=== PATIENT | female | born 1985 | race Caucasian/White ===

== ENCOUNTER → 2017-06-06 | Emergency (ER) | payer BC, MEDICARE ==
[~2017-06-06] VITALS: Ht 160 cm; Wt 90.7 kg
[~2017-06-06] MED LIST: ACET250T3 PO; ACET500C PO; ACHD5005 PO; ADDR10T PO; AMPH20TA PO; AZIT-21 PO; Acetazolamide PO; Azithromycin PO; CARI250T7 PO; CARI350T27 PO; CEFD300C PO; CHOL5000 PO; CHOL500049 PO; COLLOIDAL SILVER PO; CYAN1LOZ SL; CYCL10TA9 PO; D50KC PO; DEXT10TA24 PO; DIAZ5TAB PO; DIPH25TA82 PO; DOMPERIDONE 10 MG PO; DOXY100C42 PO; EPIN0.3P3 IM; FLC1T PO; FLORASTOR PO; FLUC100T PO; FLUD0.1T7 PO; FOLI0.8T PO; FOLI1TAB24 PO; FRSM20T PO; FURO20TA4 PO; GABA-488 PO; GBPN300C PO; HYDR-2856 PO; HYDR-2890 PO; HYDR-3720 PO; HYDR-3816 PO; HYDR-707 PO; HYDR200T46 PO; HYDROcodone/APAP 7.5 MG/325 MG (LORTAB, LORCET PLUS) TABLET PO STA; HYDROmorphone (DILAUDID) 2 MG/ML VIAL IVP STA; INDM25C PO; KETOROLAC 30 MG/ML VIAL IVP STA; LORA1TAB PO; MAGN400C PO; METR500T PO; MODA200T48 PO; MORP100S3 PO; MORP20SO15 PO; Morphine PO; NAPR220C PO; NYSTATIN PO; OLIVE LEAF PO; OMEP20CA6 PO; OMEP40CA36 PO; ONDANSETRON 4 MG/2 ML (SDV) Z0FRAN IVP ONE; OXYC-12 PO; OXYC10TA63 PO; OXYC20TA63 PO; PRM25T PO; PROMETHAZINE INJ 25 MG/ML (PHENERGAN) AMP IVP STA; PROMETHAZINE INJ 25 MG/ML (PHENERGAN) AMP ONE; PROP20TA5 PO; QUET300T PO; QUET300T18 PO; QUET300T44 PO; RIFA550T PO; SCOP1PAT TD; SRTR100T PO; SUMA100T2 PO; THYR60TA2 PO; TRAZ-144 PO; VALA500T17 PO; VENL150C PO; VENL150C53 PO; VNL75T PO; ZOLP10TA5 PO; ZOLP5TAB7 PO; [UNRECOGNIZED DRUG - OTHER] PO; [UNRECOGNIZED DRUG - OTHER] PO; [UNRECOGNIZED DRUG - OTHER] PO; [UNRECOGNIZED DRUG - OTHER] PO; [UNRECOGNIZED DRUG - OTHER] PO; [UNRECOGNIZED DRUG - OTHER] PO; [UNRECOGNIZED DRUG - OTHER] PO; [UNRECOGNIZED DRUG - OTHER] PO; [UNRECOGNIZED DRUG - OTHER] PO; [UNRECOGNIZED DRUG - OTHER] PO; [UNRECOGNIZED DRUG - OTHER] PO; [UNRECOGNIZED DRUG - OTHER] PO; [UNRECOGNIZED DRUG - OTHER] PO; [UNRECOGNIZED DRUG - OTHER] PO; [UNRECOGNIZED DRUG - OTHER] PO; [UNRECOGNIZED DRUG - OTHER] PO; [UNRECOGNIZED DRUG - OTHER] PO; [UNRECOGNIZED DRUG - OTHER] PO; [UNRECOGNIZED DRUG - OTHER] PO; [UNRECOGNIZED DRUG - REMARK] PO; campral PO
--- OUTSIDE RECORDS SUMMARY | 2017-06-06 08:00 | XMS REPORT ---
Author Author [facility] Medical Staff Organization [facility] Address [address] [place], [place] [id number] Phone [phone] Summary purpose TRANSITION OF CARE AUTO GENERATION Chief Complaint and Reason for Visit No authorized Reason for Visit (Admitting Diagnosis) is available for this visit. Problem list No authorized problems tracked for continuity of care are available for this visit. Encounters No authorized problems tracked for encounter diagnoses are available for this visit. Medications No medications recorded for this patient visit Allergies, adverse reactions, alerts Allergen Category Ingredient Status Reaction Severity Onset No known drug allergies No known drug allergies No known drug allergies Confirmed or Verified Immunizations No immunizations recorded for this patient visit Relevant diagnostic tests and/or laboratory data RESULTS Radiology Results [id number]:00 Breast Sono LT Complete PACs Image DATE OF EXAM: Oct 16 2015 [id number] SONO LT COMPLETE : RADIOLOGY REPORT DATE OF SERVICE: 10/16/15 HISTORY: Patient has bilateral palpable breast lumps suspected to be cysts, positive family history of sibling with breast cancer at a young age. COMPLETE ULTRASOUND OF THE LEFT BREAST 1100 HOURS All 4 quadrants of the left breast including the retroareolar region and the axilla were evaluated. No solid or cystic masses are present. There are no dilated ducts. There is no acoustic shadowing. IMPRESSION: Negative ultrasound of the left breast. BI-RADS I. MD JOY León/al10/16/2015 11:56:00 / 10/16/2015 12:02:43 cc:Camilla Zabala APRN This document has been electronically Signed by: On: DATE OF EXAM: Oct 16 2015 [id number] SONO LT COMPLETE : RADIOLOGY REPORT DATE OF SERVICE: 10/16/15 HISTORY: Patient has bilateral palpable breast lumps suspected to be cysts, positive family history of sibling with breast cancer at a young age. COMPLETE ULTRASOUND OF THE LEFT BREAST 1100 HOURS All 4 quadrants of the left breast including the retroareolar region and the axilla were evaluated. No solid or cystic masses are present. There are no dilated ducts. There is no acoustic shadowing. IMPRESSION: Negative ultrasound of the left breast. BI-RADS I. MD JOY León/al10/16/2015 11:56:00 / 10/16/2015 12:02:43 cc:Camilla Zabala APRN This document has been electronically Signed by: AMY TURK MD On: Oct 16:04P Result Amended on 2015-10-16 at 13:04:07. Previous status was AL. [id number]:03:00 Breast Sono RT Complete PACs Image DATE OF EXAM: Oct 16 2015 [id number] SONO RT COMPLETE : RADIOLOGY REPORT DATE OF SERVICE: 10/16/15 HISTORY: Patient has bilateral palpable breast lumps suspected to be cysts, positive family history of sibling with breast cancer at a young age. COMPLETE ULTRASOUND OF THE RIGHT BREAST 1100 HOURS The breast tissue is sonographically normal. No solid or cystic masses are present in the right breast. There are no dilated ducts. No axillary lesion is seen. The retroareolar region is normal. IMPRESSION: Negative ultrasound of the right breast. MD JOY León/al10/16/2015 11:56:00 10/16/2015 12:02:22 cc:Patsy Zabala APRN This document has been electronically Signed by: On: DATE OF EXAM: Oct 16 2015 [id number] SONO RT COMPLETE : RADIOLOGY REPORT DATE OF SERVICE: 10/16/15 HISTORY: Patient has bilateral palpable breast lumps suspected to be cysts, positive family history of sibling with breast cancer at a young age. COMPLETE ULTRASOUND OF THE RIGHT BREAST 1100 HOURS The breast tissue is sonographically normal. No solid or cystic masses are present in the right breast. There are no dilated ducts. No axillary lesion is seen. The retroareolar region is normal. IMPRESSION: Negative ultrasound of the right breast. MD JOY León/adarsh10/16/2015 11:56:00 / 10/16/2015 12:02:22 cc:Patsy Zabala APRN This document has been electronically Signed by: AMY TURK MD On: Oct 16:03P Result Amended on 2015-10-16 at 13:03:54. Previous status was AL. [id number]:02:00 Bilateral Diag Digital Mammo PACs Image DATE OF EXAM: Oct 16 2015 [facility] 0852-BILAT DIAG DIG MAMMO : RADIOLOGY REPORT DATE OF SERVICE: 10/16/15 HISTORY: Patient has bilateral palpable breast lumps suspected to be cysts, positive family history of sibling with breast cancer at a young age. BILATERAL DIGITAL DIAGNOSTIC MAMMOGRAM WITH iCAD SecondLook 7.2-H+ 1030 HOURS Breast tissue is heterogeneously dense which could obscure detection of breast masses. There is no distortion or asymmetry. No definite mass is evident. There are no microcalculi. No pathological skin or nipple changes are evident. IMPRESSION: Normal mammograms BI-RADS I. MD JOY León/al10/16/2015 11:56:00 / 10/16/2015 11:59:25 cc:Camilla Zabala APRN This document has been electronically Signed by: On: DATE OF EXAM: Oct 16 2015 [facility] 0852-BILAT DIAG DIG MAMMO : RADIOLOGY REPORT DATE OF SERVICE: 10/16/15 HISTORY: Patient has bilateral palpable breast lumps suspected to be cysts, positive family history of sibling with breast cancer at a young age. BILATERAL DIGITAL DIAGNOSTIC MAMMOGRAM WITH iCAD SecondLook 7.2-H+ 1030 HOURS Breast tissue is heterogeneously dense which could obscure detection of breast masses. There is no distortion or asymmetry. No definite mass is evident. There are no microcalculi. No pathological skin or nipple changes are evident. IMPRESSION: Normal mammograms BI-RADS I. MD JOY León/al10/16/2015 11:56:00 / 10/16/2015 11:59:25 cc:Camilla Zabala APRN This document has been electronically Signed by: AMY TURK MD On: Oct 16 20151:02P Result Amended on 2015-10-16 at 13:02:40. Previous status was AL. History of procedures Procedure Code Code Type Description Date Performed Performing Physician 96848 CPT-4 ULTRASOUND BREAST COMPLETE 10-16-2015 CAMILLA ZABALA 35412 CPT-4 ULTRASOUND BREAST COMPLETE 10-16-2015 CAMILLA ZABALA 82442 CPT-4 COMPUTER DX MAMMOGRAM ADD-ON 10-16-2015 CAMILLA ZABALA 34177 CPT-4 MAMMOGRAM, BILATERAL 10-16-2015 CAMILLA HUERTALIVAN Functional status No functional or cognitive status observations are available for this visit. Vital signs No authorized vital signs are available for this visit. Social history No Social History or smoking status observations were recorded for this visit. ( Unknown if ever smoked.) Treatment Plan No treatment plan text is available for this visit. Hospital discharge instructions No discharge instruction text is available for this visit.
--- OUTSIDE RECORDS SUMMARY | 2017-06-06 08:00 | XMS REPORT | Clinical Summary ---
Author Author [facility] Address Unknown Phone Unavailable Care Team Providers Care Fnps Name Role Phone PCP Unavailable Source Comments Some departments are not documenting in the electronic medical record. If you do not see the information that you expected, contact Release of Information in the Health Information Management department at [phone] for further assistance in locating additional records[facility] Allergies No Known Allergies Current Medications Prescription Sig. Disp. Refills Start End Date Status Date oxyCODONE SR (OXYCONTIN) Take 10 mg by mouth every Active 10 mg tablet 12 hours LORazepam (ATIVAN) 1 mg Take 1 mg by mouth every Active tablet 8-12 hours as needed. HYDROcodone-acetaminophen Take 1 Tab by mouth every Active (+) (VICODIN) 10-325 mg 8-12 hours as needed. tablet thyroid (ARMOUR THYROID) Take 60 mg by mouth Active 60 mg tablet daily. propranolol (INDERAL) 20 Take 20 mg by mouth twice Active mg tablet daily. gabapentin (NEURONTIN) Take 1,200 mg by mouth at Active 300 mg capsule bedtime daily. zolpidem (AMBIEN) 10 mg Take 10 mg by mouth at Active tablet bedtime as needed. venlafaxine XR (EFFEXOR Take 150 mg by mouth Active XR) 150 mg capsule twice daily. venlafaxine (EFFEXOR) 75 Take 75 mg by mouth twice Active mg tablet daily. QUEtiapine (SEROQUEL) 300 Take 300 mg by mouth Active mg tablet daily. dextroamphetamine-ampheta Take 20 mg by mouth twice Active mine (ADDERALL) 20 mg daily tablet indomethacin (INDOCIN) 50 Take 50 mg by mouth twice Active mg capsule daily. acetaZOLAMIDE (DIAMOX Take 500 mg by mouth Active SEQUELS) 500 mg capsule twice daily. ergocalciferol (VITAMIN Take 50,000 Units by Active D-2) 50,000 unit capsule mouth every Thursday. morphine (ROXANOL) 100 Take 15 mg by mouth every Active mg/5 mL (20 mg/mL) oral 12 hours as needed concentrate diphenhydrAMINE Take 1 Cap by mouth every 30 Cap 04/03/20 Active (BENADRYL) 25 mg capsule 6 hours as needed. 14 prochlorperazine Take 1 Tab by mouth every 30 Tab 1 04/03/20 Active (COMPAZINE) 10 mg tablet 6 hours as needed (nausea 14 and headaches ). magnesium oxide (MAG-OX) Take 1 Tab by mouth every 60 Tab 1 04/03/20 Active 400 mg tablet 6 hours as needed. Take 14 with benadryl, and compazine up to every 6 hours, and naproxen every 12 hours until headache resolves. naproxen (NAPROSYN) 500 Take 1 Tab by mouth twice 60 Tab 1 04/03/20 Active mg tablet daily as needed. Take 14 every 12 hours, along with magnesium, benadryl and compazine, until headache resolves. Active Problems Problem Noted Date Pseudotumor cerebri 03/31/2014 Family History Medical History Relation Name Comments Diabetes Father Sudhir Cancer Sister Michaelle Relation Name Status Comments Father Sudhir Alive Mother Maira Alive Sister Michaelle Alive Social History Tobacco Use Types Packs/Day Years Used Date Never Smoker Smokeless Tobacco: Never Used Alcohol Use Drinks/Week oz/Week Comments No Sex Assigned at Date Recorded Not on file Last Filed Vital Signs Vital Sign Reading Time Taken Blood Pressure 123/90 04/03/2014 11:26 AM CDT Pulse 110 04/03/2014 11:26 AM CDT Temperature 36.4 C (97.6 F) 04/03/2014 11:26 AM CDT Respiratory Rate - - Oxygen Saturation 100% 04/03/2014 11:26 AM CDT Inhaled Oxygen - - Concentration Weight 88.6 kg (195 lb 6.4 oz) 03/31/2014 8:23 PM CDT Height 165.1 cm (5' 5") 04/01/2014 2:02 PM CDT Body Mass Index 32.52 03/31/2014 8:23 PM CDT Plan of Treatment Health Maintenance Due Date Last Done Comments PHYSICAL (COMPREHENSIVE) 1993 EXAM PERTUSSIS VACCINE 1997 TETANUS VACCINE 2003 CERVICAL CANCER SCREENING 2016 INFLUENZA VACCINE 06/19/2017 Results Not on filefrom Last 3 Months
--- OUTSIDE RECORDS SUMMARY | 2017-06-06 08:01 | XMS REPORT | Clinical Summary ---
Author Author Admin, LISA Organization [facility] Address Unknown Phone Unavailable Allergies, Adverse Reactions, Alerts Allergy Name Reaction Description Start Date Severity Status Provider No Known Allergies Steffi Monge LPN Conditions or Problems Problem Name Problem Code Onset Date Status Entry Date Provider Comment Standard Description Annotate DEPRESSION 311 Resolved Brit Jacinto MD PhD Depressive disorder, not elsewhere classified MENINGITIS 322.9 Active Ignacio Colmenares DO Meningitis, unspecified SINUSITIS 473.9 Resolved Brit Jacinto MD PhD Unspecified sinusitis (chronic) COMMON MIGRAINE 346.10 Active Ramu LAUGHLIN Migraine without aura, without mention of intractable migraine, without mention of status migrainosus DEPRESSION, MAJOR, MILD 296.21 Active Ignacio Colmenares DO Major depressive disorder, single episode, mild degree Ingrown toenail 703.0 Active Brit Jacinto MD PhD Ingrowing nail Flank pain, right 789.09 Active Julito Taylor APRN Abdominal pain, other specified site; multiple sites UTI 599.0 Active Julito Taylor APRN Urinary tract infection, site not specified DEPRESSION ICD-311 Inactive Brit Jacinto MD PhD SINUSITIS ICD-473.9 Inactive Brit Jacinto MD PhD Medication List Medication Instructions Start Date Stop Date Generic Name [facility] Status Provider Patient Instruction FIORICET 325-50-40 MG TAB 1-2 tabs by mouth q6hr PRN headache [id number] 76838066362 Active Mechelle [place] Active LORAZEPAM 0.5 MG TAB 1 po q day prn anxiety LORAZEPAM 97631072135 Active Ignacio Colmenares DO Active SEROQUEL 25 MG TABS 1 po q evening for major depression QUETIAPINE FUMARATE 17657703123 Active Ignacio Colmenares Active LEXAPRO 10 MG TABS 1 tablet by mouth daily ESCITALOPRAM OXALATE 66544150573 Active Ignacio Colmenares DO Active CELEXA 20 MG TABS 1 po daily CITALOPRAM HYDROBROMIDE 12602491984 No Longer Active Ignacio Colmenares DO Active SUMATRIPTAN SUCCINATE 100 MG TABS 1 po at onset of headache may repeat in 2 hrs. SUMATRIPTAN SUCCINATE 43593329982 Active Ramu LAUGHLIN Active HYDROCODONE-ACETAMINOPHEN 5-325 MG TABS 1 every 4-6 hrs prn HYDROCODONE-ACETAMINOPHEN 75504331899 Active Ramu LAUGHLIN Active PREDNISONE 20 MG TAB 1 po bid 3 days, then 1 po q day 3 days 2012 PREDNISONE 45241444656 No Longer Active Ramu LAUGHLIN Active CEFTIN 500 MG TAB 1 po bid 10 day CEFUROXIME AXETIL 92522165745 No Longer Active Ramu LAUGHLIN Active AMITRIPTYLINE HCL 10 MG TABS 1 po at hs prn AMITRIPTYLINE HCL 67748028849 Active Ignacio Colmenares DO Active IBUPROFEN 200 MG TAB 3-4 tabs prn IBUPROFEN 92975057999 Active Ignacio Colmenares DO Active TYLENOL 500 MG TAB 2 tabs prn ACETAMINOPHEN 73347642786 Active Ignacio Colmenares DO Active MIRENA IUD LEVONORGESTREL IUD 83813181607 Active Ignacio Colmenares DO Active AMBIEN 10 MG TAB 1 tab by mouth at bedtime as needed for sleep ZOLPIDEM TARTRATE 41672617114 Active Ignacio Colmenares DO Active AZITHROMYCIN 250 MG TABS 2 pills day 1,1 pill day 2-5 AZITHROMYCIN 59027859742 No Longer Active Nicole Gimenez MD Active CEFTIN 500 MG TAB 1 po bid 10 day CEFTIN 500 MG TAB 484987 CEFUROXIME AXETIL Inactive PREDNISONE 20 MG TAB 1 po bid 3 days, then 1 po q day 3 days 2012 PREDNISONE 20 MG TAB 079753 PREDNISONE Inactive CELEXA 20 MG TABS 1 po daily CELEXA 20 MG TABS 040931 CITALOPRAM HYDROBROMIDE Inactive AZITHROMYCIN 250 MG TABS 2 pills day 1,1 pill day 2-5 AZITHROMYCIN 250 MG TABS 5086461 AZITHROMYCIN Inactive Vital Signs Date Name Value Unit Range Description blood pressure, diastolic - 8462-4 90 mm[Hg] BP león blood pressure, systolic - 8480-6 131 mm[Hg] BP sys pulse rate E&M - 8867-4 108 /min Heart rate temperature E&M 98.5 [degF] Body temperature weight E&M - 3141-9 182 [lb_av] Weight Measured blood pressure, diastolic - 8462-4 76 mm[Hg] BP león blood pressure, systolic - 8480-6 109 mm[Hg] BP sys pulse rate E&M - 8867-4 82 /min Heart rate temperature E&M 98.9 [degF] Body temperature weight E&M - 3141-9 172.6 [lb_av] Weight Measured Encounters Code Encounter Date Provider Facility CPT-26706 Level 3 Est. Patient 08:18:06 CDT Julito Taylor APRN [facility] CPT-00955 Level 3 Est. Patient 10:12:22 ROLLER VARNISHER Ignacio Colmenares [facility] CPT-71641 Level 3 Est. Patient 14:30:38 ROLLER VARNISHER Ignacio Colmenares [facility] CPT-51956 Level 3 Est. Patient 08:21:09 ROLLER VARNISHER Ramu LAUGHLIN [facility] CPT-16803 Level 3 Est. Patient 15:39:17 ROLLER VARNISHER Ramu LAUGHLIN [facility] CPT-34128 Level 3 Est. Patient 18:43:41 CDT Ignacio Colmenares DO [facility] Procedures Code Procedure Name Date Entry Date Standard Description CPT-63868 Abd single AP View 13:53:50 CDT CPT-86320 Nail Avulsion 17:26:33 CDT CPT-39056 Abx/Therapy Injection 10:36:59 ROLLER VARNISHER CPT-J1885 Toradol 60 mg (Ketorolac) 16:20:19 ROLLER VARNISHER CPT-03476 Abx/Therapy Injection 16:20:19 ROLLER VARNISHER CPT-35850 Venipuncture Draw Fee 14:45:53 ROLLER VARNISHER CPT-85354 Abx/Therapy Injection 08:21:09 ROLLER VARNISHER CPT-J2550 Phenergan 50 mg (Promethazine) 16:24:49 ROLLER VARNISHER CPT-J2175 Demerol 75 mg (Meperidine) 16:24:49 ROLLER VARNISHER CPT-J2550 Phenergan 50 mg (Promethazine) 18:33:49 ROLLER VARNISHER CPT-J2175 Demerol 50 mg (Meperidine) 18:33:49 ROLLER VARNISHER CPT-J2550 Phenergan 50 mg (Promethazine) 15:39:17 ROLLER VARNISHER CPT-J2175 Demerol 50 mg (Meperidine) 15:39:17 ROLLER VARNISHER CPT-OV Office Visit 16:53:10 CDT
--- OUTSIDE RECORDS SUMMARY | 2017-06-06 08:01 | XMS REPORT | Clinical Summary ---
Author Author Admin, LISA Organization [facility] Address Unknown Phone Unavailable Allergies, Adverse [...] APRN Urinary tract infection, site not specified SINUSITIS ICD-473.9 Inactive Brit Jacinto MD PhD DEPRESSION ICD-311 Inactive Brit Jacinto MD PhD Medication List Medication Instructions Start Date Stop Date Generic Name [facility] Status Provider Patient Instruction FIORICET 325-50-40 MG TAB 1-2 tabs by mouth q6hr PRN headache [id number] 64152322843 Active Mechelle [place] Active LORAZEPAM 0.5 MG TAB 1 po q day prn anxiety LORAZEPAM 85149921920 Active Ignacio Colmenares DO Active SEROQUEL 25 MG TABS 1 po q evening for major depression QUETIAPINE FUMARATE 62605950078 Active Ignacio Colmenares DO Active LEXAPRO 10 MG TABS 1 tablet by mouth daily ESCITALOPRAM OXALATE 22771819141 Active Ignacio Colmenares Active CELEXA 20 MG TABS 1 po daily CITALOPRAM HYDROBROMIDE 60317216748 No Longer Active Ignacio Colmenares DO Active SUMATRIPTAN SUCCINATE 100 MG TABS 1 po at onset of headache may repeat in 2 hrs. SUMATRIPTAN SUCCINATE 11005765236 Active Ramu LAUGHLIN Active HYDROCODONE-ACETAMINOPHEN 5-325 MG TABS 1 every 4-6 hrs prn HYDROCODONE-ACETAMINOPHEN 04071762248 Active Ramu LAUGHLIN Active PREDNISONE 20 MG TAB 1 po bid 3 days, then 1 po q day 3 days 2012 PREDNISONE 26977196468 No Longer Active Ramu LAUGHLIN Active CEFTIN 500 MG TAB 1 po bid 10 day CEFUROXIME AXETIL 00672233949 No Longer Active Ramu LAUGHLIN Active AMITRIPTYLINE HCL 10 MG TABS 1 po at hs prn AMITRIPTYLINE HCL 35476837109 Active Ignacio Colmenares DO Active IBUPROFEN 200 MG TAB 3-4 tabs prn IBUPROFEN 33306791739 Active Ignacio Colmenares DO Active TYLENOL 500 MG TAB 2 tabs prn ACETAMINOPHEN 59825945865 Active Ignacio Colmenares DO Active MIRENA IUD LEVONORGESTREL IUD 01592226476 Active Ignacio Colmenares DO Active AMBIEN 10 MG TAB 1 tab by mouth at bedtime as needed for sleep ZOLPIDEM TARTRATE 86073817509 Active Ignacio Colmenares DO Active AZITHROMYCIN 250 MG TABS 2 pills day 1,1 pill day 2-5 AZITHROMYCIN 02156938751 No Longer Active Nicole Gimenez MD Active CEFTIN 500 MG TAB 1 po bid 10 day CEFTIN 500 MG TAB 477160 CEFUROXIME AXETIL Inactive PREDNISONE 20 MG TAB 1 po bid 3 days, then 1 po q day 3 days 2012 PREDNISONE 20 MG TAB 256587 PREDNISONE Inactive CELEXA 20 MG TABS 1 po daily CELEXA 20 MG TABS 010604 CITALOPRAM HYDROBROMIDE Inactive AZITHROMYCIN 250 MG TABS 2 pills day 1,1 pill day 2-5 AZITHROMYCIN 250 MG TABS 2546538 AZITHROMYCIN Inactive Vital Signs Date Name Value [...] Measured Encounters Code Encounter Date Provider Facility CPT-79621 Level 3 Est. Patient 08:18:06 CDT Julito Taylor APRN [facility] CPT-79536 Level 3 Est. Patient 10:12:22 CUSTOMER SERVICE ASSISTANT Ignacio Colmenares [facility] CPT-12899 Level 3 Est. Patient 14:30:38 CUSTOMER SERVICE ASSISTANT Ignacio Colmenares [facility] CPT-62242 Level 3 Est. Patient 08:21:09 CUSTOMER SERVICE ASSISTANT Ramu LAUGHLIN [facility] CPT-38722 Level 3 Est. Patient 15:39:17 CUSTOMER SERVICE ASSISTANT Ramu LAUGHLIN [facility] CPT-20383 Level 3 Est. Patient 18:43:41 CDT Ignacio Colmenares DO [facility] Procedures Code Procedure Name Date Entry Date Standard Description CPT-18969 Nail Avulsion 17:26:33 CDT CPT-44004 Abx/Therapy Injection 10:36:59 CUSTOMER SERVICE ASSISTANT CPT-J1885 Toradol 60 mg (Ketorolac) 16:20:19 CUSTOMER SERVICE ASSISTANT CPT-76911 Abx/Therapy Injection 16:20:19 CUSTOMER SERVICE ASSISTANT CPT-16492 Venipuncture Draw Fee 14:45:53 CUSTOMER SERVICE ASSISTANT CPT-22307 Abx/Therapy Injection 08:21:09 CUSTOMER SERVICE ASSISTANT CPT-J2550 Phenergan 50 mg (Promethazine) 16:24:49 CUSTOMER SERVICE ASSISTANT CPT-J2175 Demerol 75 mg (Meperidine) 16:24:49 CUSTOMER SERVICE ASSISTANT CPT-J2550 Phenergan 50 mg (Promethazine) 18:33:49 CUSTOMER SERVICE ASSISTANT CPT-J2175 Demerol 50 mg (Meperidine) 18:33:49 CUSTOMER SERVICE ASSISTANT CPT-J2550 Phenergan 50 mg (Promethazine) 15:39:17 CUSTOMER SERVICE ASSISTANT CPT-J2175 Demerol 50 mg (Meperidine) 15:39:17 CUSTOMER SERVICE ASSISTANT CPT-OV Office Visit 16:53:10 CDT
--- OUTSIDE RECORDS SUMMARY | 2017-06-06 08:01 | XMS REPORT | Clinical Summary ---
Author Author Admin, LISA Organization [facility] Address Unknown Phone Unavailable Allergies, Adverse Reactions, Alerts Allergy Name Reaction Description Start Date Severity Status Provider No Known Allergies Corinne Esqueda LPN Conditions or Problems Problem Name Problem [...] Active Brit Jacinto MD PhD Ingrowing nail DEPRESSION ICD-311 Inactive Brit Jacinto MD PhD SINUSITIS ICD-473.9 Inactive Brit Jacinto MD PhD Medication List Medication Instructions Start Date Stop Date Generic Name [facility] Status Provider Patient Instruction FIORICET 325-50-40 MG TAB 1-2 tabs by mouth q6hr PRN headache [id number] 47880030594 Active Mechelle John Active LORAZEPAM 0.5 MG TAB 1 po q day prn anxiety LORAZEPAM 72956106440 Active Ignacio Colmenares DO Active SEROQUEL 25 MG TABS 1 po q evening for major depression QUETIAPINE FUMARATE 72265423480 Active Ignacio W Darrian DO Active LEXAPRO 10 MG TABS 1 tablet by mouth daily ESCITALOPRAM OXALATE 81082961819 Active Ignacio Colmenares DO Active CELEXA 20 MG TABS 1 po daily CITALOPRAM HYDROBROMIDE 92139888427 No Longer Active Ignacio Colmenares DO Active SUMATRIPTAN SUCCINATE 100 MG TABS 1 po at onset of headache may repeat in 2 hrs. SUMATRIPTAN SUCCINATE 85127853148 Active Ramu LAUGHLIN Active HYDROCODONE-ACETAMINOPHEN 5-325 MG TABS 1 every 4-6 hrs prn HYDROCODONE-ACETAMINOPHEN 23046265376 Active Ramu LAUGHLIN Active PREDNISONE 20 MG TAB 1 po bid 3 days, then 1 po q day 3 days 2012 PREDNISONE 83317079364 No Longer Active Ramu LAUGHLIN Active CEFTIN 500 MG TAB 1 po bid 10 day CEFUROXIME AXETIL 15161326418 No Longer Active Ramu LAUGHLIN Active AMITRIPTYLINE HCL 10 MG TABS 1 po at hs prn AMITRIPTYLINE HCL 47118477669 Active Ignacio Colmenares DO Active IBUPROFEN 200 MG TAB 3-4 tabs prn IBUPROFEN 79670982621 Active Ignacio Hitesh Colmenares DO Active TYLENOL 500 MG TAB 2 tabs prn ACETAMINOPHEN 23656659280 Active Ignacio Colmenares DO Active MIRENA IUD LEVONORGESTREL IUD 56450696873 Active Ignacio Colmenares DO Active AMBIEN 10 MG TAB 1 tab by mouth at bedtime as needed for sleep ZOLPIDEM TARTRATE 64132824793 Active Ignacio Proctor Darrian SUBRAMANIAN Active AZITHROMYCIN 250 MG TABS 2 pills day 1,1 pill day 2-5 AZITHROMYCIN 77757112804 No Longer Active Nicole Gimenez MD Active CEFTIN 500 MG TAB 1 po bid 10 day CEFTIN 500 MG TAB 976597 CEFUROXIME AXETIL Inactive PREDNISONE 20 MG TAB 1 po bid 3 days, then 1 po q day 3 days 2012 PREDNISONE 20 MG TAB 849849 PREDNISONE Inactive CELEXA 20 MG TABS 1 po daily CELEXA 20 MG TABS 063727 CITALOPRAM HYDROBROMIDE Inactive AZITHROMYCIN 250 MG TABS 2 pills day 1,1 pill day 2-5 AZITHROMYCIN 250 MG TABS 2674901 AZITHROMYCIN Inactive Vital Signs Date Name Value Unit Range Description blood pressure, diastolic - 8462-4 76 mm[Hg] BP león blood pressure, systolic - 8480-6 109 mm[Hg] BP sys pulse rate E&M - 8867-4 82 /min Heart rate temperature E&M 98.9 [degF] Body temperature weight E&M - 3141-9 172.6 [lb_av] Weight Measured Encounters Code Encounter Date Provider Facility CPT-93925 Level 3 Est. Patient 10:12:22 RAIL SIGNAL MECHANIC Ignacio Colmenares [facility] CPT-39924 Level 3 Est. Patient 14:30:38 RAIL SIGNAL MECHANIC Ignacio Proctor [facility] CPT-95177 Level 3 Est. Patient 08:21:09 RAIL SIGNAL MECHANIC Ramu Miller [facility] CPT-39038 Level 3 Est. Patient 15:39:17 RAIL SIGNAL MECHANIC Ramu Miller [facility] CPT-08201 Level 3 Est. Patient 18:43:41 CDT Ignacio Proctor [facility] Procedures Code Procedure Name Date Entry Date Standard Description CPT-88639 Nail Avulsion 17:26:33 CDT CPT-39833 Abx/Therapy Injection 10:36:59 RAIL SIGNAL MECHANIC CPT-J1885 Toradol 60 mg (Ketorolac) 16:20:19 RAIL SIGNAL MECHANIC CPT-81433 Abx/Therapy Injection 16:20:19 RAIL SIGNAL MECHANIC CPT-39854 Venipuncture Draw Fee 14:45:53 RAIL SIGNAL MECHANIC CPT-20215 Abx/Therapy Injection 08:21:09 RAIL SIGNAL MECHANIC CPT-J2550 Phenergan 50 mg (Promethazine) 16:24:49 RAIL SIGNAL MECHANIC CPT-J2175 Demerol 75 mg (Meperidine) 16:24:49 RAIL SIGNAL MECHANIC CPT-J2550 Phenergan 50 mg (Promethazine) 18:33:49 RAIL SIGNAL MECHANIC CPT-J2175 Demerol 50 mg (Meperidine) 18:33:49 RAIL SIGNAL MECHANIC CPT-J2550 Phenergan 50 mg (Promethazine) 15:39:17 RAIL SIGNAL MECHANIC CPT-J2175 Demerol 50 mg (Meperidine) 15:39:17 RAIL SIGNAL MECHANIC CPT-OV Office Visit 16:53:10 CDT
--- OUTSIDE RECORDS SUMMARY | 2017-06-06 08:01 | XMS REPORT | Clinical Summary ---
Author Author Admin, LISA Organization [facility] Address Unknown Phone Unavailable Allergies, Adverse Reactions, [...] Instructions Start Date Stop Date Generic Name [facility] Status Provider Patient Instruction FIORICET 325-50-40 MG TAB 1-2 tabs by mouth q6hr PRN headache [id number] 08480178130 Active Mechelle [place] Active LORAZEPAM 0.5 MG TAB 1 po q day prn anxiety LORAZEPAM 22213520939 Active Ignacio Colmenares DO Active SEROQUEL 25 MG TABS 1 po q evening for major depression QUETIAPINE FUMARATE 57049702019 Active Ignacio Colmenares Active LEXAPRO 10 MG TABS 1 tablet by mouth daily ESCITALOPRAM OXALATE 69492172393 Active Ignacio Colmenares DO Active CELEXA 20 MG TABS 1 po daily CITALOPRAM HYDROBROMIDE 00530549608 No Longer Active Ignacio Colmenares DO Active SUMATRIPTAN SUCCINATE 100 MG TABS 1 po at onset of headache may repeat in 2 hrs. SUMATRIPTAN SUCCINATE 28897104152 Active Ramu LAUGHLIN Active HYDROCODONE-ACETAMINOPHEN 5-325 MG TABS 1 every 4-6 hrs prn HYDROCODONE-ACETAMINOPHEN 85936248650 Active Ramu LAUGHLIN Active PREDNISONE 20 MG TAB 1 po bid 3 days, then 1 po q day 3 days 2012 PREDNISONE 14099049298 No Longer Active Ramu LAUGHLIN Active CEFTIN 500 MG TAB 1 po bid 10 day CEFUROXIME AXETIL 47767089844 No Longer Active Ramu LAUGHLIN Active AMITRIPTYLINE HCL 10 MG TABS 1 po at hs prn AMITRIPTYLINE HCL 71522185603 Active Ignacio Colmenares DO Active IBUPROFEN 200 MG TAB 3-4 tabs prn IBUPROFEN 96597941538 Active Ignacio Colmenares DO Active TYLENOL 500 MG TAB 2 tabs prn ACETAMINOPHEN 41153524125 Active Ignacio Colmenares DO Active MIRENA IUD LEVONORGESTREL IUD 03573424708 Active Ignacio Colmenares DO Active AMBIEN 10 MG TAB 1 tab by mouth at bedtime as needed for sleep ZOLPIDEM TARTRATE 55987667866 Active Ignacio Colmenares DO Active AZITHROMYCIN 250 MG TABS 2 pills day 1,1 pill day 2-5 AZITHROMYCIN 55282410697 No Longer Active Nicole Gimenez MD Active CEFTIN 500 MG TAB 1 po bid 10 day CEFTIN 500 MG TAB 675316 CEFUROXIME AXETIL Inactive PREDNISONE 20 MG TAB 1 po bid 3 days, then 1 po q day 3 days 2012 PREDNISONE 20 MG TAB 526411 PREDNISONE Inactive CELEXA 20 MG TABS 1 po daily CELEXA 20 MG TABS 561400 CITALOPRAM HYDROBROMIDE Inactive AZITHROMYCIN 250 MG TABS 2 pills day 1,1 pill day 2-5 AZITHROMYCIN 250 MG TABS 2228528 AZITHROMYCIN Inactive Vital Signs Date Name Value [...] Measured Encounters Code Encounter Date Provider Facility CPT-04626 Level 3 Est. Patient 12:29:51 CDT Joe Thomas MD [facility] CPT-36429 Level 3 Est. Patient 08:18:06 CDT Julito Taylor APRN [facility] CPT-28750 Level 3 Est. Patient 10:12:22 LAYBOY TENDER Ignacio Colmenares [facility] CPT-04788 Level 3 Est. Patient 14:30:38 LAYBOY TENDER Ignacio Colmenares [facility] CPT-48622 Level 3 Est. Patient 08:21:09 LAYBOY TENDER Ramu LAUGHLIN [facility] CPT-63970 Level 3 Est. Patient 15:39:17 LAYBOY TENDER Ramu LAUGHLIN [facility] CPT-25947 Level 3 Est. Patient 18:43:41 CDT Ignacio Colmenares [facility] Procedures Code Procedure Name Date Entry Date Standard Description CPT-97047 Abd single AP View 13:53:50 CDT CPT-96235 Nail Avulsion 17:26:33 CDT CPT-68366 Abx/Therapy Injection 10:36:59 LAYBOY TENDER CPT-J1885 Toradol 60 mg (Ketorolac) 16:20:19 LAYBOY TENDER CPT-01177 Abx/Therapy Injection 16:20:19 LAYBOY TENDER CPT-25060 Venipuncture Draw Fee 14:45:53 LAYBOY TENDER CPT-58170 Abx/Therapy Injection 08:21:09 LAYBOY TENDER CPT-J2550 Phenergan 50 mg (Promethazine) 16:24:49 LAYBOY TENDER CPT-J2175 Demerol 75 mg (Meperidine) 16:24:49 LAYBOY TENDER CPT-J2550 Phenergan 50 mg (Promethazine) 18:33:49 LAYBOY TENDER CPT-J2175 Demerol 50 mg (Meperidine) 18:33:49 LAYBOY TENDER CPT-J2550 Phenergan 50 mg (Promethazine) 15:39:17 LAYBOY TENDER CPT-J2175 Demerol 50 mg (Meperidine) 15:39:17 LAYBOY TENDER CPT-OV Office Visit 16:53:10 CDT
--- OUTSIDE RECORDS SUMMARY | 2017-06-06 08:02 | XMS REPORT | Clinical Summary ---
Author Author Admin, LISA Organization [facility] Address Unknown Phone Unavailable Allergies, Adverse [...] Colmenares DO Meningitis, unspecified SINUSITIS 473.9 Resolved Birt Jacinto MD PhD Unspecified sinusitis (chronic) COMMON [...] Instructions Start Date Stop Date Generic Name [facility] Status Provider Patient Instruction FIORICET 325-50-40 MG TAB 1-2 tabs by mouth q6hr PRN headache [id number] 48546274745 Active Mechelle [place] Active LORAZEPAM 0.5 MG TAB 1 po q day prn anxiety LORAZEPAM 77235172318 Active Ignacio Colmenares DO Active SEROQUEL 25 MG TABS 1 po q evening for major depression QUETIAPINE FUMARATE 68535760837 Active Ignacio Colmenares DO Active LEXAPRO 10 MG TABS 1 tablet by mouth daily ESCITALOPRAM OXALATE 50666927371 Active Ignacio Colmenares Active CELEXA 20 MG TABS 1 po daily CITALOPRAM HYDROBROMIDE 66450583154 No Longer Active Ignacio Colmenares DO Active SUMATRIPTAN SUCCINATE 100 MG TABS 1 po at onset of headache may repeat in 2 hrs. SUMATRIPTAN SUCCINATE 08443904498 Active Ramu LAUGHLIN Active HYDROCODONE-ACETAMINOPHEN 5-325 MG TABS 1 every 4-6 hrs prn HYDROCODONE-ACETAMINOPHEN 53241412673 Active Ramu LAUGHLIN Active PREDNISONE 20 MG TAB 1 po bid 3 days, then 1 po q day 3 days 2012 PREDNISONE 17153022538 No Longer Active Ramu LAUGHLIN Active CEFTIN 500 MG TAB 1 po bid 10 day CEFUROXIME AXETIL 51781148243 No Longer Active Ramu LAUGHLIN Active AMITRIPTYLINE HCL 10 MG TABS 1 po at hs prn AMITRIPTYLINE HCL 68900976177 Active Ignacio Colmenares DO Active IBUPROFEN 200 MG TAB 3-4 tabs prn IBUPROFEN 53757068295 Active Ignacio Colmenares DO Active TYLENOL 500 MG TAB 2 tabs prn ACETAMINOPHEN 91810457638 Active Ignacio Colmenares DO Active MIRENA IUD LEVONORGESTREL IUD 54953847860 Active Ignacio Colmenares DO Active AMBIEN 10 MG TAB 1 tab by mouth at bedtime as needed for sleep ZOLPIDEM TARTRATE 51511138185 Active Ignacio Colmenares DO Active AZITHROMYCIN 250 MG TABS 2 pills day 1,1 pill day 2-5 AZITHROMYCIN 00880801568 No Longer Active Nicole Gimenez MD Active CEFTIN 500 MG TAB 1 po bid 10 day CEFTIN 500 MG TAB 059071 CEFUROXIME AXETIL Inactive PREDNISONE 20 MG TAB 1 po bid 3 days, then 1 po q day 3 days 2012 PREDNISONE 20 MG TAB 298198 PREDNISONE Inactive CELEXA 20 MG TABS 1 po daily CELEXA 20 MG TABS 587948 CITALOPRAM HYDROBROMIDE Inactive AZITHROMYCIN 250 MG TABS 2 pills day 1,1 pill day 2-5 AZITHROMYCIN 250 MG TABS 0229670 AZITHROMYCIN Inactive Vital Signs Date Name Value [...] Measured Encounters Code Encounter Date Provider Facility CPT-93086 Level 3 Est. Patient 08:18:06 CDT Julito Taylor APRN [facility] CPT-24166 Level 3 Est. Patient 10:12:22 FRAME ASSEMBLER Ignacio Colmenares [facility] CPT-44412 Level 3 Est. Patient 14:30:38 FRAME ASSEMBLER Ignacio Colmenares [facility] CPT-81132 Level 3 Est. Patient 08:21:09 FRAME ASSEMBLER Ramu LAUGHLIN [facility] CPT-80647 Level 3 Est. Patient 15:39:17 FRAME ASSEMBLER Ramu LAUGHLIN [facility] CPT-79115 Level 3 Est. Patient 18:43:41 CDT Ignacio Colmenares DO [facility] Procedures Code Procedure Name Date Entry Date Standard Description CPT-46256 Abd single AP View 13:53:50 CDT CPT-50392 Nail Avulsion 17:26:33 CDT CPT-21098 Abx/Therapy Injection 10:36:59 FRAME ASSEMBLER CPT-J1885 Toradol 60 mg (Ketorolac) 16:20:19 FRAME ASSEMBLER CPT-22800 Abx/Therapy Injection 16:20:19 FRAME ASSEMBLER CPT-53360 Venipuncture Draw Fee 14:45:53 FRAME ASSEMBLER CPT-26496 Abx/Therapy Injection 08:21:09 FRAME ASSEMBLER CPT-J2550 Phenergan 50 mg (Promethazine) 16:24:49 FRAME ASSEMBLER CPT-J2175 Demerol 75 mg (Meperidine) 16:24:49 FRAME ASSEMBLER CPT-J2550 Phenergan 50 mg (Promethazine) 18:33:49 FRAME ASSEMBLER CPT-J2175 Demerol 50 mg (Meperidine) 18:33:49 FRAME ASSEMBLER CPT-J2550 Phenergan 50 mg (Promethazine) 15:39:17 FRAME ASSEMBLER CPT-J2175 Demerol 50 mg (Meperidine) 15:39:17 FRAME ASSEMBLER CPT-OV Office Visit 16:53:10 CDT
--- OUTSIDE RECORDS SUMMARY | 2017-06-06 08:02 | XMS REPORT ---
Author Author [facility] Medical Staff Organization [facility] Address [address] [place], [place] [address] Phone [phone] Summary purpose TRANSITION OF CARE AUTO GENERATION [...] tests and/or laboratory data RESULTS Radiology Results [id number]:04:00 Breast Sono LT Complete PACs Image DATE OF EXAM: Oct 16 2015 [id number] SONO LT COMPLETE : RADIOLOGY REPORT DATE [...] the left breast. BI-RADS I. MD JOY León/ia10/16/2015 11:56:00 / 10/16/2015 12:02:43 cc:Camilla Zabala APRN This document has been electronically Signed by: On: DATE OF EXAM: Oct 16 2015 [id number] SONO LT COMPLETE : RADIOLOGY REPORT DATE [...] the left breast. BI-RADS I. MD JOY León/ia10/16/2015 11:56:00 / 10/16/2015 12:02:43 cc:Camilla Zabala APRN This document has been electronically Signed by: AMY TURK MD On: Oct 16:04P Result Amended on 2015-10-16 at 13:04:07. Previous status was [place]. [id number]:03:00 Breast Sono RT Complete PACs Image DATE OF EXAM: Oct 16 2015 [id number] SONO RT COMPLETE : RADIOLOGY REPORT DATE [...] ultrasound of the right breast. MD JOY León/ia10/16/2015 11:56:00 10/16/2015 12:02:22 cc:Patsy Zabala APRN This document has been electronically Signed by: On: DATE OF EXAM: Oct 16 2015 [id number] SONO RT COMPLETE : RADIOLOGY REPORT DATE [...] on 2015-10-16 at 13:03:54. Previous status was [place]. [id number]:02:00 Bilateral Diag Digital Mammo PACs Image DATE OF EXAM: Oct 16 2015 [facility] 0852-BILAT DIAG DIG MAMMO : RADIOLOGY REPORT [...] IMPRESSION: Normal mammograms BI-RADS I. MD JOY León/ia10/16/2015 11:56:00 / 10/16/2015 11:59:25 cc:Camilla Zabala APRN This document has been electronically Signed by: On: DATE OF EXAM: Oct 16 2015 [facility] 0852-BILAT DIAG DIG MAMMO : RADIOLOGY REPORT [...] IMPRESSION: Normal mammograms BI-RADS I. MD JOY León/ia10/16/2015 11:56:00 / 10/16/2015 11:59:25 cc:Camilla Zabala APRN This document has been electronically Signed by: AMY TURK MD On: Oct 16 20151:02P Result Amended on 2015-10-16 at 13:02:40. Previous status was [place]. History of procedures No procedures recorded for this patient visit. Functional status No functional or cognitive status [...]
--- OUTSIDE RECORDS SUMMARY | 2017-06-06 08:02 | XMS REPORT | Clinical Summary ---
Author Author Admin, LISA Organization [facility] Address Unknown Phone Unavailable Allergies, Adverse Reactions, [...] Instructions Start Date Stop Date Generic Name [facility] Status Provider Patient Instruction FIORICET 325-50-40 MG TAB 1-2 tabs by mouth q6hr PRN headache [id number] 85959788894 Active Mechelle [place] Active LORAZEPAM 0.5 MG TAB 1 po q day prn anxiety LORAZEPAM 21528323771 Active Ignacio Colmenares DO Active SEROQUEL 25 MG TABS 1 po q evening for major depression QUETIAPINE FUMARATE 51086250454 Active Ignacio W Darrian DO Active LEXAPRO 10 MG TABS 1 tablet by mouth daily ESCITALOPRAM OXALATE 38648356293 Active Ignacio Colmenares DO Active CELEXA 20 MG TABS 1 po daily CITALOPRAM HYDROBROMIDE 46589931194 No Longer Active Ignacio Colmenares DO Active SUMATRIPTAN SUCCINATE 100 MG TABS 1 po at onset of headache may repeat in 2 hrs. SUMATRIPTAN SUCCINATE 23271120344 Active Ramu LAUGHLIN Active HYDROCODONE-ACETAMINOPHEN 5-325 MG TABS 1 every 4-6 hrs prn HYDROCODONE-ACETAMINOPHEN 67507942170 Active Ramu LAUGHLIN Active PREDNISONE 20 MG TAB 1 po bid 3 days, then 1 po q day 3 days 2012 PREDNISONE 13626272340 No Longer Active Ramu LAUGHLIN Active CEFTIN 500 MG TAB 1 po bid 10 day CEFUROXIME AXETIL 81104009635 No Longer Active Ramu LAUGHLIN Active AMITRIPTYLINE HCL 10 MG TABS 1 po at hs prn AMITRIPTYLINE HCL 80660204212 Active Ignacio Colmenares DO Active IBUPROFEN 200 MG TAB 3-4 tabs prn IBUPROFEN 82441004004 Active Ignacio Hitesh Colmenares DO Active TYLENOL 500 MG TAB 2 tabs prn ACETAMINOPHEN 11289482570 Active Ignacio Colmenares DO Active MIRENA IUD LEVONORGESTREL IUD 72910583124 Active Ignacio Colmenares DO Active AMBIEN 10 MG TAB 1 tab by mouth at bedtime as needed for sleep ZOLPIDEM TARTRATE 34728431845 Active Ignacio Hitesh Colmenares DO Active AZITHROMYCIN 250 MG TABS 2 pills day 1,1 pill day 2-5 AZITHROMYCIN 43261675959 No Longer Active Nicole Gimenez MD Active CEFTIN 500 MG TAB 1 po bid 10 day CEFTIN 500 MG TAB 196183 CEFUROXIME AXETIL Inactive PREDNISONE 20 MG TAB 1 po bid 3 days, then 1 po q day 3 days 2012 PREDNISONE 20 MG TAB 535010 PREDNISONE Inactive CELEXA 20 MG TABS 1 po daily CELEXA 20 MG TABS 799511 CITALOPRAM HYDROBROMIDE Inactive AZITHROMYCIN 250 MG TABS 2 pills day 1,1 pill day 2-5 AZITHROMYCIN 250 MG TABS 4416125 AZITHROMYCIN Inactive Vital Signs Date Name Value Unit Range Description blood pressure, diastolic - 8462-4 76 mm[Hg] BP león blood pressure, systolic - 8480-6 109 mm[Hg] BP sys pulse rate E&M - 8867-4 82 /min Heart rate temperature E&M 98.9 [degF] Body temperature weight E&M - 3141-9 172.6 [lb_av] Weight Measured Encounters Code Encounter Date Provider Facility CPT-26058 Level 3 Est. Patient 10:12:22 MASTER POLICE DETECTIVE Ignacio Colmenares [facility] CPT-35883 Level 3 Est. Patient 14:30:38 MASTER POLICE DETECTIVE Ignacio Proctor [facility] CPT-37623 Level 3 Est. Patient 08:21:09 MASTER POLICE DETECTIVE Ramu Miller [facility] CPT-55220 Level 3 Est. Patient 15:39:17 MASTER POLICE DETECTIVE Ramu Miller [facility] CPT-49458 Level 3 Est. Patient 18:43:41 CDT Ignacio Proctor [facility] Procedures Code Procedure Name Date Entry Date Standard Description CPT-43941 Nail Avulsion 17:26:33 CDT CPT-55680 Abx/Therapy Injection 10:36:59 MASTER POLICE DETECTIVE CPT-J1885 Toradol 60 mg (Ketorolac) 16:20:19 MASTER POLICE DETECTIVE CPT-74705 Abx/Therapy Injection 16:20:19 MASTER POLICE DETECTIVE CPT-46094 Venipuncture Draw Fee 14:45:53 MASTER POLICE DETECTIVE CPT-11470 Abx/Therapy Injection 08:21:09 MASTER POLICE DETECTIVE CPT-J2550 Phenergan 50 mg (Promethazine) 16:24:49 MASTER POLICE DETECTIVE CPT-J2175 Demerol 75 mg (Meperidine) 16:24:49 MASTER POLICE DETECTIVE CPT-J2550 Phenergan 50 mg (Promethazine) 18:33:49 MASTER POLICE DETECTIVE CPT-J2175 Demerol 50 mg (Meperidine) 18:33:49 MASTER POLICE DETECTIVE CPT-J2550 Phenergan 50 mg (Promethazine) 15:39:17 MASTER POLICE DETECTIVE CPT-J2175 Demerol 50 mg (Meperidine) 15:39:17 MASTER POLICE DETECTIVE CPT-OV Office Visit 16:53:10 CDT
--- OUTSIDE RECORDS SUMMARY | 2017-06-06 08:03 | XMS REPORT ---
Author Author [facility] [employer] [facility] Medical Staff Organization [facility] Address [address] [address] Phone [phone] Summary purpose TRANSITION OF CARE AUTO GENERATION [...] Relevant diagnostic tests and/or laboratory data RESULTS Routine Urinalysis [id number]:30:00 Result Normal Range Units Color [place] Clarity Turbid Specific [place] 1.018 pH 5.0 4.5-8.0 Glucose NEGATIVE Bilirubin NEGATIVE Ketones NEGATIVE Protein 1+ Urobilinogen 0.2 0-0.2 E.U./dL Nitrites NEGATIVE Blood 3+ Leukocytes NEGATIVE WBCs 10-20 RBCs Too numerous to count Squamous Epithelial 4+ Bacteria 2+ Calcium Oxalate Crystals Few Yeast 1+ Chemistry [id number]:23:00 Result Normal Range Units Sodium 141 134-145 mEq/l Potassium 3.7 3.5-5.1 mEq/l Chloride H 110 98-107 mEq/l CO2 L 21.0 22-28 mEq/l Glucose 88 70-105 mg/dl BUN 12 7-18 mg/dl Creatinine 0.91 0.6-1.0 mg/dl Calcium 8.6 8.4-10.2 mg/dl TP - Total Protein 7.1 6.0-8.3 g/dl Albumin 3.9 3.5-5 g/dl Bilirubin - Total 0.3 0.1-1.0 mg/dl AST 14 10-42 IU/L ALT 21 12-65 IU/L ALP H 113 25-72 IU/L Osmolality 280.4 280-300 mOsm/L Albumin/Globulin Ratio 1.2 0-8 Anion GAP 10.0 8-16 BUN/Creatinine Ratio 13.2 10-20 Estimated GFR 73 >=60 mL/min/1.7 Hematology :23:00 Result Normal Range Units WBC H 12.6 4.8-10.8 103/uL RBC 4.2 4.2-5.4 106/uL HGB 12.4 12.0-16.0 g/dl HCT 38.5 36.9-47.0 % MCV 92.1 81-99 FL MCH 29.7 27-31 pg MCHC L 32.2 33-37 g/dl RDW 14.1 11.5-15.5 % PLT 279 130-400 103/uL MPV 9.9 7.3-10.4 FL Neutro % H 77.6 40-70 % Lymph % L 14.2 20-40 % [place] % 6.3 0-10.0 % Eos % 1.3 0-7.0 % Baso % 0.3 0-2 % Neutro # H 9.8 1.5-7.5 103/uL Lymph # 1.8 0.9-4.0 103/uL [place] # 0.8 0-0.8 103/uL Eos # 0.2 0-0.6 103/uL Baso # 0.0 0-0.1 103/uL Body Fluid :30:00 Result Normal Range Units pH 5.0 4.5-8.0 Radiology Results :23:00 Result Normal Range Units MPV 9.9 7.3-10.4 FL History of procedures No procedures recorded for this patient visit. Functional status Functional Status Finding Observation Time Abdomen Appearance flat :10 Abdomen soft :10 Urination normal :10 Quality sym/unlabored :10 Cough absent :10 Secretions no :10 Airway natural :10 Oxygen no :30 Temp >100.4 no :10 Temp <96.8 no :10 Chills with rigors no :10 HR > 90bpm yes :10 Respirations > 20 no :10 Systolic <90 no :10 headache stiff neck no :10 IV Site Location L AC :45 IV Type peripheral :45 IV Site Information discontinued :45 IV Site Start Attmpt 1 times :37 IV Site Ricco 20 :37 IV Site Appearance WNL :37 IV Site Color clear :37 IV Site Patent yes :37 Dressing Changed yes :37 Dressing Type occlusive :37 Nursing Note Dilaudid et phenergan SIVP given as odered, PO keflex given. IV site dcd. Rx for oxycodone, phenergan, et keflex given to to go get filled. Pts mom assisting c dressing. :45 Vital signs Type Value Date Respiration Rate 18breaths per minute :30 Pulse 102beats per minute :30 Oxygen Saturation 99% :30 BP Systolic 116mmHg :30 BP Diastolic 81mmHg :30 Temperature 98.3F :30 Social history No Social History or smoking status observations were recorded for this visit. ( Unknown if ever smoked.) Treatment Plan No treatment plan text is available for this visit. Hospital discharge instructions Dismissal Condition fair Disposition on DC home DC Inst/Educ Give yes Med/Side Effects Rev yes Comment: rx oxycodone, phenergan, keflex Flu Vac 2011
--- OUTSIDE RECORDS SUMMARY | 2017-06-06 08:03 | XMS REPORT | Clinical Summary ---
Author Author Admin, LISA Organization [facility] Address Unknown Phone Unavailable [...] Start Date Stop Date Generic Name [facility] Status Provider Patient Instruction FIORICET 325-50-40 MG TAB 1-2 tabs by mouth q6hr PRN headache [id number] Active Mechelle [employer] Active LORAZEPAM 0.5 MG TAB 1 po q day prn anxiety LORAZEPAM 52085810725 Active Ignacio Colmenares DO Active SEROQUEL 25 MG TABS 1 po q evening for major depression QUETIAPINE FUMARATE 51921127985 Active Ignacio Colmenares DO Active LEXAPRO 10 MG TABS 1 tablet by mouth daily ESCITALOPRAM OXALATE 65330126416 Active Ignacio Colmenares Active CELEXA 20 MG TABS 1 po daily CITALOPRAM HYDROBROMIDE 85512611625 No Longer Active Ignacio Colmenares DO Active SUMATRIPTAN SUCCINATE 100 MG TABS 1 po at onset of headache may repeat in 2 hrs. SUMATRIPTAN SUCCINATE 39134051442 Active Ramu LAUGHLIN Active HYDROCODONE-ACETAMINOPHEN 5-325 MG TABS 1 every 4-6 hrs prn HYDROCODONE-ACETAMINOPHEN 85856665150 Active Ramu LAUGHLIN Active PREDNISONE 20 MG TAB 1 po bid 3 days, then 1 po q day 3 days 2012 PREDNISONE 76018080884 No Longer Active Ramu LAUGHLIN Active CEFTIN 500 MG TAB 1 po bid 10 day CEFUROXIME AXETIL 79706497593 No Longer Active Ramu LAUGHLIN Active AMITRIPTYLINE HCL 10 MG TABS 1 po at hs prn AMITRIPTYLINE HCL 44235630183 Active Ignacio Colmenares DO Active IBUPROFEN 200 MG TAB 3-4 tabs prn IBUPROFEN 73261965949 Active Ignacoi Colmenares DO Active TYLENOL 500 MG TAB 2 tabs prn ACETAMINOPHEN 44336437037 Active Ignacio Colmenares DO Active MIRENA IUD LEVONORGESTREL IUD 50318763105 Active Ignacio Colmenares DO Active AMBIEN 10 MG TAB 1 tab by mouth at bedtime as needed for sleep ZOLPIDEM TARTRATE 50733886469 Active Ignacio Colmenares DO Active AZITHROMYCIN 250 MG TABS 2 pills day 1,1 pill day 2-5 AZITHROMYCIN 09298616894 No Longer Active Nicole Gimenez MD Active CEFTIN 500 MG TAB 1 po bid 10 day CEFTIN 500 MG TAB 206855 CEFUROXIME AXETIL Inactive PREDNISONE 20 MG TAB 1 po bid 3 days, then 1 po q day 3 days 2012 PREDNISONE 20 MG TAB 216893 PREDNISONE Inactive CELEXA 20 MG TABS 1 po daily CELEXA 20 MG TABS 511074 CITALOPRAM HYDROBROMIDE Inactive AZITHROMYCIN 250 MG TABS 2 pills day 1,1 pill day 2-5 AZITHROMYCIN 250 MG TABS 9303256 AZITHROMYCIN Inactive Vital Signs Date Name Value [...] Measured Encounters Code Encounter Date Provider Facility CPT-71493 Level 3 Est. Patient 08:18:06 CDT Julito Taylor APRN [facility] CPT-43470 Level 3 Est. Patient 10:12:22 CAD DEVELOPER Ignacio Colmenares [facility] CPT-23070 Level 3 Est. Patient 14:30:38 CAD DEVELOPER Ignacio Colmenares [facility] CPT-87330 Level 3 Est. Patient 08:21:09 CAD DEVELOPER Ramu LAUGHLIN [facility] CPT-37533 Level 3 Est. Patient 15:39:17 CAD DEVELOPER Ramu LAUGHLIN [facility] CPT-90180 Level 3 Est. Patient 18:43:41 CDT Ignacio Colmenares DO [facility] Procedures Code Procedure Name Date Entry Date Standard Description CPT-47221 Nail Avulsion 17:26:33 CDT CPT-69569 Abx/Therapy Injection 10:36:59 CAD DEVELOPER CPT-J1885 Toradol 60 mg (Ketorolac) 16:20:19 CAD DEVELOPER CPT-54737 Abx/Therapy Injection 16:20:19 CAD DEVELOPER CPT-36685 Venipuncture Draw Fee 14:45:53 CAD DEVELOPER CPT-56753 Abx/Therapy Injection 08:21:09 CAD DEVELOPER CPT-J2550 Phenergan 50 mg (Promethazine) 16:24:49 CAD DEVELOPER CPT-J2175 Demerol 75 mg (Meperidine) 16:24:49 CAD DEVELOPER CPT-J2550 Phenergan 50 mg (Promethazine) 18:33:49 CAD DEVELOPER CPT-J2175 Demerol 50 mg (Meperidine) 18:33:49 CAD DEVELOPER CPT-J2550 Phenergan 50 mg (Promethazine) 15:39:17 CAD DEVELOPER CPT-J2175 Demerol 50 mg (Meperidine) 15:39:17 CAD DEVELOPER CPT-OV Office Visit 16:53:10 CDT
--- OUTSIDE RECORDS SUMMARY | 2017-06-06 08:03 | XMS REPORT ---
Author Author [facility] Medical Staff Organization [facility] Address [address] [place], [place] [address] Phone [phone] Summary purpose TRANSITION OF CARE AUTO GENERATION [...] tests and/or laboratory data RESULTS Radiology Results [id number]:00 CT RENAL STONE MARE PACs Image DATE OF EXAM: 2015 [id number] RENAL STONE PROTOCOL WO CONTR : RADIOLOGY REPORT DATE OF SERVICE: 02/18/16 HISTORY: Right flank pain NONCONTRAST CT ABDOMEN AND PELVIS RENAL STONE [id number] HOURS Axial scans were obtained and reconstructed at 2.5 mm intervals. No contrast was administered. There is a 1.5 mm nonobstructing calculus in the lower third of the right kidney and a nonobstructing 2 mm calculus in the upper third of the left kidney. There is no hydronephrosis, perinephric stranding, or ureteric dilatation. No ureteral calculus is present. The bladder is normal. The liver, spleen, and bile ducts are normal. The pancreas is unremarkable. The gallbladder is surgically absent. The visualized abdominal and pelvic bowel loops are normal. The uterus and adnexa are normal. IUD is present in the uterus. There is no free fluid or free air. The appendix is normal. IMPRESSION: Small solitary nonobstructing renal calculi bilaterally. No current evidence of hydronephrosis or ureteric stone. No other significant abdominal or pelvic abnormality. MD JOY León/ia02/18/2016 15:46:00 / 02/18/2016 15:52:36 cc:Dr. Luis Funez This document has been electronically Signed by: On: DATE OF EXAM: 2015 [id number] RENAL STONE PROTOCOL WO CONTR : RADIOLOGY REPORT DATE OF SERVICE: 02/18/16 HISTORY: Right flank pain NONCONTRAST CT ABDOMEN AND PELVIS RENAL STONE [id number] HOURS Axial scans were obtained and reconstructed at 2.5 mm intervals. No contrast was administered. There is a 1.5 mm nonobstructing calculus in the lower third of the right kidney and a nonobstructing 2 mm calculus in the upper third of the left kidney. There is no hydronephrosis, perinephric stranding, or ureteric dilatation. No ureteral calculus is present. The bladder is normal. The liver, spleen, and bile ducts are normal. The pancreas is unremarkable. The gallbladder is surgically absent. The visualized abdominal and pelvic bowel loops are normal. The uterus and adnexa are normal. IUD is present in the uterus. There is no free fluid or free air. The appendix is normal. IMPRESSION: Small solitary nonobstructing renal calculi bilaterally. No current evidence of hydronephrosis or ureteric stone. No other significant abdominal or pelvic abnormality. MD JOY León/ia02/18/2016 15:46:00 / 02/18/2016 15:52:36 cc:Dr. Luis Funez This document has been electronically Signed by: AMY TURK MD On: 20153:57P Result Amended on 2016-02-18 at 15:58:00. Previous status was HI. History of procedures Procedure Code Code Type Description Date Performed Performing Physician 28665 CPT-4 CT ABD & PELVIS W/O CONTRAST 02-18-2016 LUIS FUNEZ Functional status No functional or cognitive status [...]
--- OUTSIDE RECORDS SUMMARY | 2017-06-06 08:03 | XMS REPORT ---
Author Author [facility] [employer] [facility] Medical Staff Organization [facility] Address [address], [place] [address] Phone [phone] Summary purpose TRANSITION OF CARE AUTO GENERATION [...] tests and/or laboratory data RESULTS Routine Urinalysis [id number]:30:00 Result Normal Range Units Color [place] Clarity Turbid Specific [place] 1.018 pH 5.0 4.5-8.0 Glucose NEGATIVE Bilirubin NEGATIVE Ketones NEGATIVE Protein 1+ Urobilinogen 0.2 0-0.2 E.U./dL Nitrites NEGATIVE Blood 3+ Leukocytes NEGATIVE WBCs 10-20 RBCs Too numerous to count Squamous Epithelial 4+ Bacteria 2+ Calcium Oxalate Crystals Few Yeast 1+ Chemistry [id number]:23:00 Result Normal Range Units Sodium 141 134-145 [...] % Lymph % L 14.2 20-40 % Leslie % 6.3 0-10.0 % Eos % 1.3 0-7.0 % Baso % 0.3 0-2 % Neutro # H 9.8 1.5-7.5 103/uL Lymph # 1.8 0.9-4.0 103/uL Leslie # 0.8 0-0.8 103/uL Eos # 0.2 [...]
--- OUTSIDE RECORDS SUMMARY | 2017-06-06 08:03 | XMS REPORT ---
Author Author [facility] Medical Staff Organization [facility] Address [address] [place], [place] [address] Phone [phone] Summary purpose TRANSITION OF CARE AUTO GENERATION [...] tests and/or laboratory data RESULTS Radiology Results [id number]:[id number] CT RENAL STONE MARE PACs Image DATE OF EXAM: 2015 [id number] RENAL STONE PROTOCOL WO CONTR : RADIOLOGY REPORT DATE OF SERVICE: 02/18/16 HISTORY: Right flank pain NONCONTRAST CT ABDOMEN AND PELVIS RENAL STONE [id number] HOURS Axial scans were obtained and reconstructed [...] significant abdominal or pelvic abnormality. MD JOY León/de02/18/2016 15:46:00 / 02/18/2016 15:52:36 cc:Dr. Luis Thomas This document has been electronically Signed by: On: DATE OF EXAM: 2015 [id number] RENAL STONE PROTOCOL WO CONTR : RADIOLOGY REPORT DATE OF SERVICE: 02/18/16 HISTORY: Right flank pain NONCONTRAST CT ABDOMEN AND PELVIS RENAL STONE [id number] HOURS Axial scans were obtained and reconstructed [...] No other significant abdominal or pelvic abnormality. Hamilton Salinas MD MWShaye/nh02/18/2016 15:46:00 / 02/18/2016 15:52:36 cc:Dr. Luis Thomas This document has been electronically Signed by: HAMILTON SALINAS MD On: 20153:57P Result Amended on 2016-02-18 at 15:58:00. Previous status was PA. History of procedures No procedures recorded for [...]
--- OUTSIDE RECORDS SUMMARY | 2017-06-06 08:03 | XMS REPORT | Clinical Summary ---
Author Author Admin, LISA Organization [facility] Address Unknown Phone Unavailable Allergies, Adverse [...] Instructions Start Date Stop Date Generic Name [facility] Status Provider Patient Instruction FIORICET 325-50-40 MG TAB 1-2 tabs by mouth q6hr PRN headache [id number] 43076701246 Active Mechelle [facility] Active LORAZEPAM 0.5 MG TAB 1 po q day prn anxiety LORAZEPAM 41516144038 Active Ignacio Colmenares DO Active SEROQUEL 25 MG TABS 1 po q evening for major depression QUETIAPINE FUMARATE 26324405115 Active Ignacio Colmenares DO Active LEXAPRO 10 MG TABS 1 tablet by mouth daily ESCITALOPRAM OXALATE 21974494254 Active Ignacio Colmenares Active CELEXA 20 MG TABS 1 po daily CITALOPRAM HYDROBROMIDE 02499191598 No Longer Active Ignacio Colmenares DO Active SUMATRIPTAN SUCCINATE 100 MG TABS 1 po at onset of headache may repeat in 2 hrs. SUMATRIPTAN SUCCINATE 49527257901 Active Ramu LAUGHLIN Active HYDROCODONE-ACETAMINOPHEN 5-325 MG TABS 1 every 4-6 hrs prn HYDROCODONE-ACETAMINOPHEN 51708902591 Active Ramu LAUGHLIN Active PREDNISONE 20 MG TAB 1 po bid 3 days, then 1 po q day 3 days 2012 PREDNISONE 39590326498 No Longer Active Ramu LAUGHLIN Active CEFTIN 500 MG TAB 1 po bid 10 day CEFUROXIME AXETIL 12337361956 No Longer Active Ramu LAUGHLIN Active AMITRIPTYLINE HCL 10 MG TABS 1 po at hs prn AMITRIPTYLINE HCL 80394338968 Active Ignacio Colmenares DO Active IBUPROFEN 200 MG TAB 3-4 tabs prn IBUPROFEN 66193664229 Active Ignacio Colmenares DO Active TYLENOL 500 MG TAB 2 tabs prn ACETAMINOPHEN 01037907292 Active Ignacio Colmenares DO Active MIRENA IUD LEVONORGESTREL IUD 78468811857 Active Ignacio Colmenares DO Active AMBIEN 10 MG TAB 1 tab by mouth at bedtime as needed for sleep ZOLPIDEM TARTRATE 10385720918 Active Ignacio Colmenares DO Active AZITHROMYCIN 250 MG TABS 2 pills day 1,1 pill day 2-5 AZITHROMYCIN 84577614596 No Longer Active Nicole Gimenez MD Active CEFTIN 500 MG TAB 1 po bid 10 day CEFTIN 500 MG TAB 730337 CEFUROXIME AXETIL Inactive PREDNISONE 20 MG TAB 1 po bid 3 days, then 1 po q day 3 days 2012 PREDNISONE 20 MG TAB 518019 PREDNISONE Inactive CELEXA 20 MG TABS 1 po daily CELEXA 20 MG TABS 607415 CITALOPRAM HYDROBROMIDE Inactive AZITHROMYCIN 250 MG TABS 2 pills day 1,1 pill day 2-5 AZITHROMYCIN 250 MG TABS 2869716 AZITHROMYCIN Inactive Vital Signs Date Name Value [...] Measured Encounters Code Encounter Date Provider Facility CPT-65085 Level 3 Est. Patient 08:18:06 CDT Julito Taylor APRN [facility] CPT-84577 Level 3 Est. Patient 10:12:22 CRYSTAL FINISHER Ignacio Colmenares [facility] CPT-11813 Level 3 Est. Patient 14:30:38 CRYSTAL FINISHER Ignacio Colmenares [facility] CPT-22019 Level 3 Est. Patient 08:21:09 CRYSTAL FINISHER Ramu LAUGHLIN [facility] CPT-72857 Level 3 Est. Patient 15:39:17 CRYSTAL FINISHER Ramu LAUGHLIN [facility] CPT-15509 Level 3 Est. Patient 18:43:41 CDT Ignacio Colmenares DO [facility] Procedures Code Procedure Name Date Entry Date Standard Description CPT-10354 Nail Avulsion 17:26:33 CDT CPT-43123 Abx/Therapy Injection 10:36:59 CRYSTAL FINISHER CPT-J1885 Toradol 60 mg (Ketorolac) 16:20:19 CRYSTAL FINISHER CPT-63285 Abx/Therapy Injection 16:20:19 CRYSTAL FINISHER CPT-63908 Venipuncture Draw Fee 14:45:53 CRYSTAL FINISHER CPT-29861 Abx/Therapy Injection 08:21:09 CRYSTAL FINISHER CPT-J2550 Phenergan 50 mg (Promethazine) 16:24:49 CRYSTAL FINISHER CPT-J2175 Demerol 75 mg (Meperidine) 16:24:49 CRYSTAL FINISHER CPT-J2550 Phenergan 50 mg (Promethazine) 18:33:49 CRYSTAL FINISHER CPT-J2175 Demerol 50 mg (Meperidine) 18:33:49 CRYSTAL FINISHER CPT-J2550 Phenergan 50 mg (Promethazine) 15:39:17 CRYSTAL FINISHER CPT-J2175 Demerol 50 mg (Meperidine) 15:39:17 CRYSTAL FINISHER CPT-OV Office Visit 16:53:10 CDT
--- OUTSIDE RECORDS SUMMARY | 2017-06-06 08:04 | XMS REPORT | Clinical Summary ---
Author Author Admin, LISA Organization [facility] Address Unknown Phone Unavailable Allergies, Adverse [...] Instructions Start Date Stop Date Generic Name [facility] Status Provider Patient Instruction FIORICET 325-50-40 MG TAB 1-2 tabs by mouth q6hr PRN headache [id number] 44403182057 Active Mechelle [employer] Active LORAZEPAM 0.5 MG TAB 1 po q day prn anxiety LORAZEPAM 48172284125 Active Ignacio Colmenares DO Active SEROQUEL 25 MG TABS 1 po q evening for major depression QUETIAPINE FUMARATE 01508121321 Active Ignacio Colmenares Active LEXAPRO 10 MG TABS 1 tablet by mouth daily ESCITALOPRAM OXALATE 22430494058 Active Ignacio Colmenares DO Active CELEXA 20 MG TABS 1 po daily CITALOPRAM HYDROBROMIDE 24515188857 No Longer Active Ignacio Colmenares DO Active SUMATRIPTAN SUCCINATE 100 MG TABS 1 po at onset of headache may repeat in 2 hrs. SUMATRIPTAN SUCCINATE 20700797634 Active Ramu LAUGHLIN Active HYDROCODONE-ACETAMINOPHEN 5-325 MG TABS 1 every 4-6 hrs prn HYDROCODONE-ACETAMINOPHEN 20929683821 Active Ramu LAUGHLIN Active PREDNISONE 20 MG TAB 1 po bid 3 days, then 1 po q day 3 days 2012 PREDNISONE 18117166895 No Longer Active Ramu LAUGHLIN Active CEFTIN 500 MG TAB 1 po bid 10 day CEFUROXIME AXETIL 27715807296 No Longer Active Ramu LAUGHLIN Active AMITRIPTYLINE HCL 10 MG TABS 1 po at hs prn AMITRIPTYLINE HCL 83212886662 Active Ignacio Colmenares DO Active IBUPROFEN 200 MG TAB 3-4 tabs prn IBUPROFEN 72912567646 Active Ignacio Colmenares DO Active TYLENOL 500 MG TAB 2 tabs prn ACETAMINOPHEN 55870959738 Active Ignacio Colmenares DO Active MIRENA IUD LEVONORGESTREL IUD 99496377784 Active Ignacio Colmenares DO Active AMBIEN 10 MG TAB 1 tab by mouth at bedtime as needed for sleep ZOLPIDEM TARTRATE 83760306916 Active Ignacio Colmenares DO Active AZITHROMYCIN 250 MG TABS 2 pills day 1,1 pill day 2-5 AZITHROMYCIN 39943714266 No Longer Active Nicole Gimenez MD Active CEFTIN 500 MG TAB 1 po bid 10 day CEFTIN 500 MG TAB 538989 CEFUROXIME AXETIL Inactive PREDNISONE 20 MG TAB 1 po bid 3 days, then 1 po q day 3 days 2012 PREDNISONE 20 MG TAB 145911 PREDNISONE Inactive CELEXA 20 MG TABS 1 po daily CELEXA 20 MG TABS 254355 CITALOPRAM HYDROBROMIDE Inactive AZITHROMYCIN 250 MG TABS 2 pills day 1,1 pill day 2-5 AZITHROMYCIN 250 MG TABS 9750266 AZITHROMYCIN Inactive Vital Signs Date Name Value Unit Range Description blood pressure, diastolic - 8462-4 87 mm[Hg] BP león blood pressure, systolic - 8480-6 118 mm[Hg] BP sys pulse rate E&M - 8867-4 136 /min Heart rate temperature E&M 98.5 [degF] Body temperature weight E&M - 3141-9 179.5 [lb_av] Weight Measured blood pressure, diastolic - 8462-4 90 mm[Hg] [...] E&M - 3141-9 172.6 [lb_av] Weight Measured Diagnostic Results Date Name Value Unit Range Description Office Visit: CN-kidney stones - Chemistry RBC, urine, dipstick negative protein, total urine random negative mg/dL Office Visit: CN-kidney stones - Urinalysis pH, urine, semiquantitative 7.5 specific gravity, urine 1.010 ketones, urine, by test strip negative bilirubin, urine negative glucose, urine, semiquantitative negative urinalysis, routine Clean Catch culture status No urine color yellow appearance, urine clear leukocyte esterase, urine, by dipstick negative nitrite, urine, semiquantitative negative urobilinogen, urine, semiquantitative (dipstick) 0.2 protein, urine, semiquantitative (dipstick) negative Encounters Code Encounter Date Provider Facility CPT-96838 Level 3 Est. Patient 12:29:51 CDT Joe Thomas MD [facility] CPT-69776 Level 3 Est. Patient 08:18:06 CDT Julito Taylor APRN [facility] CPT-69549 Level 3 Est. Patient 10:12:22 STEM CUTTER Ignacio Colmenares [facility] CPT-93398 Level 3 Est. Patient 14:30:38 STEM CUTTER Ignacio Colmenares [facility] CPT-01209 Level 3 Est. Patient 08:21:09 STEM CUTTER Ramu LAUGHLIN [facility] CPT-00993 Level 3 Est. Patient 15:39:17 STEM CUTTER Ramu LAUGHLIN [facility] CPT-86236 Level 3 Est. Patient 18:43:41 CDT Ignacio Colmenares [facility] Procedures Code Procedure Name Date Entry Date Standard Description CPT-21881 Abd single AP View 13:53:50 CDT CPT-58247 Nail Avulsion 17:26:33 CDT CPT-19767 Abx/Therapy Injection 10:36:59 STEM CUTTER CPT-J1885 Toradol 60 mg (Ketorolac) 16:20:19 STEM CUTTER CPT-21933 Abx/Therapy Injection 16:20:19 STEM CUTTER CPT-60044 Venipuncture Draw Fee 14:45:53 STEM CUTTER CPT-39820 Abx/Therapy Injection 08:21:09 STEM CUTTER CPT-J2550 Phenergan 50 mg (Promethazine) 16:24:49 STEM CUTTER CPT-J2175 Demerol 75 mg (Meperidine) 16:24:49 STEM CUTTER CPT-J2550 Phenergan 50 mg (Promethazine) 18:33:49 STEM CUTTER CPT-J2175 Demerol 50 mg (Meperidine) 18:33:49 STEM CUTTER CPT-J2550 Phenergan 50 mg (Promethazine) 15:39:17 STEM CUTTER CPT-J2175 Demerol 50 mg (Meperidine) 15:39:17 STEM CUTTER CPT-OV Office Visit 16:53:10 CDT
--- OUTSIDE RECORDS SUMMARY | 2017-06-06 08:04 | XMS REPORT | Clinical Summary ---
Author Author Admin, LISA Organization [facility] Address Unknown Phone Unavailable Allergies, Adverse Reactions, [...] Instructions Start Date Stop Date Generic Name [facility] Status Provider Patient Instruction FIORICET 325-50-40 MG TAB 1-2 tabs by mouth q6hr PRN headache [id number] 78088434674 Active Mechelle [employer] Active LORAZEPAM 0.5 MG TAB 1 po q day prn anxiety LORAZEPAM 30319082110 Active Ignacio Colmenares DO Active SEROQUEL 25 MG TABS 1 po q evening for major depression QUETIAPINE FUMARATE 86067610393 Active Ignacio Colmenares DO Active LEXAPRO 10 MG TABS 1 tablet by mouth daily ESCITALOPRAM OXALATE 85999986162 Active Ignacio Colmenares Active CELEXA 20 MG TABS 1 po daily CITALOPRAM HYDROBROMIDE 26494268517 No Longer Active Ignacio Colmenares DO Active SUMATRIPTAN SUCCINATE 100 MG TABS 1 po at onset of headache may repeat in 2 hrs. SUMATRIPTAN SUCCINATE 13585926936 Active Ramu LAUGHLIN Active HYDROCODONE-ACETAMINOPHEN 5-325 MG TABS 1 every 4-6 hrs prn HYDROCODONE-ACETAMINOPHEN 39351027705 Active Ramu LAUGHLIN Active PREDNISONE 20 MG TAB 1 po bid 3 days, then 1 po q day 3 days 2012 PREDNISONE 18725386001 No Longer Active Ramu LAUGHLIN Active CEFTIN 500 MG TAB 1 po bid 10 day CEFUROXIME AXETIL 78786817981 No Longer Active Ramu LAUGHLIN Active AMITRIPTYLINE HCL 10 MG TABS 1 po at hs prn AMITRIPTYLINE HCL 28535580278 Active Ignacio Colmenares DO Active IBUPROFEN 200 MG TAB 3-4 tabs prn IBUPROFEN 00037136466 Active Ignacio Colmenares DO Active TYLENOL 500 MG TAB 2 tabs prn ACETAMINOPHEN 91982556109 Active Ignacio Colmenarse DO Active MIRENA IUD LEVONORGESTREL IUD 47910756882 Active Ignacio Colmenares DO Active AMBIEN 10 MG TAB 1 tab by mouth at bedtime as needed for sleep ZOLPIDEM TARTRATE 61649533445 Active Ignacio Colmenares DO Active AZITHROMYCIN 250 MG TABS 2 pills day 1,1 pill day 2-5 AZITHROMYCIN 71339106993 No Longer Active Nicole Gimenez MD Active CEFTIN 500 MG TAB 1 po bid 10 day CEFTIN 500 MG TAB 014892 CEFUROXIME AXETIL Inactive PREDNISONE 20 MG TAB 1 po bid 3 days, then 1 po q day 3 days 2012 PREDNISONE 20 MG TAB 202979 PREDNISONE Inactive CELEXA 20 MG TABS 1 po daily CELEXA 20 MG TABS 841037 CITALOPRAM HYDROBROMIDE Inactive AZITHROMYCIN 250 MG TABS 2 pills day 1,1 pill day 2-5 AZITHROMYCIN 250 MG TABS 2252790 AZITHROMYCIN Inactive Vital Signs Date Name Value [...] Measured Encounters Code Encounter Date Provider Facility CPT-19278 Level 3 Est. Patient 12:29:51 CDT Joe Thomas MD [facility] CPT-45965 Level 3 Est. Patient 08:18:06 CDT Julito Taylor APRN [facility] CPT-29924 Level 3 Est. Patient 10:12:22 PRODUCTION MAINTENANCE TECHNICIAN Ignacio Colmenares DO [facility] CPT-84978 Level 3 Est. Patient 14:30:38 PRODUCTION MAINTENANCE TECHNICIAN Ignacio Colmenares [facility] CPT-95444 Level 3 Est. Patient 08:21:09 PRODUCTION MAINTENANCE TECHNICIAN Ramu LAUGHLIN [facility] CPT-52724 Level 3 Est. Patient 15:39:17 PRODUCTION MAINTENANCE TECHNICIAN Ramu LAUGHLIN [facility] CPT-45157 Level 3 Est. Patient 18:43:41 CDT Ignacio Colmenares [facility] Procedures Code Procedure Name Date Entry Date Standard Description CPT-10147 Abd single AP View 13:53:50 CDT CPT-70104 Nail Avulsion 17:26:33 CDT CPT-94344 Abx/Therapy Injection 10:36:59 PRODUCTION MAINTENANCE TECHNICIAN CPT-J1885 Toradol 60 mg (Ketorolac) 16:20:19 PRODUCTION MAINTENANCE TECHNICIAN CPT-21826 Abx/Therapy Injection 16:20:19 PRODUCTION MAINTENANCE TECHNICIAN CPT-70260 Venipuncture Draw Fee 14:45:53 PRODUCTION MAINTENANCE TECHNICIAN CPT-29594 Abx/Therapy Injection 08:21:09 PRODUCTION MAINTENANCE TECHNICIAN CPT-J2550 Phenergan 50 mg (Promethazine) 16:24:49 PRODUCTION MAINTENANCE TECHNICIAN CPT-J2175 Demerol 75 mg (Meperidine) 16:24:49 PRODUCTION MAINTENANCE TECHNICIAN CPT-J2550 Phenergan 50 mg (Promethazine) 18:33:49 PRODUCTION MAINTENANCE TECHNICIAN CPT-J2175 Demerol 50 mg (Meperidine) 18:33:49 PRODUCTION MAINTENANCE TECHNICIAN CPT-J2550 Phenergan 50 mg (Promethazine) 15:39:17 PRODUCTION MAINTENANCE TECHNICIAN CPT-J2175 Demerol 50 mg (Meperidine) 15:39:17 PRODUCTION MAINTENANCE TECHNICIAN CPT-OV Office Visit 16:53:10 CDT
--- NOTE | 2017-06-06 08:59 | ED Headache ---
General Chief Complaint: Head/Cervical Problems Stated Complaint: HEADACHE Nursing Triage Note: c/o intermittant headache since . Vomiting and dizziness reported. Pt in no acute distress currently. Pt was seen at [facility] night and apparently recieved Dilaudid and Toradol IV but states no improvement. Hx of pseudotumor cerebri, lymes, and depression. Nursing Sepsis Screen: No Definite Risk Source: patient Exam Limitations: no limitations History of Present Illness Time seen by provider: 08:30 Initial Comments Here with report of headache that has been going on over the last few days. Patient has history of pseudotumor cerebri and has had changes in her Diamox from 500 mg twice a day to 250 mg twice a day 6 weeks ago. She reports that she started having headache and neck fullness similar to when she was untreated for the pseudotumor. She had had med changes related to her Diamox due to tachycardia. She has appointment for possible shunt placement in September. She was seen at outside ER last night and given pain medicine which helped but the headache returned this morning. She had an episode of vomiting this morning. Denies fever. Does have sensitivity to light. Timing/Duration: increasing, other (2-3 days) Severity/Quality: moderate, severe, pressure, throbbing Location: frontal Modifying Factors: worse with exposure to light, improves with medication, improves with rest Associated Symptoms: No confusion, No fever/chills, nausea/vomiting, No nasal congestion, No seizures Allergies and Home Medications Allergies Coded Allergies: No Known Drug Allergies (Unverified , 01/21/13) Home Medications Acetazolamide 500 Mg Capsule.er, 500 MG PO TID, (Reported) Cholecalciferol (Vitamin D3) 50,000 Unit Capsule, 50,000 UNIT PO WEEKLY ON MONDAYS, (Reported) Cyclobenzaprine Hcl 10 Mg Tablet, 10 MG PO Q8H PRN for SPASMS, (Reported) Diazepam 5 Mg Tablet, 5 MG PO Q12H PRN for ANXIETY, (Reported) Diphenhydramine Hcl 25 Mg Tablet, 50 MG PO HS, (Reported) TAKES 2 (25MG) TABLETS AT BEDTIME Hydrocodone Bit/Acetaminophen 1 Each Tablet, 1 TAB PO Q8H PRN for BREAKTHROUGH PAIN, (Reported) Modafinil 200 Mg Tablet, 200 MG PO DAILY, #10 Ref 0 Prescribed by: KARY ZABALA on 06/29/15 1623 Omeprazole 40 Mg Capsule.dr, 40 MG PO DAILY, #30 Ref 5 Prescribed by: KARY ZABALA on 06/29/15 1623 Promethazine Hcl 25 Mg Tablet, 25 MG PO Q8H PRN for NAUSEA, (Reported) Propranolol Hcl 20 Mg Tablet, 20 MG PO BID, (Reported) Quetiapine Fumarate 300 Mg Tablet, 300 MG PO HS PRN for SLEEP, (Reported) Rifaximin 550 Mg Tablet, 550 MG PO UD, #7 Ref 5 Prescribed by: KARY ZABALA on 06/29/15 1623 Scopolamine 1 Each Patch.td72, 1 PATCH TD EVERY 72 HOURS PRN for DIZZINESS, ( Reported) Thyroid,Pork 60 Mg Tablet, 60 MG PO DAILY, (Reported) Venlafaxine HCl 75 Mg Tab, 150 MG PO AM, (Reported) TAKES 2 (75MG) TABLETS Venlafaxine Hcl 75 Mg Tab, 75 MG PO HS, (Reported) Zolpidem Tartrate 5 Mg Tablet, 5 MG PO HS PRN for SLEEP, (Reported) [Domperidone 10mg qid] , 10 MG PO QID, (Reported) 30 minutes before meals and at bedtime Constitutional: see HPI, No chills, No fever Eyes: See HPI, Denies Blurred Vision, Photophobia Ears, Nose, Mouth, Throat: no symptoms reported Respiratory: no symptoms reported Cardiovascular: no symptoms reported Gastrointestinal: nausea, vomiting Genitourinary: no symptoms reported : No Musculoskeletal: see HPI, muscle pain, muscle stiffness, neck pain Skin: no symptoms reported, No rash Psychiatric/Neurological: Denies Anxiety, Headache, Denies Numbness, Denies Paresthesia, Denies Weakness Past Mnhraer-Kqxehu-Xskfdz Hx Patient Social History Alcohol Use: Denies Use Recreational Drug Use: No Smoking Status: Unknown if Ever Smoked Recent Foreign Travel: No Contact w/Someone Who Travel: No Recent Infectious Disease Expo: No Immunizations Up To Date Tetanus Booster (TDap): Less than 5yrs Date of Pneumonia Vaccine: Sep 12, 2012 Date of Influenza Vaccine: Jun 21, 2012 Seasonal Allergies Seasonal Allergies: No Surgeries HX Surgeries: Yes ( x2, t/a, gallbladder) Respiratory Hx Respiratory Disorders: No Respiratory Disorders: Asthma Cardiovascular Hx Cardiac Disorders: Yes (tachycardia) Neurological Hx Neurological Disorders: Yes (mackenzie's, fibromyalgia) Reproductive System : No Hx Reproductive Disorders: No Sexually Transmitted Disease: No HIV/AIDS: No Female Reproductive Disorders: Denies BACON SKINNER History: IUD Genitourinary Hx Genitourinary Disorders: No Gastrointestinal Hx Gastrointestinal Disorders: Yes Gastrointestinal Disorders: Gastroesophageal Reflux, Chronic Constipation, Chronic Diarrhea, Hiatal Hernia, Gall Bladder Disease Musculoskeletal Hx Musculoskeletal Disorders: No Endocrine Hx Endocrine Disorders: Yes (HORMONE REPLACEMENT THERAPY) HEENT HX ENT Disorders: No Cancer Hx Cancer: No Psychosocial Hx Psychiatric Problems: Yes Behavioral Health Disorders: Anxiety, Depression Integumentary HX Skin/Integumentary Disorder: No Blood Transfusions Hx Blood Disorders: No Adverse Reaction to a Blood Tr: No Reviewed Nursing Assessment Reviewed/Agree w Nursing PMH: Yes Family Medical History Significant Family History: No Pertinent Family Hx Family Medial History: Family history: Breast disease G8 SISTER (cancer) Family history: Diabetes mellitus 19 FATHER Physical Exam Vital Signs Vital Sign - Last 12Hours 06/06/17 08:08 Temp 97.5 Pulse 110 Resp 16 B/P (MAP) 105/99 Pulse Ox 97 Capillary Refill : Less Than 3 Seconds General Appearance: WD/WN, no apparent distress HEENT: PERRL/EOMI, pharynx normal Neck: full range of motion, supple Cardiovascular: regular rate, rhythm, no murmur Respiratory: lungs clear, normal breath sounds Gastrointestinal: non tender, soft Extremities: non-tender, normal inspection Psychiatric: alert, oriented x 3 Crainal Nerves: normal speech, PERRL Coordination/Gait: normal finger to nose, normal gait Motor/Sensory: no motor deficit, no sensory deficit Skin: normal color, warm/dry Progress/Results/Core Measures Results/Orders Lab Results Laboratory Tests Test 06/06/17 09:10 06/06/17 12:05 Range/Units White Blood Count 7.8 4.3-11.0 10^3/uL Red Blood Count 4.07 L 4.35-5.85 10^6/uL Hemoglobin 11.4 L 11.5-16.0 G/DL Hematocrit 36 35-52 % Mean Corpuscular Volume 88 80-99 FL Mean Corpuscular Hemoglobin 28 25-34 PG Mean Corpuscular Hemoglobin Concent 32 32-36 G/DL Red Cell Distribution Width 13.7 10.0-14.5 % Platelet Count 254 130-400 10^3/uL Mean Platelet Volume 9.8 7.4-10.4 FL Neutrophils (%) (Auto) 59 42-75 % Lymphocytes (%) (Auto) 29 12-44 % Monocytes (%) (Auto) 10 0-12 % Eosinophils (%) (Auto) 2 0-10 % Basophils (%) (Auto) 0 0-10 % Neutrophils # (Auto) 4.6 1.8-7.8 X 10^3 Lymphocytes # (Auto) 2.2 1.0-4.0 X 10^3 Monocytes # (Auto) 0.8 0.0-1.0 X 10^3 Eosinophils # (Auto) 0.1 0.0-0.3 10^3/uL Basophils # (Auto) 0.0 0.0-0.1 10^3/uL Urine Color YELLOW Urine Clarity SLIGHTLY CLOUDY Urine pH 7 5-9 Urine Specific [place] 1.010 L 1.016-1.022 Urine Protein NEGATIVE NEGATIVE Urine Glucose (UA) NEGATIVE NEGATIVE Urine Ketones NEGATIVE NEGATIVE Urine Nitrite NEGATIVE NEGATIVE Urine Bilirubin NEGATIVE NEGATIVE Urine Urobilinogen NORMAL NORMAL MG/DL Urine Leukocyte Esterase 1+ H NEGATIVE Urine RBC (Auto) NEGATIVE NEGATIVE Urine RBC NONE /HPF Urine WBC 2-5 /HPF Urine Squamous Epithelial Cells 2-5 /HPF Urine Crystals NONE /LPF Urine Bacteria TRACE /HPF Urine Casts NONE /LPF Urine Mucus NEGATIVE /LPF Urine Culture Indicated NO Sodium Level 139 135-145 MMOL/L Potassium Level 3.7 3.6-5.0 MMOL/L Chloride Level 110 H 98-107 MMOL/L Carbon Dioxide Level 22 21-32 MMOL/L Anion Gap 7 5-14 MMOL/L Blood Urea Nitrogen 9 7-18 MG/DL Creatinine 0.79 0.60-1.30 MG/DL Estimat Glomerular Filtration Rate > 60 BUN/Creatinine Ratio 11 Glucose Level 92 70-105 MG/DL Calcium Level 9.1 8.5-10.1 MG/DL Total Bilirubin 0.4 0.1-1.0 MG/DL Aspartate Amino Transf (AST/SGOT) 25 5-34 U/L Alanine Aminotransferase (ALT/SGPT) 21 0-55 U/L Alkaline Phosphatase 83 40-136 U/L C-Reactive Protein High Sensitivity 0.97 H 0.00-0.50 MG/DL Total Protein 6.4 6.4-8.2 GM/DL Albumin 3.9 3.2-4.5 GM/DL CSF Tube Number 4 CSF Appearance CLEAR CSF Color COLORLESS CSF WBC 1 0-5 CELLS CSF RBC 1 H 0-0 CELLS CSF Lymphocytes % CSF Mononuclear WBCs % CSF Polynuclear WBCs % CSF Glucose 65 50-80 MG/DL CSF Total Protein 42 H 15-40 MG/DL Micro Results Microbiology 06/06/17 Gram Stain - Final, Resulted 06/06/17 CSF Culture, Resulted Pending My Orders Orders - ZELDA YANG MD Saline Lock/Iv-Start (06/06/17 08:36) Cbc With Automated Diff (06/06/17 08:36) Comprehensive Metabolic Panel (06/06/17 08:36) Hs C Reactive Protein (06/06/17 08:36) Ua Culture If Indicated (06/06/17 08:36) Ct Head Wo (06/06/17 08:48) Hydromorphone Injection (Dilaudid Inject (06/06/17 08:48) Ondansetron Injection (Zofran Injectio (06/06/17 10:00) Promethazine Injection (Phenergan Injec (06/06/17 11:10) Promethazine Injection (Phenergan Injec (06/06/17 11:06) Csf Cell Count (06/06/17 11:37) Csf Glucose (06/06/17 11:37) Csf Total Protein (06/06/17 11:37) Csf Culture (06/06/17 11:37) Virus Culture (06/06/17 11:37) Hydrocodone/Apap 7.5/325 Tab (Lortab 7. (06/06/17 14:01) Ketorolac Injection (Toradol Injection) (06/06/17 14:01) Medications Given in ED Current Medications Medications Dose Ordered Sig/Lorenzo Route Start Time Stop Time Status Last Admin Dose Admin Ondansetron HCl 4 mg ONCE ONCE IVP 06/06/17 10:00 06/06/17 10:01 DC 06/06/17 10:04 4 MG Vital Signs/I&O Vital Sign - Last 12Hours 06/06/17 06/06/17 08:08 09:12 Temp 97.5 97.5 Pulse 110 Resp 16 B/P (MAP) 105/99 Pulse Ox 97 Blood Pressure Mean: 101 Progress Note : Progress Note Seen and evaluated. IV, labs, CT head ordered in anticipation of lumbar puncture. Dilaudid 1 mg IV for headache. Monitor patient. Patient has copper IUD and states will sign for test. CT complete and shows no acute findings. Patient's has history of pseudotumor cerebri and will likely benefit from therapeutic lumbar puncture. This was discussed with her including risk and benefits and she agreed. Consent signed and on the chart. I did ask our anesthesiology partners to perform the lumbar puncture. We will check cell count and opening pressure. Phenergan 25 mg IV given for nausea prior to the lumbar puncture. 1408: Hydrocodone 7.5 one tab by mouth given. Toradol 30 mg IV ordered. Patient has residual headache but no significant findings on labs or LP results. This is discussed with the patient and family. She is to follow -up with Dr. Zabala on Thursday for recheck and further evaluation. Discharged home with return precautions. Patient verbalize understanding instructions and agreement with plan. Diagnostic Imaging Diagonstic Imaging: CT Plain Films/CT/US/NM/MRI: head Comments VIA [facility]. [place], [place] NAME: JOVANKANDY Blue [facility] REC#: [id number] PT STATUS: REG ER : 1985 PHYSICIAN: ZELDA YANG MD ADMIT DATE: 06/06/17/ER Draft Date of Exam:06/06/17 CT HEAD WO PROCEDURE: CT head without contrast. TECHNIQUE: Multiple contiguous axial images were obtained through the brain without the use of intravenous contrast. INDICATION: Head pain, photophobia. COMPARISON: 06/26/2015 FINDINGS: There is no hemorrhage, hydrocephalus, edema, mass, mass effect or evidence for elevated intracranial pressures. Orbits, sinuses and calvarium unremarkable. There's been no interval change. IMPRESSION: Stable normal head CT. Dictated on workstation # [id number] Dict: 06/06/1727 Trans: 06/06/17 0929 [facility] [id number] Interpreted by: MACHELLE RAY Electronically signed by: Reviewed: Reviewed by Me Departure Impression Impression: Primary Impression: Headache Qualified Codes: R51 - Headache Additional Impressions: Neck pain Pseudotumor cerebri syndrome Disposition: HOME, SELF-CARE Condition: Stable Departure-Patient Inst. Decision time for Depature: 14:14 Referrals: KARY ZABALA DO (PCP/Family) Primary Care Physician Patient Instructions: Headache, Adult (DC), Neck Pain Add. Discharge Instructions: All discharge instructions reviewed with patient and/or family. Voiced understanding. Take medications as directed. Follow-up with your Dr. on Thursday for recheck and further evaluation. You may take ibuprofen 800 mg every 8 hours as needed for pain. Increase your Diamox to 500 mg twice daily and discussed this with your seeing eye dog teacher and primary care doctor. You should seek neurosurgical evaluation prior to September appointment. Scripts Hydrocodone/Acetaminophen (Hydrocodon-Acetaminoph 7.5-325) 1 Each Tablet 1 EACH PO Q6H, #6 TAB 0 Refills Prov: ZELDA YANG MD 06/06/17 ZELDA YANG MD Jun 06, 2017 08:59
[2017-06-06 09:21] LABS: BASOPHILS % (AUTO) 0 % (0-10); EOSINOPHILS # (AUTO) 0.1 10^3/uL (0.0-0.3); EOSINOPHILS % (AUTO) 2 % (0-10); LYMPHOCYTES # (AUTO) 2.2 X 10^3 (1.0-4.0); LYMPHOCYTES % (AUTO) 29 % (12-44); MEAN CORPUSCULAR HEMOGLOBIN 28 PG (25-34); MEAN CORPUSCULAR HGB CONC 32 G/DL (32-36); MEAN CORPUSCULAR VOLUME 88 FL (80-99); MEAN PLATELET VOLUME 9.8 FL (7.4-10.4); MONOCYTES # (AUTO) 0.8 X 10^3 (0.0-1.0); MONOCYTES % (AUTO) 10 % (0-12); NEUTROPHILS # (AUTO) 4.6 X 10^3 (1.8-7.8); NEUTROPHILS % (AUTO) 59 % (42-75); PLATELET COUNT 254 10^3/uL (130-400); RED BLOOD COUNT 4.07 10^6/uL (4.35-5.85); RED CELL DISTRIBUTION WIDTH 13.7 % (10.0-14.5); WHITE BLOOD COUNT 7.8 10^3/uL (4.3-11.0)
[2017-06-06 09:26] LABS: BILIRUBIN,URINE NEGATIVE (NEGATIVE); KETONES,URINE NEGATIVE (NEGATIVE); LEUKOCYTE ESTERASE ,URINE 1+ (NEGATIVE); NITRITE,URINE NEGATIVE (NEGATIVE); PH,URINE 7 (5-9); PROTEIN,URINE NEGATIVE (NEGATIVE); UROBILINOGEN,URINE NORMAL (NORMAL)
--- NOTE | 2017-06-06 09:30 | Diagnostic Imaging Report ---
PROCEDURE: CT head without contrast. TECHNIQUE: Multiple contiguous axial images were obtained through the brain without the use of intravenous contrast. INDICATION: Head pain, photophobia. COMPARISON: 06/26/2015 FINDINGS: There is no hemorrhage, hydrocephalus, edema, mass, mass effect or evidence for elevated intracranial pressures. Orbits, sinuses and calvarium unremarkable. There's been no interval change. IMPRESSION: Stable normal head CT. Dictated by: Dictated on workstation # [id number]
[2017-06-06 09:40] LABS: ALANINE AMINOTRANSFERASE 21 U/L (0-55); ALBUMIN 3.9 GM/DL (3.2-4.5); ANION GAP 7 MMOL/L (5-14); ASPARTATE AMINO TRANSFERASE 25 U/L (5-34); BILIRUBIN,TOTAL 0.4 MG/DL (0.1-1.0); BLOOD UREA NITROGEN 9 MG/DL (7-18); BUN/CREATININE RATIO 11; CALCIUM 9.1 MG/DL (8.5-10.1); CARBON DIOXIDE 22 MMOL/L (21-32); CHLORIDE 110 MMOL/L (98-107); CREATININE SERUM 0.79 MG/DL (0.60-1.30); GFR ESTIMATED > 60; GLUCOSE 92 MG/DL (70-105); POTASSIUM 3.7 MMOL/L (3.6-5.0); SODIUM 139 MMOL/L (135-145); TOTAL PROTEIN 6.4 GM/DL (6.4-8.2); hs C REACTIVE PROTEIN 0.97 MG/DL (0.00-0.50)
[2017-06-06 13:01] LABS: CSF GLUCOSE 65 MG/DL (50-80); CSF TOTAL PROTEIN 42 MG/DL (15-40)
--- NOTE | 2017-06-06 13:01 | Anesthesia-Procedure Note ---
Procedure Start/Stop Time Date of Procedure: Jun 06, 2017 Start Time: 11:30 Stop Time: 12:20 Procedures/Interventions Discussed Risk,Benefits: Yes Patient Consents: Yes Position: Lying, L4-5, Left Opening Pressure: 27 Fluid Color: clear Spinal Needle Used: Other (25) Procedure Notes [id number]: Patient presented to ED with complaints of headache and previous diagnosis of pseudotumor cerebri. Patient has had multiple LP, thus is familiar with the procedure and consent was obtained. The CT of the head was negative, platelet count > 100,000 and patient denies any blood thinners. The patient was given Phenergan IV for N/V per Dr. Barry prior to starting the procedure. The patient's back was sterile prepped and draped in the left lateral position. Localized both L3-L4 and L4-L5 during the procedure. A 25g Pencan 3.5 inch spinal needle was used to locate the space. CSF obtained on 2nd attempt. Opening pressure was 27 mmHg. 3cc of CSF was obtained in all 4 vials and noted to be clear. Needle removed and bandaid applied over site. The patient was provided with warm blankets upon request and head elevated. I discussed follow up care for possible complications such as a spinal headache. Patient understood. ALISA FARRELL CRNA Jun 06, 2017 13:01
[2017-06-06 13:22] LABS: APPEARANCE,CSF CLEAR; COLOR,CSF COLORLESS; WHITE BLOOD CELL,CSF 1 CELLS (0-5)
[2017-06-06 14:40] VITALS: BP 122/90
== END | disposition home or self-care (01) ==
LOC: EDUNIT# 07:55 → ER 07:56
DX: G93.2 Benign intracranial hypertension (principal); M54.2 Cervicalgia; J45.909 Unspecified asthma, uncomplicated; F41.9 Anxiety disorder, unspecified; F32.9 Major depressive disorder, single episode, unspecified; K21.9 Gastro-esophageal reflux disease without esophagitis; Z87.19 Personal history of other diseases of the digestive system; Z87.59 Personal history of other complications of pregnancy, childbirth and the puerperium
CPT/HCPCS: 36415; 70450; 80053; 81000; 82945; 84157; 85025; 86141; 87070; 87205; 87252; 89051; 96374; 96375

== ENCOUNTER 2018-02-17 17:36 | Outpatient (CLI) | payer MEDICARE ==
[~2018-02-17] VITALS: Ht 160 cm; Wt 90.8 kg
[~2018-02-17 17:36] MED LIST changes: -AMPH20TA2 PO; -DEXT10TA9 PO; -KLOR-CON PO; -PANT40TA2 PO; -PROM25TA14 PO; -THYR60TA27 PO
[2018-02-17 18:03] VITALS: BP 143/94
[2018-02-17] MEDS ORDERED: HYDROmorphone 2 MG/ML VIAL (DILAUDID) ONE (18:14)
[2018-02-17] MEDS ORDERED: ONDANSETRON 4 MG/2 ML (SDV) Z0FRAN ONE (18:14)
[2018-02-17] MEDS: CATHETER FLUSH 10 ML SYR IV PRN ×2 (18:20→18:30)
[2018-02-17] MEDS ORDERED: ONDANSETRON 4 MG/2 ML (SDV) Z0FRAN IV ONE (18:30)
[2018-02-17] MEDS ORDERED: HYDROmorphone 2 MG/ML VIAL (DILAUDID) IV ONE (18:30)
--- NOTE | 2018-02-17 18:44 | Anesthesia-Procedure Note ---
Procedures/Interventions Procedure Start/Stop/Diagnosis Date of Procedure: February 17, 2018 Start Time: 18:15 Preprocedural Diagnosis: persistent headache Stop Time: 18:40 Lumbar Puncture Discussed Risk,Benefits: Yes Patient Consents: Yes Position: Lying, L4-5, Left Sterile Technique: Yes Opening Pressure: 21 Fluid Color: clear Spinal Needle Used: 22g Mancuso 3 1/2 inch Procedure Notes tolerated procedure well . 1 attempt at L4-5. no heme or paraesthesia noted. JJ PERAZA CRNA February 17, 2018 18:44
[2018-02-17] MEDS ORDERED: diphenhydrAMINE 25 MG TAB (BENADRYL) PO ONE ×2 (19:01→19:15)
[2018-02-17 19:15] VITALS: BP 109/60
--- OUTSIDE RECORDS SUMMARY | 2018-02-17 19:20 | XMS REPORT | Encounter Summary ---
Author Author [facility] Organization [facility] Address Unknown Phone Unavailable Care Team Providers Care Fire Department Battalion Chief Name Role Phone Matthew Zabala MD PCP Karen Avelar RN Unavailable Unavailable Radha Bledsoe DO Unavailable Reason for Visit * Reason Comments Records Request Encounter Details Date Type Department Care Team Description 02/10/2018 Telephone [facility] Darline Vega Records Request [address] [place] [address] Social History Tobacco Use Types Packs/Day Years Used Date Never Smoker Smokeless Tobacco: Never Used Alcohol Use Drinks/Week oz/Week Comments No Sex Assigned at Date Recorded Not on file as of this encounter Miscellaneous Notes * Telephone Encounter - Darline Vega - 02/10/2018 11:08 AM CDT 02/10/18-Patient Called [facility] [place] [facility] [place] to have [facility] request records from [facility]- . Records are to be sent to Dr Rojas/EP Lab at [phone] for her 02/12/18 appointment. ANS in this encounter Plan of Treatment Not on fileas of this encounter Visit Diagnoses Not on filein this encounter
--- OUTSIDE RECORDS SUMMARY | 2018-02-17 19:20 | XMS REPORT | Encounter Summary ---
Author Author [facility] Organization [facility] Address Unknown Phone Unavailable Care Team Providers Care Baggage Checker Name Role Phone Matthew Zabala MD PCP Karen Avelar RN Unavailable Unavailable Radha Bledsoe DO Unavailable Reason for Visit * Reason Comments Records Request Encounter Details Date Type Department Care Team Description 02/12/[address] [facility] Cardiology Margarita Gutierrez RN Records Request [address] [facility] [address] [place] [address] Social History Tobacco Use Types Packs/Day Years Used Date Never Smoker Smokeless Tobacco: Never Used Alcohol Use Drinks/Week oz/Week Comments No Sex Assigned at Date Recorded Not on file as of this encounter Progress Notes * Margarita Gutierrez RN - 02/12/2018 9:25 AM CDT STAT Request for the following medical records for purpose of continuity of care : Has an appointment with Dr. Rojas today Please send: office notes cardiac testing cardiac procedures EKG's echocardiograms Holter monitor reports with strips event monitor reports with strips stress tests labs discharge summaries. Please Fax to: [facility] Cardiology - [phone] Dr. Rojas Attention: RENATO Thomas in this encounter Plan of Treatment Not on fileas of this encounter Visit Diagnoses Not on filein this encounter
--- OUTSIDE RECORDS SUMMARY | 2018-02-17 19:20 | XMS REPORT | Encounter Summary ---
Author Author [facility] Organization [facility] Address Unknown Phone Unavailable Care Team Providers Care Medical Social Consultant Name Role Phone Matthew Zabala MD PCP Karen Avelar RN Unavailable Unavailable Radha Bledsoe DO Unavailable Reason for Visit * Reason Comments New Patient Referred by Henrique Schultz MD work up for Tachycardia * Consult, Test & Treat Status Reason Specialty Diagnoses / Referred By Referred To Procedures Contact Contact No Auth Needed Specialty Cardiology Diagnoses Henrique Schultz [facility] Card Clinic Services Isak Kuhn MD [address] cerebri [address] [place] [phone] Phone: Encounter Details Date Type Department Care Team Description 02/12/2018 Office Visit [facility] Cardiology Henrique Schultz MD New Patient (Referred by [address] Henrique Joseph MD work [address] up for Tachycardia) [place] [address] [place] [address] [phone] Floresita German MD [address] [place] [address] [phone] Social History Tobacco Use Types Packs/Day Years Used Date Never Smoker Smokeless Tobacco: Never Used Alcohol Use Drinks/Week oz/Week Comments No Sex Assigned at Date Recorded Not on file as of this encounter Last Filed Vital Signs Vital Sign Reading Time Taken Blood Pressure 124/84 02/12/2018 9:15 AM CDT Pulse 121 02/12/2018 9:15 AM CDT Temperature - - Respiratory Rate - - Oxygen Saturation - - Inhaled Oxygen - - Concentration Weight 88.6 kg (195 lb 6.4 oz) 02/12/2018 9:15 AM CDT Height 165.1 cm (5' 5") 02/12/2018 9:15 AM CDT Body Mass Index 32.52 02/12/2018 9:15 AM CDT in this encounter Progress Notes * Floresita Rojas MD - 02/12/2018 8:40 AM CDT Formatting of this note may be different from the original. Date of Service: 02/12/2018 Cristina Johnson is a 32 y.o. female. HPI I had the pleasure of seeing Ms. Johnson in our office today for cardiac electrophysiology consultation regarding inappropriate sinus tachycardia. As you recall, Dear Dr. Rosenberg and Dr. Zabala, your patient, Ms. 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 She also had significant dyspnea on exertion with ordinary activities. This was attributed to being sick for a few years before that, but she did not get better, even with improving strength and activity level. The heart rate would go from 120- 160 with exercise. This limited her tolerance. She gained over about 60 pounds since 2013. She was initially evaluated locally by cardiologists, Dr. Curtis and Dr. Haynes , who did an exercise stress test which was negative apparently and an echocardiogram which was normal. The 30-day event monitor was uneventful. EF was mentioned to be around 55%. She was started on propranolol first, but it did not work and therefore she was tried on ivabradine, which also did not work but also was expensive and therefore was stopped. Subsequently, she was put on diltiazem, and she continued it even though it did not seem to help her. She was treated with Diamox b.i.d. since 2013, which seemed to have helped her headaches and neck stiffness from the increased intracranial pressures, but it has not been helping as much now and the intracranial pressures keep going up to 70 plus. She is seeing Dr. Rosenberg, the neuro feller seam operator at , for consideration of a shunt surgery versus a stent to relieve the pressures. She does urinate quite a bit but drinks about a gallon of water per day. She drinks only a little bit of tea, no other coffee or soda. She has significant trouble with sleeping and takes Ambien at night. I reviewed her 12-lead EKG, which shows sinus tachycardia at 120 beats per minute, HI 140, QRS 76, QTc 432 milliseconds. She apparently had labs last week which showed normal thyroid function. I do not have access to those results. We will request for them. As mentioned above, 30-day event monitor, nuclear stress test, and echo were apparently normal. 1. Inappropriate sinus tachycardia, which could be multifactorial. She probably has mild autonomic dysfunction with hyperadrenergic state possibly triggered when she was young. However, there could be multiple other factors that are playing a role including pseudotumor cerebri having affect on autonomic nervous system as well as relative hypovolemia from Diamox, which she is unable to catch up with the fluid balance, as well as related to Adderall, which is a stimulant. I tried to reassure her that sinus tachycardia generally does not result in heart failure or LV dysfunction, but once the inciting agent is removed would spontaneously get better. She has multiple reasons to have sinus tachycardia. I would recommend that she go ahead with shunt procedure or stent to relieve her intracranial pressure and subsequently go off the Diamox and then she might start seeing her heart rate come down. In the interim, she would also benefit from increasing her electrolyte intake instead of just drinking plain water since it does not stay in the system much. I also would recommend that she would do very gentle exercises sitting down but not standing on a regular basis to keep her muscles from getting deconditioned. I would also double check her thyroid, make sure she is not overcorrected. I will review her echo and stress test reports as when I see them, but if there are within normal limits then she will be considered for low risk for perioperative cardiovascular complications for this surgery. She can continue diltiazem for the time being but certainly can be held if the blood pressure is low and it generally does not have any rebound tachycardia. Her blood pressure is normal today. Thank you for letting us participate in the care of your patient. (DOC:[id number]) Vitals: 02/12/18 0915 BP: 124/84 Pulse: (!) 121 Weight: 88.6 kg (195 lb 6.4 oz) Height: 1.651 m (5' 5") Body mass index is 32.52 kg/m. Past Medical History Patient Active Problem List Diagnosis Date Noted Sinus tachycardia 02/12/2018 ECHO 10/08/16: EF 60%, LV mildly thick at 1.13cm otherwise normal. 12/2016 EVM: Normal rhythm/sinus tachycardia Palpitations 02/12/2018 Pseudotumor cerebri 03/31/2014 Review of Systems Constitution: Positive for malaise/fatigue and weight gain. HENT: Positive for tinnitus. Eyes: Positive for photophobia and visual halos. Cardiovascular: Positive for chest pain, dyspnea on exertion, irregular heartbeat, leg swelling and palpitations. Respiratory: Positive for shortness of breath and snoring. Endocrine: Positive for cold intolerance, heat intolerance and polydipsia. Hematologic/Lymphatic: Positive for adenopathy. Skin: Positive for skin cancer. Musculoskeletal: Positive for joint pain, muscle cramps, neck pain and stiffness. Gastrointestinal: Positive for bloating, diarrhea, heartburn and nausea. Genitourinary: Negative. Neurological: Positive for difficulty with concentration, excessive daytime sleepiness, dizziness, light-headedness and tremors. Psychiatric/Behavioral: Positive for memory loss. The patient has insomnia and is nervous/anxious. Physical Exam Patient is a moderately well-built woman who is comfortable at rest, not in any distress. Sclerae anicteric. The oral mucosa is moist and pink. Neck is supple without any lymphadenopathy. Lungs are clear to auscultation bilaterally. Breath sounds are normal. Cardiac exam reveals normal S1, S2 with regular fast rate and rhythm. No murmurs, rubs or gallops noted. Abdomen: Soft, nontender, nondistended. Bowel sounds are present. Extremities: No cyanosis, clubbing or edema. Peripheral pulses are symmetric. Skin without any rash. Cardiovascular Studies Problems Addressed Today No diagnosis found. Assessment and Plan As above in HPI section. Current Medications (including today's revisions) acetaZOLAMIDE (DIAMOX SEQUELS) 500 mg capsule Take 500 mg by mouth twice daily. dextroamphetamine-amphetamine (ADDERALL) 20 mg tablet Take 15 mg by mouth every morning diltiazem CD (CARDIZEM CD) 120 mg capsule Take 120 mg by mouth daily. ergocalciferol (VITAMIN D-2) 50,000 unit capsule Take 50,000 Units by mouth every Thursday. thyroid (ARMOUR THYROID) 60 mg tablet Take 60 mg by mouth daily. zolpidem (AMBIEN) 10 mg tablet Take 10 mg by mouth at bedtime as needed. in this encounter Plan of Treatment Name Priority Associated Diagnoses Order Schedule ECG 12-LEAD Routine Inappropriate sinus Ordered: 02/12/2018 tachycardia as of this encounter Visit Diagnoses Diagnosis Inappropriate sinus tachycardia - Primary Other specified cardiac dysrhythmias Pseudotumor cerebri Benign intracranial hypertension Sinus tachycardia Other specified cardiac dysrhythmias Palpitations
--- OUTSIDE RECORDS SUMMARY | 2018-02-17 19:20 | XMS REPORT | Encounter Summary ---
Author Author [facility] Organization [facility] Address Unknown Phone Unavailable Care Team Providers Care Sales Assistant Entertainment And Media Name Role Phone Matthew Zabala MD PCP Karen Avelar RN Unavailable Unavailable Radha Bledsoe DO Unavailable Reason for Visit * Reason Comments Cardiac Clearance Encounter Details Date Type Department Care Team Description 02/16/2018 Telephone [facility] Cardiology Margarita Gutierrez RN Cardiac Clearance [address] [facility] [address] [place] [address] Social History Tobacco Use Types Packs/Day Years Used Date Never Smoker Smokeless Tobacco: Never Used Alcohol Use Drinks/Week oz/Week Comments No Sex Assigned at Date Recorded Not on file as of this encounter Miscellaneous Notes * Telephone Encounter - Margarita Gutierrez RN - 02/16/2018 12:05 PM CDT RAD reviewed patient's ECHO and Stress test, patient is clear for surgery per Dr. Rojas. in this encounter Plan of Treatment Not on fileas of this encounter Visit Diagnoses Not on filein this encounter
--- OUTSIDE RECORDS SUMMARY | 2018-02-17 19:20 | XMS REPORT | Encounter Summary ---
Author Author [facility] Organization [facility] Address Unknown Phone Unavailable Care Team Providers Care [place] Support Worker Name Role Phone Matthew Zabala MD PCP Karen Avelar RN Unavailable Unavailable Radha Bledsoe DO Unavailable Reason for Visit * Reason Comments New Patient pseudotumor cerebri * Consult, Test & Treat Status Reason Specialty Diagnoses / Referred By Referred To Procedures Contact Contact No Auth Needed Specialty Neurology Diagnoses Henrique Schultz Michael, Services Pseudottamir Kuhn MD MD Required cerebri [id number] [facility] [address] [place] [phone] Phone: Encounter Details Date Type Department Care Team Description 02/16/2018 Office Visit [facility] Henrique Schultz MD Arrived [facility]Neurology [address] [facility] [address] [place] [address] [place], [place] [phone] Hamilton Schrader MD [address] [facility] [address] [place] [address] [phone] Social History Tobacco Use Types Packs/Day Years Used Date Never Smoker Smokeless Tobacco: Never Used Alcohol Use Drinks/Week oz/Week Comments No Sex Assigned at Date Recorded Not on file as of this encounter Last Filed Vital Signs Vital Sign Reading Time Taken Blood Pressure 125/88 02/16/2018 2:30 PM CDT Pulse 100 02/16/2018 2:30 PM CDT Temperature - - Respiratory Rate - - Oxygen Saturation - - Inhaled Oxygen - - Concentration Weight 88.2 kg (194 lb 8 oz) 02/16/2018 2:30 PM CDT Height 165.1 cm (5' 5") 02/16/2018 2:30 PM CDT Body Mass Index 32.37 02/16/2018 2:30 PM CDT in this encounter Instructions * Patient Instructions - Hamilton Rosenberg MD - 02/16/2018 2:40 PM CDT 1) The large draining veins in your brain that drain the spinal fluid are wide open with no evidence of narrowing to suggest this as the cause. Given this I recommend shunting with Dr. Schultz. 2) Please make an appointment with the neuro-bridge inspector. 3) Try ibuprofen or naproxen as needed instead of Excedrin. Take with food. in this encounter Plan of Treatment Not on fileas of this encounter Visit Diagnoses Not on filein this encounter
--- OUTSIDE RECORDS SUMMARY | 2018-02-17 19:20 | XMS REPORT | Encounter Summary ---
Author Author [facility] Organization [facility] Address Unknown Phone Unavailable Care Team Providers Care Commodity Analyst Name Role Phone Matthew Zabala MD PCP Karen Avelar RN Unavailable Unavailable Radha Bledsoe DO Unavailable Encounter Details Date Type Department Care Team Description 01/19/2018 Ancillary Rad Outpatient, Radiologist Diagnosis unknown Orders [address] [place] [address] Social History Tobacco Use Types Packs/Day Years Used Date Never Smoker Smokeless Tobacco: Never Used Alcohol Use Drinks/Week oz/Week Comments No Sex Assigned at Date Recorded Not on file as of this encounter Plan of Treatment Not on fileas of this encounter Results * MRI HEAD EXTERNAL IMAGING (10/06/2017) Narrative This order has been auto finalized and does not contain a result. in this encounter Visit Diagnoses Diagnosis Diagnosis unknown Other unknown and unspecified cause of morbidity or mortality
--- OUTSIDE RECORDS SUMMARY | 2018-02-17 19:20 | XMS REPORT | Continuity of Care Document ---
Author Author [facility] Organization [facility] Address Unknown Phone Unavailable Care Team Providers Care Teletype Or Varitype Keyboard Operator Name Role Phone [employer] Unavailable Unavailable Problems Medications Allergies, Adverse Reactions, Alerts Immunizations Results Vital Signs Encounters Location Location Details Encounter Type Encounter Number Reason For Visit Attending Provider ADM Date DC Date Status Source OUTPATIENT [id number] ASHLEY BROWER 02/12/2018 Active [facility] OUTPATIENT [id number] AMY MONTES 02/16/2018 Active [facility] O AMY MONTES Active [facility] Procedures Plan of Care Social History Assessment and Plan Family History Advance Directives Functional Status
--- OUTSIDE RECORDS SUMMARY | 2018-02-17 19:20 | XMS REPORT | Clinical Summary ---
Author Author [facility] Organization [facility] Address Unknown Phone Unavailable Care Team Providers Care Video Software Engineer Name Role Phone Matthew Zabala MD PCP Karen Avelar RN Unavailable Unavailable Radha Bledsoe DO Unavailable Source Comments Some departments are not documenting in the electronic medical record. If you do not see the information that you expected, contact Release of Information in the Health Information Management department at [phone] for further assistance in locating additional records.[facility] Allergies No Known Allergies Current Medications Prescription Sig. Disp. Refills Start End Date Status Date thyroid (ARMOUR THYROID) Take 60 mg by mouth Active 60 mg tablet daily. zolpidem (AMBIEN) 10 mg Take 10 mg by mouth at Active tablet bedtime as needed. dextroamphetamine-ampheta Take 15 mg by mouth every Active mine (ADDERALL) 20 mg morning tablet acetaZOLAMIDE (DIAMOX Take 500 mg by mouth Active SEQUELS) 500 mg capsule twice daily. ergocalciferol (VITAMIN Take 50,000 Units by Active D-2) 50,000 unit capsule mouth every Thursday. diltiazem CD (CARDIZEM Take 120 mg by mouth Active CD) 120 mg capsule daily. DOMPERIDONE (BULK) MISC Use as directed. Take Active two tabs twice daily pantoprazole DR Take 40 mg by mouth Active (PROTONIX) 40 mg tablet daily. venlafaxine (EFFEXOR) 75 Take 75 mg by mouth three Active mg tablet times daily with meals. Wheening Off take 1 tab every third day oxyCODONE SR (OXYCONTIN) Take 10 mg by mouth every 01/20/20 Discontin 10 mg tablet 12 hours 18 ued LORazepam (ATIVAN) 1 mg Take 1 mg by mouth every 02/13/20 Discontin tablet 8-12 hours as needed. 18 ued HYDROcodone-acetaminophen Take 1 Tab by mouth every 01/20/20 Discontin (+) (VICODIN) 10-325 mg 8-12 hours as needed. 18 ued tablet propranolol (INDERAL) 20 Take 20 mg by mouth twice 01/20/20 Discontin mg tablet daily. 18 ued gabapentin (NEURONTIN) Take 1,200 mg by mouth at 01/20/20 Discontin 300 mg capsule bedtime daily. 18 ued venlafaxine XR (EFFEXOR Take 150 mg by mouth 02/13/20 Discontin XR) 150 mg capsule twice daily. 18 ued venlafaxine (EFFEXOR) 75 Take 75 mg by mouth twice 02/13/20 Discontin mg tablet daily. 18 ued QUEtiapine (SEROQUEL) 300 Take 300 mg by mouth 02/13/20 Discontin mg tablet daily. 18 ued indomethacin (INDOCIN) 50 Take 50 mg by mouth twice 01/20/20 Discontin mg capsule daily. 18 ued morphine (ROXANOL) 100 Take 15 mg by mouth every 01/20/20 Discontin mg/5 mL (20 mg/mL) oral 12 hours as needed 18 ued concentrate diphenhydrAMINE Take 1 Cap by mouth every 30 Cap 04/03/20 01/20/20 Discontin (BENADRYL) 25 mg capsule 6 hours as needed. 14 18 ued prochlorperazine Take 1 Tab by mouth every 30 Tab 1 04/03/20 Discontin (COMPAZINE) 10 mg tablet 6 hours as needed (nausea 14 18 ued and headaches ). magnesium oxide (MAG-OX) Take 1 Tab by mouth every 60 Tab 1 04/03/20 01/20/20 Discontin 400 mg tablet 6 hours as needed. Take 14 18 ued with benadryl, and compazine up to every 6 hours, and naproxen every 12 hours until headache resolves. naproxen (NAPROSYN) 500 Take 1 Tab by mouth twice 60 Tab 1 04/03/20 01/20/20 Discontin mg tablet daily as needed. Take 14 18 ued every 12 hours, along with magnesium, benadryl and compazine, until headache resolves. DILTIAZEM HCL (CARDIZEM Take 1 tablet by mouth 02/13/20 Discontin PO) daily. Pt. Not sure of 18 ued dosage Active Problems Problem Noted Date Sinus tachycardia 02/12/2018 Overview: ECHO 10/08/16: EF 60%, LV mildly thick at 1.13cm otherwise normal. 12/2016 EVM: Normal rhythm/sinus tachycardia Palpitations 02/12/2018 Pseudotumor cerebri 03/31/2014 Encounters Date Type Specialty Care Team Description 02/16/2018 Office Visit Neurology Henrique Schultz MD Arrived Hamilton Rosenberg MD 02/16/2018 Telephone Cardiology Margarita Gutierrez RN Cardiac Clearance 02/12/2018 Office Visit Cardiology Henrique Schultz MD New Patient ( Referred by Floresita Rojas MD Stepp, Timothy E, MD work up for Tachycardia) 02/12/2018 Documentation Cardiology Margarita Gutierrez RN Records Request 02/10/2018 Telephone Cardiology Darline Vega Records Request 01/19/2018 Office Visit Neurosurgery Daljit Baird MD Pseudotumor cerebri (Primary Dx) 01/19/2018 Ancillary Radiology Outpatient, Radiologist Diagnosis unknown Orders from Last 3 Months Family History Medical History Relation Name Comments [...] Pulse 100 02/16/2018 2:30 PM CDT Temperature 36.4 C (97.6 F) 04/03/2014 11:26 AM CDT Respiratory Rate - - Oxygen Saturation 100% 04/03/2014 11:26 AM CDT Inhaled Oxygen - - Concentration Weight 88.2 kg (194 lb 8 oz) 02/16/2018 2:30 PM CDT Height 165.1 cm (5' 5") 02/16/2018 2:30 PM CDT Body Mass Index 32.37 02/16/2018 2:30 PM CDT Plan of Treatment Health Maintenance Due Date Last Done Comments PHYSICAL (COMPREHENSIVE) 1993 EXAM PERTUSSIS VACCINE 1997 TETANUS VACCINE 2003 CERVICAL CANCER SCREENING 2016 INFLUENZA VACCINE 07/19/2018 HIV SCREENING Completed 04/01/2014 Results Not on filefrom Last 3 Months
--- OUTSIDE RECORDS SUMMARY | 2018-02-17 19:21 | XMS REPORT | Encounter Summary ---
Author Author [facility] Organization [facility] Address Unknown Phone Unavailable Care Team Providers Care Professor Of Environmental Studies Name Role Phone Matthew Zabala MD PCP Karen Avelar RN Unavailable Unavailable Radha Bledsoe DO Unavailable Reason for Referral * Consult, Test & Treat Status Reason Specialty Diagnoses / Referred By Referred To Procedures Contact Contact No Auth Needed Specialty Cardiology Diagnoses Henrique Schultz hernandez [facility] Services Pseudottamir Kuhn MD [address] cerebri [address] [place] [phone] Phone: * Consult, Test & Treat Status Reason Specialty Diagnoses / Referred By Referred To Procedures Contact Contact No Auth Needed Specialty Neurology Diagnoses Henrique Schultz Michael, Services Pseudottamir Kuhn MD MD Required cerebri [address] [place] [phone] Phone: Scheduling Instructions Contact Phone Numbers for each area if questions arise: General: [phone] Epilepsy: [phone] Multiple Sclerosis: [phone] Parkinson's: [phone] [facility]: Stroke & Neuromuscular: [phone] [place]: 45 Reason for Visit * Reason Comments New Patient Pseudotumor Encounter Details Date Type Department Care Team Description 01/19/2018 Office Visit [facility] Daljit Baird MD Pseudotumor cerebri Physicians - Neurosurgery [address] (Primary Dx) [address] FLO[address] P[address] [place] [address] OFFICE BLDG [phone] [place] [address] Social History Tobacco Use Types Packs/Day Years Used Date Never Smoker Smokeless Tobacco: Never Used Alcohol Use Drinks/Week oz/Week Comments No Sex Assigned at Date Recorded Not on file as of this encounter Last Filed Vital Signs Vital Sign Reading Time Taken Blood Pressure 126/88 01/19/2018 12:13 PM CDT Pulse 108 01/19/2018 12:13 PM CDT Temperature - - Respiratory Rate - - Oxygen Saturation - - Inhaled Oxygen - - Concentration Weight 88.9 kg (196 lb) 01/19/2018 12:13 PM CDT Height 165.1 cm (5' 5") 01/19/2018 12:13 PM CDT Body Mass Index 32.62 01/19/2018 12:13 PM CDT in this encounter Progress Notes * Henrique Schultz MD - 01/19/2018 12:00 PM CDT ATTESTATION I personally observed the resident performing the E/M, I examined the patient, discussed case with resident and patient, and concur with resident documentation of history, physical assessment and treatment plan unless otherwise noted. Patient specifically denies any new visual changes. Unclear when she last had Ophthalmologic evaluation - states she has had visual field testing in past and was told they were normal. Visual franco appear full to direct confrontation today, and she can read fine print ou (slightly less on left). Cardiac evaluation re: tachycardia - patient has requested Cardiology consultation at and will initiate this. Will refer to see Dr. Rosenberg for updated evaluation and treatment options. We will be available to see her back in follow up. Staff Name: Henrique Schultz MD Date: 01/22/2018 * Daljit Baird MD - 01/19/2018 12:00 PM CDT Formatting of this note may be different from the original. NEUROSURGERY CLINIC Date of Visit: 01/19/2018 CC: New Patient (Pseudotumor) HPI: Cristina Johnson is a 32 y.o. female who presents with history of pseudotumor cerebri diagnosed in 2013. She initially underwent workup for what was presumed to be viral meningitis with serial lumbar punctures in 2013. LPs demonstrated elevated opening pressure with headache not abating and patient was started on Diamox and sent to for consultation. At that time the neurology team underwent workup of the patient having been on Diamox with recent LP at time of admission of an opening pressure of 39. She had been on doxycycline for Lyme disease and this was presumed to be a precipitating factor for the development of pseudotumor cerebri with negative MRI imaging of the brain. She was discharged in March 2014 remaining on Diamox 500 mg twice daily with a referral and documentation of April 2014 but no follow-up appointment was completed due to unknown reason. Since time of discharge patient has been doing okay but more recently over the recent months has been developing worsening headaches of frequency and severity. She also has experienced recent weight gain but denies any changes of her vision. She has undergone a relatively recent eye exam with stable visual franco and acuity. She does however report a recent lumbar puncture opening pressure in the last few months of 72. This was done at an outside hospital and [facility] and no reports with this number have been collected at the time of her visit today. Today she notes that she is having a headache which is throbbing and pressure- like bilaterally and behind the eyes. She does not have any visual symptoms including blurriness or double vision at time of consultation. She also notes recently having issues with tachycardia and has been having some degree of tachycardia for the last year to year and a half. She has seen a event executive in a satellite clinic who believes that tachycardia may be due to the Diamox. ROS: Review of Systems Constitutional: Positive for fatigue. HENT: Positive for hearing loss. Respiratory: Positive for shortness of breath. Cardiovascular: Positive for palpitations. Tachycardia Endocrine: Positive for cold intolerance. Musculoskeletal: Positive for neck pain. Neurological: Positive for headaches. Psychiatric/Behavioral: Positive for sleep disturbance. The patient is nervous/ anxious. All other systems reviewed and are negative. PMH: Past Medical History: Diagnosis Date Anxiety Depression Fibromyalgia Lyme disease december 2012 Current Outpatient Prescriptions: acetaZOLAMIDE (DIAMOX SEQUELS) 500 mg capsule, Take 500 mg by mouth twice daily., Disp: , Rfl: dextroamphetamine-amphetamine (ADDERALL) 20 mg tablet, Take 20 mg by mouth twice daily, Disp: , Rfl: DILTIAZEM HCL (CARDIZEM PO), Take 1 tablet by mouth daily. Pt. Not sure of dosage, Disp: , Rfl: ergocalciferol (VITAMIN D-2) 50,000 unit capsule, Take 50,000 Units by mouth every Thursday., Disp: , Rfl: LORazepam (ATIVAN) 1 mg tablet, Take 1 mg by mouth every 8-12 hours as needed., Disp: , Rfl: QUEtiapine (SEROQUEL) 300 mg tablet, Take 300 mg by mouth daily., Disp: , Rfl: thyroid (ARMOUR THYROID) 60 mg tablet, Take 60 mg by mouth daily., Disp: , Rfl: venlafaxine (EFFEXOR) 75 mg tablet, Take 75 mg by mouth twice daily., Disp : , Rfl: venlafaxine XR (EFFEXOR XR) 150 mg capsule, Take 150 mg by mouth twice daily., Disp: , Rfl: zolpidem (AMBIEN) 10 mg tablet, Take 10 mg by mouth at bedtime as needed., Disp: , Rfl: Allergies: No Known Allergies PSH: Past Surgical History: Procedure Laterality Date ADENOIDECTOMY CHOLECYSTECTOMY TONSILLECTOMY FH: Family History Problem Relation Age of Onset Diabetes Father Cancer Sister SH: Social History Substance Use Topics Smoking status: Never Smoker Smokeless tobacco: Never Used Alcohol use No PHYSICAL EXAM: Vitals: Vitals: 01/19/18 1213 BP: 126/88 Pulse: 108 Weight: 88.9 kg (196 lb) Height: 165.1 cm (65") BMI: Body mass index is 32.62 kg/m. Consitutional: Awake, alert, oriented x 3. Well-developed, well-nourished. No distress. HEENT: Normocephalic and atraumatic, symmetric. EOM are normal. Pupils are equal, round, and reactive to light. Neck exhibits normal range of motion. Cardiovascular: Normal rate and regular rhythm. Pulmonary/Chest: Effort normal. Equal chest rise bilaterally. Abdominal: Exhibits no distension. Overweight. Musculoskeletal: Normal range of motion. Normal muscle bulk and tone. Extremities: No edema, no cyanosis. Neurological: A&O x3. CN 2-12 grossly intact. Visual franco full. Normal strength x 4 extremities. No atrophy and no tremor. Sensation intact to light touch x 4 extremities. Negative pronator drift. Coordination within normal limits. Skin: Skin is warm and dry. No diaphoresis. Psychiatric: Normal mood and affect. Behavior is normal. Judgment and thought content normal. IMAGING: MRI brain without acute abnormality. ASSESSMENT/PLAN: Patient Active Problem List Diagnosis Date Noted Pseudotumor cerebri 03/31/2014 Ms Johnson is a 32-year-old female with history of pseudotumor cerebri and recent worsening of headaches without visual changes. We have discussed the overall workup and management of pseudotumor cerebri including but not limited to serial LPs, MRI/MRV of the brain, FLOATER OPERATOR shunt or LP shunt, dural venous sinus stenting, and optic nerve sheath fenestration. Of note her current Diamox dosing is 500 mg twice daily with some room to go up on that. We have discussed referral to Dr. Rosenberg for overall pseudotumor management including management of the Diamox dose and possibly increasing this dose for symptom management as well as possible workup for venous sinus imaging/gradient measurement. Additionally we have put in for a cardiology referral here at for a second opinion regarding the tachycardia and any possible workup related to this. Please call [phone] with questions or concern Daljit Baird MD in this encounter Plan of Treatment Name Priority Associated Diagnoses Order Schedule AMB REFERRAL TO NEUROLOGY Routine Pseudotumor cerebri Ordered: 2017 AMB REFERRAL TO ADULT CARDIOLOGY Routine Pseudotumor cerebri Ordered: as of this encounter Visit Diagnoses Diagnosis Pseudotumor cerebri - Primary Benign intracranial hypertension
--- OUTSIDE RECORDS SUMMARY | 2018-02-17 19:25 | XMS REPORT | Continuity of Care Document ---
Author Author Formerly [facility] Address Unknown Phone Unavailable Allergies Active Description Code Type Severity Reaction Onset Reported/Identified Relationship to Patient Clinical Status Yes No known drug allergies [id number] ND N/A N/A Yes No known allergies Drug N/A N/A Yes No Known Drug Allergies [id number] Drug Allergy Unknown N/A 01/21/2013 Medications There is no data. Problems Date Dx Coded Attending Type Code Diagnosis Diagnosed By 03/12/2013 EUSEBIO ZAPATA, JAZMINE Cr Ot 088.81 LYME DISEASE 03/12/2013 JAZMINE KAPLAN MD Ot 575.11 CHRONIC CHOLECYSTITIS 03/12/2013 JAZMINE KAPLAN MD Ot 575.8 DIS OF GALLBLADDER NEC 05/13/2013 300.00 AN ANXIETY UNSPEC 05/13/2013 311 MO DEPRESS NOS 05/13/2013 [facility], HERNANDEZ R 300.00 AN ANXIETY UNSPEC 05/13/2013 [facility], HERNANDEZ R 311 MO DEPRESS NOS 05/13/2013 [facility], HERNANDEZ R 300.00 AN ANXIETY UNSPEC 05/13/2013 [facility], HERNANDEZ R 311 MO DEPRESS NOS 05/13/2013 [facility], HERNANDEZ R 300.00 AN ANXIETY UNSPEC 05/13/2013 [facility], HERNANDEZ R 311 MO DEPRESS NOS 05/13/2013 [facility], HERNANDEZ R 300.00 AN ANXIETY UNSPEC 05/13/2013 [facility], HERNANDEZ R 311 MO DEPRESS NOS 05/13/2013 [facility], HERNANDEZ R 300.00 AN ANXIETY UNSPEC 05/13/2013 [facility], HERNANDEZ R 311 MO DEPRESS NOS 05/13/2013 [facility], HERNANDEZ R 300.00 AN ANXIETY UNSPEC 05/13/2013 [facility], HERNANDEZ R 311 MO DEPRESS NOS 05/13/2013 [facility], HERNANDEZ R 300.00 AN ANXIETY UNSPEC 05/13/2013 [facility], HERNANDEZ R 311 MO DEPRESS NOS 05/13/2013 [facility], HERNANDEZ R 300.00 AN ANXIETY UNSPEC 05/13/2013 [facility], HERNANDEZ R 311 MO DEPRESS NOS 05/13/2013 [facility], [facility] R 300.00 AN ANXIETY UNSPEC 05/13/2013 [facility], [facility] R 311 MO DEPRESS NOS 05/13/2013 [facility], [facility] R 300.00 AN ANXIETY UNSPEC 05/13/2013 [facility], HERNANDEZ R 311 MO DEPRESS NOS 05/13/2013 [facility], HERNANDEZ R 300.00 AN ANXIETY UNSPEC 05/13/2013 [facility], [facility] R 311 MO DEPRESS NOS 05/13/2013 [facility], [facility] R 300.00 AN ANXIETY UNSPEC 05/13/2013 [facility], HERNANDEZ R 311 MO DEPRESS NOS 05/13/2013 [facility], HERNANDEZ R 300.00 AN ANXIETY UNSPEC 05/13/2013 [facility], HERNANDEZ R 311 MO DEPRESS NOS 05/13/2013 [facility], HERNANDEZ R 300.00 AN ANXIETY UNSPEC 05/13/2013 [facility], HERNANDEZ R 311 MO DEPRESS NOS 05/13/2013 [facility], HERNANDEZ R 300.00 AN ANXIETY UNSPEC 05/13/2013 [facility], HERNANDEZ R 311 MO DEPRESS NOS 05/27/2013 MARCELO POMPAP Ot 276.51 DEHYDRATION 05/27/2013 MARCELO POMPA BIRD SITTER Ot 789.00 ABDOMINAL PAIN, UNSPECIFIED SITE 05/27/2013 MARCELO POMPA BIRD SITTER Ot 790.7 BACTEREMIA 02/20/2014 MARCELO POMPA BIRD SITTER Ot 088.81 LYME DISEASE 02/20/2014 MARCELO POMPA BIRD SITTER Ot 790.6 ABN BLOOD CHEMISTRY NEC 03/02/2014 MARCELO POMPA BIRD SITTER Ot 088.81 LYME DISEASE 03/02/2014 MARCELO POMPA BIRD SITTER Ot 790.6 ABN BLOOD CHEMISTRY NEC 03/12/2014 AKRY POMPA DO Ot 088.81 LYME DISEASE 03/12/2014 KARY POMPA DO Ot 244.9 HYPOTHYROIDISM NOS 03/12/2014 KARY POMPA DO Ot 268.9 VITAMIN D DEFICIENCY NOS 03/12/2014 KARY POMPA DO Ot 276.51 DEHYDRATION 03/12/2014 KARY POMPA DO Ot 300.00 ANXIETY STATE NOS 03/12/2014 KARY POMPA DO Ot 311 DEPRESSIVE DISORDER NEC 03/12/2014 KARY POMPA DO Ot 338.4 CHRONIC PAIN SYNDROME 03/12/2014 KARY POMPA DO Ot 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 03/12/2014 KARY POMPA DO Ot 388.30 TINNITUS NOS 03/12/2014 KARY POMPA DO Ot 458.9 HYPOTENSION NOS 03/12/2014 KARY POMPA DO Ot 473.0 CHR MAXILLARY SINUSITIS 03/12/2014 KARY POMPA DO Ot 787.01 NAUSEA WITH VOMITING 03/31/2014 KARY POMPA DO Ot 088.81 LYME DISEASE 03/31/2014 KARY POMPA DO Ot 244.9 HYPOTHYROIDISM NOS 03/31/2014 KARY POMPA DO Ot 268.9 VITAMIN D DEFICIENCY NOS 03/31/2014 KARY POMPA DO Ot 276.51 DEHYDRATION 03/31/2014 KARY POMPA DO Ot 311 DEPRESSIVE DISORDER NEC 03/31/2014 KARY POMPA DO Ot 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 03/31/2014 KARY POMPA DO Ot 458.0 ORTHOSTATIC HYPOTENSION 03/31/2014 KARY POMPA DO Ot 788.5 OLIGURIA ANURIA 03/31/2014 KARY POMPA DO Ot V58.69 OTH MED,LT,CURRENT USE 04/19/2014 [facility], HERNANDEZ R 296.22 MO DEPRESSIVE SINGLE MODERATE 04/19/2014 [facility], HERNANDEZ R 296.22 MO DEPRESSIVE SINGLE MODERATE 04/19/2014 [facility], HERNANDEZ R 296.22 MO DEPRESSIVE SINGLE MODERATE 04/19/2014 [facility], HERNANDEZ R 296.22 MO DEPRESSIVE SINGLE MODERATE 04/19/2014 [facility] HERNANDEZ R 296.22 MO DEPRESSIVE SINGLE MODERATE 09/11/2014 LIZ LOVE MD Ot 530.10 ESOPHAGITIS NOS 09/11/2014 LIZ LOVE MD Ot 535.50 UNSP GASTRITIS GASTRODUODENITIS W/O ME 09/11/2014 LIZ LOVE MD Ot V74.8 SCREEN-BACTERIAL DIS NEC 09/22/2014 MARCELO POMPA BIRD SITTER Ot 536.8 09/22/2014 ALETHA MARCELO L BIRD SITTER Ot 789.00 06/21/2015 Ot 346.90 06/21/2015 Ot 780.60 06/21/2015 Ot 088.81 06/21/2015 KEILA POMPARICIA L BIRD SITTER Ot 553.1 06/21/2015 KEILA POMPARICIA L BIRD SITTER Ot 780.60 06/21/2015 KEILA POMPARICIA L BIRD SITTER Ot 788.63 06/21/2015 ALETHA MARCELO L BIRD SITTER Ot 789.00 06/21/2015 ALETHA MARCELO L BIRD SITTER Ot 789.01 06/21/2015 ALETHA MARCELO L BIRD SITTER Ot V58.81 06/21/2015 ALETHA MARCELO L BIRD SITTER Ot 785.1 06/21/2015 KEILA POMPARICIA L BIRD SITTER Ot 785.2 06/21/2015 ALETHA MARCELO L BIRD SITTER Ot 625.9 06/21/2015 ALETHA MARCELO L BIRD SITTER Ot 780.60 06/21/2015 ALETHA MARCELO L BIRD SITTER Ot 789.00 06/21/2015 ALETHA MARCELO L BIRD SITTER Ot 790.6 06/21/2015 ALETHA MARCELO L BIRD SITTER Ot 088.81 06/21/2015 ALETHA MARCELO L BIRD SITTER Ot 276.51 06/21/2015 ALETHA MARCELO L BIRD SITTER Ot 466.0 06/21/2015 ALETHA MARCELO L BIRD SITTER Ot 276.51 06/21/2015 ALETHA MARCELO L BIRD SITTER Ot 785.2 06/21/2015 ALETHA MARCELO L BIRD SITTER Ot 789.09 06/21/2015 ALETHA MARCELO L BIRD SITTER Ot 790.7 06/21/2015 KARY POMPA DO Ot 348.2 06/21/2015 KEILA POMPARICIA L BIRD SITTER Ot 536.8 06/21/2015 KEILA POMPARICIA L BIRD SITTER Ot 789.00 06/21/2015 KATE ZAPATA, LIZ Blue Ot 789.06 06/21/2015 KATE ZAPATA, LIZ Blue Ot V72.84 06/26/2015 POMPA DO, KARY Diaz Ot 038.9 06/26/2015 POMPA DO, KARY Diaz Ot 088.81 06/26/2015 POMPA DO, KARY Diaz Ot 244.9 06/26/2015 POMPA DO, KARY Diaz Ot 268.9 06/26/2015 POMPA DO, KARY Diaz Ot 276.51 06/26/2015 POMPA DO, KARY Diaz Ot 300.00 06/26/2015 POMPA DO, KARY Diaz Ot 311 06/26/2015 POMPA DOKARY Ot 348.2 06/26/2015 POMPA DOKARY Ot 590.80 06/26/2015 POMPA DOKARY Ot 729.1 06/26/2015 POMPA DOKARY Ot 995.91 06/27/2015 POMPA DOKARY Ot 038.9 06/27/2015 POMPA DOKARY Ot 088.81 06/27/2015 POMPA DO, KARY Diaz Ot 244.9 06/27/2015 POMPA DO, KARY Diaz Ot 268.9 06/27/2015 POMPA DO, KARY Diaz Ot 276.51 06/27/2015 POMPA DO, KARY Diaz Ot 300.00 06/27/2015 POMPA DOKARY Ot 311 06/27/2015 POMPA DOKARY Ot 348.2 06/27/2015 POMPA DOKARY Ot 590.80 06/27/2015 POMPA DOKARY Ot 729.1 06/27/2015 POMPA DOKARY Ot 995.91 06/28/2015 POMPA DOKARY Ot 038.9 06/28/2015 POMPA DOKARY Ot 088.81 06/28/2015 POMPA DO, KARY Diaz Ot 244.9 06/28/2015 POMPA DO, KARY Diaz Ot 268.9 06/28/2015 POMPA DO, KARY Diaz Ot 276.51 06/28/2015 POMPA DOKARY Ot 300.00 06/28/2015 POMPA DOKARY Ot 311 06/28/2015 POMPA DOKARY Ot 348.2 06/28/2015 KARY POMPA DO Ot 590.80 06/28/2015 KARY POMPA DO Ot 729.1 06/28/2015 KARY POMPA DO Ot 995.91 06/29/2015 KARY POMPA DO Ot 038.9 06/29/2015 KARY POMPA DO Ot 088.81 06/29/2015 KARY POMPA DO Ot 244.9 06/29/2015 KARY POMPA DO Ot 268.9 06/29/2015 KARY POMPA DO Ot 276.51 06/29/2015 KARY POMPA DO Ot 300.00 06/29/2015 KARY POMPA DO Ot 311 06/29/2015 KARY POMPA DO Ot 348.2 06/29/2015 KARY POMPA DO Ot 590.80 06/29/2015 KARY POMPA DO Ot 729.1 06/29/2015 KARY POMPA DO Ot 995.91 06/29/2015 KARY POMPA DO Ot 038.9 SEPTICEMIA NOS 06/29/2015 KARY POMPA DO Ot 088.81 LYME DISEASE 06/29/2015 KARY POMPA DO Ot 244.9 HYPOTHYROIDISM NOS 06/29/2015 KARY POMPA DO Ot 268.9 VITAMIN D DEFICIENCY NOS 06/29/2015 KARY POMPA DO Ot 275.2 DIS MAGNESIUM METABOLISM 06/29/2015 KARY POMPA DO Ot 276.51 DEHYDRATION 06/29/2015 KARY POMPA DO Ot 300.00 ANXIETY STATE NOS 06/29/2015 KARY POMPA DO Ot 307.81 TENSION HEADACHE 06/29/2015 KARY POMPA DO Ot 311 DEPRESSIVE DISORDER NEC 06/29/2015 KARY POMPA DO Ot 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 06/29/2015 KARY POMPA DO Ot 535.50 UNSP GASTRITIS GASTRODUODENITIS W/O ME 06/29/2015 KARY POMPA DO Ot 536.3 GASTROPARESIS 06/29/2015 KARY POMPA DO Ot 590.80 PYELONEPHRITIS NOS 06/29/2015 KARY POMPA DO Ot 729.1 MYALGIA AND MYOSITIS NOS 06/29/2015 KARY POMPA DO Ot 739.1 SOMAT DYSFUNC CERVIC REG 06/29/2015 KARY POMPA DO Ot 788.42 POLYURIA 06/29/2015 KARY POMPA DO Ot 995.91 SEPSIS 07/18/2015 KEILA POMPARICIA Mely BIRD SITTER Ot 276.51 07/18/2015 CHOLO POMPAIA Mely BIRD SITTER Ot 348.2 07/18/2015 CHOLO POMPAIA Mely BIRD SITTER Ot 784.0 09/19/2015 ALETHA MARCELO Mely BIRD SITTER Ot 276.51 09/19/2015 KEILA POMPARICIA Mely BIRD SITTER Ot 348.2 09/19/2015 CHOLO POMPAIA Mely BIRD SITTER Ot 784.0 01/21/2016 Ot R00.0 01/21/2016 Ot R07.9 01/21/2016 Ot R20.2 01/22/2016 Ot R00.0 01/22/2016 Ot R07.9 01/22/2016 Ot R20.2 01/24/2016 Ot R00.0 01/24/2016 Ot R07.9 01/24/2016 Ot R20.2 02/08/2016 Ot R00.0 TACHYCARDIA, UNSPECIFIED 02/08/2016 Ot R07.9 CHEST PAIN, UNSPECIFIED 02/08/2016 Ot R20.2 PARESTHESIA OF SKIN 02/13/2016 Ot R00.0 TACHYCARDIA, UNSPECIFIED 02/13/2016 Ot R07.9 CHEST PAIN, UNSPECIFIED 02/13/2016 Ot R20.2 PARESTHESIA OF SKIN 02/15/2016 MARCELO POMPA BIRD SITTER Ot N20.0 CALCULUS OF KIDNEY 02/20/2016 MARCELO POMPA BIRD SITTER Ot N20.0 CALCULUS OF KIDNEY 03/06/2016 MARCELO POMPA BIRD SITTER Ot N20.0 CALCULUS OF KIDNEY 03/12/2016 MARCELO POMPA BIRD SITTER Ot N20.0 CALCULUS OF KIDNEY 07/21/2016 W G93.2 Benign intracranial hypertension 07/21/2016 W H52.13 Myopia, bilateral 08/05/2016 W G93.2 Benign intracranial hypertension 08/05/2016 W H52.13 Myopia, bilateral 06/06/2017 Ot R00.0 TACHYCARDIA, UNSPECIFIED 06/06/2017 Ot R07.9 CHEST PAIN, UNSPECIFIED 06/06/2017 Ot R20.2 PARESTHESIA OF SKIN 06/06/2017 MARCELO POMPA BIRD SITTER Ot N20.0 CALCULUS OF KIDNEY 06/06/2017 ZELDA YANG MD, Ot F32.9 MAJOR DEPRESSIVE DISORDER, SINGLE EPISOD 06/06/2017 ZELDA YANG MD, Ot F41.9 ANXIETY DISORDER, UNSPECIFIED 06/06/2017 ZELDA YANG MD Ot G93.2 BENIGN INTRACRANIAL HYPERTENSION 06/06/2017 ZELDA YANG MD Ot J45.909 UNSPECIFIED ASTHMA, UNCOMPLICATED 06/06/2017 ZELDA YANG MD, Ot K21.9 GASTRO-ESOPHAGEAL REFLUX DISEASE WITHOUT 06/06/2017 ZELDA YANG MD, Ot M54.2 CERVICALGIA 06/06/2017 ZELDA YANG MD Ot R51 HEADACHE 06/06/2017 ZELDA YANG MD Ot Z87.19 PERSONAL HISTORY OF OTHER DISEASES OF TH 06/06/2017 ZELDA YANG MD Ot Z87.59 PERSONAL HISTORY OF COMP OF PREG, CHLDBR 06/06/2017 Ot 346.90 MIGRAINE UNSPECIFIED W/O INTRACT MGRN W/ 06/06/2017 Ot 780.60 FEVER, UNSPECIFIED 06/06/2017 Ot 088.81 LYME DISEASE 06/06/2017 MARCELO POMPA BIRD SITTER Ot 553.1 UMBILICAL HERNIA 06/06/2017 MARCELO POMPA BIRD SITTER Ot 780.60 FEVER, UNSPECIFIED 06/06/2017 MARCELO POMPA BIRD SITTER Ot 788.63 URGENCY OF URINATION 06/06/2017 MARCELO POMPA BIRD SITTER Ot 789.00 ABDOMINAL PAIN, UNSPECIFIED SITE 06/06/2017 MARCELO POMPA BIRD SITTER Ot 789.01 ABDOMINAL PAIN, RIGHT UPPER QUADRANT 06/06/2017 MARCELO POMPA BIRD SITTER Ot V58.81 FIT/ADJ VASCULAR CATHETER 06/06/2017 MARCELO POMPA BIRD SITTER Ot 785.1 PALPITATIONS 06/06/2017 MARCELO POMPA BIRD SITTER Ot 785.2 CARDIAC MURMURS NEC 06/06/2017 MARCELO POMPA BIRD SITTER Ot 625.9 FEM GENITAL SYMPTOMS NOS 06/06/2017 MARCELO POMPA BIRD SITTER Ot 780.60 FEVER, UNSPECIFIED 06/06/2017 MARCELO POMPA BIRD SITTER Ot 789.00 ABDOMINAL PAIN, UNSPECIFIED SITE 06/06/2017 MARCELO POMPA BIRD SITTER Ot 790.6 ABN BLOOD CHEMISTRY NEC 06/06/2017 MARCELO POMPA L BIRD SITTER Ot 088.81 LYME DISEASE 06/06/2017 MARCELO POMPA L BIRD SITTER Ot 276.51 DEHYDRATION 06/06/2017 MARCELO POMPA L BIRD SITTER Ot 466.0 ACUTE BRONCHITIS 06/06/2017 MARCELO POMPA L BIRD SITTER Ot 276.51 DEHYDRATION 06/06/2017 MARCELO POMPA BIRD SITTER Ot 785.2 CARDIAC MURMURS NEC 06/06/2017 MARCELO POMPA BIRD SITTER Ot 789.09 ABDOMINAL PAIN, OTHER SPECIFIED SITE 06/06/2017 MARCELO POMPA L BIRD SITTER Ot 790.7 BACTEREMIA 06/06/2017 KARY POMPA DO Ot 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 06/06/2017 MARCELO POMPA BIRD SITTER Ot 536.8 STOMACH FUNCTION DIS NEC 06/06/2017 MARCELO POMPA BIRD SITTER Ot 789.00 ABDOMINAL PAIN, UNSPECIFIED SITE 06/06/2017 KATE ZAPATA, LIZ Blue Ot 789.06 ABDOMINAL PAIN, EPIGASTRIC 06/06/2017 KATE ZAPATA, LIZ Blue Ot V72.84 EXAM PRE-OPERATIVE NOS 06/06/2017 MARCELO POMPA BIRD SITTER Ot 276.51 DEHYDRATION 06/06/2017 MARCELO POMPA L BIRD SITTER Ot 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 06/06/2017 MARCELO POMPA L BIRD SITTER Ot 784.0 HEADACHE 06/06/2017 Ot R00.0 TACHYCARDIA, UNSPECIFIED 06/06/2017 Ot R07.9 CHEST PAIN, UNSPECIFIED 06/06/2017 Ot R20.2 PARESTHESIA OF SKIN 06/06/2017 MARCELO POMPA L BIRD SITTER Ot N20.0 CALCULUS OF KIDNEY 06/09/2017 ZELDA YANG MD, Ot F32.9 MAJOR DEPRESSIVE DISORDER, SINGLE EPISOD 06/09/2017 ZELDA YANG MD, Ot F41.9 ANXIETY DISORDER, UNSPECIFIED 06/09/2017 ZELDA YANG MD Ot G93.2 BENIGN INTRACRANIAL HYPERTENSION 06/09/2017 ZELDA YANG MD Ot J45.909 UNSPECIFIED ASTHMA, UNCOMPLICATED 06/09/2017 ZELDA YANG MD, Ot K21.9 GASTRO-ESOPHAGEAL REFLUX DISEASE WITHOUT 06/09/2017 ZELDA YANG MD Ot M54.2 CERVICALGIA 06/09/2017 ZELDA YANG MD Ot R51 HEADACHE 06/09/2017 ZELDA YANG MD Ot Z87.19 PERSONAL HISTORY OF OTHER DISEASES OF 06/09/2017 ZELDA YANG MD Ot Z87.59 PERSONAL HISTORY OF COMP OF PREG, CHLDBR 06/12/2017 ZELDA YANG MD Ot F32.9 MAJOR DEPRESSIVE DISORDER, SINGLE EPISOD 06/12/2017 ZELDA YANG MD Ot F41.9 ANXIETY DISORDER, UNSPECIFIED 06/12/2017 ZELDA YANG MD Ot G93.2 BENIGN INTRACRANIAL HYPERTENSION 06/12/2017 ZELDA YANG MD Ot J45.909 UNSPECIFIED ASTHMA, UNCOMPLICATED 06/12/2017 ZELDA YANG MD Ot K21.9 GASTRO-ESOPHAGEAL REFLUX DISEASE WITHOUT 06/12/2017 ZELDA YANG MD Ot M54.2 CERVICALGIA 06/12/2017 ZELDA YANG MD Ot R51 HEADACHE 06/12/2017 ZELDA YANG MD Ot Z87.19 PERSONAL HISTORY OF OTHER DISEASES OF 06/12/2017 ZELDA YANG MD Ot Z87.59 PERSONAL HISTORY OF COMP OF PREG, CHLDBR 06/17/2017 ZELDA YANG MD Ot F32.9 MAJOR DEPRESSIVE DISORDER, SINGLE EPISOD 06/17/2017 ZELDA YANG MD Ot F41.9 ANXIETY DISORDER, UNSPECIFIED 06/17/2017 ZELDA YANG MD Ot G93.2 BENIGN INTRACRANIAL HYPERTENSION 06/17/2017 ZELDA YANG MD, Ot J45.909 UNSPECIFIED ASTHMA, UNCOMPLICATED 06/17/2017 ZELDA YANG MD, Ot K21.9 GASTRO-ESOPHAGEAL REFLUX DISEASE WITHOUT 06/17/2017 ZELDA YANG MD, Ot M54.2 CERVICALGIA 06/17/2017 ZELDA YANG MD, Ot R51 HEADACHE 06/17/2017 ZELDA YANG MD, Ot Z87.19 PERSONAL HISTORY OF OTHER DISEASES OF TH 06/17/2017 ZELDA YANG MD, Ot Z87.59 PERSONAL HISTORY OF COMP OF PREG, CHLDBR Procedures Code Description [place] [address] PSYTX PT&/FAMILY 45 MINUTES 05/27/2013 85548 PSYTX PT&/FAMILY 45 MINUTES 08/24/2013 72927 PSYTX PT&/FAMILY 45 MINUTES 09/09/2013 51863 PSYTX PT&/FAMILY 45 MINUTES 09/22/2013 99334 PSYTX PT&/FAMILY 45 MINUTES 10/20/2013 90010 PSYTX PT&/FAMILY 45 MINUTES 11/04/2013 47103 PSYTX PT&/FAMILY 45 MINUTES 11/22/2013 59744 PSYTX PT&/FAMILY 45 MINUTES 11/30/2013 40122 PSYTX PT&/FAMILY 45 MINUTES 01/04/2014 29933 PSYTX PT&/FAMILY 45 MINUTES 02/17/2014 10993 PSYTX PT&/FAMILY 45 MINUTES 03/30/2014 91628 PSYTX PT&/FAMILY 45 MINUTES 04/19/2014 43301 PSYTX PT&/FAMILY 45 MINUTES 05/03/2014 65966 PSYTX PT&/FAMILY 45 MINUTES 07/11/2014 57776 PSYTX PT&/FAMILY 45 MINUTES 07/25/2014 03.31 SPINAL TAP 06/27/2015 45.16 ESOPHAGOGASTRODUODENOSCOPY [ EGD] W/CLOSE 06/29/[address] ABD & PELVIS W/O CONTRAST 02/18/2016 94098 EYE EXAM T TREATMENT 07/21/2016 61014 REFRACTION 07/21/2016 07882 EYE EXAM WITH PHOTOS 07/21/2016 Results Test Result Range CBC WITH DIFF - 02/04/16 00:00 BASO% 0.3 % 0-2 EOS% 1.3 % 0-7.0 HCT 38.5 % 36.9-47.0 HGB 12.4 G/DL 12.0-16.0 LYMPH% 14.2 % 20-40 MCH 29.7 PG 27-31 MCHC 32.2 G/DL 33-37 MCV 92.1 FL 81-99 MONO% 6.3 % 0-10.0 MPV 9.9 FL 7.3-10.4 NEUTRO% 77.6 % 40-70 PLT 279 10^3u 130-400 RBC 4.2 10^6u 4.2-5.4 RDW 14.1 % 11.5-15.5 WBC 12.6 10^3u 4.8-10.8 NEUTRO# 9.8 10^3u 1.5-7.5 LYMPH# 1.8 10^3u 0.9-4.0 MONO# 0.8 10^3u 0-0.8 EOS# 0.2 10^3u 0-0.6 BASO# 0.0 10^3u 0-0.1 IMM GRANULOCYTE % 0.3 % IMM GRANULOCYTE # 0.0 10^3u 0-5 CMP - 02/04/16 00:00 ALB 3.9 G/DL 3.5-5 ALP 113 IU/L 25-72 ALT 21 IU/L 12-65 AST 14 IU/L 10-42 BCR 13.2 10-20 BUN 12 MG/DL 7-18 CA 8.6 MG/DL 8.4-10.2 CL 110 MEQ/L 98-107 CO2 21.0 MEQ/L 22-28 CREA 0.91 MG/DL 0.6-1.0 EGFR 73 eGFR >=60 GLU 88 MG/DL 70-105 K 3.7 MEQ/L 3.5-5.1 NA 141 MEQ/L 134-145 OSMSC 280.4 MOSML 280-300 TBIL 0.3 MG/DL 0.1-1.0 TP 7.1 G/DL 6.0-8.3 Albumin/Globulin Ratio 1.2 0-8 Anion Gap 10.0 8-16 UA - 02/04/16 00:00 PH 5.0 4.5-8.0 SG 1.018 UABILI NEGATIVE UABLD 3+ UACOLOR ORANGE UAGLU NEGATIVE UAKET NEGATIVE UALEUK NEGATIVE UANIT NEGATIVE UAURO 0.2 0-0.2 UCX NO CLARITY TURBID PROTEIN 1+ UA WBC R1020 UA RBC TNTC SQUAMOUS EPITHELIAL CELLS 4+ BACTERIA 2+ YEAST 1+ CALCIUM OXALATE CRYSTALS FEW Complete blood count (CBC) with automated white blood cell (WBC) differential - 06/06/17 09:10 Blood leukocytes automated count (number/volume) 7.8 10*3/uL 4.3-11.0 Blood erythrocytes automated count (number/volume) 4.07 10*6/uL 4.35-5.85 Venous blood hemoglobin measurement (mass/volume) 11.4 g/dL 11.5-16.0 Blood hematocrit (volume fraction) 36 % 35-52 Automated erythrocyte mean corpuscular volume 88 [foz_us] 80-99 Automated erythrocyte mean corpuscular hemoglobin (mass per erythrocyte) 28 pg 25-34 Automated erythrocyte mean corpuscular hemoglobin concentration measurement ( mass/volume) 32 g/dL 32-36 Automated erythrocyte distribution width ratio 13.7 % 10.0-14.5 Automated blood platelet count (count/volume) 254 10*3/uL 130-400 Automated blood platelet mean volume measurement 9.8 [foz_us] 7.4-10.4 Automated blood neutrophils/100 leukocytes 59 % 42-75 Automated blood lymphocytes/100 leukocytes 29 % 12-44 Blood monocytes/100 leukocytes 10 % 0-12 Automated blood eosinophils/100 leukocytes 2 % 0-10 Automated blood basophils/100 leukocytes 0 % 0-10 Blood neutrophils automated count (number/volume) 4.6 10*3 1.8-7.8 Blood lymphocytes automated count (number/volume) 2.2 10*3 1.0-4.0 Blood monocytes automated count (number/volume) 0.8 10*3 0.0-1.0 Automated eosinophil count 0.1 10*3/uL 0.0-0.3 Automated blood basophil count (count/volume) 0.0 10*3/uL 0.0-0.1 Complete urinalysis with reflex to culture - 06/06/17 09:10 Urine color determination YELLOW NRG Urine clarity determination SLIGHTLY CLOUDY NRG Urine pH measurement by test strip 7 5-9 Specific gravity of urine by test strip 1.010 1.016- 1.022 Urine protein assay by test strip, semi-quantitative NEGATIVE NEGATIVE Urine glucose detection by automated test strip NEGATIVE NEGATIVE Erythrocytes detection in urine sediment by light microscopy NEGATIVE NEGATIVE Urine ketones detection by automated test strip NEGATIVE NEGATIVE Urine nitrite detection by test strip NEGATIVE NEGATIVE Urine total bilirubin detection by test strip NEGATIVE NEGATIVE Urine urobilinogen measurement by automated test strip (mass/volume) NORMAL NORMAL Urine leukocyte esterase detection by dipstick 1+ NEGATIVE Automated urine sediment erythrocyte count by microscopy (number/high power field) NONE NRG Automated urine sediment leukocyte count by microscopy (number/high power field ) [HPF] NRG Bacteria detection in urine sediment by light microscopy TRACE NRG Squamous epithelial cells detection in urine sediment by light microscopy 2-5 NRG Crystals detection in urine sediment by light microscopy NONE NRG Casts detection in urine sediment by light microscopy NONE NRG Mucus detection in urine sediment by light microscopy NEGATIVE NRG Complete urinalysis with reflex to culture NO NRG Comprehensive metabolic panel - 06/06/17 09:10 Serum or plasma sodium measurement (moles/volume) 139 mmol/L 135-145 Serum or plasma potassium measurement (moles/volume) 3.7 mmol/L 3.6-5.0 Serum or plasma chloride measurement (moles/volume) 110 mmol/L 98-107 Carbon dioxide 22 mmol/L 21-32 Serum or plasma anion gap determination (moles/volume) 7 mmol/L 5-14 Serum or plasma urea nitrogen measurement (mass/volume) 9 mg/dL 7-18 Serum or plasma creatinine measurement (mass/volume) 0.79 mg/dL 0.60-1.30 Serum or plasma urea nitrogen/creatinine mass ratio 11 NRG Serum or plasma creatinine measurement with calculation of estimated glomerular filtration rate > NRG Serum or plasma glucose measurement (mass/volume) 92 mg/dL 70-105 Serum or plasma calcium measurement (mass/volume) 9.1 mg/dL 8.5-10.1 Serum or plasma total bilirubin measurement (mass/volume) 0.4 mg/dL 0.1-1.0 Serum or plasma alkaline phosphatase measurement (enzymatic activity/volume) 83 U/L 40-136 Serum or plasma aspartate aminotransferase measurement (enzymatic activity/ volume) 25 U/L 5-34 Serum or plasma alanine aminotransferase measurement (enzymatic activity/volume ) 21 U/L 0-55 Serum or plasma protein measurement (mass/volume) 6.4 g/dL 6.4-8.2 Serum or plasma albumin measurement (mass/volume) 3.9 g/dL 3.2-4.5 Serum or plasma C reactive protein measurement (mass/volume) - 06/06/17 09:10 Serum or plasma C reactive protein measurement (mass/volume) 0.97 mg /dL 0.00-0.50 Cerebrospinal fluid cell count - 06/06/17 12:05 Cerebrospinal fluid appearance description CLEAR NRG Cerebrospinal fluid color identification COLORLESS NRG Cerebrospinal fluid leukocytes count (number/volume) 1 % 0-5 Cerebrospinal fluid erythrocytes count (number/volume) 1 % 0-0 Manual cerebrospinal fluid lymphocytes/100 leukocytes TNP NRG Manual cerebrospinal fluid mononuclear cells/100 leukocytes TNP NRG Manual cerebrospinal fluid polymorphonuclear cells/100 leukocytes TNP NRG Cerebrospinal fluid cell count on specimen from last tube collected 4 NRG Cerebrospinal fluid glucose measurement (mass/volume) - 06/06/17 12:05 Cerebrospinal fluid glucose measurement (mass/volume) 65 mg/dL 50-80 Cerebrospinal fluid protein measurement (mass/volume) - 06/06/17 12:05 Cerebrospinal fluid protein measurement (mass/volume) 42 mg/dL 15-40 Gram stain microscopy - 06/06/17 12:05 GRAM STAIN RESULT NO WBC'S OR BACTERIA OBSERVED NRG Bacterial cerebrospinal fluid culture - 06/06/17 12:05 Bacterial cerebrospinal fluid culture NG NR Virus identification by culture - 06/06/17 12:05 Virus identification by culture [facility] Automated blood complete blood count (hemogram) panel - 02/17/18 16:26 Blood leukocytes automated count (number/volume) 8.1 10*3/uL 4.3-11.0 Blood erythrocytes automated count (number/volume) 4.42 10*6/uL 4.35-5.85 Venous blood hemoglobin measurement (mass/volume) 11.8 g/dL 11.5-16.0 Blood hematocrit (volume fraction) 36 % 35-52 Automated erythrocyte mean corpuscular volume 82 [foz_us] 80-99 Automated erythrocyte mean corpuscular hemoglobin (mass per erythrocyte) 27 pg 25-34 Automated erythrocyte mean corpuscular hemoglobin concentration measurement ( mass/volume) 33 g/dL 32-36 Automated erythrocyte distribution width ratio 15.0 % 10.0-14.5 Automated blood platelet count (count/volume) 346 10*3/uL 130-400 Automated blood platelet mean volume measurement 9.6 [foz_us] 7.4-10.4 Encounters ACCT No. Visit Date/Time Discharge Status Pt. Type Provider Facility Loc./Unit Complaint [id number] 07/25/2014 15:11:00 07/25/2014 23:59:59 CLS Outpatient [facility], HERNANDEZ Marva [id number] 07/11/2014 15:09:00 07/11/2014 23:59:59 CLS Outpatient [facility], HERNANDEZ R [id number] 06/01/2014 13:59:00 06/01/2014 23:59:59 CLS Outpatient [facility], HERNANDEZ R [id number] 05/03/2014 16:02:00 05/03/2014 23:59:59 CLS Outpatient [facility], HERNANDEZ R [id number] 04/19/2014 14:58:00 04/19/2014 23:59:59 CLS Outpatient [facility], HERNANDEZ R [id number] 03/30/2014 14:06:00 03/30/2014 23:59:59 CLS Outpatient [facility], HERNANDEZ R [id number] 02/17/2014 14:57:00 02/17/2014 23:59:59 CLS Outpatient [facility], HERNANDEZ R [id number] 01/03/2014 12:55:00 01/03/2014 23:59:59 CLS Outpatient [facility], HERNANDEZ R [id number] 11/29/2013 10:55:00 11/29/2013 23:59:59 CLS Outpatient ISAIAH LSCS, HERNANDEZ R [id number] 11/22/2013 11:04:00 11/22/2013 23:59:59 CLS Outpatient ISAIAH LSCS, HERNANDEZ [place] [id number] 11/03/2013 14:04:00 11/03/2013 23:59:59 CLS Outpatient ISAIAH LSCS, HERNANDEZ [place] [id number] 10/20/2013 10:22:00 10/20/2013 23:59:59 CLS Outpatient ISAIAH LSCS, HERNANDEZ [place] [id number] 09/21/2013 10:25:00 09/21/2013 23:59:59 CLS Outpatient ISAIAH LSCS, HERNANDEZ [place] [id number] 09/08/2013 10:11:00 09/08/2013 23:59:59 CLS Outpatient ISAIAH LSCS, HERNANDEZ [place] [id number] 08/23/2013 17:05:00 08/23/2013 23:59:59 [facility] [id number] 05/27/2013 10:43:00 Document Registration [id number] 07/21/2016 13:45:00 Document Registration [id number] 02/18/2016 13:56:01 ACT Unknown [id number] 06/06/2017 07:56:00 06/06/2017 14:40:00 DIS Emergency CELIA ZAPATA, ZELDA Cr [facility] ER HEADACHE [id number] 02/14/2016 16:51:00 02/14/2016 23:59:59 CLS Outpatient MARCELO POMPA [facility] RAD STONE SEARCH HEMATURIA AND FLANK PAIN [id number] 06/21/2015 15:40:00 06/29/2015 18:30:00 DIS Inpatient KARY POMPA DO [facility] 4TH PALLAITIVE NEPHRITIS [id number] 06/21/2015 12:14:00 06/21/2015 23:59:59 CLS Outpatient MARCELO POMPA [facility] DEHYDRATION, HEADACHE [id number] 09/11/2014 09:56:00 09/11/2014 15:40:00 DIS Outpatient LIZ LOVE MD [facility] UPPER GASTRIC PAIN; NON-FUNCTIONING PORT [id number] 09/08/2014 12:40:00 09/08/2014 23:59:59 CLS Outpatient LIZ LOVE MD [facility] PREOP UPPER GASTRIC PAIN ; NON-FUNCTIONING PORT [id number] 09/07/2014 07:20:00 09/07/2014 23:59:59 CLS Outpatient MARCELO POMPA [facility] CARD ABD PAIN, DYSPEPSIA,DECREASED BLOOD SUGAR [id number] 05/29/2014 10:53:00 05/29/2014 23:59:59 CLS Outpatient KARY POMPA DO [facility] CHECK OF FRACTURE [id number] 03/30/2014 17:05:00 03/31/2014 18:10:00 DIS Inpatient KARY POMPA DO [facility] 4TH DEHYDRATION [id number] 03/06/2014 10:41:00 03/12/2014 12:45:00 DIS Inpatient ALETHA KARY Diaz [facility] 4TH FEVER HEADACHE ELEVATED ICP [id number] 03/02/2014 10:59:00 03/02/2014 23:59:59 CLS Outpatient CHOLO POMPAIA L BIRD SITTER [facility] CARD MURMUR,BUCCELIA, FLANK PAIN,HEMATURIA [id number] 03/02/2014 11:01:00 03/02/2014 14:50:00 DIS Outpatient CHOLO POMPAIA L BIRD SITTER [facility] BORELLIA, ELEVATED CPK [id number] 11/22/2013 14:31:00 02/20/2014 00:01:00 DIS Outpatient CHOLO POMPAIA L BIRD SITTER [facility] BORELLIA, ELEVATED CPK [id number] 09/28/2013 13:34:00 09/28/2013 23:59:59 CLS Outpatient KEILA POMPARICIA L BIRD SITTER [facility] LYME,DEHYDRATION, ACUTE BRONCHITIS [id number] 09/01/2013 11:05:00 09/01/2013 23:59:59 CLS Outpatient KEILA POMPARICIA L BIRD SITTER [facility] RAD ABD PAIN,PELVIC PAIN [id number] 05/27/2013 12:53:00 05/27/2013 16:30:00 DIS Outpatient CHOLO POMPAIA L BIRD SITTER [facility] DEHYDRATION, BACTERMIA [id number] 04/22/2013 09:53:00 04/22/2013 23:59:59 CLS Outpatient CHOLO POMPAIA L BIRD SITTER [facility] CARD MURMUR, PALPITATIONS [id number] 03/23/2013 15:39:00 03/23/2013 23:59:59 CLS Outpatient CHOLO POMPAIA L BIRD SITTER [facility] PIC LINE REMOVAL [id number] 03/11/2013 20:35:00 03/12/2013 09:38:00 DIS Outpatient JAZMINE KAPLAN MD [facility] CHRONIC CHOLYCYSITIS [id number] 03/10/2013 09:03:00 03/10/2013 23:59:59 CLS Outpatient POMPA MARCELOJ CARLOS AN [facility] RAD RUQ PAIN [id number] 02/18/2013 10:08:00 02/18/2013 23:59:59 CLS Outpatient POMPACHOLO BRADSHAWIA Mely BIRD SITTER [facility] RAD ABD PAIN,FEVER, ELEVATED WHITE COUNT [id number] 02/17/2018 17:36:00 ACT Outpatient POMPAMARCELO Mely BIRD SITTER [facility] PSUEDOTUMON CORELAIU [id number] 02/17/2018 16:15:00 ACT Outpatient POMPAMARCELO BIRD SITTER [facility] RAD PSEUDOTUMOR [id number] 01/18/2016 06:58:00 Document Registration [id number] 06/21/2015 12:13:00 Document Registration [id number] 01/21/2013 11:17:00 Document Registration [id number] 01/03/2013 12:26:00 Document Registration [id number] 10/13/2017 13:03:53 10/13/2017 23:59:59 DIS Outpatient MARCELO POMPA [facility] RAD thyromegaly [id number] 10/06/2017 07:35:05 10/06/2017 23:59:59 DIS Outpatient MARCELO POMPA [facility] RAD PSEUDO TUMOR CEREBRI [id number] 08/19/2017 10:40:00 08/19/2017 23:59:59 CLS Outpatient Mireya Ybarra [facility] [id number] 07/15/2017 15:04:00 07/15/2017 23:59:59 DIS Outpatient BRANDY GONZALES [facility] [id number] 06/05/2017 21:10:00 06/06/2017 01:50:00 DIS Emergency JASON KERNS [facility] ED migraine [id number] 03/11/2017 17:07:40 03/11/2017 23:59:59 CLS Outpatient Eric CurtisAaron [facility] RT ekg [id number] 03/04/2017 08:47:43 03/04/2017 23:59:59 CLS Outpatient MARCELO POMPA [facility] LAB labwork [id number] 10/28/2016 16:50:44 10/28/2016 23:59:59 CLS Preadmit [facility] LAB Biometrics [id number] 10/08/2016 10:16:27 10/08/2016 23:59:59 CLS Preadmit [facility] RAD ST, SOA [id number] 11/23/2016 08:34:43 Document Registration [id number] 10/16/2016 06:54:59 Document Registration [id number] 10/08/2016 08:48:07 Document Registration [id number] 02/18/2016 14:40:00 02/18/2016 14:40:00 DIS Outpatient TRACE FUNEZ [facility] RAD [id number] 02/04/2016 16:03:00 02/04/2016 18:59:00 DIS Emergency JOHNNA YATES [facility] EMR [id number] 10/16/2015 09:46:00 10/16/2015 09:46:00 DIS Outpatient MARCELO POMPA [facility] RAD [id number] 10/16/2015 09:45:19 Document Registration [id number] 09/17/2015 00:00:00 Document Registration
[2018-02-17] MEDS ORDERED: PANT40TA2 PO (20:56)
[2018-02-17] MEDS ORDERED: AMPH20TA2 PO (20:56)
[2018-02-17] MEDS ORDERED: DEXT10TA9 PO (20:57)
[2018-02-17] MEDS ORDERED: THYR60TA27 PO (21:00)
[2018-02-17] MEDS ORDERED: PROM25TA14 PO (21:00)
[2018-02-17] MEDS ORDERED: KLOR-CON PO (21:02)
== END 2018-02-17 19:15 | disposition home or self-care (01) ==
LOC: SDC 17:36 → EDSTATUS 02-22 09:20
PROVIDERS: ATTEND Nurse Practitioner Family
DX: G93.2 Benign intracranial hypertension (principal)

== ENCOUNTER → 2018-02-17 | Outpatient (CLI) | payer MEDICARE ==
[~2018-02-17] MED LIST changes: +AMPH20TA2 PO; +DEXT10TA9 PO; +HYDR-34 PO; -HYDR-3816 PO; -HYDROcodone/APAP 7.5 MG/325 MG (LORTAB, LORCET PLUS) TABLET PO STA; -HYDROmorphone (DILAUDID) 2 MG/ML VIAL IVP STA; -KETOROLAC 30 MG/ML VIAL IVP STA; +KLOR-CON PO; -ONDANSETRON 4 MG/2 ML (SDV) Z0FRAN IVP ONE; +PANT40TA2 PO; +PROM25TA14 PO; -PROMETHAZINE INJ 25 MG/ML (PHENERGAN) AMP IVP STA; -PROMETHAZINE INJ 25 MG/ML (PHENERGAN) AMP ONE; -SCOP1PAT TD; +SCOP1PAT11 TD; +THYR60TA27 PO
[2018-02-17 16:28] LABS: HEMOGLOBIN 11.8 G/DL (11.5-16.0); MEAN PLATELET VOLUME 9.6 FL (7.4-10.4); RED BLOOD COUNT 4.42 10^6/uL (4.35-5.85); WHITE BLOOD COUNT 8.1 10^3/uL (4.3-11.0)
--- NOTE | 2018-02-17 17:02 | Diagnostic Imaging Report ---
INDICATION: Headache, pseudotumor. TECHNIQUE: Noncontrast brain CT is performed and compared with 06/06/2017. FINDINGS: There are no extra-axial fluid collections. No intracranial hemorrhage. No intracranial mass or mass effect. No midline shift. The ventricles are normal in size and position. There are no focal parenchymal abnormalities in the brain. Ventricular size appears similar to the prior study and is normal. Calvarial windows are unremarkable. The visualized portions of the sinuses are clear. IMPRESSION: Negative noncontrast brain CT with no change from 06/06/2017. Dictated by: Dictated on workstation # [id number]
== END ==
LOC: RAD 16:15
PROVIDERS: ATTEND Nurse Practitioner Family
DX: G93.2 Benign intracranial hypertension (principal); G43.909 Migraine, unspecified, not intractable, without status migrainosus; H53.9 Unspecified visual disturbance
CPT/HCPCS: 36415; 70450; 85027

== ENCOUNTER 2018-05-07 12:59 | Outpatient (CLI) | payer MEDICARE ==
[~2018-05-07] VITALS: Ht 160 cm; Wt 90.8 kg
[~2018-05-07 12:59] MED LIST changes: +AMPH20TA2 PO; +DEXT10TA9 PO; +KLOR-CON PO; +PANT40TA2 PO; +PROM25TA14 PO; +THYR60TA27 PO
--- NOTE | 2018-05-07 13:48 | Diagnostic Imaging Report ---
PROCEDURE: CT head without contrast. TECHNIQUE: Multiple contiguous axial images were obtained through the brain without the use of intravenous contrast. INDICATION: Pseudotumor cerebri. Comparison is made with prior CT from 02/17/2018. Ventricles and sulci are within normal limits. No sulcal effacement, midline shift or hemorrhage is seen. Cisterns are patent. The visualized paranasal sinuses are clear. IMPRESSION: No acute intracranial process is detected. Dictated by: Dictated on workstation # [id number]
[2018-05-07 14:11] LABS: BASOPHILS % (AUTO) 0 % (0-10); EOSINOPHILS # (AUTO) 0.2 10^3/uL (0.0-0.3); EOSINOPHILS % (AUTO) 2 % (0-10); HEMATOCRIT 35 % (35-52); HEMOGLOBIN 11.7 G/DL (11.5-16.0); LYMPHOCYTES # (AUTO) 2.1 X 10^3 (1.0-4.0); LYMPHOCYTES % (AUTO) 21 % (12-44); MEAN CORPUSCULAR HEMOGLOBIN 27 PG (25-34); MEAN CORPUSCULAR HGB CONC 33 G/DL (32-36); MEAN CORPUSCULAR VOLUME 82 FL (80-99); MEAN PLATELET VOLUME 9.3 FL (7.4-10.4); MONOCYTES # (AUTO) 0.7 X 10^3 (0.0-1.0); MONOCYTES % (AUTO) 7 % (0-12); NEUTROPHILS % (AUTO) 70 % (42-75); PLATELET COUNT 358 10^3/uL (130-400); RED CELL DISTRIBUTION WIDTH 15.3 % (10.0-14.5)
[2018-05-07 14:20] LABS: PROTHROMBIN TIME PATIENT 13.5 SEC (12.2-14.7)
[2018-05-07] MEDS ORDERED: ONDANSETRON 4 MG/2 ML (SDV) Z0FRAN ONE (14:36)
[2018-05-07] MEDS ORDERED: HYDROmorphone 1 MG/ML (DILAUDID) 1 ML SYRINGE ONE (14:36)
[2018-05-07] MEDS ORDERED: ONDANSETRON 4 MG/2 ML (SDV) Z0FRAN IV NR (14:43)
[2018-05-07] MEDS ORDERED: HYDROmorphone 1 MG/ML (DILAUDID) 1 ML SYRINGE IV ONE (14:45)
--- NOTE | 2018-05-07 15:13 | Anesthesia-Procedure Note ---
Procedures/Interventions Procedure Start/Stop/Diagnosis Date of Procedure: May 07, 2018 Start Time: 14:50 Referring Physician: Dr Zabala Preprocedural Diagnosis: Pseudotumor Cerebri Brief History Anesthesia Note ([id number]) Pt is here for a lumbar puncture. She has psuedotumor cerebri and has had multiple recent LP's. On her last LP ~22 days ago, she had an opening pressure of 48. +/- LP discussed with patient and questions answered. Sterile P/D and 2 mL 1% lidocaine used for local at the L3-4 level. No difficulty with LP, + clear CSF on 1st pass with an opening pressure of 24 cm CSF. Since the opening pressure was only slightly elevated, 10 mL of CSF was drawn off instead of 15 mL. We attempted to call Dr. Zabala's office and confirm this plan but got no answer. Pt was in agreement with this plan. Needle was removed and a sterile bandage applied after the CSF was drawn off. She tolerated the procedure well and was instructed to follow up at Dr Zabala's office as scheduled. Stop Time: 15:05 Postprocedural Diagnosis: same Lumbar Puncture Discussed Risk,Benefits: Yes Patient Consents: Yes Position: L3-4, Left Sterile Technique: Yes (Sterile P/D with ChloraPrep) Opening Pressure: 24 cm CSF Fluid Color: Clear Spinal Needle Used: Other (22 G Pencan) Other Comment: 10 mL CSF drawn off per Dr Zabala's order. PREM SANDRA DO May 07, 2018 15:13
[2018-05-07 15:44] VITALS: BP 128/89
== END 2018-05-07 15:40 | disposition home or self-care (01) ==
LOC: RAD 12:59 → SDC 15:40
PROVIDERS: ATTEND Internal Medicine
DX: G93.2 Benign intracranial hypertension (principal)
CPT/HCPCS: 36415; 70450; 85025; 85610; 85730

== ENCOUNTER → 2019-01-24 | Outpatient (CLI) | payer MEDICARE ==
[~2019-01-24] VITALS: Ht 160 cm; Wt 90.8 kg
[~2019-01-24] MED LIST changes: +CATHETER FLUSH 10 ML SYR IV PRN; +LORazepam INJ 2 MG/ML (ATIVAN) VIAL IVP ONE; +ONDANSETRON 4 MG/2 ML (SDV) Z0FRAN IV ONE; +diphenhydrAMINE 50 MG/ML INJ (BENADRYL) IV ONE
[2019-01-24] MEDS: LACTATED RINGERS 1,000 ML IV SCH ×2 (12:15→13:15)
[2019-01-24 12:46] LABS: HEMOGLOBIN 13.5 G/DL (11.5-16.0); MEAN PLATELET VOLUME 9.4 FL (7.4-10.4); RED CELL DISTRIBUTION WIDTH 14.2 % (10.0-14.5); WHITE BLOOD COUNT 10.5 10^3/uL (4.3-11.0)
[2019-01-24 13:08] LABS: ALANINE AMINOTRANSFERASE 29 U/L (0-55); ALBUMIN 4.5 GM/DL (3.2-4.5); ALKALINE PHOSPHATASE 112 U/L (40-136); BILIRUBIN,TOTAL 0.3 MG/DL (0.1-1.0); BUN/CREATININE RATIO 9; CALCIUM 9.6 MG/DL (8.5-10.1); CARBON DIOXIDE 23 MMOL/L (21-32); CHLORIDE 102 MMOL/L (98-107); GFR ESTIMATED > 60; GLUCOSE 98 MG/DL (70-105); MAGNESIUM 2.1 MG/DL (1.8-2.4); POTASSIUM 3.7 MMOL/L (3.6-5.0); SODIUM 137 MMOL/L (135-145); TOTAL PROTEIN 7.5 GM/DL (6.4-8.2)
[2019-01-24 14:45] VITALS: BP 132/98
== END ==
LOC: SDC 11:47
PROVIDERS: ATTEND Nurse Practitioner Family
DX: E86.0 Dehydration (principal)
CPT/HCPCS: 36415; 80053; 83735; 85027; 85652; 96360; 96361; 96374; 96375

== ENCOUNTER 2019-02-03 09:50 | Outpatient (RCR) | payer MEDICARE ==
[2019-02-02] MEDS: HYDROmorphone 2 MG/ML VIAL (DILAUDID) IV PRN ×2 (14:34→16:34)
[2019-02-02 15:27] LABS: HEMOGLOBIN 13.8 G/DL (11.5-16.0); MEAN PLATELET VOLUME 9.3 FL (7.4-10.4); RED CELL DISTRIBUTION WIDTH 14.6 % (10.0-14.5); WHITE BLOOD COUNT 12.7 10^3/uL (4.3-11.0)
[2019-02-02 15:48] LABS: ALANINE AMINOTRANSFERASE 35 U/L (0-55); ALBUMIN 4.6 GM/DL (3.2-4.5); ALKALINE PHOSPHATASE 125 U/L (40-136); BILIRUBIN,TOTAL 0.3 MG/DL (0.1-1.0); BUN/CREATININE RATIO 14; CALCIUM 9.6 MG/DL (8.5-10.1); CARBON DIOXIDE 20 MMOL/L (21-32); CHLORIDE 105 MMOL/L (98-107); CREATININE SERUM 0.95 MG/DL (0.60-1.30); GFR ESTIMATED > 60; GLUCOSE 103 MG/DL (70-105); MAGNESIUM 2.6 MG/DL (1.8-2.4); SODIUM 134 MMOL/L (135-145); TOTAL PROTEIN 8.1 GM/DL (6.4-8.2)
--- NOTE | 2019-02-02 16:14 | Diagnostic Imaging Report ---
PROCEDURE: CT head without contrast. TECHNIQUE: Multiple contiguous axial images were obtained through the brain without the use of intravenous contrast. Auto Exposure Controls were utilized during the CT exam to meet ALARA standards for radiation dose reduction. INDICATION: Headache. COMPARISON: Prior head CT from 05/07/2018. FINDINGS: The ventricles and sulci are within normal limits. No sulcal effacement, midline shift or hemorrhage is detected. Cisterns are patent. Visualized paranasal sinuses are clear. IMPRESSION: No acute intracranial process is detected. Report was called the office of NATALIYA Alaniz at 4:13 p.m. Dictated by: Dictated on workstation # [id number]
[2019-02-02] MEDS: ONDANSETRON 4 MG/2 ML (SDV) Z0FRAN IV PRN (16:29)
[2019-02-02] MEDS: diphenhydrAMINE 50 MG/ML INJ (BENADRYL) IV PRN (16:38)
[2019-02-02 17:05] VITALS: BP 112/67
[2019-02-02 17:15] VITALS: BP 110/83
[~2019-02-03] VITALS: Ht 160 cm; Wt 90.8 kg
[2019-02-03 09:47] VITALS: BP 103/74
[2019-02-03 09:50] VITALS: BP 103/74
[~2019-02-03 09:50] MED LIST changes: -CATHETER FLUSH 10 ML SYR IV PRN; +HYDROmorphone 2 MG/ML VIAL (DILAUDID) ONE; -LORazepam INJ 2 MG/ML (ATIVAN) VIAL IVP ONE; -ONDANSETRON 4 MG/2 ML (SDV) Z0FRAN IV ONE; +ONDANSETRON 4 MG/2 ML (SDV) Z0FRAN ONE; -diphenhydrAMINE 50 MG/ML INJ (BENADRYL) IV ONE; +diphenhydrAMINE 50 MG/ML INJ (BENADRYL) ONE
[2019-02-03] MEDS: ONDANSETRON 4 MG/2 ML (SDV) Z0FRAN IV PRN (11:37)
[2019-02-03] MEDS: diphenhydrAMINE 50 MG/ML INJ (BENADRYL) IV PRN (11:37)
[2019-02-03] MEDS: HYDROmorphone 2 MG/ML VIAL (DILAUDID) IV PRN (11:38)
[2019-02-03 12:19] LABS: APPEARANCE,CSF CLEAR
[2019-02-03 12:20] LABS: COLOR,CSF COLORLESS; CSF TUBE NUMBER 4; RED BLOOD CELL,CSF 0 CELLS (0-0); WHITE BLOOD CELL,CSF 1 CELLS (0-5)
[2019-02-03 12:21] LABS: CSF GLUCOSE 74 MG/DL (50-80); CSF TOTAL PROTEIN 46 MG/DL (15-40)
--- NOTE | 2019-02-03 15:16 | Anesthesia-Procedure Note ---
Procedures/Interventions Procedure Start/Stop/Diagnosis Date of Procedure: Feb 03, 2019 Start Time: 11:00 Referring Physician: Vj Preprocedural Diagnosis: psudotumor cerebri Brief History Pts history reviewed. She has had multiple LP's in the past several years. Orders for LP with opening pressure and collection of CSF. Consent signed. Patient in right lateral position. Steril prepped and draped patient's back. 22g Pencan 3.5 inch needle used and CSF obtained with minimal attempt. CSF clear and opening pressure 19.5 cm H20. 2.5 cc CSF collected x 4 vials and needle removed with Bandaid applied. Patient assisted supine and I reported off to RENATO Leger Stop Time: 11:16 Lumbar Puncture Discussed Risk,Benefits: Yes Patient Consents: Yes Position: L3-4, Right Sterile Technique: Yes Opening Pressure: 19.5 cm H2O Fluid Color: clear Spinal Needle Used: Other (22g Pencan 3 1/2 inch) ALISA FARRELL CRNA Feb 03, 2019 15:16
== END 2019-02-03 12:02 | disposition home or self-care (01) ==
LOC: RAD 09:50
PROVIDERS: ATTEND Nurse Practitioner Family
DX: G93.2 Benign intracranial hypertension (principal); A93.8 Other specified arthropod-borne viral fevers; R25.1 Tremor, unspecified
CPT/HCPCS: 36415; 70450; 80053; 82024; 82088; 82533; 82945; 83735; 83835; 84157; 84244; 85027; 86611; 86666; 86668; 86757; 87070; 87205; 87252; 87798; 89051; 96374; 96375

== ENCOUNTER 2019-03-21 15:08 | Emergency (ER) | payer MEDICARE ==
[~2019-03-21] VITALS: Ht 165.1 cm; Wt 99.8 kg
[~2019-03-21 15:08] MED LIST changes: -HYDROmorphone 2 MG/ML VIAL (DILAUDID) ONE; -ONDANSETRON 4 MG/2 ML (SDV) Z0FRAN ONE; -diphenhydrAMINE 50 MG/ML INJ (BENADRYL) ONE
[2019-03-21] MEDS ORDERED: ASPIRIN 81 MG CHEW (CHILDREN'S ASA) ONE (15:22)
--- NOTE | 2019-03-21 15:24 | NUR ---
ekg by me
[2019-03-21] MEDS ORDERED: NS IV 1000 ML 1,000 ML IV SCH ×2 (15:30→18:00)
[2019-03-21] MEDS ORDERED: DIAZEPAM 10 MG TABLET (15:33)
[2019-03-21] MEDS ORDERED: ARMOUR THYROID 60 MG (15:33)
[2019-03-21] MEDS ORDERED: ZOLPIDEM 10 MG (15:33)
--- NOTE | 2019-03-21 15:33 | NUR ---
labs with iv by me x 1 20 g l acf.
[2019-03-21 15:38] LABS: BASOPHILS % (AUTO) 0 % (0-10); EOSINOPHILS # (AUTO) 0.3 10^3/uL (0.0-0.3); EOSINOPHILS % (AUTO) 2 % (0-10); HEMATOCRIT 36 % (35-52); HEMOGLOBIN 12.1 G/DL (11.5-16.0); LYMPHOCYTES # (AUTO) 2.3 X 10^3 (1.0-4.0); LYMPHOCYTES % (AUTO) 20 % (12-44); MEAN CORPUSCULAR HEMOGLOBIN 29 PG (25-34); MEAN CORPUSCULAR HGB CONC 33 G/DL (32-36); MEAN CORPUSCULAR VOLUME 88 FL (80-99); MEAN PLATELET VOLUME 9.1 FL (7.4-10.4); MONOCYTES # (AUTO) 0.7 X 10^3 (0.0-1.0); MONOCYTES % (AUTO) 7 % (0-12); NEUTROPHILS # (AUTO) 7.9 X 10^3 (1.8-7.8); NEUTROPHILS % (AUTO) 71 % (42-75); PLATELET COUNT 329 10^3/uL (130-400); RED CELL DISTRIBUTION WIDTH 14.6 % (10.0-14.5); WHITE BLOOD COUNT 11.2 10^3/uL (4.3-11.0)
[2019-03-21 15:57] LABS: ALANINE AMINOTRANSFERASE 47 U/L (0-55); ALBUMIN 4.3 GM/DL (3.2-4.5); ALKALINE PHOSPHATASE 110 U/L (40-136); BILIRUBIN,TOTAL 0.3 MG/DL (0.1-1.0); BUN/CREATININE RATIO 10; CALCIUM 9.5 MG/DL (8.5-10.1); CARBON DIOXIDE 22 MMOL/L (21-32); CHLORIDE 104 MMOL/L (98-107); CREATININE SERUM 0.86 MG/DL (0.60-1.30); GFR ESTIMATED > 60; GLUCOSE 137 MG/DL (70-105); MAGNESIUM 2.2 MG/DL (1.8-2.4); POTASSIUM 4.2 MMOL/L (3.6-5.0); SODIUM 136 MMOL/L (135-145); TOTAL PROTEIN 7.4 GM/DL (6.4-8.2)
[2019-03-21 16:01] LABS: FIBRIN DEGRADATION PRODUCTS 0.51 UG/ML (0.00-0.49); INR 0.9 (0.8-1.4); PROTHROMBIN TIME PATIENT 12.5 SEC (12.2-14.7)
--- NOTE | 2019-03-21 16:01 | Diagnostic Imaging Report ---
INDICATION: Tachycardia. TECHNIQUE: A frontal chest was obtained at 3:40 PM. COMPARISON: 03/06/2014. FINDINGS: The heart and mediastinal silhouette are normal in appearance. The lungs are clear. There is no pneumothorax or pleural fluid. IMPRESSION: Negative chest. Dictated by: Dictated on workstation # [id number]
--- NOTE | 2019-03-21 16:12 | NUR ---
my iv i started earlier infiltrated. i d/cd it and restarted iv 22 g right hand x 1 and rehooked bolus up.
[2019-03-21] MEDS ORDERED: NS 100 ML (IVPB) BAG IV ONE (16:30)
[2019-03-21] MEDS ORDERED: IOHEXOL 350 MG/ML 100 ML (OMNIPAQUE 350) VIAL IV ONE (16:30)
[2019-03-21] MEDS ORDERED: HOLD METFORMIN - RECEIVED CONTRAST 20 ML VIAL IV SCH (16:30)
[2019-03-21] MEDS ORDERED: fentaNYL INJECTION 100 MCG/2 ML AMP IVP ONE (16:45)
--- NOTE | 2019-03-21 17:24 | Diagnostic Imaging Report ---
PROCEDURE: CT angiography of the chest with contrast. TECHNIQUE: Multiple contiguous axial images were obtained through the chest after uneventful bolus administration of intravenous contrast. 2D reconstructed CTA MIP acquisitions were also performed. Auto Exposure Controls were utilized during the CT exam to meet ALARA standards for radiation dose reduction. INDICATION: Dyspnea and tachycardia with chest pain. FINDINGS: There is good opacification of the pulmonary arteries without intraluminal filling defect identified. Thoracic aorta is also unremarkable in appearance. There is colk-xp-sftwgieu hiatal hernia. There may be mild mural thickening of the distal esophagus. Ground-glass density is seen within both lungs suggesting mild edema and/or pneumonitis; however, no focal consolidation is identified. There is mild cardiomegaly. No significant pleural or pericardial fluid is identified. IMPRESSION: No CTA evidence of pulmonary embolism. Note is made of mild diffuse edema and/or pneumonitis in both lungs. There is mild hiatal hernia with possible mural thickening of the distal esophagus. Clinical correlation would be useful. Note is made of fatty infiltration throughout the liver. Dictated by: Dictated on workstation # [id number]
--- NOTE | 2019-03-21 17:43 | ED Chest Pain ---
General Chief Complaint: Cardiac/General Problems Stated Complaint: CHEST PAIN,SOB Nursing Triage Note: Pt reports being on the way to PCP when pt began feeling SOB and having chest pain. Pt reports feeling shakey, and c/o headache and R sided lower back pain. Pt reports having R sided kidney stone. Pt reports recent diagnosis of tick-bourne illnesses, and pseudo tumor cerebri. Pt reports heart rate was 150-160 at PCP and pt can feel heart pounding in chest. Pt reports "puffiness" and weight gain over the last couple weeks. Nursing Sepsis Screen: No Definite Risk Source: patient Exam Limitations: no limitations History of Present Illness Date Seen by Provider: Mar 21, 2019 Time Seen by Provider: 15:17 Allergies and Home Medications Allergies Coded Allergies: No Known Drug Allergies (Unverified , 01/21/13) Home Medications Acetazolamide 500 Mg Capsule.er, 500 MG PO BID, (Reported) Cholecalciferol (Vitamin D3) 50,000 Unit Capsule, 50,000 UNIT PO WEEKLY ON MONDAYS, (Reported) Dextroamphetamine/Amphetamine 20 Mg Tablet, 20 MG PO DAILY, (Reported) TAKES ONE 20 MG TAB EVERY MORNING Dextroamphetamine/Amphetamine 10 Mg Tablet, 10 MG PO DAILY, (Reported) TAKES ONE 10 MG TAB AT NOON Pantoprazole Sodium 40 Mg Tablet.dr, 40 MG PO BID, (Reported) Promethazine HCl 25 Mg Tablet, 25 MG PO Q8H PRN for NAUSEA/VOMITING, (Reported) Thyroid,Pork 60 Mg Tablet, 60 MG PO DAILY, (Reported) Venlafaxine HCl 75 Mg Tab, 75 MG PO AM, (Reported) Zolpidem Tartrate 5 Mg Tablet, 10 MG PO HS PRN for SLEEP, (Reported) [Domperidone 10mg qid] , 10 MG PO QID, (Reported) 30 minutes before meals and at bedtime [Klor-Con] Unknown Strength , Unknown Dose PO DAILY, (Reported) Past Aaovnkc-Vqbtkb-Myfomq Hx Patient Social History Alcohol Use: Occasionally Uses Recreational Drug Use: No Smoking Status: Never a Smoker Recent Foreign Travel: No Contact w/Someone Who Travel: No Recent Infectious Disease Expo: No Immunizations Up To Date Tetanus Booster (TDap): Less than 5yrs Date of Pneumonia Vaccine: Sep 12, 2012 Date of Influenza Vaccine: Jun 21, 2012 Seasonal Allergies Seasonal Allergies: No Past Medical History Surgeries: Yes ( x2, t/a, gallbladder) Adenoidectomy, Tonsillectomy Respiratory: No Asthma Currently Using CPAP: No Currently Using BIPAP: No Cardiac: Yes (tachycardia) Neurological: Yes (mackenzie's, fibromyalgia, psuedo cerebi tumor) Last Menstrual Period: February 28, 2019 Reproductive Disorders: No Female 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 Sexually Transmitted Disease: No HIV/AIDS: No Gastrointestinal: Yes Gastroesophageal Reflux, Chronic Constipation, Chronic Diarrhea, Hiatal Hernia, Gall Bladder Disease Musculoskeletal: No Endocrine: Yes (HORMONE REPLACEMENT THERAPY) Cancer: Yes Skin What Type of Treatment Did You: Surgical Intervention Psychosocial: Yes Anxiety, Depression Integumentary: No Blood Disorders: No Adverse Reaction/Blood Tranf: No Family Medical History Family history: Breast disease G8 SISTER (cancer) Family history: Diabetes mellitus 19 FATHER No Pertinent Family Hx Physical Exam Vital Signs Vital Signs - First Documented 03/21/19 15:15 Temp 98.0 Pulse 144 Resp 15 B/P (MAP) 137/97 (110) Pulse Ox 96 O2 Delivery Room Air Capillary Refill : Less Than 3 Seconds Height, Weight, BMI Height: 5'5.00" Weight: 220lbs. 2.0oz. 99.224371fi; BMI Method:Stated Progress/Results/Core Measures Results/Orders Lab Results Laboratory Tests Test 03/21/19 15:30 03/21/19 18:04 03/21/19 18:09 Range/Units White Blood Count 11.2 H 4.3-11.0 10^3/uL Red Blood Count 4.14 L 4.35-5.85 10^6/uL Hemoglobin 12.1 11.5-16.0 G/DL Hematocrit 36 35-52 % Mean Corpuscular Volume 88 80-99 FL Mean Corpuscular Hemoglobin 29 25-34 PG Mean Corpuscular Hemoglobin Concent 33 32-36 G/DL Red Cell Distribution Width 14.6 H 10.0-14.5 % Platelet Count 329 130-400 10^3/uL Mean Platelet Volume 9.1 7.4-10.4 FL Neutrophils (%) (Auto) 71 42-75 % Lymphocytes (%) (Auto) 20 12-44 % Monocytes (%) (Auto) 7 0-12 % Eosinophils (%) (Auto) 2 0-10 % Basophils (%) (Auto) 0 0-10 % Neutrophils # (Auto) 7.9 H 1.8-7.8 X 10^3 Lymphocytes # (Auto) 2.3 1.0-4.0 X 10^3 Monocytes # (Auto) 0.7 0.0-1.0 X 10^3 Eosinophils # (Auto) 0.3 0.0-0.3 10^3/uL Basophils # (Auto) 0.0 0.0-0.1 10^3/uL Prothrombin Time 12.5 12.2-14.7 SEC INR Comment 0.9 0.8-1.4 Activated Partial Thromboplast Time 28 24-35 SEC D-Dimer 0.51 H 0.00-0.49 UG/ML Sodium Level 136 135-145 MMOL/L Potassium Level 4.2 3.6-5.0 MMOL/L Chloride Level 104 98-107 MMOL/L Carbon Dioxide Level 22 21-32 MMOL/L Anion Gap 10 5-14 MMOL/L Blood Urea Nitrogen 9 7-18 MG/DL Creatinine 0.86 0.60-1.30 MG/DL Estimat Glomerular Filtration Rate > 60 BUN/Creatinine Ratio 10 Glucose Level 137 H 70-105 MG/DL Calcium Level 9.5 8.5-10.1 MG/DL Corrected Calcium 9.3 8.5-10.1 MG/DL Magnesium Level 2.2 1.8-2.4 MG/DL Total Bilirubin 0.3 0.1-1.0 MG/DL Aspartate Amino Transf (AST/SGOT) 33 5-34 U/L Alanine Aminotransferase (ALT/SGPT) 47 0-55 U/L Alkaline Phosphatase 110 40-136 U/L Myoglobin 14.2 10.0-92.0 NG/ML Troponin I < 0.028 < 0.028 <0.028 NG/ML C-Reactive Protein High Sensitivity 3.21 H 0.00-0.50 MG/DL Total Protein 7.4 6.4-8.2 GM/DL Albumin 4.3 3.2-4.5 GM/DL Urine Color YELLOW Urine Clarity VERY CLOUDY H Urine pH 5 5-9 Urine Specific [place] 1.010 L 1.016-1.022 Urine Protein 2+ H NEGATIVE Urine Glucose (UA) NEGATIVE NEGATIVE Urine Ketones NEGATIVE NEGATIVE Urine Nitrite NEGATIVE NEGATIVE Urine Bilirubin NEGATIVE NEGATIVE Urine Urobilinogen NORMAL NORMAL MG/DL Urine Leukocyte Esterase 2+ H NEGATIVE Urine RBC (Auto) NEGATIVE NEGATIVE Urine RBC NONE /HPF Urine WBC 5-10 H /HPF Urine Squamous Epithelial Cells TNTC H /HPF Urine Crystals NONE /LPF Urine Bacteria LARGE H /HPF Urine Casts NONE /LPF Urine Mucus SMALL H /LPF Urine Culture Indicated YES Urine Opiates Screen POSITIVE H NEGATIVE Urine Oxycodone Screen NEGATIVE NEGATIVE Urine Methadone Screen NEGATIVE NEGATIVE Urine Propoxyphene Screen NEGATIVE NEGATIVE Urine Barbiturates Screen NEGATIVE NEGATIVE Ur Tricyclic Antidepressants Screen POSITIVE H NEGATIVE Urine Phencyclidine Screen POSITIVE H NEGATIVE Urine Amphetamines Screen POSITIVE H NEGATIVE Urine Methamphetamines Screen NEGATIVE NEGATIVE Urine Benzodiazepines Screen POSITIVE H NEGATIVE Urine Cocaine Screen POSITIVE H NEGATIVE Urine Cannabinoids Screen POSITIVE H NEGATIVE My Orders Orders - MARGARITA DIAZ Ns Iv 1000 Ml (Sodium Chloride 0.9%) (03/21/19 15:30) Hs C Reactive Protein (03/21/19 15:23) Aspirin Chewable Tablet (Baby Aspirin Ch (03/21/19 15:22) Drug Screen Stat (Urine) (03/21/19 15:38) Ua Culture If Indicated (03/21/19 15:38) Ct Angio Chest W (03/21/19 16:22) Iohexol Injection (Omnipaque 350 Mg/Ml 1 (03/21/19 16:30) Received Contrast (Hold Metformin- Contr (03/21/19 16:30) Ns (Ivpb) (Sodium Chloride 0.9% Ivpb Bag (03/21/19 16:30) Fentanyl Injection (Sublimaze Injection (03/21/19 16:45) Ondansetron Injection (Zofran Injectio (03/21/19 17:45) Ns Iv 1000 Ml (Sodium Chloride 0.9%) (03/21/19 18:00) Troponin I (03/21/19 17:53) Lorazepam Injection (Ativan Injection) (03/21/19 18:30) Urine Culture (03/21/19 18:04) Medications Given in ED Current Medications Medications Dose Ordered Sig/Lorenzo Route Start Time Stop Time Status Last Admin Dose Admin Aspirin 81 mg STK-MED ONCE .ROUTE 03/21/19 15:22 03/21/19 15:27 DC 03/21/19 15:30 81 MG Fentanyl Citrate 50 mcg ONCE ONCE IVP 03/21/19 16:45 03/21/19 16:46 DC 03/21/19 16:49 50 MCG Lorazepam 1 mg ONCE ONCE IVP 03/21/19 18:30 03/21/19 18:31 DC 03/21/19 18:30 1 MG Ondansetron HCl 4 mg ONCE ONCE IVP 03/21/19 17:45 03/21/19 17:54 DC 03/21/19 17:55 4 MG Vital Signs/I&O 03/21/19 15:15 Temp 98.0 Pulse 144 Resp 15 B/P (MAP) 137/97 (110) Pulse Ox 96 O2 Delivery Room Air Blood Pressure Mean: 110 Departure Impression Primary Impression: Chest pain Additional Impressions: Illicit drug use Tachycardia Disposition: 01 HOME, SELF-CARE Condition: Stable/Unchanged Departure-Patient Inst. Decision time for Depature: 18:50 Referrals: KARY ZABALA DO (PCP) Primary Care Physician CAMILLA ZABALA DNP (Family) Primary Care Physician Patient Instructions: Chest Pain (DC), Drug Abuse and Drug Addiction (DC), Tachycardia (DC) Add. Discharge Instructions: Resume your home medications as previously prescribed. Follow-up with Cmailla Zabala within 1 week for recheck. Return back to the emergency room for worsening symptoms or concerns as needed. All discharge instructions reviewed with patient and/or family. Voiced understanding. MARGARITA DIAZ Mar 21, 2019 17:43
[2019-03-21] MEDS ORDERED: ONDANSETRON 4 MG/2 ML (SDV) Z0FRAN IVP ONE (17:45)
[2019-03-21 18:14] LABS: BILIRUBIN,URINE NEGATIVE (NEGATIVE); CLARITY,URINE VERY CLOUDY; COLOR,URINE YELLOW; GLUCOSE, URINE (UA) NEGATIVE (NEGATIVE); KETONES,URINE NEGATIVE (NEGATIVE); LEUKOCYTE ESTERASE ,URINE 2+ (NEGATIVE); NITRITE,URINE NEGATIVE (NEGATIVE); PH,URINE 5 (5-9); PROTEIN,URINE 2+ (NEGATIVE); UROBILINOGEN,URINE NORMAL (NORMAL)
[2019-03-21 18:24] LABS: BACTERIA,URINE LARGE /HPF; SQUAMOUS EPITHELIAL CELL,UR TNTC /HPF
[2019-03-21 18:28] LABS: BENZODIAZEPINES SCREEN URINE POSITIVE (NEGATIVE); COCAINE SCREEN URINE POSITIVE (NEGATIVE)
[2019-03-21 18:29] LABS: CANNABINOID SCREEN, URINE POSITIVE (NEGATIVE); METHAMPHETAMINE SCREEN URINE S NEGATIVE (NEGATIVE); OPIATE SCREEN URINE POSITIVE (NEGATIVE)
[2019-03-21 18:30] LABS: AMPHETAMINE SCREEN, URINE POSITIVE (NEGATIVE); BARBITURATE SCREEN URINE NEGATIVE (NEGATIVE); METHADONE STAT NEGATIVE (NEGATIVE); TRICYCLIC ANTIDEPRESSANTS SCRE POSITIVE (NEGATIVE)
[2019-03-21] MEDS ORDERED: LORazepam INJ 2 MG/ML (ATIVAN) VIAL IVP ONE (18:30)
[2019-03-21 18:31] LABS: OXYCODONE STAT NEGATIVE (NEGATIVE); PROPOXYPHENE STAT NEGATIVE (NEGATIVE)
[2019-03-21 19:24] VITALS: BP 117/88
--- OUTSIDE RECORDS SUMMARY | 2019-03-21 22:50 | XMS REPORT | Clinical Summary ---
Author Author [facility] Organization [facility] Address Unknown Phone Unavailable Care Team Providers Care [employer] Operator Name Role Phone Matthew Zabala MD PCP Karen Avelar RN Unavailable Radha Bledsoe DO Unavailable Source Comments Some departments are not documenting in the electronic medical record. If you d o not see the information that you expected, contact Release of Information in [facility] [employer] Information Management department at [phone] for further assistan ce in locating additional records.[facility] Allergies No Known Allergies Medications End Date Status Medication Sig Dispensed Refills Start Date Active thyroid (ARMOUR THYROID) Take 60 mg by 0 60 mg tablet mouth daily. Active zolpidem (AMBIEN) 10 mg Take 10 mg by 0 tablet mouth at bedtime daily. Active acetaZOLAMIDE (DIAMOX Take 1,000 mg 0 SEQUELS) 500 mg capsule by mouth twice daily. Active diltiazem CD (CARDIZEM Take 120 mg 0 CD) 120 mg capsule by mouth daily. Active DOMPERIDONE (BULK) MISC 10 mg. Take 0 two tabs twice daily Active pantoprazole DR Take 40 mg by 0 (PROTONIX) 40 mg tablet mouth twice daily. Active venlafaxine (EFFEXOR) 75 Take 37.5 mg 0 mg tablet by mouth daily. Active dextroamphetamine-ampheta 2 tablets by 0 mine (ADDERALL) 10 mg mouth in the tablet morning and 1 tablet my mouth in the afternoon Active oxyCODONE (ROXICODONE, Take 5 mg by 0 OXY-IR) 5 mg tablet mouth at bedtime as needed for Pain Active nortriptyline (PAMELOR) TAKE 1 30 capsule 5 25 mg capsule CAPSULE BY 9 MOUTH ONCE DAILY AT BEDTIME Active Problems Problem Noted Date Hx of migraine during 05/04/2018 Sinus tachycardia 02/12/2018 Overview: ECHO 10/08/16: EF 60%, LV mildly thick at 1.13cm otherwise normal. 12/2016 EVM: Normal rhythm/sinus tachycardia Palpitations 02/12/2018 Pseudotumor cerebri 03/31/2014 Encounters Care Team Description Date Type Specialty Hamilton Rosenberg MD 01/01/2019 Refill Neurology from Last 3 Months Family History Medical History Relation Name Comments Diabetes Father Sudhir Autoimmune Disease Other Cancer Sister Michaelle Amblyopia Neg Hx Blindness Neg Hx Cataract Neg Hx Glaucoma Neg Hx Macular Degen Neg Hx Retinal Detachment Neg Hx Strabismus Neg Hx Relation Name Status Comments Father Sudhir Alive Mother Maira Alive Other Sister Michaelle Alive Social History Date Tobacco Use Types Packs/Day Years Used Never Smoker Smokeless Tobacco: Never Used Alcohol Use Drinks/Week oz/Week Comments No Sex Assigned at Date Recorded Not on file Industry Job Start Date Occupation Not on file Not on file Not on file Travel End Travel History Travel Start No recent travel history available. Last Filed Vital Signs Time Taken Vital Sign Reading 05/25/2018 2:46 PM CDT Blood Pressure 132/91 05/25/2018 2:46 PM CDT Pulse 101 03/01/2018 11:06 AM CDT Temperature 36.8 C (98.2 F) - Respiratory Rate - 03/01/2018 1:30 PM CDT Oxygen Saturation 99% - Inhaled Oxygen - Concentration 05/25/2018 2:46 PM CDT Weight 87.1 kg (192 lb) 05/25/2018 2:46 PM CDT Height 165.1 cm (5' 5") 05/25/2018 2:46 PM CDT Body Mass Index 31.95 Plan of Treatment Health Maintenance Due Date Last Done Comments PHYSICAL (COMPREHENSIVE) 1993 EXAM DTAP/TDAP VACCINES (1 - 2004 Tdap) CERVICAL CANCER SCREENING 2016 INFLUENZA VACCINE 07/19/2019 HIV SCREENING Completed 04/01/2014 Results Not on filefrom Last 3 Months Insurance Type Payer Benefit Subscriber ID Effective Phone Address Plan / Dates Group Medicare MEDICARE MEDICARE xxxxxxxxxx [id number] PART A AND resent B Advance Directives Patient has advance care planning documents, and code status on file. For more i nformation, please contact: [facility] [address] [place] [address] Date Inactivated Comments Code Status Date Activated 04/03/2014 4:34 PM Full Code 03/31/2014 8:16 PM Provider has discussed Code Status No, more discussion w/Patient or Family? needed
--- OUTSIDE RECORDS SUMMARY | 2019-03-21 22:50 | XMS REPORT | Encounter Summary ---
Author Author [facility] Organization [facility] Address Unknown Phone Unavailable Care Team Providers Care In Room Dining Server Name Role Phone Matthew Zabala MD PCP Karen Avelar RN Unavailable Radha Bledsoe DO Unavailable Reason for Visit * Reason Comments Medication Refill Encounter Details Care Team Description Date Type Department Hamilton Rosenberg MD [address] [place] [address] 01/01/2019 Refill [facility] [address] [place] [address] Social History Date Tobacco Use Types Packs/Day Years Used Never Smoker Smokeless Tobacco: Never Used Alcohol Use Drinks/Week oz/Week Comments No Sex Assigned at Date Recorded Not on file Industry Job Start Date Occupation Not on file Not on file Not on file Travel End Travel History Travel Start No recent travel history available. documented as of this encounter Plan of Treatment Not on filedocumented as of this encounter Visit Diagnoses Not on filedocumented in this encounter
--- OUTSIDE RECORDS SUMMARY | 2019-03-21 22:51 | XMS REPORT | Clinical Summary ---
Author Author Admin, E Organization [facility] Address Unknown Phone Unavailable Allergies, Adverse Reactions, Alerts Allergy Name Reaction Description Start Date Severity Status Provider No Known Allergies Catherine Grullon RN Conditions or Problems Problem Name Problem Code [...] APRN Urinary tract infection, site not specified BMI 34-34.9 Refinement Kenny Mercado MD Body Mass Index 34.0-34.9, adult BMI 35-35.9 Refinement Du Hernandez MD Body Mass Index 34.0-34.9, adult BMI 34-34.9 Refinement Payton Russell APRN-C Body Mass Index 34.0-34.9, adult BMI 36-36.9 Active Linh Garcia APRN Body Mass Index 34.0- 34.9, adult Obesity Class I (BMI 30-34.9) Refinement Kenny Mercado MD Obesity, unspecified Obesity Class II (BMI 35-39.9) Refinement Du Hernandez MD Obesity, unspecified Obesity Class I (BMI 30-34.9) Refinement Payton Russell PROGRAM ENGAGEMENT DIRECTOR-C Obesity, unspecified Morbid obesity due to excess calories Active Lihn Jose SALAZAR Obesity, unspecified Neoplasm of uncertain behavior of skin Active Kenny Mercado MD Neoplasm of uncertain behavior of skin Migraine 346.90 Active Payton Russell APRN-C Migraine, unspecified, without mention of intractable migraine, without mention of status migrainosus DEPRESSION ICD-311 Inactive Brit Jacinto MD PhD SINUSITIS ICD-473.9 Inactive Brit Jacinto MD PhD Medication List Medication Instructions Start Date Stop Date Generic Name NDC Status Provider Patient Instruction CARVEDILOL 25 MG ORAL TABLET 1 po BId CARVEDILOL 90880520588 Active Du Hernandez MD Active ABILIFY 10 MG ORAL TABLET 1 tab po daily ARIPIPRAZOLE 57855550261 Active Du Hernandez MD Active AMBIEN 10 MG ORAL TABLET 2 tab by mouth at bedtime as needed for sleep ZOLPIDEM TARTRATE 47967764686 Active Du Hernandez MD Active NORTRIPTYLINE HCL 25 MG ORAL CAPSULE 2 daily at bedtime NORTRIPTYLINE HCL 97146572539 Active Du Hernandez MD Active HYDROCODONE-ACETAMINOPHEN 5-325 MG ORAL TABLET 1 every 4-6 hrs prn HYDROCODONE-ACETAMINOPHEN 91816014653 No Longer Active Du Hernandez MD Active SEROQUEL 25 MG ORAL TABLET 2 po q evening for major depression QUETIAPINE FUMARATE 84314879404 Active Du Hernandez MD Active PARAGARD INTRAUTERINE COPPER INTRAUTERINE INTRAUTERINE DEVICE COPPER 24289501938 Active Kenny Mercado MD Active MIRENA (52 MG) INTRAUTERINE DEVICE LEVONORGESTREL IUD 41964827463 No Longer Active Kenny Mercado MD Active SUMATRIPTAN SUCCINATE 100 MG ORAL TABLET 1 po at onset of headache may repeat in 2 hrs. SUMATRIPTAN SUCCINATE 93036317307 No Longer Active Kenny Mercado MD Active EFFEXOR XR 75 MG ORAL CAPSULE EXTENDED RELEASE 24 HOUR 1 capsule every evening VENLAFAXINE HCL 43429789571 Active Kenny Mercado MD Active EFFEXOR XR 150 MG ORAL CAPSULE EXTENDED RELEASE 24 HOUR 1 capsule every morning VENLAFAXINE HCL 06784590271 Active Kenny Mercado MD Active LEXAPRO 10 MG ORAL TABLET 1 tablet by mouth daily ESCITALOPRAM OXALATE 91164199976 No Longer Active Kenny Mercado MD Active FIORICET 325-50-40 MG TAB 1-2 tabs by mouth q6hr PRN headache [id number] 44498233977 No Longer Active Kenny Mercado MD Active LORAZEPAM 0.5 MG ORAL TABLET 1 po q day prn anxiety LORAZEPAM 93829062857 Active Ignacio Colmenares DO Active CELEXA 20 MG ORAL TABLET 1 po daily CITALOPRAM HYDROBROMIDE 79251297800 No Longer Active Ignacio Colmenares DO Active PREDNISONE 20 MG ORAL TABLET 1 po bid 3 days, then 1 po q day 3 days PREDNISONE 10578701779 No Longer Active Ramu LAUGHLIN Active CEFTIN 500 MG ORAL TABLET 1 po bid 10 day CEFUROXIME AXETIL 38299934991 No Longer Active Ramu LAUGHLIN Active AMITRIPTYLINE HCL 10 MG ORAL TABLET 1 po at hs prn AMITRIPTYLINE HCL 78874013999 No Longer Active Ignacio Colmenares DO Active IBUPROFEN 200 MG ORAL TABLET 3-4 tabs prn IBUPROFEN 88092820257 Active Ignacio Colmenares DO Active TYLENOL EXTRA STRENGTH 500 MG ORAL TABLET 2 tabs prn ACETAMINOPHEN 08504442229 Active Ignacio W Darrian DO Active AZITHROMYCIN 250 MG ORAL TABLET 2 pills day 1,1 pill day 2-5 AZITHROMYCIN 60749055075 No Longer Active Nicole Gimenez MD Active CEFTIN 500 MG ORAL TABLET 1 po bid 10 day CEFTIN 500 MG ORAL TABLET CEFUROXIME AXETIL Inactive PREDNISONE 20 MG ORAL TABLET 1 po bid 3 days, then 1 po q day 3 days PREDNISONE 20 MG ORAL TABLET 651453 PREDNISONE Inactive CELEXA 20 MG ORAL TABLET 1 po daily CELEXA 20 MG ORAL TABLET 998466 CITALOPRAM HYDROBROMIDE Inactive FIORICET 325-50-40 MG TAB 1-2 tabs by mouth q6hr PRN headache FIORICET 325-50-40 MG TAB [id number] Inactive LEXAPRO 10 MG ORAL TABLET 1 tablet by mouth daily LEXAPRO 10 MG ORAL TABLET 725414 ESCITALOPRAM OXALATE Inactive SUMATRIPTAN SUCCINATE 100 MG ORAL TABLET 1 po at onset of headache may repeat in 2 hrs. SUMATRIPTAN SUCCINATE 100 MG ORAL TABLET 550137 SUMATRIPTAN SUCCINATE Inactive MIRENA (52 MG) INTRAUTERINE DEVICE MIRENA (52 MG) INTRAUTERINE DEVICE LEVONORGESTREL IUD Inactive HYDROCODONE-ACETAMINOPHEN 5-325 MG ORAL TABLET 1 every 4-6 hrs prn HYDROCODONE-ACETAMINOPHEN 5-325 MG ORAL TABLET 596211 HYDROCODONE-ACETAMINOPHEN Inactive AZITHROMYCIN 250 MG ORAL TABLET 2 pills day 1,1 pill day 2-5 AZITHROMYCIN 250 MG ORAL TABLET 953658 AZITHROMYCIN Inactive Immunizations Vaccine Administration Date Value Standard Description influenza immunization (Flu Vax) has been administered Done according to patient influenza virus vaccine, unspecified formulation Vital Signs Date Name Value Unit Range Description blood pressure, diastolic, repeated by physician 89 BP león blood pressure, diastolic 89 mm[Hg] BP león blood pressure, systolic, repeated by physician 130 BP sys blood pressure, systolic 130 mm[Hg] BP sys height E&M 65 [in_us] Bdy height pulse rate E&M 118 /min Heart rate temperature E&M 98.5 [degF] Body temperature weight E&M 217 [lb_av] Weight Measured blood pressure, diastolic 91 mm[Hg] BP león blood pressure, systolic 134 mm[Hg] BP sys height E&M 65 [in_us] Bdy height pulse rate E&M 94 /min Heart rate temperature E&M 98.2 [degF] Body temperature weight E&M 209 [lb_av] Weight Measured blood pressure, diastolic 102 mm[Hg] BP león blood pressure, systolic 143 mm[Hg] BP sys height E&M 65 [in_us] Bdy height pulse rate E&M 114 /min Heart rate temperature E&M 98.9 [degF] Body temperature weight E&M 211 [lb_av] Weight Measured blood pressure, diastolic, repeated by physician 98 BP león blood pressure, diastolic 98 mm[Hg] BP león blood pressure, systolic, repeated by physician 145 BP sys blood pressure, systolic 145 mm[Hg] BP sys height E&M 65 [in_us] Bdy height pulse rate E&M 100 /min Heart rate temperature E&M 98.9 [degF] Body temperature weight E&M 206 [lb_av] Weight Measured Diagnostic Results Date Name Value Unit Range Description Office Visit: Migraine - Chemistry HDL cholesterol, serum, target level 40 mg/dL cholesterol, target level 200 mg/dL triglyceride, target level 150 mg/dL Encounters Code Encounter Date Provider Facility CPT-55619 Level 2 Est. Patient 13:58:01 CDT Linh Sell [facility] CPT-23376 Level 4 Est. Patient 16:08:14 CDT Payton Russell [facility] CPT-05753 [id number] Vst-Est Level III 11:31:45 CDT Du Hernandez MD [facility] CPT-31755 Level 2 Est. Patient 15:30:11 MUSIC RESEARCHER Kenny Mercado MD [facility] CPT-42565 Level 3 Est. Patient 12:29:51 CDT Joe Thomas MD [facility] CPT-00305 Level 3 Est. Patient 08:18:06 CDT Julito Taylor [facility] CPT-45835 Level 3 Est. Patient 10:12:22 MUSIC RESEARCHER Ignacio Proctor [facility] CPT-84491 Level 3 Est. Patient 14:30:38 MUSIC RESEARCHER Ignacio Colmenares [facility] CPT-04973 Level 3 Est. Patient 08:21:09 MUSIC RESEARCHER Ramu Miller [facility] CPT-42329 Level 3 Est. Patient 15:39:17 MUSIC RESEARCHER Ramu Miller [facility] CPT-72261 Level 3 Est. Patient 18:43:[address] [facility] Procedures Code Procedure Name Date Entry Date Standard Description CPT-J1200 Benadryl 50 mg (Diphenhydramine) 13:58:01 CDT CPT-J2550 Phenergan 25 mg (Promethazine) 13:58:01 CDT CPT-J0595 Stadol 1 mg (Butorphanol) 13:58:01 CDT CPT-J7030 Normal Saline 1000 mL 13:58:01 CDT CPT-J2405 Zofran 4mg 17:25:13 CDT CPT-J1885 Toradol 30 mg (Ketorolac) 17:25:12 CDT CPT-J7030 Normal Saline 1000 mL 16:08:15 CDT CPT-J0595 Stadol 2 mg (Butorphanol) 16:08:15 CDT CPT-J1200 Benadryl 50 mg (Diphenhydramine) 16:08:15 CDT CPT-J2550 Phenergan 25 mg (Promethazine) 16:08:14 CDT CPT-17571 IV Hydration < or=1 hr 16:08:14 CDT CPT-71625 Abx/Therapy Injection 13:31:20 CDT CPT-J0595 Stadol 2 mg (Butorphanol) 11:01:56 CDT CPT-J2950 Phenergan 25 mg 11:01:56 CDT CPT-J1200 Benadryl 50 mg (Diphenhydramine) 11:01:56 CDT CPT-LR Lesion Removal 15:30:11 MUSIC RESEARCHER CPT-56659 Abd single AP View 13:53:50 CDT CPT-06338 Nail Avulsion 17:26:33 CDT CPT-62953 Abx/Therapy Injection 10:36:59 MUSIC RESEARCHER CPT-J1885 Toradol 60 mg (Ketorolac) 16:20:19 MUSIC RESEARCHER CPT-03506 Abx/Therapy Injection 16:20:19 MUSIC RESEARCHER CPT-86807 Venipuncture Draw Fee 14:45:53 MUSIC RESEARCHER CPT-93885 Abx/Therapy Injection 08:21:09 MUSIC RESEARCHER CPT-J2550 Phenergan 50 mg (Promethazine) 16:24:49 MUSIC RESEARCHER CPT-J2175 Demerol 75 mg (Meperidine) 16:24:49 MUSIC RESEARCHER CPT-J2550 Phenergan 50 mg (Promethazine) 18:33:49 MUSIC RESEARCHER CPT-J2175 Demerol 50 mg (Meperidine) 18:33:49 MUSIC RESEARCHER CPT-J2550 Phenergan 50 mg (Promethazine) 15:39:17 MUSIC RESEARCHER CPT-J2175 Demerol 50 mg (Meperidine) 15:39:17 MUSIC RESEARCHER CPT-OV Office Visit 16:53:10 CDT
--- OUTSIDE RECORDS SUMMARY | 2019-03-21 22:51 | XMS REPORT | Clinical Summary ---
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 Obesity, unspecified Morbid obesity due to excess calories Active Linh Jose SALAZAR Obesity, unspecified Neoplasm of uncertain [...] MG ORAL TABLET 1 po BId CARVEDILOL 82015308245 Active Du Hernandez MD Active ABILIFY 10 MG ORAL TABLET 1 tab po daily ARIPIPRAZOLE 01012529590 Active Du Hernandez MD Active AMBIEN 10 MG ORAL TABLET 2 tab by mouth at bedtime as needed for sleep ZOLPIDEM TARTRATE 18451371536 Active Du Hernandez MD Active NORTRIPTYLINE HCL 25 MG ORAL CAPSULE 2 daily at bedtime NORTRIPTYLINE HCL 77822041641 Active Du Hernandez MD Active HYDROCODONE-ACETAMINOPHEN 5-325 MG ORAL TABLET 1 every 4-6 hrs prn HYDROCODONE-ACETAMINOPHEN 43973097312 No Longer Active Du Hernandez MD Active SEROQUEL 25 MG ORAL TABLET 2 po q evening for major depression QUETIAPINE FUMARATE 83118578376 Active Du Hernandez MD Active PARAGARD INTRAUTERINE COPPER INTRAUTERINE INTRAUTERINE DEVICE COPPER 23717614141 Active Kenny Mercado MD Active MIRENA (52 MG) INTRAUTERINE DEVICE LEVONORGESTREL IUD 70882873273 No Longer Active Kenny Mercado MD Active SUMATRIPTAN SUCCINATE 100 MG ORAL TABLET 1 po at onset of headache may repeat in 2 hrs. SUMATRIPTAN SUCCINATE 43335869918 No Longer Active Kenny Mercado MD Active EFFEXOR XR 75 MG ORAL CAPSULE EXTENDED RELEASE 24 HOUR 1 capsule every evening VENLAFAXINE HCL 65348406924 Active Kenny Mercado MD Active EFFEXOR XR 150 MG ORAL CAPSULE EXTENDED RELEASE 24 HOUR 1 capsule every morning VENLAFAXINE HCL 31403435194 Active Kenny Mercado MD Active LEXAPRO 10 MG ORAL TABLET 1 tablet by mouth daily ESCITALOPRAM OXALATE 90384443988 No Longer Active Kenny Mercado MD Active FIORICET 325-50-40 MG TAB 1-2 tabs by mouth q6hr PRN headache [id number] 60892201008 No Longer Active Kenny Mercado MD Active LORAZEPAM 0.5 MG ORAL TABLET 1 po q day prn anxiety LORAZEPAM 95891607418 Active Ignacio Colmenares DO Active CELEXA 20 MG ORAL TABLET 1 po daily CITALOPRAM HYDROBROMIDE 41912106314 No Longer Active Ignacio Colmenares DO Active PREDNISONE 20 MG ORAL TABLET 1 po bid 3 days, then 1 po q day 3 days PREDNISONE 26970843484 No Longer Active Raum LAUGHLIN Active CEFTIN 500 MG ORAL TABLET 1 po bid 10 day CEFUROXIME AXETIL 62993734023 No Longer Active Ramu LAUGHLIN Active AMITRIPTYLINE HCL 10 MG ORAL TABLET 1 po at hs prn AMITRIPTYLINE HCL 43720516063 No Longer Active Ignacio Colmenares DO Active IBUPROFEN 200 MG ORAL TABLET 3-4 tabs prn IBUPROFEN 70710417961 Active Ignacio Colmenares DO Active TYLENOL EXTRA STRENGTH 500 MG ORAL TABLET 2 tabs prn ACETAMINOPHEN 90277201891 Active Ignacio W Darrian DO Active AZITHROMYCIN 250 MG ORAL TABLET 2 pills day 1,1 pill day 2-5 AZITHROMYCIN 03305979568 No Longer Active Nicole Gimenez MD Active CEFTIN 500 MG ORAL TABLET 1 po bid 10 day CEFTIN 500 MG ORAL TABLET CEFUROXIME AXETIL Inactive PREDNISONE 20 MG ORAL TABLET 1 po bid 3 days, then 1 po q day 3 days PREDNISONE 20 MG ORAL TABLET 533555 PREDNISONE Inactive CELEXA 20 MG ORAL TABLET 1 po daily CELEXA 20 MG ORAL TABLET 271550 CITALOPRAM HYDROBROMIDE Inactive FIORICET 325-50-40 MG TAB 1-2 tabs by mouth q6hr PRN headache FIORICET 325-50-40 MG TAB [id number] Inactive LEXAPRO 10 MG ORAL TABLET 1 tablet by mouth daily LEXAPRO 10 MG ORAL TABLET 765888 ESCITALOPRAM OXALATE Inactive SUMATRIPTAN SUCCINATE 100 MG ORAL TABLET 1 po at onset of headache may repeat in 2 hrs. SUMATRIPTAN SUCCINATE 100 MG ORAL TABLET 649899 SUMATRIPTAN SUCCINATE Inactive MIRENA (52 MG) INTRAUTERINE DEVICE MIRENA (52 MG) INTRAUTERINE DEVICE LEVONORGESTREL IUD Inactive HYDROCODONE-ACETAMINOPHEN 5-325 MG ORAL TABLET 1 every 4-6 hrs prn HYDROCODONE-ACETAMINOPHEN 5-325 MG ORAL TABLET 558202 HYDROCODONE-ACETAMINOPHEN Inactive AZITHROMYCIN 250 MG ORAL TABLET 2 pills day 1,1 pill day 2-5 AZITHROMYCIN 250 MG ORAL TABLET 997442 AZITHROMYCIN Inactive Immunizations Vaccine Administration Date Value [...] mg/dL Encounters Code Encounter Date Provider Facility CPT-72539 Level 2 Est. Patient 13:58:01 CDT Linh Sell [facility] CPT-05506 Level 4 Est. Patient 16:08:14 CDT Payton Russell [facility] CPT-89884 [id number] Vst-Est Level III 11:31:45 CDT Du Hernandez MD [facility] CPT-88847 Level 2 Est. Patient 15:30:11 FILTER FILLER Kenny Mercado MD [facility] CPT-73208 Level 3 Est. Patient 12:29:51 CDT Joe Thomas MD [facility] CPT-57306 Level 3 Est. Patient 08:18:06 CDT Julito Taylor [facility] CPT-91244 Level 3 Est. Patient 10:12:22 FILTER FILLER Ignacio Proctor [facility] CPT-37910 Level 3 Est. Patient 14:30:38 FILTER FILLER Ignacio Colmenares [facility] CPT-96005 Level 3 Est. Patient 08:21:09 FILTER FILLER Ramu Miller [facility] CPT-08641 Level 3 Est. Patient 15:39:17 FILTER FILLER Ramu Miller [facility] CPT-20232 Level 3 Est. Patient 18:43:41 CDT Ignacio Proctor [facility] Procedures Code Procedure Name Date [...] CPT-J2550 Phenergan 25 mg (Promethazine) 16:08:14 CDT CPT-45521 IV Hydration < or=1 hr 16:08:14 CDT CPT-41884 Abx/Therapy Injection 13:31:20 CDT CPT-J0595 Stadol 2 mg (Butorphanol) 11:01:56 CDT CPT-J2950 Phenergan 25 mg 11:01:56 CDT CPT-J1200 Benadryl 50 mg (Diphenhydramine) 11:01:56 CDT CPT-LR Lesion Removal 15:30:11 FILTER FILLER CPT-13407 Abd single AP View 13:53:50 CDT CPT-21970 Nail Avulsion 17:26:33 CDT CPT-68222 Abx/Therapy Injection 10:36:59 FILTER FILLER CPT-J1885 Toradol 60 mg (Ketorolac) 16:20:19 FILTER FILLER CPT-50882 Abx/Therapy Injection 16:20:19 FILTER FILLER CPT-36000 Venipuncture Draw Fee 14:45:53 FILTER FILLER CPT-44151 Abx/Therapy Injection 08:21:09 FILTER FILLER CPT-J2550 Phenergan 50 mg (Promethazine) 16:24:49 FILTER FILLER CPT-J2175 Demerol 75 mg (Meperidine) 16:24:49 FILTER FILLER CPT-J2550 Phenergan 50 mg (Promethazine) 18:33:49 FILTER FILLER CPT-J2175 Demerol 50 mg (Meperidine) 18:33:49 FILTER FILLER CPT-J2550 Phenergan 50 mg (Promethazine) 15:39:17 FILTER FILLER CPT-J2175 Demerol 50 mg (Meperidine) 15:39:17 FILTER FILLER CPT-OV Office Visit 16:53:10 CDT
--- OUTSIDE RECORDS SUMMARY | 2019-03-21 22:52 | XMS REPORT | Clinical Summary ---
Author Author Admin, E Organization [facility] Address Unknown Phone Unavailable Allergies, Adverse Reactions, Alerts Allergy Name Reaction Description Start Date Severity Status Provider No Known Allergies Coby MOTA Conditions or Problems Problem Name Problem Code [...] specified site; multiple sites UTI 599.0 Active Vickyina Brandon LOERAN Urinary tract infection, site not specified BMI 34-34.9 Refinement Kenny Mercado MD Body Mass Index 34.0-34.9, adult BMI 35-35.9 Refinement Du Hernandez MD Body Mass Index 34.0-34.9, adult BMI 34-34.9 Active Payton Russell APRN-C Body Mass Index 34.0-34.9, adult Obesity Class I (BMI 30-34.9) Refinement Kenny Mercado MD Obesity, unspecified Obesity Class II (BMI 35-39.9) Refinement Du Hernandez MD Obesity, unspecified Obesity Class I (BMI 30-34.9) Active Payton BOSTON Obesity, unspecified Neoplasm of uncertain behavior of skin Active Kenny Mercado MD Neoplasm of uncertain behavior of skin Migraine 346.90 Active Payton BOSTON Migraine, unspecified, without mention of intractable migraine, without mention of status migrainosus DEPRESSION ICD-311 Inactive Brit Jacinto MD PhD SINUSITIS ICD-473.9 Inactive Brit Jacinto MD PhD Medication List Medication Instructions Start Date Stop Date Generic Name NDC Status Provider Patient Instruction CARVEDILOL 25 MG ORAL TABLET 1 po BId CARVEDILOL 35285429021 Active Du Hernandez MD Active ABILIFY 10 MG ORAL TABLET 1 tab po daily ARIPIPRAZOLE 13408528617 Active Du Hernandez MD Active AMBIEN 10 MG ORAL TABLET 2 tab by mouth at bedtime as needed for sleep ZOLPIDEM TARTRATE 35014620572 Active Du Hernandez MD Active NORTRIPTYLINE HCL 25 MG ORAL CAPSULE 2 daily at bedtime NORTRIPTYLINE HCL 81916782641 Active Du Hernandez MD Active HYDROCODONE-ACETAMINOPHEN 5-325 MG ORAL TABLET 1 every 4-6 hrs prn HYDROCODONE-ACETAMINOPHEN 55882666476 No Longer Active Du Hernandez MD Active SEROQUEL 25 MG ORAL TABLET 2 po q evening for major depression QUETIAPINE FUMARATE 89053341119 Active Du Hernandez MD Active PARAGARD INTRAUTERINE COPPER INTRAUTERINE INTRAUTERINE DEVICE COPPER 09809633461 Active Kenny Mercado MD Active MIRENA (52 MG) INTRAUTERINE DEVICE LEVONORGESTREL IUD 19474667410 No Longer Active Kenny Mercado MD Active SUMATRIPTAN SUCCINATE 100 MG ORAL TABLET 1 po at onset of headache may repeat in 2 hrs. SUMATRIPTAN SUCCINATE 89865492968 No Longer Active Kenny Mercado MD Active EFFEXOR XR 75 MG ORAL CAPSULE EXTENDED RELEASE 24 HOUR 1 capsule every evening VENLAFAXINE HCL 13457043132 Active Kenny Mercado MD Active EFFEXOR XR 150 MG ORAL CAPSULE EXTENDED RELEASE 24 HOUR 1 capsule every morning VENLAFAXINE HCL 58951858940 Active Kenny Mercado MD Active LEXAPRO 10 MG ORAL TABLET 1 tablet by mouth daily ESCITALOPRAM OXALATE 11830024476 No Longer Active Kenny Mercado MD Active FIORICET 325-50-40 MG TAB 1-2 tabs by mouth q6hr PRN headache [id number] 74509393627 No Longer Active Kenny Mercado MD Active LORAZEPAM 0.5 MG ORAL TABLET 1 po q day prn anxiety LORAZEPAM 65115675468 Active Ignacio Colmenares DO Active CELEXA 20 MG ORAL TABLET 1 po daily CITALOPRAM HYDROBROMIDE 44587283868 No Longer Active Ignacio Colmenares DO Active PREDNISONE 20 MG ORAL TABLET 1 po bid 3 days, then 1 po q day 3 days PREDNISONE 99196641497 No Longer Active Ramu LAUGHLIN Active CEFTIN 500 MG ORAL TABLET 1 po bid 10 day CEFUROXIME AXETIL 75377646847 No Longer Active Ramu LAUGHLIN Active AMITRIPTYLINE HCL 10 MG ORAL TABLET 1 po at hs prn AMITRIPTYLINE HCL 57645974039 No Longer Active Ignacio Colmenares DO Active IBUPROFEN 200 MG ORAL TABLET 3-4 tabs prn IBUPROFEN 45170320822 Active Ignacio Colmenares DO Active TYLENOL EXTRA STRENGTH 500 MG ORAL TABLET 2 tabs prn ACETAMINOPHEN 68190437151 Active Ignacio Colmenares DO Active AZITHROMYCIN 250 MG ORAL TABLET 2 pills day 1,1 pill day 2-5 AZITHROMYCIN 35853081688 No Longer Active Nicole Gimenez MD Active CEFTIN 500 MG ORAL TABLET 1 po bid 10 day CEFTIN 500 MG ORAL TABLET CEFUROXIME AXETIL Inactive PREDNISONE 20 MG ORAL TABLET 1 po bid 3 days, then 1 po q day 3 days PREDNISONE 20 MG ORAL TABLET 060759 PREDNISONE Inactive CELEXA 20 MG ORAL TABLET 1 po daily CELEXA 20 MG ORAL TABLET 363893 CITALOPRAM HYDROBROMIDE Inactive FIORICET 325-50-40 MG TAB 1-2 tabs by mouth q6hr PRN headache FIORICET 325-50-40 MG TAB [id number] Inactive LEXAPRO 10 MG ORAL TABLET 1 tablet by mouth daily LEXAPRO 10 MG ORAL TABLET 064263 ESCITALOPRAM OXALATE Inactive SUMATRIPTAN SUCCINATE 100 MG ORAL TABLET 1 po at onset of headache may repeat in 2 hrs. SUMATRIPTAN SUCCINATE 100 MG ORAL TABLET 754732 SUMATRIPTAN SUCCINATE Inactive MIRENA (52 MG) INTRAUTERINE DEVICE MIRENA (52 MG) INTRAUTERINE DEVICE LEVONORGESTREL IUD Inactive HYDROCODONE-ACETAMINOPHEN 5-325 MG ORAL TABLET 1 every 4-6 hrs prn HYDROCODONE-ACETAMINOPHEN 5-325 MG ORAL TABLET 439410 HYDROCODONE-ACETAMINOPHEN Inactive AZITHROMYCIN 250 MG ORAL TABLET 2 pills day 1,1 pill day 2-5 AZITHROMYCIN 250 MG ORAL TABLET 289150 AZITHROMYCIN Inactive Immunizations Vaccine Administration Date Value Standard Description influenza immunization (Flu Vax) has been administered Done according to patient influenza virus vaccine, unspecified formulation Vital Signs Date Name Value Unit Range Description blood pressure, diastolic 91 mm[Hg] BP león [...] mg/dL Encounters Code Encounter Date Provider Facility CPT-27652 Level 4 Est. Patient 16:08:14 CDT [facility]-06435 [id number] Vst-Est Level III 11:31:45 CDT Du Hernandez MD [facility] CPT-88013 Level 2 Est. Patient 15:30:11 PARLOR CHAPERONE Kenny Mercado MD [facility] CPT-03435 Level 3 Est. Patient 12:29:51 CDT Joe Thomas MD [facility] CPT-96259 Level 3 Est. Patient 08:18:06 CDT Julito Taylor [facility] CPT-96162 Level 3 Est. Patient 10:12:22 PARLOR CHAPERONE Ignacio Colmenares DO [facility] CPT-29768 Level 3 Est. Patient 14:30:38 PARLOR CHAPERONE Ignacio Colmenares [facility] CPT-61053 Level 3 Est. Patient 08:21:09 PARLOR CHAPERONE Ramu LAUGHLIN [facility] CPT-10286 Level 3 Est. Patient 15:39:17 PARLOR CHAPERONE Ramu Suárezmehdi LAUGHLIN [facility] CPT-71022 Level 3 Est. Patient 18:43:41 CDT Ignacio Colmenares [facility] Procedures Code Procedure Name Date Entry Date Standard Description CPT-J2405 Zofran 4mg 17:25:13 CDT CPT-J1885 Toradol 30 mg (Ketorolac) 17:25:12 CDT CPT-J7030 Normal Saline 1000 mL 16:08:15 CDT CPT-J0595 Stadol 2 mg (Butorphanol) 16:08:15 CDT CPT-J1200 Benadryl 50 mg (Diphenhydramine) 16:08:15 CDT CPT-J2550 Phenergan 25 mg (Promethazine) 16:08:14 CDT CPT-47931 IV Hydration < or=1 hr 16:08:14 CDT CPT-86703 Abx/Therapy Injection 13:31:20 CDT CPT-J0595 Stadol 2 mg (Butorphanol) 11:01:56 CDT CPT-J2950 Phenergan 25 mg 11:01:56 CDT CPT-J1200 Benadryl 50 mg (Diphenhydramine) 11:01:56 CDT CPT-LR Lesion Removal 15:30:11 PARLOR CHAPERONE CPT-73125 Abd single AP View 13:53:50 CDT CPT-64029 Nail Avulsion 17:26:33 CDT CPT-23311 Abx/Therapy Injection 10:36:59 PARLOR CHAPERONE CPT-J1885 Toradol 60 mg (Ketorolac) 16:20:19 PARLOR CHAPERONE CPT-05767 Abx/Therapy Injection 16:20:19 PARLOR CHAPERONE CPT-74791 Venipuncture Draw Fee 14:45:53 PARLOR CHAPERONE CPT-30958 Abx/Therapy Injection 08:21:09 PARLOR CHAPERONE CPT-J2550 Phenergan 50 mg (Promethazine) 16:24:49 PARLOR CHAPERONE CPT-J2175 Demerol 75 mg (Meperidine) 16:24:49 PARLOR CHAPERONE CPT-J2550 Phenergan 50 mg (Promethazine) 18:33:49 PARLOR CHAPERONE CPT-J2175 Demerol 50 mg (Meperidine) 18:33:49 PARLOR CHAPERONE CPT-J2550 Phenergan 50 mg (Promethazine) 15:39:17 PARLOR CHAPERONE CPT-J2175 Demerol 50 mg (Meperidine) 15:39:17 PARLOR CHAPERONE CPT-OV Office Visit 16:53:10 CDT
--- OUTSIDE RECORDS SUMMARY | 2019-03-21 22:52 | XMS REPORT | Clinical Summary ---
Author Author Admin, LISA Organization [facility] Address Unknown Phone Unavailable Allergies, [...] MG ORAL TABLET 1 po BId CARVEDILOL 61531109857 Active Du Hernandez MD Active ABILIFY 10 MG ORAL TABLET 1 tab po daily ARIPIPRAZOLE 46572138606 Active Du Hernandez MD Active AMBIEN 10 MG ORAL TABLET 2 tab by mouth at bedtime as needed for sleep ZOLPIDEM TARTRATE 23349614352 Active Du Hernandez MD Active NORTRIPTYLINE HCL 25 MG ORAL CAPSULE 2 daily at bedtime NORTRIPTYLINE HCL 99822568040 Active Du Hernandez MD Active HYDROCODONE-ACETAMINOPHEN 5-325 MG ORAL TABLET 1 every 4-6 hrs prn HYDROCODONE-ACETAMINOPHEN 11594869090 No Longer Active Du Hernandez MD Active SEROQUEL 25 MG ORAL TABLET 2 po q evening for major depression QUETIAPINE FUMARATE 70258325143 Active Du Hernandez MD Active PARAGARD INTRAUTERINE COPPER INTRAUTERINE INTRAUTERINE DEVICE COPPER 96484450685 Active Kenny Mercado MD Active MIRENA (52 MG) INTRAUTERINE DEVICE LEVONORGESTREL IUD 86793818345 No Longer Active Kenny Mercado MD Active SUMATRIPTAN SUCCINATE 100 MG ORAL TABLET 1 po at onset of headache may repeat in 2 hrs. SUMATRIPTAN SUCCINATE 63366513306 No Longer Active Kenny Mercado MD Active EFFEXOR XR 75 MG ORAL CAPSULE EXTENDED RELEASE 24 HOUR 1 capsule every evening VENLAFAXINE HCL 89120212656 Active Kenny Mercado MD Active EFFEXOR XR 150 MG ORAL CAPSULE EXTENDED RELEASE 24 HOUR 1 capsule every morning VENLAFAXINE HCL 40536402631 Active Kenny Mercado MD Active LEXAPRO 10 MG ORAL TABLET 1 tablet by mouth daily ESCITALOPRAM OXALATE 89920037050 No Longer Active Kenny Mercado MD Active FIORICET 325-50-40 MG TAB 1-2 tabs by mouth q6hr PRN headache [id number] 76146214537 No Longer Active Kenny Mercado MD Active LORAZEPAM 0.5 MG ORAL TABLET 1 po q day prn anxiety LORAZEPAM 40044037801 Active Ignacio Colmenares DO Active CELEXA 20 MG ORAL TABLET 1 po daily CITALOPRAM HYDROBROMIDE 23449158810 No Longer Active Ignacio Colmenares DO Active PREDNISONE 20 MG ORAL TABLET 1 po bid 3 days, then 1 po q day 3 days PREDNISONE 48224391597 No Longer Active Ramu LAUGHLIN Active CEFTIN 500 MG ORAL TABLET 1 po bid 10 day CEFUROXIME AXETIL 35834835677 No Longer Active Ramu LAUGHLIN Active AMITRIPTYLINE HCL 10 MG ORAL TABLET 1 po at hs prn AMITRIPTYLINE HCL 93441644594 No Longer Active Ignacio Colmenares DO Active IBUPROFEN 200 MG ORAL TABLET 3-4 tabs prn IBUPROFEN 22261546741 Active Ignacio Colmenares DO Active TYLENOL EXTRA STRENGTH 500 MG ORAL TABLET 2 tabs prn ACETAMINOPHEN 36878253281 Active Ignacio Colmenares DO Active AZITHROMYCIN 250 MG ORAL TABLET 2 pills day 1,1 pill day 2-5 AZITHROMYCIN 42631569833 No Longer Active Nicole Gimenez MD Active CEFTIN 500 MG ORAL TABLET 1 po bid 10 day CEFTIN 500 MG ORAL TABLET CEFUROXIME AXETIL Inactive PREDNISONE 20 MG ORAL TABLET 1 po bid 3 days, then 1 po q day 3 days PREDNISONE 20 MG ORAL TABLET 399316 PREDNISONE Inactive CELEXA 20 MG ORAL TABLET 1 po daily CELEXA 20 MG ORAL TABLET 844136 CITALOPRAM HYDROBROMIDE Inactive FIORICET 325-50-40 MG TAB 1-2 tabs by mouth q6hr PRN headache FIORICET 325-50-40 MG TAB [id number] Inactive LEXAPRO 10 MG ORAL TABLET 1 tablet by mouth daily LEXAPRO 10 MG ORAL TABLET 253354 ESCITALOPRAM OXALATE Inactive SUMATRIPTAN SUCCINATE 100 MG ORAL TABLET 1 po at onset of headache may repeat in 2 hrs. SUMATRIPTAN SUCCINATE 100 MG ORAL TABLET 766062 SUMATRIPTAN SUCCINATE Inactive MIRENA (52 MG) INTRAUTERINE DEVICE MIRENA (52 MG) INTRAUTERINE DEVICE LEVONORGESTREL IUD Inactive HYDROCODONE-ACETAMINOPHEN 5-325 MG ORAL TABLET 1 every 4-6 hrs prn HYDROCODONE-ACETAMINOPHEN 5-325 MG ORAL TABLET 657032 HYDROCODONE-ACETAMINOPHEN Inactive AZITHROMYCIN 250 MG ORAL TABLET 2 pills day 1,1 pill day 2-5 AZITHROMYCIN 250 MG ORAL TABLET 111991 AZITHROMYCIN Inactive Immunizations Vaccine Administration Date Value [...] mg/dL Encounters Code Encounter Date Provider Facility CPT-70551 Level 4 Est. Patient 16:08:14 [facility] 33350-[id number] Vst-Est Level III 11:31:45 CDT Du Hernandez MD [facility] CPT-07510 Level 2 Est. Patient 15:30:11 HEAD [employer]ER Kenny Mercado MD [facility] CPT-98316 Level 3 Est. Patient 12:29:51 CDT Joe Thomas MD [facility] CPT-70975 Level 3 Est. Patient 08:18:06 CDT Julito Taylor [facility] CPT-85518 Level 3 Est. Patient 10:12:22 [employer] Ignacio Colmenares DO [facility] CPT-71597 Level 3 Est. Patient 14:30:38 HEAD [employer]ER Ignacio Colmenares [facility] CPT-99138 Level 3 Est. Patient 08:21:09 HEAD [employer]ER Ramu LAUGHLIN [facility] CPT-12348 Level 3 Est. Patient 15:39:17 HEAD AUTOM[employer]ER Ramu LAUGHLIN [facility] CPT-51451 Level 3 Est. Patient 18:43:41 CDT Ignacio Colmenares [facility] Procedures Code Procedure Name Date Entry Date Standard Description CPT-J2405 Zofran 4mg 17:25:13 CDT CPT-J1885 Toradol 30 mg (Ketorolac) 17:25:12 CDT CPT-J7030 Normal Saline 1000 mL 16:08:15 CDT CPT-J0595 Stadol 2 mg (Butorphanol) 16:08:15 CDT CPT-J1200 Benadryl 50 mg (Diphenhydramine) 16:08:15 CDT CPT-J2550 Phenergan 25 mg (Promethazine) 16:08:14 CDT CPT-81888 IV Hydration < or=1 hr 16:08:14 CDT CPT-67509 Abx/Therapy Injection 13:31:20 CDT CPT-J0595 Stadol 2 mg (Butorphanol) 11:01:56 CDT CPT-J2950 Phenergan 25 mg 11:01:56 CDT CPT-J1200 Benadryl 50 mg (Diphenhydramine) 11:01:56 CDT CPT-LR Lesion Removal 15:30:11 HEAD [employer] SAW[employer]ER CPT-29852 Abd single AP View 13:53:50 CDT CPT-81580 Nail Avulsion 17:26:33 CDT CPT-82602 Abx/Therapy Injection 10:36:59 HEAD [employer] SAWYER CPT-J1885 Toradol 60 mg (Ketorolac) 16:20:19 HEAD [employer] SAWYER CPT-15984 Abx/Therapy Injection 16:20:19 HEAD [employer] SAW[employer]ER CPT-65660 Venipuncture Draw Fee 14:45:53 HEAD [employer] SAWYER CPT-13964 Abx/Therapy Injection 08:21:09 HEAD [employer] SAW[employer]ER CPT-J2550 Phenergan 50 mg (Promethazine) 16:24:49 HEAD [employer] SAW[employer]ER CPT-J2175 Demerol 75 mg (Meperidine) 16:24:49 HEAD [employer]OM[employer] SAWYER CPT-J2550 Phenergan 50 mg (Promethazine) 18:33:49 HEAD AUTOMATIC SAWYER CPT-J2175 Demerol 50 mg (Meperidine) 18:33:49 HEAD AUTOMATIC SAWYER CPT-J2550 Phenergan 50 mg (Promethazine) 15:39:17 HEAD AUTOMATIC SAWYER CPT-J2175 Demerol 50 mg (Meperidine) 15:39:17 HEAD AUTOM[employer]IC SAWYER CPT-OV Office Visit 16:53:10 CDT
--- OUTSIDE RECORDS SUMMARY | 2019-03-21 22:52 | XMS REPORT | Clinical Summary ---
Author Author Admin, E Organization [facility] Address Unknown Phone Unavailable Allergies, Adverse Reactions, [...] Class I (BMI 30-34.9) Refinement Payton Russell [employer]-C Obesity, unspecified Morbid obesity due to excess [...] MG ORAL TABLET 1 po BId CARVEDILOL 62407810076 Active Du Hernandez MD Active ABILIFY 10 MG ORAL TABLET 1 tab po daily ARIPIPRAZOLE 84995754746 Active Du Hernandez MD Active AMBIEN 10 MG ORAL TABLET 2 tab by mouth at bedtime as needed for sleep ZOLPIDEM TARTRATE 92606745287 Active Du Hernandez MD Active NORTRIPTYLINE HCL 25 MG ORAL CAPSULE 2 daily at bedtime NORTRIPTYLINE HCL 07471652238 Active Du Hernandez MD Active HYDROCODONE-ACETAMINOPHEN 5-325 MG ORAL TABLET 1 every 4-6 hrs prn HYDROCODONE-ACETAMINOPHEN 52063978940 No Longer Active Du Hernandez MD Active SEROQUEL 25 MG ORAL TABLET 2 po q evening for major depression QUETIAPINE FUMARATE 16510353344 Active Du Hernandez MD Active PARAGARD INTRAUTERINE COPPER INTRAUTERINE INTRAUTERINE DEVICE COPPER 20689695373 Active Kenny Mercado MD Active MIRENA (52 MG) INTRAUTERINE DEVICE LEVONORGESTREL IUD 72308552007 No Longer Active Kenny Mercado MD Active SUMATRIPTAN SUCCINATE 100 MG ORAL TABLET 1 po at onset of headache may repeat in 2 hrs. SUMATRIPTAN SUCCINATE 37902665825 No Longer Active Kenny Mercado MD Active EFFEXOR XR 75 MG ORAL CAPSULE EXTENDED RELEASE 24 HOUR 1 capsule every evening VENLAFAXINE HCL 16627299114 Active Kenny Mercado MD Active EFFEXOR XR 150 MG ORAL CAPSULE EXTENDED RELEASE 24 HOUR 1 capsule every morning VENLAFAXINE HCL 78699795948 Active Kenny Mercado MD Active LEXAPRO 10 MG ORAL TABLET 1 tablet by mouth daily ESCITALOPRAM OXALATE 30368346853 No Longer Active Kenny Mercado MD Active FIORICET 325-50-40 MG TAB 1-2 tabs by mouth q6hr PRN headache [id number] 24020532901 No Longer Active Kenny Mercado MD Active LORAZEPAM 0.5 MG ORAL TABLET 1 po q day prn anxiety LORAZEPAM 84457896393 Active Ignacio Colmenares DO Active CELEXA 20 MG ORAL TABLET 1 po daily CITALOPRAM HYDROBROMIDE 81289714566 No Longer Active Ignacio Colmenares DO Active PREDNISONE 20 MG ORAL TABLET 1 po bid 3 days, then 1 po q day 3 days PREDNISONE 26229507741 No Longer Active Ramu LAUGHLIN Active CEFTIN 500 MG ORAL TABLET 1 po bid 10 day CEFUROXIME AXETIL 28575070359 No Longer Active Ramu LAUGHLIN Active AMITRIPTYLINE HCL 10 MG ORAL TABLET 1 po at hs prn AMITRIPTYLINE HCL 53468269412 No Longer Active Ignacio Colmenares DO Active IBUPROFEN 200 MG ORAL TABLET 3-4 tabs prn IBUPROFEN 15430893220 Active Ignacio Colmenares DO Active TYLENOL EXTRA STRENGTH 500 MG ORAL TABLET 2 tabs prn ACETAMINOPHEN 35125915202 Active Ignacio W Darrian DO Active AZITHROMYCIN 250 MG ORAL TABLET 2 pills day 1,1 pill day 2-5 AZITHROMYCIN 40907402443 No Longer Active Nicole Gimenez MD Active CEFTIN 500 MG ORAL TABLET 1 po bid 10 day CEFTIN 500 MG ORAL TABLET CEFUROXIME AXETIL Inactive PREDNISONE 20 MG ORAL TABLET 1 po bid 3 days, then 1 po q day 3 days PREDNISONE 20 MG ORAL TABLET 526288 PREDNISONE Inactive CELEXA 20 MG ORAL TABLET 1 po daily CELEXA 20 MG ORAL TABLET 881469 CITALOPRAM HYDROBROMIDE Inactive FIORICET 325-50-40 MG TAB 1-2 tabs by mouth q6hr PRN headache FIORICET 325-50-40 MG TAB [id number] Inactive LEXAPRO 10 MG ORAL TABLET 1 tablet by mouth daily LEXAPRO 10 MG ORAL TABLET 596730 ESCITALOPRAM OXALATE Inactive SUMATRIPTAN SUCCINATE 100 MG ORAL TABLET 1 po at onset of headache may repeat in 2 hrs. SUMATRIPTAN SUCCINATE 100 MG ORAL TABLET 952040 SUMATRIPTAN SUCCINATE Inactive MIRENA (52 MG) INTRAUTERINE DEVICE MIRENA (52 MG) INTRAUTERINE DEVICE LEVONORGESTREL IUD Inactive HYDROCODONE-ACETAMINOPHEN 5-325 MG ORAL TABLET 1 every 4-6 hrs prn HYDROCODONE-ACETAMINOPHEN 5-325 MG ORAL TABLET 017075 HYDROCODONE-ACETAMINOPHEN Inactive AZITHROMYCIN 250 MG ORAL TABLET 2 pills day 1,1 pill day 2-5 AZITHROMYCIN 250 MG ORAL TABLET 452429 AZITHROMYCIN Inactive Immunizations Vaccine Administration Date Value [...] mg/dL Encounters Code Encounter Date Provider Facility CPT-23129 Level 2 Est. Patient 13:58:01 CDT Linh Sell [facility] CPT-43546 Level 4 Est. Patient 16:08:14 CDT Payton Russell [facility] CPT-13286 32927-Drs Vst-Est Level III 11:31:45 CDT Du Hernandez MD [facility] CPT-85256 Level 2 Est. Patient 15:30:11 KAIAKO KURA TUARUA Kenny Mercado MD [facility] CPT-31437 Level 3 Est. Patient 12:29:51 CDT Joe Thomas MD [facility] CPT-46960 Level 3 Est. Patient 08:18:06 CDT Julito Taylor [facility] CPT-85251 Level 3 Est. Patient 10:12:22 KAIAKO KURA TUARUA Ignacio Proctor [facility] CPT-83029 Level 3 Est. Patient 14:30:38 KAIAKO KURA TUARUA Ignacio Colmenares [facility] CPT-17697 Level 3 Est. Patient 08:21:09 KAIAKO KURA TUARUA Ramu Miller [facility] CPT-20008 Level 3 Est. Patient 15:39:17 KAIAKO KURA TUARUA Ramu Miller [facility] CPT-83047 Level 3 Est. Patient 18:43:41 CDT Ignacio Proctor [facility] Procedures Code Procedure Name Date [...] CPT-J2550 Phenergan 25 mg (Promethazine) 16:08:14 CDT CPT-55944 IV Hydration < or=1 hr 16:08:14 CDT CPT-07944 Abx/Therapy Injection 13:31:20 CDT CPT-J0595 Stadol 2 mg (Butorphanol) 11:01:56 CDT CPT-J2950 Phenergan 25 mg 11:01:56 CDT CPT-J1200 Benadryl 50 mg (Diphenhydramine) 11:01:56 CDT CPT-LR Lesion Removal 15:30:11 KAIAKO KURA TUARUA CPT-06057 Abd single AP View 13:53:50 CDT CPT-39036 Nail Avulsion 17:26:33 CDT CPT-04254 Abx/Therapy Injection 10:36:59 KAIAKO KURA TUARUA CPT-J1885 Toradol 60 mg (Ketorolac) 16:20:19 KAIAKO KURA TUARUA CPT-79611 Abx/Therapy Injection 16:20:19 KAIAKO KURA TUARUA CPT-46745 Venipuncture Draw Fee 14:45:53 KAIAKO KURA TUARUA CPT-78810 Abx/Therapy Injection 08:21:09 KAIAKO KURA TUARUA CPT-J2550 Phenergan 50 mg (Promethazine) 16:24:49 KAIAKO KURA TUARUA CPT-J2175 Demerol 75 mg (Meperidine) 16:24:49 KAIAKO KURA TUARUA CPT-J2550 Phenergan 50 mg (Promethazine) 18:33:49 KAIAKO KURA TUARUA CPT-J2175 Demerol 50 mg (Meperidine) 18:33:49 KAIAKO KURA TUARUA CPT-J2550 Phenergan 50 mg (Promethazine) 15:39:17 KAIAKO KURA TUARUA CPT-J2175 Demerol 50 mg (Meperidine) 15:39:17 KAIAKO KURA TUARUA CPT-OV Office Visit 16:53:10 CDT
--- OUTSIDE RECORDS SUMMARY | 2019-03-21 22:53 | XMS REPORT | Clinical Summary ---
Author Author Admin, E Organization [facility] Address Unknown Phone Unavailable Allergies, Adverse [...] MG ORAL TABLET 1 po BId CARVEDILOL [id number] Active Du Hernandez MD Active ABILIFY 10 MG ORAL TABLET 1 tab po daily ARIPIPRAZOLE 27334533251 Active Du Hernandez MD Active AMBIEN 10 MG ORAL TABLET 2 tab by mouth at bedtime as needed for sleep ZOLPIDEM TARTRATE 25310561334 Active Du Hernandez MD Active NORTRIPTYLINE HCL 25 MG ORAL CAPSULE 2 daily at bedtime NORTRIPTYLINE HCL 13803560358 Active Du Hernandez MD Active HYDROCODONE-ACETAMINOPHEN 5-325 MG ORAL TABLET 1 every 4-6 hrs prn HYDROCODONE-ACETAMINOPHEN 23323538746 No Longer Active Du Hernandez MD Active SEROQUEL 25 MG ORAL TABLET 2 po q evening for major depression QUETIAPINE FUMARATE 71790725463 Active Du Hernandez MD Active 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 SUMATRIPTAN SUCCINATE 88037730987 No Longer Active Kenny Mercado MD Active EFFEXOR XR 75 MG ORAL CAPSULE EXTENDED RELEASE 24 HOUR 1 capsule every evening VENLAFAXINE HCL 97458964889 Active Kenny Mercado MD Active EFFEXOR XR 150 MG ORAL CAPSULE EXTENDED RELEASE 24 HOUR 1 capsule every morning VENLAFAXINE HCL 47795054095 Active Kenny Mercado MD Active LEXAPRO 10 MG ORAL TABLET 1 tablet by mouth daily ESCITALOPRAM OXALATE 32277554650 No Longer Active Kenny Mercado MD Active FIORICET 325-50-40 MG TAB 1-2 tabs by mouth q6hr PRN headache [id number] 08869703973 No Longer Active Kenny Mercado MD Active LORAZEPAM 0.5 MG ORAL TABLET 1 po q day prn anxiety LORAZEPAM 35460069719 Active Ignacio Colmenares DO Active CELEXA 20 MG ORAL TABLET 1 po daily CITALOPRAM HYDROBROMIDE 46614585536 No Longer Active Ignacio Colmenares DO Active PREDNISONE 20 MG ORAL TABLET 1 po bid 3 days, then 1 po q day 3 days PREDNISONE 63131256782 No Longer Active Ramu LAUGHLIN Active CEFTIN 500 MG ORAL TABLET 1 po bid 10 day CEFUROXIME AXETIL 58445834591 No Longer Active Ramu LAUGHLIN Active AMITRIPTYLINE HCL 10 MG ORAL TABLET 1 po at hs prn AMITRIPTYLINE HCL 61620343072 No Longer Active Ignacio Colmenares DO Active IBUPROFEN 200 MG ORAL TABLET 3-4 tabs prn IBUPROFEN 57738995216 Active Ignacio Colmenares DO Active TYLENOL EXTRA STRENGTH 500 MG ORAL TABLET 2 tabs prn ACETAMINOPHEN 32211027617 Active Ignacio Colmenares DO Active AZITHROMYCIN 250 MG ORAL TABLET 2 pills day 1,1 pill day 2-5 AZITHROMYCIN 27907475147 No Longer Active Nicole Gimenez MD Active CEFTIN 500 MG ORAL TABLET 1 po bid 10 day CEFTIN 500 MG ORAL TABLET CEFUROXIME AXETIL Inactive PREDNISONE 20 MG ORAL TABLET 1 po bid 3 days, then 1 po q day 3 days PREDNISONE 20 MG ORAL TABLET 451483 PREDNISONE Inactive CELEXA 20 MG ORAL TABLET 1 po daily CELEXA 20 MG ORAL TABLET 116111 CITALOPRAM HYDROBROMIDE Inactive FIORICET 325-50-40 MG TAB 1-2 tabs by mouth q6hr PRN headache FIORICET 325-50-40 MG TAB [id number] Inactive LEXAPRO 10 MG ORAL TABLET 1 tablet by mouth daily LEXAPRO 10 MG ORAL TABLET 165663 ESCITALOPRAM OXALATE Inactive SUMATRIPTAN SUCCINATE 100 MG ORAL TABLET 1 po at onset of headache may repeat in 2 hrs. SUMATRIPTAN SUCCINATE 100 MG ORAL TABLET 085811 SUMATRIPTAN SUCCINATE Inactive MIRENA (52 MG) INTRAUTERINE DEVICE MIRENA (52 MG) INTRAUTERINE DEVICE LEVONORGESTREL IUD Inactive HYDROCODONE-ACETAMINOPHEN 5-325 MG ORAL TABLET 1 every 4-6 hrs prn HYDROCODONE-ACETAMINOPHEN 5-325 MG ORAL TABLET 216234 HYDROCODONE-ACETAMINOPHEN Inactive AZITHROMYCIN 250 MG ORAL TABLET 2 pills day 1,1 pill day 2-5 AZITHROMYCIN 250 MG ORAL TABLET 438745 AZITHROMYCIN Inactive Immunizations Vaccine Administration Date Value [...] mg/dL Encounters Code Encounter Date Provider Facility CPT-08168 Level 4 Est. Patient 16:08:14 [facility] [id number] Vst-Est Level III 11:31:45 CDT Du Hernandez MD [facility] CPT-02732 Level 2 Est. Patient 15:30:11 STRATEGIC CLIENT EXECUTIVE Kenny Mercado MD [facility] CPT-57105 Level 3 Est. Patient 12:29:51 CDT Joe Thomas MD [facility] CPT-65035 Level 3 Est. Patient 08:18:06 CDT Julito Taylor [facility] CPT-29134 Level 3 Est. Patient 10:12:22 STRATEGIC CLIENT EXECUTIVE Ignacio Colmenares DO [facility] CPT-94646 Level 3 Est. Patient 14:30:38 STRATEGIC CLIENT EXECUTIVE Ignacio Colmenares [facility] CPT-83185 Level 3 Est. Patient 08:21:09 STRATEGIC CLIENT EXECUTIVE Ramu LAUGHLIN [facility] CPT-28892 Level 3 Est. Patient 15:39:17 STRATEGIC CLIENT EXECUTIVE Ramu Suárezmehdi LAUGHLIN [facility] CPT-96840 Level 3 Est. Patient 18:43:41 CDT Ignacio Colmenares [facility] Procedures Code Procedure Name Date Entry Date Standard Description CPT-J2405 Zofran 4mg 17:25:13 CDT CPT-J1885 Toradol 30 mg (Ketorolac) 17:25:12 CDT CPT-J7030 Normal Saline 1000 mL 16:08:15 CDT CPT-J0595 Stadol 2 mg (Butorphanol) 16:08:15 CDT CPT-J1200 Benadryl 50 mg (Diphenhydramine) 16:08:15 CDT CPT-J2550 Phenergan 25 mg (Promethazine) 16:08:14 CDT CPT-14573 IV Hydration < or=1 hr 16:08:14 CDT CPT-53201 Abx/Therapy Injection 13:31:20 CDT CPT-J0595 Stadol 2 mg (Butorphanol) 11:01:56 CDT CPT-J2950 Phenergan 25 mg 11:01:56 CDT CPT-J1200 Benadryl 50 mg (Diphenhydramine) 11:01:56 CDT CPT-LR Lesion Removal 15:30:11 STRATEGIC CLIENT EXECUTIVE CPT-34417 Abd single AP View 13:53:50 CDT CPT-57451 Nail Avulsion 17:26:33 CDT CPT-62553 Abx/Therapy Injection 10:36:59 STRATEGIC CLIENT EXECUTIVE CPT-J1885 Toradol 60 mg (Ketorolac) 16:20:19 STRATEGIC CLIENT EXECUTIVE CPT-21926 Abx/Therapy Injection 16:20:19 STRATEGIC CLIENT EXECUTIVE CPT-61402 Venipuncture Draw Fee 14:45:53 STRATEGIC CLIENT EXECUTIVE CPT-14062 Abx/Therapy Injection 08:21:09 STRATEGIC CLIENT EXECUTIVE CPT-J2550 Phenergan 50 mg (Promethazine) 16:24:49 STRATEGIC CLIENT EXECUTIVE CPT-J2175 Demerol 75 mg (Meperidine) 16:24:49 STRATEGIC CLIENT EXECUTIVE CPT-J2550 Phenergan 50 mg (Promethazine) 18:33:49 STRATEGIC CLIENT EXECUTIVE CPT-J2175 Demerol 50 mg (Meperidine) 18:33:49 STRATEGIC CLIENT EXECUTIVE CPT-J2550 Phenergan 50 mg (Promethazine) 15:39:17 STRATEGIC CLIENT EXECUTIVE CPT-J2175 Demerol 50 mg (Meperidine) 15:39:17 STRATEGIC CLIENT EXECUTIVE CPT-OV Office Visit 16:53:10 CDT
--- OUTSIDE RECORDS SUMMARY | 2019-03-21 22:53 | XMS REPORT | Clinical Summary ---
Author Author Admin, LISA Organization [facility] Address Unknown Phone Unavailable Allergies, Adverse [...] MG ORAL TABLET 1 po BId CARVEDILOL [id number] Active Du Hernandez MD Active ABILIFY 10 MG ORAL TABLET 1 tab po daily ARIPIPRAZOLE 70501701823 Active Du Hernandez MD Active AMBIEN 10 MG ORAL TABLET 2 tab by mouth at bedtime as needed for sleep ZOLPIDEM TARTRATE 44075046496 Active Du Hernandez MD Active NORTRIPTYLINE HCL 25 MG ORAL CAPSULE 2 daily at bedtime NORTRIPTYLINE HCL 82557091937 Active Du Hernandez MD Active HYDROCODONE-ACETAMINOPHEN 5-325 MG ORAL TABLET 1 every 4-6 hrs prn HYDROCODONE-ACETAMINOPHEN 56184012179 No Longer Active Du Hernandez MD Active SEROQUEL 25 MG ORAL TABLET 2 po q evening for major depression QUETIAPINE FUMARATE 81894674861 Active Du Hernandez MD Active PARAGARD INTRAUTERINE COPPER INTRAUTERINE INTRAUTERINE DEVICE COPPER 93195408091 Active Kenny Mercado MD Active MIRENA (52 MG) INTRAUTERINE DEVICE LEVONORGESTREL IUD 27473552826 No Longer Active Kenny Mercado MD Active SUMATRIPTAN SUCCINATE 100 MG ORAL TABLET 1 po at onset of headache may repeat in 2 hrs. SUMATRIPTAN SUCCINATE 40694832205 No Longer Active Kenny Mercado MD Active EFFEXOR XR 75 MG ORAL CAPSULE EXTENDED RELEASE 24 HOUR 1 capsule every evening VENLAFAXINE HCL 50640588838 Active Kenny Mercado MD Active EFFEXOR XR 150 MG ORAL CAPSULE EXTENDED RELEASE 24 HOUR 1 capsule every morning VENLAFAXINE HCL 21895088336 Active Kenny Mercado MD Active LEXAPRO 10 MG ORAL TABLET 1 tablet by mouth daily ESCITALOPRAM OXALATE 88928974827 No Longer Active Kenny Mercado MD Active FIORICET 325-50-40 MG TAB 1-2 tabs by mouth q6hr PRN headache [id number] 46467673504 No Longer Active eKnny Mercado MD Active LORAZEPAM 0.5 MG ORAL TABLET 1 po q day prn anxiety LORAZEPAM 18851683859 Active Ignacio Colmenares DO Active CELEXA 20 MG ORAL TABLET 1 po daily CITALOPRAM HYDROBROMIDE 60351570317 No Longer Active Ignacio Colmenares DO Active PREDNISONE 20 MG ORAL TABLET 1 po bid 3 days, then 1 po q day 3 days PREDNISONE 21227407763 No Longer Active Ramu LAUGHLIN Active CEFTIN 500 MG ORAL TABLET 1 po bid 10 day CEFUROXIME AXETIL 78049189924 No Longer Active Ramu LAUGHLIN Active AMITRIPTYLINE HCL 10 MG ORAL TABLET 1 po at hs prn AMITRIPTYLINE HCL 85204564283 No Longer Active Ignacio Colmenares DO Active IBUPROFEN 200 MG ORAL TABLET 3-4 tabs prn IBUPROFEN 65749864975 Active Ignacio Colmenares DO Active TYLENOL EXTRA STRENGTH 500 MG ORAL TABLET 2 tabs prn ACETAMINOPHEN 92858422901 Active Ignacio Colmenares DO Active AZITHROMYCIN 250 MG ORAL TABLET 2 pills day 1,1 pill day 2-5 AZITHROMYCIN 54720013028 No Longer Active Nicole Gimenez MD Active CEFTIN 500 MG ORAL TABLET 1 po bid 10 day CEFTIN 500 MG ORAL TABLET CEFUROXIME AXETIL Inactive PREDNISONE 20 MG ORAL TABLET 1 po bid 3 days, then 1 po q day 3 days PREDNISONE 20 MG ORAL TABLET 430219 PREDNISONE Inactive CELEXA 20 MG ORAL TABLET 1 po daily CELEXA 20 MG ORAL TABLET 897893 CITALOPRAM HYDROBROMIDE Inactive FIORICET 325-50-40 MG TAB 1-2 tabs by mouth q6hr PRN headache FIORICET 325-50-40 MG TAB [id number] Inactive LEXAPRO 10 MG ORAL TABLET 1 tablet by mouth daily LEXAPRO 10 MG ORAL TABLET 229040 ESCITALOPRAM OXALATE Inactive SUMATRIPTAN SUCCINATE 100 MG ORAL TABLET 1 po at onset of headache may repeat in 2 hrs. SUMATRIPTAN SUCCINATE 100 MG ORAL TABLET 029812 SUMATRIPTAN SUCCINATE Inactive MIRENA (52 MG) INTRAUTERINE DEVICE MIRENA (52 MG) INTRAUTERINE DEVICE LEVONORGESTREL IUD Inactive HYDROCODONE-ACETAMINOPHEN 5-325 MG ORAL TABLET 1 every 4-6 hrs prn HYDROCODONE-ACETAMINOPHEN 5-325 MG ORAL TABLET 910396 HYDROCODONE-ACETAMINOPHEN Inactive AZITHROMYCIN 250 MG ORAL TABLET 2 pills day 1,1 pill day 2-5 AZITHROMYCIN 250 MG ORAL TABLET 382399 AZITHROMYCIN Inactive Immunizations Vaccine Administration Date Value [...] mg/dL Encounters Code Encounter Date Provider Facility CPT-60275 Level 4 Est. Patient 16:08:14 [facility] CPT-73186 [id number] Vst-Est Level III 11:31:45 CDT Du Hernandez MD [facility] CPT-26336 Level 2 Est. Patient 15:30:11 DIRECTOR UTILIZATION MANAGEMENT Kenny Mercado MD [facility] CPT-85203 Level 3 Est. Patient 12:29:51 CDT Joe Thomas MD [facility] CPT-91309 Level 3 Est. Patient 08:18:06 CDT Julito Taylor [facility] [place] CPT-44297 Level 3 Est. Patient 10:12:22 DIRECTOR UTILIZATION MANAGEMENT Ignacio Colmenares DO [facility] CPT-18069 Level 3 Est. Patient 14:30:38 DIRECTOR UTILIZATION MANAGEMENT Ignacio Colmenares [facility] CPT-36236 Level 3 Est. Patient 08:21:09 DIRECTOR UTILIZATION MANAGEMENT Ramu LAUGHLIN [facility] CPT-79514 Level 3 Est. Patient 15:39:17 DIRECTOR UTILIZATION MANAGEMENT Ramu Suárezmehdi LAUGHLIN [facility] CPT-10087 Level 3 Est. Patient 18:43:41 CDT Ignacio Colmenares [facility] Procedures Code Procedure Name Date Entry Date Standard Description CPT-J2405 Zofran 4mg 17:25:13 CDT CPT-J1885 Toradol 30 mg (Ketorolac) 17:25:12 CDT CPT-J7030 Normal Saline 1000 mL 16:08:15 CDT CPT-J0595 Stadol 2 mg (Butorphanol) 16:08:15 CDT CPT-J1200 Benadryl 50 mg (Diphenhydramine) 16:08:15 CDT CPT-J2550 Phenergan 25 mg (Promethazine) 16:08:14 CDT CPT-87715 IV Hydration < or=1 hr 16:08:14 CDT CPT-55623 Abx/Therapy Injection 13:31:20 CDT CPT-J0595 Stadol 2 mg (Butorphanol) 11:01:56 CDT CPT-J2950 Phenergan 25 mg 11:01:56 CDT CPT-J1200 Benadryl 50 mg (Diphenhydramine) 11:01:56 CDT CPT-LR Lesion Removal 15:30:11 DIRECTOR UTILIZATION MANAGEMENT CPT-36389 Abd single AP View 13:53:50 CDT CPT-45367 Nail Avulsion 17:26:33 CDT CPT-59128 Abx/Therapy Injection 10:36:59 DIRECTOR UTILIZATION MANAGEMENT CPT-J1885 Toradol 60 mg (Ketorolac) 16:20:19 DIRECTOR UTILIZATION MANAGEMENT CPT-84595 Abx/Therapy Injection 16:20:19 DIRECTOR UTILIZATION MANAGEMENT CPT-64575 Venipuncture Draw Fee 14:45:53 DIRECTOR UTILIZATION MANAGEMENT CPT-71475 Abx/Therapy Injection 08:21:09 DIRECTOR UTILIZATION MANAGEMENT CPT-J2550 Phenergan 50 mg (Promethazine) 16:24:49 DIRECTOR UTILIZATION MANAGEMENT CPT-J2175 Demerol 75 mg (Meperidine) 16:24:49 DIRECTOR UTILIZATION MANAGEMENT CPT-J2550 Phenergan 50 mg (Promethazine) 18:33:49 DIRECTOR UTILIZATION MANAGEMENT CPT-J2175 Demerol 50 mg (Meperidine) 18:33:49 DIRECTOR UTILIZATION MANAGEMENT CPT-J2550 Phenergan 50 mg (Promethazine) 15:39:17 DIRECTOR UTILIZATION MANAGEMENT CPT-J2175 Demerol 50 mg (Meperidine) 15:39:17 DIRECTOR UTILIZATION MANAGEMENT CPT-OV Office Visit 16:53:10 CDT
--- OUTSIDE RECORDS SUMMARY | 2019-03-21 22:54 | XMS REPORT | Clinical Summary ---
Author Author Admin, LISA Organization [facility] Address Unknown Phone Unavailable Allergies, Adverse [...] MG ORAL TABLET 1 po BId CARVEDILOL 30046808933 Active Du Hernandez MD Active ABILIFY 10 MG ORAL TABLET 1 tab po daily ARIPIPRAZOLE 94689630627 Active Du Hernandez MD Active AMBIEN 10 MG ORAL TABLET 2 tab by mouth at bedtime as needed for sleep ZOLPIDEM TARTRATE 71053111202 Active Du Hernandez MD Active NORTRIPTYLINE HCL 25 MG ORAL CAPSULE 2 daily at bedtime NORTRIPTYLINE HCL 46587012872 Active Du Hernandez MD Active HYDROCODONE-ACETAMINOPHEN 5-325 MG ORAL TABLET 1 every 4-6 hrs prn HYDROCODONE-ACETAMINOPHEN 08848124187 No Longer Active Du Hernandez MD Active SEROQUEL 25 MG ORAL TABLET 2 po q evening for major depression QUETIAPINE FUMARATE 40424281683 Active Du Hernandez MD Active PARAGARD INTRAUTERINE COPPER INTRAUTERINE INTRAUTERINE DEVICE COPPER 69443178348 Active Kenny Mercado MD Active MIRENA (52 MG) INTRAUTERINE DEVICE LEVONORGESTREL IUD 49338472017 No Longer Active Kenny Mercado MD Active SUMATRIPTAN SUCCINATE 100 MG ORAL TABLET 1 po at onset of headache may repeat in 2 hrs. SUMATRIPTAN SUCCINATE 33451054754 No Longer Active Kenny Mercado MD Active EFFEXOR XR 75 MG ORAL CAPSULE EXTENDED RELEASE 24 HOUR 1 capsule every evening VENLAFAXINE HCL 33713348206 Active Kenny Mercado MD Active EFFEXOR XR 150 MG ORAL CAPSULE EXTENDED RELEASE 24 HOUR 1 capsule every morning VENLAFAXINE HCL 12222600610 Active Kenny Mercado MD Active LEXAPRO 10 MG ORAL TABLET 1 tablet by mouth daily ESCITALOPRAM OXALATE 36345205695 No Longer Active Kenny Mercado MD Active FIORICET 325-50-40 MG TAB 1-2 tabs by mouth q6hr PRN headache [id number] 44717960627 No Longer Active Kenny Mercado MD Active LORAZEPAM 0.5 MG ORAL TABLET 1 po q day prn anxiety LORAZEPAM 01518232946 Active Ignacio Colmenares DO Active CELEXA 20 MG ORAL TABLET 1 po daily CITALOPRAM HYDROBROMIDE 00668477614 No Longer Active Ignacio Colmenares DO Active PREDNISONE 20 MG ORAL TABLET 1 po bid 3 days, then 1 po q day 3 days PREDNISONE 09832871875 No Longer Active Ramu LAUGHLIN Active CEFTIN 500 MG ORAL TABLET 1 po bid 10 day CEFUROXIME AXETIL 53269924644 No Longer Active Ramu LAUGHLIN Active AMITRIPTYLINE HCL 10 MG ORAL TABLET 1 po at hs prn AMITRIPTYLINE HCL 25259187457 No Longer Active Ignacio Colmenares DO Active IBUPROFEN 200 MG ORAL TABLET 3-4 tabs prn IBUPROFEN 38510044300 Active Ignacio Colmenares DO Active TYLENOL EXTRA STRENGTH 500 MG ORAL TABLET 2 tabs prn ACETAMINOPHEN 83298039884 Active Ignacio Colmenares DO Active AZITHROMYCIN 250 MG ORAL TABLET 2 pills day 1,1 pill day 2-5 AZITHROMYCIN 55019450666 No Longer Active Nicole Gimenez MD Active CEFTIN 500 MG ORAL TABLET 1 po bid 10 day CEFTIN 500 MG ORAL TABLET CEFUROXIME AXETIL Inactive PREDNISONE 20 MG ORAL TABLET 1 po bid 3 days, then 1 po q day 3 days PREDNISONE 20 MG ORAL TABLET 853029 PREDNISONE Inactive CELEXA 20 MG ORAL TABLET 1 po daily CELEXA 20 MG ORAL TABLET 097481 CITALOPRAM HYDROBROMIDE Inactive FIORICET 325-50-40 MG TAB 1-2 tabs by mouth q6hr PRN headache FIORICET 325-50-40 MG TAB [id number] Inactive LEXAPRO 10 MG ORAL TABLET 1 tablet by mouth daily LEXAPRO 10 MG ORAL TABLET 792947 ESCITALOPRAM OXALATE Inactive SUMATRIPTAN SUCCINATE 100 MG ORAL TABLET 1 po at onset of headache may repeat in 2 hrs. SUMATRIPTAN SUCCINATE 100 MG ORAL TABLET 700497 SUMATRIPTAN SUCCINATE Inactive MIRENA (52 MG) INTRAUTERINE DEVICE MIRENA (52 MG) INTRAUTERINE DEVICE LEVONORGESTREL IUD Inactive HYDROCODONE-ACETAMINOPHEN 5-325 MG ORAL TABLET 1 every 4-6 hrs prn HYDROCODONE-ACETAMINOPHEN 5-325 MG ORAL TABLET 195171 HYDROCODONE-ACETAMINOPHEN Inactive AZITHROMYCIN 250 MG ORAL TABLET 2 pills day 1,1 pill day 2-5 AZITHROMYCIN 250 MG ORAL TABLET 425361 AZITHROMYCIN Inactive Immunizations Vaccine Administration Date Value [...] mg/dL Encounters Code Encounter Date Provider Facility CPT-28059 Level 4 Est. Patient 16:08:14 [facility]-06[facility] [id number] Vst-Est Level III 11:31:45 CDT Du Hernandez MD [facility] CPT-54727 Level 2 Est. Patient 15:30:11 HRIS ADMINISTRATOR Kenny Mercado MD [facility] CPT-34132 Level 3 Est. Patient 12:29:51 CDT Joe Thomas MD [facility] CPT-81742 Level 3 Est. Patient 08:18:06 CDT Julito Taylor [facility] CPT-32145 Level 3 Est. Patient 10:12:22 HRIS ADMINISTRATOR Ignacio Colmenares DO [facility] CPT-44138 Level 3 Est. Patient 14:30:38 HRIS ADMINISTRATOR Ignacio Colmenares [facility] CPT-85558 Level 3 Est. Patient 08:21:09 HRIS ADMINISTRATOR Ramu LAUGHLIN [facility] CPT-63073 Level 3 Est. Patient 15:39:17 HRIS ADMINISTRATOR Ramu Suárezmehdi LAUGHLIN [facility] CPT-33636 Level 3 Est. Patient 18:43:41 CDT Ignacio Colmenares [facility] Procedures Code Procedure Name Date Entry Date Standard Description CPT-J2405 Zofran 4mg 17:25:13 CDT CPT-J1885 Toradol 30 mg (Ketorolac) 17:25:12 CDT CPT-J7030 Normal Saline 1000 mL 16:08:15 CDT CPT-J0595 Stadol 2 mg (Butorphanol) 16:08:15 CDT CPT-J1200 Benadryl 50 mg (Diphenhydramine) 16:08:15 CDT CPT-J2550 Phenergan 25 mg (Promethazine) 16:08:14 CDT CPT-95182 IV Hydration < or=1 hr 16:08:14 CDT CPT-18826 Abx/Therapy Injection 13:31:20 CDT CPT-J0595 Stadol 2 mg (Butorphanol) 11:01:56 CDT CPT-J2950 Phenergan 25 mg 11:01:56 CDT CPT-J1200 Benadryl 50 mg (Diphenhydramine) 11:01:56 CDT CPT-LR Lesion Removal 15:30:11 HRIS ADMINISTRATOR CPT-74097 Abd single AP View 13:53:50 CDT CPT-06281 Nail Avulsion 17:26:33 CDT CPT-05154 Abx/Therapy Injection 10:36:59 HRIS ADMINISTRATOR CPT-J1885 Toradol 60 mg (Ketorolac) 16:20:19 HRIS ADMINISTRATOR CPT-56886 Abx/Therapy Injection 16:20:19 HRIS ADMINISTRATOR CPT-92609 Venipuncture Draw Fee 14:45:53 HRIS ADMINISTRATOR CPT-62363 Abx/Therapy Injection 08:21:09 HRIS ADMINISTRATOR CPT-J2550 Phenergan 50 mg (Promethazine) 16:24:49 HRIS ADMINISTRATOR CPT-J2175 Demerol 75 mg (Meperidine) 16:24:49 HRIS ADMINISTRATOR CPT-J2550 Phenergan 50 mg (Promethazine) 18:33:49 HRIS ADMINISTRATOR CPT-J2175 Demerol 50 mg (Meperidine) 18:33:49 HRIS ADMINISTRATOR CPT-J2550 Phenergan 50 mg (Promethazine) 15:39:17 HRIS ADMINISTRATOR CPT-J2175 Demerol 50 mg (Meperidine) 15:39:17 HRIS ADMINISTRATOR CPT-OV Office Visit 16:53:10 CDT
--- OUTSIDE RECORDS SUMMARY | 2019-03-21 22:54 | XMS REPORT | Clinical Summary ---
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 Kenny Mercado MD Neoplasm of uncertain behavior of skin DEPRESSION ICD-311 Inactive Brit Jacinto MD PhD SINUSITIS ICD-473.9 Inactive Brit Jacinto MD PhD Medication List Medication Instructions Start Date Stop Date Generic Name ND Status Provider Patient Instruction CARVEDILOL 25 MG ORAL TABLET 1 po BId CARVEDILOL [id number] Active Du Hernandez MD Active ABILIFY 10 MG ORAL TABLET 1 tab po daily ARIPIPRAZOLE 76431243319 Active Du Hernandez MD Active AMBIEN 10 MG ORAL TABLET 2 tab by mouth at bedtime as needed for sleep ZOLPIDEM TARTRATE 64799014694 Active Du Hernandez MD Active NORTRIPTYLINE HCL 25 MG ORAL CAPSULE 2 daily at bedtime NORTRIPTYLINE HCL 76629055130 Active Du Hernandez MD Active HYDROCODONE-ACETAMINOPHEN 5-325 MG ORAL TABLET 1 every 4-6 hrs prn HYDROCODONE-ACETAMINOPHEN 74665190589 No Longer Active Du Hernandez MD Active SEROQUEL 25 MG ORAL TABLET 2 po q evening for major depression QUETIAPINE FUMARATE 22279129579 Active Du Hernandez MD Active PARAGARD INTRAUTERINE COPPER INTRAUTERINE INTRAUTERINE DEVICE COPPER 73631712428 Active Kenny Mercado MD Active MIRENA (52 MG) INTRAUTERINE DEVICE LEVONORGESTREL IUD 85546129779 No Longer Active Kenny Mercado MD Active SUMATRIPTAN SUCCINATE 100 MG ORAL TABLET 1 po at onset of headache may repeat in 2 hrs. SUMATRIPTAN SUCCINATE 15724858167 No Longer Active Kenny Mercado MD Active EFFEXOR XR 75 MG ORAL CAPSULE EXTENDED RELEASE 24 HOUR 1 capsule every evening VENLAFAXINE HCL 83191853354 Active Kenny Mercado MD Active EFFEXOR XR 150 MG ORAL CAPSULE EXTENDED RELEASE 24 HOUR 1 capsule every morning VENLAFAXINE HCL 11353290372 Active Kenny Mercado MD Active LEXAPRO 10 MG ORAL TABLET 1 tablet by mouth daily ESCITALOPRAM OXALATE 93363742799 No Longer Active Kenny Mercado MD Active FIORICET 325-50-40 MG TAB 1-2 tabs by mouth q6hr PRN headache [id number] 99605112933 No Longer Active Kenny Mercado MD Active LORAZEPAM 0.5 MG ORAL TABLET 1 po q day prn anxiety LORAZEPAM 03827079717 Active Ignacio Colmenares DO Active CELEXA 20 MG ORAL TABLET 1 po daily CITALOPRAM HYDROBROMIDE 67912309683 No Longer Active Ignacio Colmenares DO Active PREDNISONE 20 MG ORAL TABLET 1 po bid 3 days, then 1 po q day 3 days PREDNISONE 29547885959 No Longer Active Ramu LAUGHLIN Active CEFTIN 500 MG ORAL TABLET 1 po bid 10 day CEFUROXIME AXETIL 54598227861 No Longer Active Ramu LAUGHLIN Active AMITRIPTYLINE HCL 10 MG ORAL TABLET 1 po at hs prn AMITRIPTYLINE HCL 51972688236 No Longer Active Ignacio Colmenares DO Active IBUPROFEN 200 MG ORAL TABLET 3-4 tabs prn IBUPROFEN 69300981144 Active Ignacio Colmenares DO Active TYLENOL EXTRA STRENGTH 500 MG ORAL TABLET 2 tabs prn ACETAMINOPHEN 83452337460 Active Ignacio Colmenares DO Active AZITHROMYCIN 250 MG ORAL TABLET 2 pills day 1,1 pill day 2-5 AZITHROMYCIN 19898969336 No Longer Active Nicole Gimenez MD Active CEFTIN 500 MG ORAL TABLET 1 po bid 10 day CEFTIN 500 MG ORAL TABLET CEFUROXIME AXETIL Inactive PREDNISONE 20 MG ORAL TABLET 1 po bid 3 days, then 1 po q day 3 days PREDNISONE 20 MG ORAL TABLET 559348 PREDNISONE Inactive CELEXA 20 MG ORAL TABLET 1 po daily CELEXA 20 MG ORAL TABLET 356961 CITALOPRAM HYDROBROMIDE Inactive FIORICET 325-50-40 MG TAB 1-2 tabs by mouth q6hr PRN headache FIORICET 325-50-40 MG TAB [id number] Inactive LEXAPRO 10 MG ORAL TABLET 1 tablet by mouth daily LEXAPRO 10 MG ORAL TABLET 674214 ESCITALOPRAM OXALATE Inactive SUMATRIPTAN SUCCINATE 100 MG ORAL TABLET 1 po at onset of headache may repeat in 2 hrs. SUMATRIPTAN SUCCINATE 100 MG ORAL TABLET 317899 SUMATRIPTAN SUCCINATE Inactive MIRENA (52 MG) INTRAUTERINE DEVICE MIRENA (52 MG) INTRAUTERINE DEVICE LEVONORGESTREL IUD Inactive HYDROCODONE-ACETAMINOPHEN 5-325 MG ORAL TABLET 1 every 4-6 hrs prn HYDROCODONE-ACETAMINOPHEN 5-325 MG ORAL TABLET 034951 HYDROCODONE-ACETAMINOPHEN Inactive AZITHROMYCIN 250 MG ORAL TABLET 2 pills day 1,1 pill day 2-5 AZITHROMYCIN 250 MG ORAL TABLET 869773 AZITHROMYCIN Inactive Immunizations Vaccine Administration Date Value Standard Description influenza immunization (Flu Vax) has been administered Done according to patient influenza virus vaccine, unspecified formulation Vital Signs Date Name Value Unit Range Description blood pressure, diastolic 102 mm[Hg] BP león [...] mg/dL Encounters Code Encounter Date Provider Facility CPT-07112 [id number] Vst-Est Level III 11:31:45 CDT Du Hernandez MD [facility] CPT-79149 Level 2 Est. Patient 15:30:11 BUTTONHOLER Kenny Mercado MD [facility] CPT-65185 Level 3 Est. Patient 12:29:51 CDT Joe Thomas MD [facility]-18702 Level 3 Est. Patient 08:18:06 CD[facility] Level 3 Est. Patient 10:12:22 BUTTONHOLER Ignacio Colmenares [facility] CPT-33804 Level 3 Est. Patient 14:30:38 BUTTONHOLER Ignacio Colmenares [facility] CPT-34416 Level 3 Est. Patient 08:21:09 BUTTONHOLER Ramu LAUGHLIN [facility] CPT-96665 Level 3 Est. Patient 15:39:17 BUTTONHOLER Ramu LAUGHLIN [facility] CPT-84257 Level 3 Est. Patient 18:43:41 CDT Ignacio Colmenares [facility] Procedures Code Procedure Name Date Entry Date Standard Description CPT-11203 Abx/Therapy Injection 13:31:20 CDT CPT-J0595 Stadol 2 mg (Butorphanol) 11:01:56 CDT CPT-J2950 Phenergan 25 mg 11:01:56 CDT CPT-J1200 Benadryl 50 mg (Diphenhydramine) 11:01:56 CDT CPT-LR Lesion Removal 15:30:11 BUTTONHOLER CPT-36302 Abd single AP View 13:53:50 CDT CPT-17780 Nail Avulsion 17:26:33 CDT CPT-59274 Abx/Therapy Injection 10:36:59 BUTTONHOLER CPT-J1885 Toradol 60 mg (Ketorolac) 16:20:19 BUTTONHOLER CPT-08916 Abx/Therapy Injection 16:20:19 BUTTONHOLER CPT-75599 Venipuncture Draw Fee 14:45:53 BUTTONHOLER CPT-56611 Abx/Therapy Injection 08:21:09 BUTTONHOLER CPT-J2550 Phenergan 50 mg (Promethazine) 16:24:49 BUTTONHOLER CPT-J2175 Demerol 75 mg (Meperidine) 16:24:49 BUTTONHOLER CPT-J2550 Phenergan 50 mg (Promethazine) 18:33:49 BUTTONHOLER CPT-J2175 Demerol 50 mg (Meperidine) 18:33:49 BUTTONHOLER CPT-J2550 Phenergan 50 mg (Promethazine) 15:39:17 BUTTONHOLER CPT-J2175 Demerol 50 mg (Meperidine) 15:39:17 BUTTONHOLER CPT-OV Office Visit 16:53:10 CDT
--- OUTSIDE RECORDS SUMMARY | 2019-03-21 22:54 | XMS REPORT | Clinical Summary ---
Author Author Admin, LISA Organization [facility] Address Unknown Phone Unavailable Allergies, [...] MG ORAL TABLET 1 po BId CARVEDILOL 88901560448 Active Du Hernandez MD Active ABILIFY 10 MG ORAL TABLET 1 tab po daily ARIPIPRAZOLE 56575982779 Active Du Hernandez MD Active AMBIEN 10 MG ORAL TABLET 2 tab by mouth at bedtime as needed for sleep ZOLPIDEM TARTRATE 81730269957 Active Du Hernandez MD Active NORTRIPTYLINE HCL 25 MG ORAL CAPSULE 2 daily at bedtime NORTRIPTYLINE HCL 20242423206 Active Du Hernandez MD Active HYDROCODONE-ACETAMINOPHEN 5-325 MG ORAL TABLET 1 every 4-6 hrs prn HYDROCODONE-ACETAMINOPHEN 28218050648 No Longer Active Du Hernandez MD Active SEROQUEL 25 MG ORAL TABLET 2 po q evening for major depression QUETIAPINE FUMARATE 35014804219 Active Du Hernandez MD Active PARAGARD INTRAUTERINE COPPER INTRAUTERINE INTRAUTERINE DEVICE COPPER 25489090640 Active Kenny Mercado MD Active MIRENA (52 MG) INTRAUTERINE DEVICE LEVONORGESTREL IUD 16221093296 No Longer Active Kenny Mercado MD Active SUMATRIPTAN SUCCINATE 100 MG ORAL TABLET 1 po at onset of headache may repeat in 2 hrs. SUMATRIPTAN SUCCINATE 50952725181 No Longer Active Kenny Mercado MD Active EFFEXOR XR 75 MG ORAL CAPSULE EXTENDED RELEASE 24 HOUR 1 capsule every evening VENLAFAXINE HCL 70875682239 Active Kenny Mercado MD Active EFFEXOR XR 150 MG ORAL CAPSULE EXTENDED RELEASE 24 HOUR 1 capsule every morning VENLAFAXINE HCL 10581672708 Active Kenny Mercado MD Active LEXAPRO 10 MG ORAL TABLET 1 tablet by mouth daily ESCITALOPRAM OXALATE 17214650427 No Longer Active Kenny Mercado MD Active FIORICET 325-50-40 MG TAB 1-2 tabs by mouth q6hr PRN headache [id number] 75716063063 No Longer Active Kenny Mercado MD Active LORAZEPAM 0.5 MG ORAL TABLET 1 po q day prn anxiety LORAZEPAM 07410848357 Active Ignacio Colmenares DO Active CELEXA 20 MG ORAL TABLET 1 po daily CITALOPRAM HYDROBROMIDE 02134913863 No Longer Active Ignacio Colmenares DO Active PREDNISONE 20 MG ORAL TABLET 1 po bid 3 days, then 1 po q day 3 days PREDNISONE 50574730512 No Longer Active Ramu LAUGHLIN Active CEFTIN 500 MG ORAL TABLET 1 po bid 10 day CEFUROXIME AXETIL 03753251609 No Longer Active Ramu LAUGHLIN Active AMITRIPTYLINE HCL 10 MG ORAL TABLET 1 po at hs prn AMITRIPTYLINE HCL 24884319869 No Longer Active Ignacio Colmenares DO Active IBUPROFEN 200 MG ORAL TABLET 3-4 tabs prn IBUPROFEN 48627493124 Active Ignacio Colmenares DO Active TYLENOL EXTRA STRENGTH 500 MG ORAL TABLET 2 tabs prn ACETAMINOPHEN 59819703179 Active Ignacio Colmenares DO Active AZITHROMYCIN 250 MG ORAL TABLET 2 pills day 1,1 pill day 2-5 AZITHROMYCIN 14043430918 No Longer Active Nicole Gimenez MD Active CEFTIN 500 MG ORAL TABLET 1 po bid 10 day CEFTIN 500 MG ORAL TABLET CEFUROXIME AXETIL Inactive PREDNISONE 20 MG ORAL TABLET 1 po bid 3 days, then 1 po q day 3 days PREDNISONE 20 MG ORAL TABLET 675906 PREDNISONE Inactive CELEXA 20 MG ORAL TABLET 1 po daily CELEXA 20 MG ORAL TABLET 133665 CITALOPRAM HYDROBROMIDE Inactive FIORICET 325-50-40 MG TAB 1-2 tabs by mouth q6hr PRN headache FIORICET 325-50-40 MG TAB [id number] Inactive LEXAPRO 10 MG ORAL TABLET 1 tablet by mouth daily LEXAPRO 10 MG ORAL TABLET 565882 ESCITALOPRAM OXALATE Inactive SUMATRIPTAN SUCCINATE 100 MG ORAL TABLET 1 po at onset of headache may repeat in 2 hrs. SUMATRIPTAN SUCCINATE 100 MG ORAL TABLET 057116 SUMATRIPTAN SUCCINATE Inactive MIRENA (52 MG) INTRAUTERINE DEVICE MIRENA (52 MG) INTRAUTERINE DEVICE LEVONORGESTREL IUD Inactive HYDROCODONE-ACETAMINOPHEN 5-325 MG ORAL TABLET 1 every 4-6 hrs prn HYDROCODONE-ACETAMINOPHEN 5-325 MG ORAL TABLET 945194 HYDROCODONE-ACETAMINOPHEN Inactive AZITHROMYCIN 250 MG ORAL TABLET 2 pills day 1,1 pill day 2-5 AZITHROMYCIN 250 MG ORAL TABLET 362785 AZITHROMYCIN Inactive Immunizations Vaccine Administration Date Value [...] mg/dL Encounters Code Encounter Date Provider Facility CPT-05834 [id number] Vst-Est Level III 11:31:45 CDT Du Hernandez MD [facility]-02773 Level 2 Est. Patient 15:30:11 FISHER Kenny Mercado MD [facility]-99018 Level 3 Est. Patient 12:29:51 CDT Joe Thomas MD [facility]-30868 Level 3 Est. Patient 08:18:06 CD[facility] Level 3 Est. Patient 10:12:22 FISHER Ignacio Colmenares [facility] CPT-16475 Level 3 Est. Patient 14:30:38 FISHER Ignacio Colmenares [facility] CPT-51331 Level 3 Est. Patient 08:21:09 FISHER Ramu LAUGHLIN [facility] CPT-82729 Level 3 Est. Patient 15:39:17 FISHER Ramu LAUGHLIN [facility] CPT-76989 Level 3 Est. Patient 18:43:41 CDT Ignacio Colmenares [facility] Procedures Code Procedure Name Date Entry Date Standard Description CPT-83395 Abx/Therapy Injection 13:31:20 CDT CPT-J0595 Stadol 2 mg (Butorphanol) 11:01:56 CDT CPT-J2950 Phenergan 25 mg 11:01:56 CDT CPT-J1200 Benadryl 50 mg (Diphenhydramine) 11:01:56 CDT CPT-LR Lesion Removal 15:30:11 FISHER CPT-96240 Abd single AP View 13:53:50 CDT CPT-20370 Nail Avulsion 17:26:33 CDT CPT-53191 Abx/Therapy Injection 10:36:59 FISHER CPT-J1885 Toradol 60 mg (Ketorolac) 16:20:19 FISHER CPT-42493 Abx/Therapy Injection 16:20:19 FISHER CPT-67199 Venipuncture Draw Fee 14:45:53 FISHER CPT-96798 Abx/Therapy Injection 08:21:09 FISHER CPT-J2550 Phenergan 50 mg (Promethazine) 16:24:49 FISHER CPT-J2175 Demerol 75 mg (Meperidine) 16:24:49 FISHER CPT-J2550 Phenergan 50 mg (Promethazine) 18:33:49 FISHER CPT-J2175 Demerol 50 mg (Meperidine) 18:33:49 FISHER CPT-J2550 Phenergan 50 mg (Promethazine) 15:39:17 FISHER CPT-J2175 Demerol 50 mg (Meperidine) 15:39:17 FISHER CPT-OV Office Visit 16:53:10 CDT
--- OUTSIDE RECORDS SUMMARY | 2019-03-21 22:55 | XMS REPORT | Clinical Summary ---
Author Author Admin, LISA Organization [facility] Address Unknown Phone Unavailable Allergies, Adverse [...] MG ORAL TABLET 1 po BId CARVEDILOL 33331238246 Active Du Hernandez MD Active ABILIFY 10 MG ORAL TABLET 1 tab po daily ARIPIPRAZOLE 91002207834 Active Du Hernandez MD Active AMBIEN 10 MG ORAL TABLET 2 tab by mouth at bedtime as needed for sleep ZOLPIDEM TARTRATE 97664339197 Active Du Hernandez MD Active NORTRIPTYLINE HCL 25 MG ORAL CAPSULE 2 daily at bedtime NORTRIPTYLINE HCL 47416422209 Active Du Hernandez MD Active HYDROCODONE-ACETAMINOPHEN 5-325 MG ORAL TABLET 1 every 4-6 hrs prn HYDROCODONE-ACETAMINOPHEN 21348025938 No Longer Active Du Hernandez MD Active SEROQUEL 25 MG ORAL TABLET 2 po q evening for major depression QUETIAPINE FUMARATE 24293275741 Active uD Hernandez MD Active PARAGARD INTRAUTERINE COPPER INTRAUTERINE INTRAUTERINE DEVICE COPPER 36942220178 Active Kenny Mercado MD Active MIRENA (52 MG) INTRAUTERINE DEVICE LEVONORGESTREL IUD 47789502292 No Longer Active Kenny Mercado MD Active SUMATRIPTAN SUCCINATE 100 MG ORAL TABLET 1 po at onset of headache may repeat in 2 hrs. SUMATRIPTAN SUCCINATE 65924803043 No Longer Active Kenny Mercado MD Active EFFEXOR XR 75 MG ORAL CAPSULE EXTENDED RELEASE 24 HOUR 1 capsule every evening VENLAFAXINE HCL 19302953442 Active Kenny Mercado MD Active EFFEXOR XR 150 MG ORAL CAPSULE EXTENDED RELEASE 24 HOUR 1 capsule every morning VENLAFAXINE HCL 41586340567 Active Kenny Mercado MD Active LEXAPRO 10 MG ORAL TABLET 1 tablet by mouth daily ESCITALOPRAM OXALATE 53584074402 No Longer Active Kenny Mercado MD Active FIORICET 325-50-40 MG TAB 1-2 tabs by mouth q6hr PRN headache [id number] 82940685810 No Longer Active Kenny Mercado MD Active LORAZEPAM 0.5 MG ORAL TABLET 1 po q day prn anxiety LORAZEPAM 65956283391 Active Ignacio Colmenares DO Active CELEXA 20 MG ORAL TABLET 1 po daily CITALOPRAM HYDROBROMIDE 83055053200 No Longer Active Ignacio Colmenares DO Active PREDNISONE 20 MG ORAL TABLET 1 po bid 3 days, then 1 po q day 3 days PREDNISONE 19341854507 No Longer Active Ramu LAUGHLIN Active CEFTIN 500 MG ORAL TABLET 1 po bid 10 day CEFUROXIME AXETIL 55273069337 No Longer Active Ramu LAUGHLIN Active AMITRIPTYLINE HCL 10 MG ORAL TABLET 1 po at hs prn AMITRIPTYLINE HCL 44573392433 No Longer Active Ignacio Colmenares DO Active IBUPROFEN 200 MG ORAL TABLET 3-4 tabs prn IBUPROFEN 69104375778 Active Ignacio Colmenares DO Active TYLENOL EXTRA STRENGTH 500 MG ORAL TABLET 2 tabs prn ACETAMINOPHEN 62283200693 Active Ignacio Colmenares DO Active AZITHROMYCIN 250 MG ORAL TABLET 2 pills day 1,1 pill day 2-5 AZITHROMYCIN 34854192307 No Longer Active Nicole Gimenez MD Active CEFTIN 500 MG ORAL TABLET 1 po bid 10 day CEFTIN 500 MG ORAL TABLET CEFUROXIME AXETIL Inactive PREDNISONE 20 MG ORAL TABLET 1 po bid 3 days, then 1 po q day 3 days PREDNISONE 20 MG ORAL TABLET 322779 PREDNISONE Inactive CELEXA 20 MG ORAL TABLET 1 po daily CELEXA 20 MG ORAL TABLET 209226 CITALOPRAM HYDROBROMIDE Inactive FIORICET 325-50-40 MG TAB 1-2 tabs by mouth q6hr PRN headache FIORICET 325-50-40 MG TAB [id number] Inactive LEXAPRO 10 MG ORAL TABLET 1 tablet by mouth daily LEXAPRO 10 MG ORAL TABLET 106019 ESCITALOPRAM OXALATE Inactive SUMATRIPTAN SUCCINATE 100 MG ORAL TABLET 1 po at onset of headache may repeat in 2 hrs. SUMATRIPTAN SUCCINATE 100 MG ORAL TABLET 876950 SUMATRIPTAN SUCCINATE Inactive MIRENA (52 MG) INTRAUTERINE DEVICE MIRENA (52 MG) INTRAUTERINE DEVICE LEVONORGESTREL IUD Inactive HYDROCODONE-ACETAMINOPHEN 5-325 MG ORAL TABLET 1 every 4-6 hrs prn HYDROCODONE-ACETAMINOPHEN 5-325 MG ORAL TABLET 192324 HYDROCODONE-ACETAMINOPHEN Inactive AZITHROMYCIN 250 MG ORAL TABLET 2 pills day 1,1 pill day 2-5 AZITHROMYCIN 250 MG ORAL TABLET 389655 AZITHROMYCIN Inactive Immunizations Vaccine Administration Date Value [...] mg/dL Encounters Code Encounter Date Provider Facility CPT-89294 [id number] Vst-Est Level III 11:31:45 CDT Du Hernandez MD [facility] CPT-40922 Level 2 Est. Patient 15:30:11 FUR PULLER Kenny Mercado MD [facility] CPT-78860 Level 3 Est. Patient 12:29:51 CDT Joe Thomas MD [facility]-98785 Level 3 Est. Patient 08:18:06 [facility] Level 3 Est. Patient 10:12:22 FUR PULLER Ignacio Colmenares [facility] CPT-65828 Level 3 Est. Patient 14:30:38 FUR PULLER Ignacio Colmenares [facility] CPT-07957 Level 3 Est. Patient 08:21:09 FUR PULLER Ramu LAUGHLIN [facility] CPT-87417 Level 3 Est. Patient 15:39:17 FUR PULLER Ramu LAUGHLIN [facility] CPT-83025 Level 3 Est. Patient 18:43:41 CDT Ignacio Colmenares [facility] Procedures Code Procedure Name Date Entry Date Standard Description CPT-J0595 Stadol 2 mg (Butorphanol) 11:01:56 CDT CPT-J2950 Phenergan 25 mg 11:01:56 CDT CPT-J1200 Benadryl 50 mg (Diphenhydramine) 11:01:56 CDT CPT-LR Lesion Removal 15:30:11 FUR PULLER CPT-97906 Abd single AP View 13:53:50 CDT CPT-76123 Nail Avulsion 17:26:33 CDT CPT-68135 Abx/Therapy Injection 10:36:59 FUR PULLER CPT-J1885 Toradol 60 mg (Ketorolac) 16:20:19 FUR PULLER CPT-13259 Abx/Therapy Injection 16:20:19 FUR PULLER CPT-38431 Venipuncture Draw Fee 14:45:53 FUR PULLER CPT-00602 Abx/Therapy Injection 08:21:09 FUR PULLER CPT-J2550 Phenergan 50 mg (Promethazine) 16:24:49 FUR PULLER CPT-J2175 Demerol 75 mg (Meperidine) 16:24:49 FUR PULLER CPT-J2550 Phenergan 50 mg (Promethazine) 18:33:49 FUR PULLER CPT-J2175 Demerol 50 mg (Meperidine) 18:33:49 FUR PULLER CPT-J2550 Phenergan 50 mg (Promethazine) 15:39:17 FUR PULLER CPT-J2175 Demerol 50 mg (Meperidine) 15:39:17 FUR PULLER CPT-OV Office Visit 16:53:10 CDT
--- OUTSIDE RECORDS SUMMARY | 2019-03-21 22:55 | XMS REPORT | Clinical Summary ---
Author Author Admin, [facility] Organization [facility] Address Unknown Phone Unavailable [...] MG ORAL TABLET 1 po BId CARVEDILOL [id number] Active Du Hernandez MD Active ABILIFY 10 MG ORAL TABLET 1 tab po daily ARIPIPRAZOLE 84011261665 Active Du Hernandez MD Active AMBIEN 10 MG ORAL TABLET 2 tab by mouth at bedtime as needed for sleep ZOLPIDEM TARTRATE 68207666635 Active Du Hernandez MD Active NORTRIPTYLINE HCL 25 MG ORAL CAPSULE 2 daily at bedtime NORTRIPTYLINE HCL 03587960764 Active Du Hernandez MD Active HYDROCODONE-ACETAMINOPHEN 5-325 MG ORAL TABLET 1 every 4-6 hrs prn HYDROCODONE-ACETAMINOPHEN 49874003299 No Longer Active Du Hernandez MD Active SEROQUEL 25 MG ORAL TABLET 2 po q evening for major depression QUETIAPINE FUMARATE 38780010189 Active Du Hernandez MD Active PARAGARD INTRAUTERINE COPPER INTRAUTERINE INTRAUTERINE DEVICE COPPER 97919762137 Active Kenny Mercado MD Active MIRENA (52 MG) INTRAUTERINE DEVICE LEVONORGESTREL IUD 41251249525 No Longer Active Kenny Mercado MD Active SUMATRIPTAN SUCCINATE 100 MG ORAL TABLET 1 po at onset of headache may repeat in 2 hrs. SUMATRIPTAN SUCCINATE 70011042277 No Longer Active Kenny Mercado MD Active EFFEXOR XR 75 MG ORAL CAPSULE EXTENDED RELEASE 24 HOUR 1 capsule every evening VENLAFAXINE HCL 06648957180 Active Kenny Mercado MD Active EFFEXOR XR 150 MG ORAL CAPSULE EXTENDED RELEASE 24 HOUR 1 capsule every morning VENLAFAXINE HCL 78205845769 Active Kenny Mercado MD Active LEXAPRO 10 MG ORAL TABLET 1 tablet by mouth daily ESCITALOPRAM OXALATE 86125833147 No Longer Active Kenny Mercado MD Active FIORICET 325-50-40 MG TAB 1-2 tabs by mouth q6hr PRN headache [id number] 63039363164 No Longer Active Kenny Mercado MD Active LORAZEPAM 0.5 MG ORAL TABLET 1 po q day prn anxiety LORAZEPAM 40314373465 Active Ignacio Colmenares DO Active CELEXA 20 MG ORAL TABLET 1 po daily CITALOPRAM HYDROBROMIDE 66832221801 No Longer Active Ignacio Colmenares DO Active PREDNISONE 20 MG ORAL TABLET 1 po bid 3 days, then 1 po q day 3 days PREDNISONE 25705056452 No Longer Active Ramu LAUGHLIN Active CEFTIN 500 MG ORAL TABLET 1 po bid 10 day CEFUROXIME AXETIL 79682417398 No Longer Active Ramu LAUGHLIN Active AMITRIPTYLINE HCL 10 MG ORAL TABLET 1 po at hs prn AMITRIPTYLINE HCL 68093382982 No Longer Active Ignacio Colmenares DO Active IBUPROFEN 200 MG ORAL TABLET 3-4 tabs prn IBUPROFEN 88328833215 Active Ignacio Colmenares DO Active TYLENOL EXTRA STRENGTH 500 MG ORAL TABLET 2 tabs prn ACETAMINOPHEN 73232893427 Active Ignacio Colmenares DO Active AZITHROMYCIN 250 MG ORAL TABLET 2 pills day 1,1 pill day 2-5 AZITHROMYCIN 62245711121 No Longer Active Nicole Gimenez MD Active CEFTIN 500 MG ORAL TABLET 1 po bid 10 day CEFTIN 500 MG ORAL TABLET CEFUROXIME AXETIL Inactive PREDNISONE 20 MG ORAL TABLET 1 po bid 3 days, then 1 po q day 3 days PREDNISONE 20 MG ORAL TABLET 835322 PREDNISONE Inactive CELEXA 20 MG ORAL TABLET 1 po daily CELEXA 20 MG ORAL TABLET 515233 CITALOPRAM HYDROBROMIDE Inactive FIORICET 325-50-40 MG TAB 1-2 tabs by mouth q6hr PRN headache FIORICET 325-50-40 MG TAB [id number] Inactive LEXAPRO 10 MG ORAL TABLET 1 tablet by mouth daily LEXAPRO 10 MG ORAL TABLET 459102 ESCITALOPRAM OXALATE Inactive SUMATRIPTAN SUCCINATE 100 MG ORAL TABLET 1 po at onset of headache may repeat in 2 hrs. SUMATRIPTAN SUCCINATE 100 MG ORAL TABLET 882207 SUMATRIPTAN SUCCINATE Inactive MIRENA (52 MG) INTRAUTERINE DEVICE MIRENA (52 MG) INTRAUTERINE DEVICE LEVONORGESTREL IUD Inactive HYDROCODONE-ACETAMINOPHEN 5-325 MG ORAL TABLET 1 every 4-6 hrs prn HYDROCODONE-ACETAMINOPHEN 5-325 MG ORAL TABLET 616574 HYDROCODONE-ACETAMINOPHEN Inactive AZITHROMYCIN 250 MG ORAL TABLET 2 pills day 1,1 pill day 2-5 AZITHROMYCIN 250 MG ORAL TABLET 330176 AZITHROMYCIN Inactive Immunizations Vaccine Administration Date Value [...] mg/dL Encounters Code Encounter Date Provider Facility CPT-84185 [id number] Vst-Est Level III 11:31:45 CDT Du Hernandez MD [facility] CPT-49845 Level 2 Est. Patient 15:30:11 POWDERED SUGAR SUPERVISOR Kenny Mercado MD [facility] CPT-82181 Level 3 Est. Patient 12:29:51 CDT Joe Thomas MD [facility]-62871 Level 3 Est. Patient 08:18:06 CDT [facility] Level 3 Est. Patient 10:12:22 POWDERED SUGAR SUPERVISOR Ignacio Colmenares [facility] CPT-10022 Level 3 Est. Patient 14:30:38 POWDERED SUGAR SUPERVISOR Ignacio Colmenares [facility] CPT-43434 Level 3 Est. Patient 08:21:09 POWDERED SUGAR SUPERVISOR Ramu LAUGHLIN [facility] CPT-06091 Level 3 Est. Patient 15:39:17 POWDERED SUGAR SUPERVISOR Ramu LAUGHLIN [facility] CPT-30857 Level 3 Est. Patient 18:43:41 CDT Ignacio Colmenares [facility] Procedures Code Procedure Name Date Entry Date Standard Description CPT-90983 Abx/Therapy Injection 13:31:20 CDT CPT-J0595 Stadol 2 mg (Butorphanol) 11:01:56 CDT CPT-J2950 Phenergan 25 mg 11:01:56 CDT CPT-J1200 Benadryl 50 mg (Diphenhydramine) 11:01:56 CDT CPT-LR Lesion Removal 15:30:11 POWDERED SUGAR SUPERVISOR CPT-33741 Abd single AP View 13:53:50 CDT CPT-94246 Nail Avulsion 17:26:33 CDT CPT-03207 Abx/Therapy Injection 10:36:59 POWDERED SUGAR SUPERVISOR CPT-J1885 Toradol 60 mg (Ketorolac) 16:20:19 POWDERED SUGAR SUPERVISOR CPT-85041 Abx/Therapy Injection 16:20:19 POWDERED SUGAR SUPERVISOR CPT-24465 Venipuncture Draw Fee 14:45:53 POWDERED SUGAR SUPERVISOR CPT-07631 Abx/Therapy Injection 08:21:09 POWDERED SUGAR SUPERVISOR CPT-J2550 Phenergan 50 mg (Promethazine) 16:24:49 POWDERED SUGAR SUPERVISOR CPT-J2175 Demerol 75 mg (Meperidine) 16:24:49 POWDERED SUGAR SUPERVISOR CPT-J2550 Phenergan 50 mg (Promethazine) 18:33:49 POWDERED SUGAR SUPERVISOR CPT-J2175 Demerol 50 mg (Meperidine) 18:33:49 POWDERED SUGAR SUPERVISOR CPT-J2550 Phenergan 50 mg (Promethazine) 15:39:17 POWDERED SUGAR SUPERVISOR CPT-J2175 Demerol 50 mg (Meperidine) 15:39:17 POWDERED SUGAR SUPERVISOR CPT-OV Office Visit 16:53:10 CDT
--- OUTSIDE RECORDS SUMMARY | 2019-03-21 22:55 | XMS REPORT | Clinical Summary ---
Author Author Admin, LISA Organization [facility] Address Unknown Phone Unavailable Allergies, [...] MG ORAL TABLET 1 po BId CARVEDILOL 80511341379 Active Du Hernandez MD Active ABILIFY 10 MG ORAL TABLET 1 tab po daily ARIPIPRAZOLE 66990074053 Active Du Hernandez MD Active AMBIEN 10 MG ORAL TABLET 2 tab by mouth at bedtime as needed for sleep ZOLPIDEM TARTRATE 55637683703 Active Du Hernandez MD Active NORTRIPTYLINE HCL 25 MG ORAL CAPSULE 2 daily at bedtime NORTRIPTYLINE HCL 61640471362 Active Du Hernandez MD Active HYDROCODONE-ACETAMINOPHEN 5-325 MG ORAL TABLET 1 every 4-6 hrs prn HYDROCODONE-ACETAMINOPHEN 07754848111 No Longer Active Du Hernandez MD Active SEROQUEL 25 MG ORAL TABLET 2 po q evening for major depression QUETIAPINE FUMARATE 14811346747 Active Du Hernandez MD Active PARAGARD INTRAUTERINE COPPER INTRAUTERINE INTRAUTERINE DEVICE COPPER 22909569014 Active Kenny Mercado MD Active MIRENA (52 MG) INTRAUTERINE DEVICE LEVONORGESTREL IUD 94305660352 No Longer Active Kenny Mercado MD Active SUMATRIPTAN SUCCINATE 100 MG ORAL TABLET 1 po at onset of headache may repeat in 2 hrs. SUMATRIPTAN SUCCINATE 74096617061 No Longer Active Kenny Mercado MD Active EFFEXOR XR 75 MG ORAL CAPSULE EXTENDED RELEASE 24 HOUR 1 capsule every evening VENLAFAXINE HCL 96661181026 Active Kenny Mercado MD Active EFFEXOR XR 150 MG ORAL CAPSULE EXTENDED RELEASE 24 HOUR 1 capsule every morning VENLAFAXINE HCL 95584758543 Active Kenny Mercado MD Active LEXAPRO 10 MG ORAL TABLET 1 tablet by mouth daily ESCITALOPRAM OXALATE 83515283502 No Longer Active Kenny Mercado MD Active FIORICET 325-50-40 MG TAB 1-2 tabs by mouth q6hr PRN headache [id number] 99604932664 No Longer Active Kenny Mercado MD Active LORAZEPAM 0.5 MG ORAL TABLET 1 po q day prn anxiety LORAZEPAM 17471388219 Active Ignacio Colmenares DO Active CELEXA 20 MG ORAL TABLET 1 po daily CITALOPRAM HYDROBROMIDE 35208715456 No Longer Active Ignacio Colmenares DO Active PREDNISONE 20 MG ORAL TABLET 1 po bid 3 days, then 1 po q day 3 days PREDNISONE 26325338800 No Longer Active Ramu LAUGHLIN Active CEFTIN 500 MG ORAL TABLET 1 po bid 10 day CEFUROXIME AXETIL 27777715060 No Longer Active Ramu LAUGHLIN Active AMITRIPTYLINE HCL 10 MG ORAL TABLET 1 po at hs prn AMITRIPTYLINE HCL 41001741649 No Longer Active Ignacio Colmenares DO Active IBUPROFEN 200 MG ORAL TABLET 3-4 tabs prn IBUPROFEN 71404200543 Active Ignacio Colmenares DO Active TYLENOL EXTRA STRENGTH 500 MG ORAL TABLET 2 tabs prn ACETAMINOPHEN 26393448490 Active Ignacio Colmenares DO Active AZITHROMYCIN 250 MG ORAL TABLET 2 pills day 1,1 pill day 2-5 AZITHROMYCIN 20724647864 No Longer Active Nicole Gimenez MD Active CEFTIN 500 MG ORAL TABLET 1 po bid 10 day CEFTIN 500 MG ORAL TABLET CEFUROXIME AXETIL Inactive PREDNISONE 20 MG ORAL TABLET 1 po bid 3 days, then 1 po q day 3 days PREDNISONE 20 MG ORAL TABLET 308258 PREDNISONE Inactive CELEXA 20 MG ORAL TABLET 1 po daily CELEXA 20 MG ORAL TABLET 741531 CITALOPRAM HYDROBROMIDE Inactive FIORICET 325-50-40 MG TAB 1-2 tabs by mouth q6hr PRN headache FIORICET 325-50-40 MG TAB [id number] Inactive LEXAPRO 10 MG ORAL TABLET 1 tablet by mouth daily LEXAPRO 10 MG ORAL TABLET 591681 ESCITALOPRAM OXALATE Inactive SUMATRIPTAN SUCCINATE 100 MG ORAL TABLET 1 po at onset of headache may repeat in 2 hrs. SUMATRIPTAN SUCCINATE 100 MG ORAL TABLET 758352 SUMATRIPTAN SUCCINATE Inactive MIRENA (52 MG) INTRAUTERINE DEVICE MIRENA (52 MG) INTRAUTERINE DEVICE LEVONORGESTREL IUD Inactive HYDROCODONE-ACETAMINOPHEN 5-325 MG ORAL TABLET 1 every 4-6 hrs prn HYDROCODONE-ACETAMINOPHEN 5-325 MG ORAL TABLET 457401 HYDROCODONE-ACETAMINOPHEN Inactive AZITHROMYCIN 250 MG ORAL TABLET 2 pills day 1,1 pill day 2-5 AZITHROMYCIN 250 MG ORAL TABLET 641975 AZITHROMYCIN Inactive Immunizations Vaccine Administration Date Value [...] mg/dL Encounters Code Encounter Date Provider Facility CPT-32053 [id number] Vst-Est Level III 11:31:45 CDT Du Hernandez MD [facility]-34271 Level 2 Est. Patient 15:30:11 AERIAL SPRAYER Kenny Mercado MD [facility]-78817 Level 3 Est. Patient 12:29:51 CDT Joe Thomas MD [facility]-61231 Level 3 Est. Patient 08:18:06 [facility] Level 3 Est. Patient 10:12:22 AERIAL SPRAYER Ignacio Colmenares [facility] CPT-50258 Level 3 Est. Patient 14:30:38 AERIAL SPRAYER Ignacio Colmenares [facility] CPT-23757 Level 3 Est. Patient 08:21:09 AERIAL SPRAYER Ramu LAUGHLIN [facility] CPT-40816 Level 3 Est. Patient 15:39:17 AERIAL SPRAYER Ramu LAUGHLIN [facility] CPT-25371 Level 3 Est. Patient 18:43:41 CDT Ignacio Colmenares [facility] Procedures Code Procedure Name Date Entry Date Standard Description CPT-96550 Abx/Therapy Injection 13:31:20 CDT CPT-J0595 Stadol 2 mg (Butorphanol) 11:01:56 CDT CPT-J2950 Phenergan 25 mg 11:01:56 CDT CPT-J1200 Benadryl 50 mg (Diphenhydramine) 11:01:56 CDT CPT-LR Lesion Removal 15:30:11 AERIAL SPRAYER CPT-56558 Abd single AP View 13:53:50 CDT CPT-15287 Nail Avulsion 17:26:33 CDT CPT-40865 Abx/Therapy Injection 10:36:59 AERIAL SPRAYER CPT-J1885 Toradol 60 mg (Ketorolac) 16:20:19 AERIAL SPRAYER CPT-43342 Abx/Therapy Injection 16:20:19 AERIAL SPRAYER CPT-86153 Venipuncture Draw Fee 14:45:53 AERIAL SPRAYER CPT-21425 Abx/Therapy Injection 08:21:09 AERIAL SPRAYER CPT-J2550 Phenergan 50 mg (Promethazine) 16:24:49 AERIAL SPRAYER CPT-J2175 Demerol 75 mg (Meperidine) 16:24:49 AERIAL SPRAYER CPT-J2550 Phenergan 50 mg (Promethazine) 18:33:49 AERIAL SPRAYER CPT-J2175 Demerol 50 mg (Meperidine) 18:33:49 AERIAL SPRAYER CPT-J2550 Phenergan 50 mg (Promethazine) 15:39:17 AERIAL SPRAYER CPT-J2175 Demerol 50 mg (Meperidine) 15:39:17 AERIAL SPRAYER CPT-OV Office Visit 16:53:10 CDT
--- OUTSIDE RECORDS SUMMARY | 2019-03-21 22:56 | XMS REPORT | Clinical Summary ---
Author Author Admin, E Organization [facility] Address Unknown Phone Unavailable Allergies, Adverse Reactions, Alerts Allergy Name Reaction Description Start Date Severity Status Provider No Known Allergies Casie Brooks RN Conditions or Problems Problem Name Problem [...] site; multiple sites UTI 599.0 Active Julito Tayolr APRN Urinary tract infection, site not specified BMI 34-34.9 Active Kenny Mercado MD Body Mass Index 34.0- 34.9, adult Obesity Class I (BMI 30-34.9) Active Kenny Mercado MD Obesity, unspecified Neoplasm of uncertain behavior of skin Active Kenny Mercado MD Neoplasm of uncertain behavior of skin DEPRESSION ICD-311 Inactive Brit Jacinto MD PhD SINUSITIS ICD-473.9 Inactive rBit Jacinto MD PhD Medication List Medication Instructions Start Date Stop Date Generic Name NDC Status Provider Patient Instruction KATHI INTRAUTERINE COPPER INTRAUTERINE INTRAUTERINE DEVICE COPPER 69046475978 Active Kenny Mercado MD Active MIRENA (52 MG) INTRAUTERINE DEVICE LEVONORGESTREL IUD 89223712521 No Longer Active Kenny Mercado MD Active NORTRIPTYLINE HCL 25 MG ORAL CAPSULE 1 daily at bedtime NORTRIPTYLINE HCL 16538301208 Active Kenny Mercado MD Active SUMATRIPTAN SUCCINATE 100 MG ORAL TABLET 1 po at onset of headache may repeat in 2 hrs. SUMATRIPTAN SUCCINATE 20140538335 No Longer Active Kenny Mercado MD Active EFFEXOR XR 75 MG ORAL CAPSULE EXTENDED RELEASE 24 HOUR 1 capsule every evening VENLAFAXINE HCL 59454337549 Active Kenny Mercado MD Active EFFEXOR XR 150 MG ORAL CAPSULE EXTENDED RELEASE 24 HOUR 1 capsule every morning VENLAFAXINE HCL 16974092227 Active Kenny Mercado MD Active LEXAPRO 10 MG ORAL TABLET 1 tablet by mouth daily ESCITALOPRAM OXALATE 55965801315 No Longer Active Kenny Mercado MD Active FIORICET 325-50-40 MG TAB 1-2 tabs by mouth q6hr PRN headache [id number] 12918202012 No Longer Active Kenny Mercado MD Active LORAZEPAM 0.5 MG ORAL TABLET 1 po q day prn anxiety LORAZEPAM 77859832571 Active Ignacio Colmenares DO Active SEROQUEL 25 MG ORAL TABLET 1 po q evening for major depression QUETIAPINE FUMARATE 09280438927 Active Ignacio Colmenares DO Active CELEXA 20 MG ORAL TABLET 1 po daily CITALOPRAM HYDROBROMIDE 29960652535 No Longer Active Ignacio Colmenares DO Active HYDROCODONE-ACETAMINOPHEN 5-325 MG ORAL TABLET 1 every 4-6 hrs prn HYDROCODONE-ACETAMINOPHEN 80441655898 Active Ramu LAUGHLIN Active PREDNISONE 20 MG ORAL TABLET 1 po bid 3 days, then 1 po q day 3 days PREDNISONE 74335605896 No Longer Active Ramu LAUGHLIN Active CEFTIN 500 MG ORAL TABLET 1 po bid 10 day CEFUROXIME AXETIL 37671383254 No Longer Active Ramu LAUGHLIN Active AMITRIPTYLINE HCL 10 MG ORAL TABLET 1 po at hs prn AMITRIPTYLINE HCL 15907097098 No Longer Active Ignacio Colmenares DO Active IBUPROFEN 200 MG ORAL TABLET 3-4 tabs prn IBUPROFEN 59238908585 Active Ignacio Colmenares DO Active TYLENOL EXTRA STRENGTH 500 MG ORAL TABLET 2 tabs prn ACETAMINOPHEN 65838525391 Active Ignacio Colmenares DO Active AMBIEN 10 MG ORAL TABLET 1 tab by mouth at bedtime as needed for sleep ZOLPIDEM TARTRATE 55992088946 Active Ignacio Colmenares DO Active AZITHROMYCIN 250 MG ORAL TABLET 2 pills day 1,1 pill day 2-5 AZITHROMYCIN 83118483301 No Longer Active Nicole Gimenez MD Active CEFTIN 500 MG ORAL TABLET 1 po bid 10 day CEFTIN 500 MG ORAL TABLET CEFUROXIME AXETIL Inactive PREDNISONE 20 MG ORAL TABLET 1 po bid 3 days, then 1 po q day 3 days PREDNISONE 20 MG ORAL TABLET 502291 PREDNISONE Inactive CELEXA 20 MG ORAL TABLET 1 po daily CELEXA 20 MG ORAL TABLET 741613 CITALOPRAM HYDROBROMIDE Inactive FIORICET 325-50-40 MG TAB 1-2 tabs by mouth q6hr PRN headache FIORICET 325-50-40 MG TAB [id number] Inactive LEXAPRO 10 MG ORAL TABLET 1 tablet by mouth daily LEXAPRO 10 MG ORAL TABLET 046643 ESCITALOPRAM OXALATE Inactive SUMATRIPTAN SUCCINATE 100 MG ORAL TABLET 1 po at onset of headache may repeat in 2 hrs. SUMATRIPTAN SUCCINATE 100 MG ORAL TABLET 431861 SUMATRIPTAN SUCCINATE Inactive MIRENA (52 MG) INTRAUTERINE DEVICE MIRENA (52 MG) INTRAUTERINE DEVICE LEVONORGESTREL IUD Inactive AZITHROMYCIN 250 MG ORAL TABLET 2 pills day 1,1 pill day 2-5 AZITHROMYCIN 250 MG ORAL TABLET 800226 AZITHROMYCIN Inactive Immunizations Vaccine Administration Date Value Standard Description influenza immunization (Flu Vax) has been administered Done according to patient influenza virus vaccine, unspecified formulation Vital Signs Date Name Value Unit Range Description blood pressure, diastolic, repeated by physician 98 BP león blood pressure, diastolic 98 mm[Hg] BP león blood pressure, systolic, repeated by physician 145 BP sys blood pressure, systolic 145 mm[Hg] BP sys height E&M 65 [in_us] Bdy height pulse rate E&M 100 /min Heart rate temperature E&M 98.9 [degF] Body temperature weight E&M 206 [lb_av] Weight Measured Encounters Code Encounter Date Provider Facility CPT-64575 Level 2 Est. Patient 15:30:11 UROGYNAECOLOGIST Kenny Mercado MD [facility] CPT-49711 Level 3 Est. Patient 12:29:51 CDT Joe Thomas MD [facility] CPT-84557 Level 3 Est. Patient 08:18:06 CDT Julito Taylor APRN [facility] CPT-72159 Level 3 Est. Patient 10:12:22 UROGYNAECOLOGIST Ignacio Colmenares [facility] CPT-27396 Level 3 Est. Patient 14:30:38 UROGYNAECOLOGIST Ignacio Colmenares DO [facility] CPT-69389 Level 3 Est. Patient 08:21:09 UROGYNAECOLOGIST Ramu LAUGHLIN [facility] CPT-81117 Level 3 Est. Patient 15:39:17 UROGYNAECOLOGIST Ramu LAUGHLIN [facility] CPT-80131 Level 3 Est. Patient 18:43:41 CDT Ignacio Colmenares [facility] Procedures Code Procedure Name Date Entry Date Standard Description CPT-LR Lesion Removal 15:30:11 UROGYNAECOLOGIST CPT-53568 Abd single AP View 13:53:50 CDT CPT-48128 Nail Avulsion 17:26:33 CDT CPT-28543 Abx/Therapy Injection 10:36:59 UROGYNAECOLOGIST CPT-J1885 Toradol 60 mg (Ketorolac) 16:20:19 UROGYNAECOLOGIST CPT-18132 Abx/Therapy Injection 16:20:19 UROGYNAECOLOGIST CPT-39989 Venipuncture Draw Fee 14:45:53 UROGYNAECOLOGIST CPT-64023 Abx/Therapy Injection 08:21:09 UROGYNAECOLOGIST CPT-J2550 Phenergan 50 mg (Promethazine) 16:24:49 UROGYNAECOLOGIST CPT-J2175 Demerol 75 mg (Meperidine) 16:24:49 UROGYNAECOLOGIST CPT-J2550 Phenergan 50 mg (Promethazine) 18:33:49 UROGYNAECOLOGIST CPT-J2175 Demerol 50 mg (Meperidine) 18:33:49 UROGYNAECOLOGIST CPT-J2550 Phenergan 50 mg (Promethazine) 15:39:17 UROGYNAECOLOGIST CPT-J2175 Demerol 50 mg (Meperidine) 15:39:17 UROGYNAECOLOGIST CPT-OV Office Visit 16:53:10 CDT
--- OUTSIDE RECORDS SUMMARY | 2019-03-21 22:56 | XMS REPORT | Clinical Summary ---
Author Author Admin, LISA Organization [facility] Address Unknown Phone Unavailable Allergies, Adverse [...] nail Flank pain, right 789.09 Active Julito Talyor APRN Abdominal pain, other specified site; multiple [...] Jacinto MD PhD SINUSITIS ICD-473.9 Inactive Brit Jacinot MD PhD Medication List Medication Instructions Start Date Stop Date Generic Name NDC Status Provider Patient Instruction SILVIAD INTRAUTERINE COPPER INTRAUTERINE INTRAUTERINE DEVICE COPPER 12261441025 Active Kenny Mercado MD Active MIRENA (52 MG) INTRAUTERINE DEVICE LEVONORGESTREL IUD 14056292664 No Longer Active Kenny Mercado MD Active NORTRIPTYLINE HCL 25 MG ORAL CAPSULE 1 daily at bedtime NORTRIPTYLINE HCL 85844701640 Active Kenny Mercado MD Active SUMATRIPTAN SUCCINATE 100 MG ORAL TABLET 1 po at onset of headache may repeat in 2 hrs. SUMATRIPTAN SUCCINATE 78110993228 No Longer Active Kenny Mercado MD Active EFFEXOR XR 75 MG ORAL CAPSULE EXTENDED RELEASE 24 HOUR 1 capsule every evening VENLAFAXINE HCL 58606968939 Active Kenny Mercado MD Active EFFEXOR XR 150 MG ORAL CAPSULE EXTENDED RELEASE 24 HOUR 1 capsule every morning VENLAFAXINE HCL 24146751648 Active Kenny Mercado MD Active LEXAPRO 10 MG ORAL TABLET 1 tablet by mouth daily ESCITALOPRAM OXALATE 07019094706 No Longer Active Kenny Mercado MD Active FIORICET 325-50-40 MG TAB 1-2 tabs by mouth q6hr PRN headache [id number] 09585378877 No Longer Active Kenny Mercado MD Active LORAZEPAM 0.5 MG ORAL TABLET 1 po q day prn anxiety LORAZEPAM 72216687277 Active Ignacio Colmenares DO Active SEROQUEL 25 MG ORAL TABLET 1 po q evening for major depression QUETIAPINE FUMARATE 99293117470 Active Ignacio Colmenares DO Active CELEXA 20 MG ORAL TABLET 1 po daily CITALOPRAM HYDROBROMIDE 57143630782 No Longer Active Ignacio Colmenares DO Active HYDROCODONE-ACETAMINOPHEN 5-325 MG ORAL TABLET 1 every 4-6 hrs prn HYDROCODONE-ACETAMINOPHEN 86862627016 Active Ramu LAUGHLIN Active PREDNISONE 20 MG ORAL TABLET 1 po bid 3 days, then 1 po q day 3 days PREDNISONE 91778366942 No Longer Active Ramu LAUGHLIN Active CEFTIN 500 MG ORAL TABLET 1 po bid 10 day CEFUROXIME AXETIL 76525969674 No Longer Active Ramu LAUGHLIN Active AMITRIPTYLINE HCL 10 MG ORAL TABLET 1 po at hs prn AMITRIPTYLINE HCL 17562564961 No Longer Active Ignacio Colmenares DO Active IBUPROFEN 200 MG ORAL TABLET 3-4 tabs prn IBUPROFEN 83805311964 Active Ignacio Colmenares DO Active TYLENOL EXTRA STRENGTH 500 MG ORAL TABLET 2 tabs prn ACETAMINOPHEN 19794309961 Active Ignacio Colmenares DO Active AMBIEN 10 MG ORAL TABLET 1 tab by mouth at bedtime as needed for sleep ZOLPIDEM TARTRATE 69694788937 Active Ignacio Colmenares DO Active AZITHROMYCIN 250 MG ORAL TABLET 2 pills day 1,1 pill day 2-5 AZITHROMYCIN 78265473007 No Longer Active Nicole Gimenez MD Active CEFTIN 500 MG ORAL TABLET 1 po bid 10 day CEFTIN 500 MG ORAL TABLET CEFUROXIME AXETIL Inactive PREDNISONE 20 MG ORAL TABLET 1 po bid 3 days, then 1 po q day 3 days PREDNISONE 20 MG ORAL TABLET 387589 PREDNISONE Inactive CELEXA 20 MG ORAL TABLET 1 po daily CELEXA 20 MG ORAL TABLET 732745 CITALOPRAM HYDROBROMIDE Inactive FIORICET 325-50-40 MG TAB 1-2 tabs by mouth q6hr PRN headache FIORICET 325-50-40 MG TAB [id number] Inactive LEXAPRO 10 MG ORAL TABLET 1 tablet by mouth daily LEXAPRO 10 MG ORAL TABLET 359739 ESCITALOPRAM OXALATE Inactive SUMATRIPTAN SUCCINATE 100 MG ORAL TABLET 1 po at onset of headache may repeat in 2 hrs. SUMATRIPTAN SUCCINATE 100 MG ORAL TABLET 317118 SUMATRIPTAN SUCCINATE Inactive MIRENA (52 MG) INTRAUTERINE DEVICE MIRENA (52 MG) INTRAUTERINE DEVICE LEVONORGESTREL IUD Inactive AZITHROMYCIN 250 MG ORAL TABLET 2 pills day 1,1 pill day 2-5 AZITHROMYCIN 250 MG ORAL TABLET 658813 AZITHROMYCIN Inactive Immunizations Vaccine Administration Date Value [...] Measured Encounters Code Encounter Date Provider Facility CPT-98976 Level 2 Est. Patient 15:30:11 PLANT GUARD Kenny Mercado MD [facility] CPT-84033 Level 3 Est. Patient 12:29:51 CDT Joe Thomas MD [facility] CPT-73825 Level 3 Est. Patient 08:18:06 CDT Julito Taylor APRN [facility] CPT-31003 Level 3 Est. Patient 10:12:22 PLANT GUARD Ignacio Colmenares [facility] CPT-03329 Level 3 Est. Patient 14:30:38 PLANT GUARD Ignacio Colmenares DO [facility] CPT-61649 Level 3 Est. Patient 08:21:09 PLANT GUARD Ramu LAUGHLIN [facility] CPT-73619 Level 3 Est. Patient 15:39:17 PLANT GUARD Ramu LAUGHLIN [facility] CPT-22483 Level 3 Est. Patient 18:43:41 CDT Ignacio Colmenares [facility] Procedures Code Procedure Name Date Entry Date Standard Description CPT-LR Lesion Removal 15:30:11 PLANT GUARD CPT-80013 Abd single AP View 13:53:50 CDT CPT-62110 Nail Avulsion 17:26:33 CDT CPT-41363 Abx/Therapy Injection 10:36:59 PLANT GUARD CPT-J1885 Toradol 60 mg (Ketorolac) 16:20:19 PLANT GUARD CPT-32660 Abx/Therapy Injection 16:20:19 PLANT GUARD CPT-92603 Venipuncture Draw Fee 14:45:53 PLANT GUARD CPT-23305 Abx/Therapy Injection 08:21:09 PLANT GUARD CPT-J2550 Phenergan 50 mg (Promethazine) 16:24:49 PLANT GUARD CPT-J2175 Demerol 75 mg (Meperidine) 16:24:49 PLANT GUARD CPT-J2550 Phenergan 50 mg (Promethazine) 18:33:49 PLANT GUARD CPT-J2175 Demerol 50 mg (Meperidine) 18:33:49 PLANT GUARD CPT-J2550 Phenergan 50 mg (Promethazine) 15:39:17 PLANT GUARD CPT-J2175 Demerol 50 mg (Meperidine) 15:39:17 PLANT GUARD CPT-OV Office Visit 16:53:10 CDT
--- OUTSIDE RECORDS SUMMARY | 2019-03-21 22:56 | XMS REPORT | Clinical Summary ---
Author Author Admin, LISA Organization [facility] Address Unknown Phone Unavailable Allergies, Adverse Reactions, [...] KATHI INTRAUTERINE COPPER INTRAUTERINE INTRAUTERINE DEVICE COPPER 56368620935 Active Kenny Mercado MD Active MIRENA (52 MG) INTRAUTERINE DEVICE LEVONORGESTREL IUD 63247237064 No Longer Active Kenny Mercado MD Active NORTRIPTYLINE HCL 25 MG ORAL CAPSULE 1 daily at bedtime NORTRIPTYLINE HCL 89642328355 Active Kenny Mercado MD Active SUMATRIPTAN SUCCINATE 100 MG ORAL TABLET 1 po at onset of headache may repeat in 2 hrs. SUMATRIPTAN SUCCINATE 05370712983 No Longer Active Kenny Mercado MD Active EFFEXOR XR 75 MG ORAL CAPSULE EXTENDED RELEASE 24 HOUR 1 capsule every evening VENLAFAXINE HCL 71896046479 Active Kenny Mecrado MD Active EFFEXOR XR 150 MG ORAL CAPSULE EXTENDED RELEASE 24 HOUR 1 capsule every morning VENLAFAXINE HCL 82802328736 Active Kenny Mercado MD Active LEXAPRO 10 MG ORAL TABLET 1 tablet by mouth daily ESCITALOPRAM OXALATE 88021351015 No Longer Active Kenny Mercado MD Active FIORICET 325-50-40 MG TAB 1-2 tabs by mouth q6hr PRN headache [id number] 03705687162 No Longer Active Kenny Mercado MD Active LORAZEPAM 0.5 MG ORAL TABLET 1 po q day prn anxiety LORAZEPAM 67914307588 Active Ignacio Colmenares DO Active SEROQUEL 25 MG ORAL TABLET 1 po q evening for major depression QUETIAPINE FUMARATE 19189142458 Active Ignacio Colmenares DO Active CELEXA 20 MG ORAL TABLET 1 po daily CITALOPRAM HYDROBROMIDE 14646675090 No Longer Active Ignacio Colmenares DO Active HYDROCODONE-ACETAMINOPHEN 5-325 MG ORAL TABLET 1 every 4-6 hrs prn HYDROCODONE-ACETAMINOPHEN 48581690657 Active Ramu LAUGHLIN Active PREDNISONE 20 MG ORAL TABLET 1 po bid 3 days, then 1 po q day 3 days PREDNISONE 49836208110 No Longer Active Ramu LAUGHLIN Active CEFTIN 500 MG ORAL TABLET 1 po bid 10 day CEFUROXIME AXETIL 86278181024 No Longer Active Ramu LAUGHLIN Active AMITRIPTYLINE HCL 10 MG ORAL TABLET 1 po at hs prn AMITRIPTYLINE HCL 13078717874 No Longer Active Ignacio Colmenares DO Active IBUPROFEN 200 MG ORAL TABLET 3-4 tabs prn IBUPROFEN 96177898967 Active Ignacio Colmenares DO Active TYLENOL EXTRA STRENGTH 500 MG ORAL TABLET 2 tabs prn ACETAMINOPHEN 39346914848 Active Ignacio Colmenares DO Active AMBIEN 10 MG ORAL TABLET 1 tab by mouth at bedtime as needed for sleep ZOLPIDEM TARTRATE 53590000502 Active Ignacio Colmenares DO Active AZITHROMYCIN 250 MG ORAL TABLET 2 pills day 1,1 pill day 2-5 AZITHROMYCIN 49801043892 No Longer Active Nicole Gimenez MD Active CEFTIN 500 MG ORAL TABLET 1 po bid 10 day CEFTIN 500 MG ORAL TABLET CEFUROXIME AXETIL Inactive PREDNISONE 20 MG ORAL TABLET 1 po bid 3 days, then 1 po q day 3 days PREDNISONE 20 MG ORAL TABLET 101586 PREDNISONE Inactive CELEXA 20 MG ORAL TABLET 1 po daily CELEXA 20 MG ORAL TABLET 860303 CITALOPRAM HYDROBROMIDE Inactive FIORICET 325-50-40 MG TAB 1-2 tabs by mouth q6hr PRN headache FIORICET 325-50-40 MG TAB [id number] Inactive LEXAPRO 10 MG ORAL TABLET 1 tablet by mouth daily LEXAPRO 10 MG ORAL TABLET 145194 ESCITALOPRAM OXALATE Inactive SUMATRIPTAN SUCCINATE 100 MG ORAL TABLET 1 po at onset of headache may repeat in 2 hrs. SUMATRIPTAN SUCCINATE 100 MG ORAL TABLET 446330 SUMATRIPTAN SUCCINATE Inactive MIRENA (52 MG) INTRAUTERINE DEVICE MIRENA (52 MG) INTRAUTERINE DEVICE LEVONORGESTREL IUD Inactive AZITHROMYCIN 250 MG ORAL TABLET 2 pills day 1,1 pill day 2-5 AZITHROMYCIN 250 MG ORAL TABLET 378263 AZITHROMYCIN Inactive Immunizations Vaccine Administration Date Value [...] Measured Encounters Code Encounter Date Provider Facility CPT-35310 Level 2 Est. Patient 15:30:11 RESEARCH CONTRACTS SUPERVISOR Kenny Mercado MD [facility] CPT-21873 Level 3 Est. Patient 12:29:51 CDT Joe Thomas MD [facility] CPT-18831 Level 3 Est. Patient 08:18:06 CDT Julito Taylor APRN [facility] CPT-06029 Level 3 Est. Patient 10:12:22 RESEARCH CONTRACTS SUPERVISOR Ignacio Colmenares [facility] CPT-09788 Level 3 Est. Patient 14:30:38 RESEARCH CONTRACTS SUPERVISOR Ignacio Colmenares DO [facility] CPT-65680 Level 3 Est. Patient 08:21:09 RESEARCH CONTRACTS SUPERVISOR Ramu LAUGHLIN [facility] CPT-65356 Level 3 Est. Patient 15:39:17 RESEARCH CONTRACTS SUPERVISOR Ramu LAUGHLIN [facility] CPT-68995 Level 3 Est. Patient 18:43:41 CDT Ignacio Colmenares [facility] Procedures Code Procedure Name Date Entry Date Standard Description CPT-LR Lesion Removal 15:30:11 RESEARCH CONTRACTS SUPERVISOR CPT-30363 Abd single AP View 13:53:50 CDT CPT-51996 Nail Avulsion 17:26:33 CDT CPT-82057 Abx/Therapy Injection 10:36:59 RESEARCH CONTRACTS SUPERVISOR CPT-J1885 Toradol 60 mg (Ketorolac) 16:20:19 RESEARCH CONTRACTS SUPERVISOR CPT-92460 Abx/Therapy Injection 16:20:19 RESEARCH CONTRACTS SUPERVISOR CPT-95633 Venipuncture Draw Fee 14:45:53 RESEARCH CONTRACTS SUPERVISOR CPT-37976 Abx/Therapy Injection 08:21:09 RESEARCH CONTRACTS SUPERVISOR CPT-J2550 Phenergan 50 mg (Promethazine) 16:24:49 RESEARCH CONTRACTS SUPERVISOR CPT-J2175 Demerol 75 mg (Meperidine) 16:24:49 RESEARCH CONTRACTS SUPERVISOR CPT-J2550 Phenergan 50 mg (Promethazine) 18:33:49 RESEARCH CONTRACTS SUPERVISOR CPT-J2175 Demerol 50 mg (Meperidine) 18:33:49 RESEARCH CONTRACTS SUPERVISOR CPT-J2550 Phenergan 50 mg (Promethazine) 15:39:17 RESEARCH CONTRACTS SUPERVISOR CPT-J2175 Demerol 50 mg (Meperidine) 15:39:17 RESEARCH CONTRACTS SUPERVISOR CPT-OV Office Visit 16:53:10 CDT
--- OUTSIDE RECORDS SUMMARY | 2019-03-21 22:57 | XMS REPORT | Clinical Summary ---
Author Author Admin, E Organization [facility] Address Unknown Phone Unavailable Allergies, Adverse Reactions, [...] MD Neoplasm of uncertain behavior of skin SINUSITIS ICD-473.9 Inactive Brit Jacinto MD PhD DEPRESSION ICD-311 Inactive Brit Jacinto MD PhD Medication List Medication Instructions Start Date Stop Date Generic Name NDC Status Provider Patient Instruction KATHI INTRAUTERINE COPPER INTRAUTERINE INTRAUTERINE DEVICE COPPER 11338830910 Active Kenny Mercado MD Active MIRENA (52 MG) INTRAUTERINE DEVICE LEVONORGESTREL IUD 60141839570 No Longer Active Kenny Mercado MD Active NORTRIPTYLINE HCL 25 MG ORAL CAPSULE 1 daily at bedtime NORTRIPTYLINE HCL 33019276528 Active Kenny Mercado MD Active SUMATRIPTAN SUCCINATE 100 MG ORAL TABLET 1 po at onset of headache may repeat in 2 hrs. SUMATRIPTAN SUCCINATE 64962326026 No Longer Active Kenny Mercado MD Active EFFEXOR XR 75 MG ORAL CAPSULE EXTENDED RELEASE 24 HOUR 1 capsule every evening VENLAFAXINE HCL 50988981941 Active Kenny Mercado MD Active EFFEXOR XR 150 MG ORAL CAPSULE EXTENDED RELEASE 24 HOUR 1 capsule every morning VENLAFAXINE HCL 05814270228 Active Kenny Mercado MD Active LEXAPRO 10 MG ORAL TABLET 1 tablet by mouth daily ESCITALOPRAM OXALATE 21009162018 No Longer Active Kenny Mercado MD Active FIORICET 325-50-40 MG TAB 1-2 tabs by mouth q6hr PRN headache [id number] 23097798929 No Longer Active Kenny Mercado MD Active LORAZEPAM 0.5 MG ORAL TABLET 1 po q day prn anxiety LORAZEPAM 19752790872 Active Ignacio Colmenares DO Active SEROQUEL 25 MG ORAL TABLET 1 po q evening for major depression QUETIAPINE FUMARATE 34388015729 Active Ignacio Colmenares DO Active CELEXA 20 MG ORAL TABLET 1 po daily CITALOPRAM HYDROBROMIDE 33453623250 No Longer Active Ignacio Colmenares DO Active HYDROCODONE-ACETAMINOPHEN 5-325 MG ORAL TABLET 1 every 4-6 hrs prn HYDROCODONE-ACETAMINOPHEN 83994254233 Active Ramu LAUGHLIN Active PREDNISONE 20 MG ORAL TABLET 1 po bid 3 days, then 1 po q day 3 days PREDNISONE 30311753354 No Longer Active Ramu LAUGHLIN Active CEFTIN 500 MG ORAL TABLET 1 po bid 10 day CEFUROXIME AXETIL 89030396412 No Longer Active Ramu LAUGHLIN Active AMITRIPTYLINE HCL 10 MG ORAL TABLET 1 po at hs prn AMITRIPTYLINE HCL 39055212433 No Longer Active Ignacio Colmenares DO Active IBUPROFEN 200 MG ORAL TABLET 3-4 tabs prn IBUPROFEN 62435149218 Active Ignacio Colmenares DO Active TYLENOL EXTRA STRENGTH 500 MG ORAL TABLET 2 tabs prn ACETAMINOPHEN 70874392499 Active Igncaio Colmenares DO Active AMBIEN 10 MG ORAL TABLET 1 tab by mouth at bedtime as needed for sleep ZOLPIDEM TARTRATE 18055895539 Active Ignacio Colmenares DO Active AZITHROMYCIN 250 MG ORAL TABLET 2 pills day 1,1 pill day 2-5 AZITHROMYCIN 12969857585 No Longer Active Nicole Gimenez MD Active CEFTIN 500 MG ORAL TABLET 1 po bid 10 day CEFTIN 500 MG ORAL TABLET CEFUROXIME AXETIL Inactive PREDNISONE 20 MG ORAL TABLET 1 po bid 3 days, then 1 po q day 3 days PREDNISONE 20 MG ORAL TABLET 313826 PREDNISONE Inactive CELEXA 20 MG ORAL TABLET 1 po daily CELEXA 20 MG ORAL TABLET 091372 CITALOPRAM HYDROBROMIDE Inactive FIORICET 325-50-40 MG TAB 1-2 tabs by mouth q6hr PRN headache FIORICET 325-50-40 MG TAB [id number] Inactive LEXAPRO 10 MG ORAL TABLET 1 tablet by mouth daily LEXAPRO 10 MG ORAL TABLET 894916 ESCITALOPRAM OXALATE Inactive SUMATRIPTAN SUCCINATE 100 MG ORAL TABLET 1 po at onset of headache may repeat in 2 hrs. SUMATRIPTAN SUCCINATE 100 MG ORAL TABLET 891206 SUMATRIPTAN SUCCINATE Inactive MIRENA (52 MG) INTRAUTERINE DEVICE MIRENA (52 MG) INTRAUTERINE DEVICE LEVONORGESTREL IUD Inactive AZITHROMYCIN 250 MG ORAL TABLET 2 pills day 1,1 pill day 2-5 AZITHROMYCIN 250 MG ORAL TABLET 990626 AZITHROMYCIN Inactive Immunizations Vaccine Administration Date Value [...] Measured Encounters Code Encounter Date Provider Facility CPT-76657 Level 2 Est. Patient 15:30:11 INSTRUMENTATION AND CONTROLS DESIGNER Kenny Mercado MD [facility] CPT-41345 Level 3 Est. Patient 12:29:51 CDT Joe Thomas MD [facility] CPT-81742 Level 3 Est. Patient 08:18:06 CDT Julito Taylor APRN [facility] CPT-68972 Level 3 Est. Patient 10:12:22 INSTRUMENTATION AND CONTROLS DESIGNER Ignacio Colmenares [facility] CPT-82027 Level 3 Est. Patient 14:30:38 INSTRUMENTATION AND CONTROLS DESIGNER Ignacio Colmenares DO [facility] CPT-82254 Level 3 Est. Patient 08:21:09 INSTRUMENTATION AND CONTROLS DESIGNER Ramu LAUGHLIN [facility] CPT-98195 Level 3 Est. Patient 15:39:17 INSTRUMENTATION AND CONTROLS DESIGNER Ramu LAUGHLIN [facility] CPT-83944 Level 3 Est. Patient 18:43:41 CDT Ignacio Colmenares [facility] Procedures Code Procedure Name Date Entry Date Standard Description CPT-LR Lesion Removal 15:30:11 INSTRUMENTATION AND CONTROLS DESIGNER CPT-53913 Abd single AP View 13:53:50 CDT CPT-42862 Nail Avulsion 17:26:33 CDT CPT-01233 Abx/Therapy Injection 10:36:59 INSTRUMENTATION AND CONTROLS DESIGNER CPT-J1885 Toradol 60 mg (Ketorolac) 16:20:19 INSTRUMENTATION AND CONTROLS DESIGNER CPT-39556 Abx/Therapy Injection 16:20:19 INSTRUMENTATION AND CONTROLS DESIGNER CPT-44931 Venipuncture Draw Fee 14:45:53 INSTRUMENTATION AND CONTROLS DESIGNER CPT-83917 Abx/Therapy Injection 08:21:09 INSTRUMENTATION AND CONTROLS DESIGNER CPT-J2550 Phenergan 50 mg (Promethazine) 16:24:49 INSTRUMENTATION AND CONTROLS DESIGNER CPT-J2175 Demerol 75 mg (Meperidine) 16:24:49 INSTRUMENTATION AND CONTROLS DESIGNER CPT-J2550 Phenergan 50 mg (Promethazine) 18:33:49 INSTRUMENTATION AND CONTROLS DESIGNER CPT-J2175 Demerol 50 mg (Meperidine) 18:33:49 INSTRUMENTATION AND CONTROLS DESIGNER CPT-J2550 Phenergan 50 mg (Promethazine) 15:39:17 INSTRUMENTATION AND CONTROLS DESIGNER CPT-J2175 Demerol 50 mg (Meperidine) 15:39:17 INSTRUMENTATION AND CONTROLS DESIGNER CPT-OV Office Visit 16:53:10 CDT
--- OUTSIDE RECORDS SUMMARY | 2019-03-21 22:57 | XMS REPORT | Clinical Summary ---
Author Author Admin, LISA Organization [facility] Address Unknown Phone Unavailable Allergies, [...] SILVIAD INTRAUTERINE COPPER INTRAUTERINE INTRAUTERINE DEVICE COPPER 01215674123 Active Kenny Mercado MD Active MIRENA (52 MG) INTRAUTERINE DEVICE LEVONORGESTREL IUD 40410326789 No Longer Active Kenny Mercado MD Active NORTRIPTYLINE HCL 25 MG ORAL CAPSULE 1 daily at bedtime NORTRIPTYLINE HCL 15579515454 Active Kenny Mercado MD Active SUMATRIPTAN SUCCINATE 100 MG ORAL TABLET 1 po at onset of headache may repeat in 2 hrs. SUMATRIPTAN SUCCINATE 58682279638 No Longer Active Kenny Mercado MD Active EFFEXOR XR 75 MG ORAL CAPSULE EXTENDED RELEASE 24 HOUR 1 capsule every evening VENLAFAXINE HCL 06506799292 Active Kenny Mercado MD Active EFFEXOR XR 150 MG ORAL CAPSULE EXTENDED RELEASE 24 HOUR 1 capsule every morning VENLAFAXINE HCL 15751371787 Active Kenny Mercado MD Active LEXAPRO 10 MG ORAL TABLET 1 tablet by mouth daily ESCITALOPRAM OXALATE 56986655762 No Longer Active Kenny Mercado MD Active FIORICET 325-50-40 MG TAB 1-2 tabs by mouth q6hr PRN headache [id number] 99530554797 No Longer Active Kenny Mercado MD Active LORAZEPAM 0.5 MG ORAL TABLET 1 po q day prn anxiety LORAZEPAM 22543648287 Active Ignacio Colmenares DO Active SEROQUEL 25 MG ORAL TABLET 1 po q evening for major depression QUETIAPINE FUMARATE 43028680434 Active Ignacio Colmenares DO Active CELEXA 20 MG ORAL TABLET 1 po daily CITALOPRAM HYDROBROMIDE 17109000693 No Longer Active Ignacio Colmenares DO Active HYDROCODONE-ACETAMINOPHEN 5-325 MG ORAL TABLET 1 every 4-6 hrs prn HYDROCODONE-ACETAMINOPHEN 46954764411 Active Ramu LAUGHLIN Active PREDNISONE 20 MG ORAL TABLET 1 po bid 3 days, then 1 po q day 3 days PREDNISONE 98824053582 No Longer Active Ramu LAUGHLIN Active CEFTIN 500 MG ORAL TABLET 1 po bid 10 day CEFUROXIME AXETIL 64200097879 No Longer Active Ramu LAUGHLIN Active AMITRIPTYLINE HCL 10 MG ORAL TABLET 1 po at hs prn AMITRIPTYLINE HCL 36434772783 No Longer Active Ignacio Colmenares DO Active IBUPROFEN 200 MG ORAL TABLET 3-4 tabs prn IBUPROFEN 88774021736 Active Ignacio Colmenares DO Active TYLENOL EXTRA STRENGTH 500 MG ORAL TABLET 2 tabs prn ACETAMINOPHEN 25597699747 Active Ignacio Colmenares DO Active AMBIEN 10 MG ORAL TABLET 1 tab by mouth at bedtime as needed for sleep ZOLPIDEM TARTRATE 65045356204 Active Ignacio Colmenares DO Active AZITHROMYCIN 250 MG ORAL TABLET 2 pills day 1,1 pill day 2-5 AZITHROMYCIN 25787431686 No Longer Active Nicole Gimenez MD Active CEFTIN 500 MG ORAL TABLET 1 po bid 10 day CEFTIN 500 MG ORAL TABLET CEFUROXIME AXETIL Inactive PREDNISONE 20 MG ORAL TABLET 1 po bid 3 days, then 1 po q day 3 days PREDNISONE 20 MG ORAL TABLET 132983 PREDNISONE Inactive CELEXA 20 MG ORAL TABLET 1 po daily CELEXA 20 MG ORAL TABLET 970613 CITALOPRAM HYDROBROMIDE Inactive FIORICET 325-50-40 MG TAB 1-2 tabs by mouth q6hr PRN headache FIORICET 325-50-40 MG TAB [id number] Inactive LEXAPRO 10 MG ORAL TABLET 1 tablet by mouth daily LEXAPRO 10 MG ORAL TABLET 806700 ESCITALOPRAM OXALATE Inactive SUMATRIPTAN SUCCINATE 100 MG ORAL TABLET 1 po at onset of headache may repeat in 2 hrs. SUMATRIPTAN SUCCINATE 100 MG ORAL TABLET 479206 SUMATRIPTAN SUCCINATE Inactive MIRENA (52 MG) INTRAUTERINE DEVICE MIRENA (52 MG) INTRAUTERINE DEVICE LEVONORGESTREL IUD Inactive AZITHROMYCIN 250 MG ORAL TABLET 2 pills day 1,1 pill day 2-5 AZITHROMYCIN 250 MG ORAL TABLET 359957 AZITHROMYCIN Inactive Immunizations Vaccine Administration Date Value [...] Measured Encounters Code Encounter Date Provider Facility CPT-26381 Level 2 Est. Patient 15:30:11 VIBRATION ANALYST Kenny Mercado MD [facility] CPT-65641 Level 3 Est. Patient 12:29:51 CDT Joe Thomas MD [facility] CPT-77165 Level 3 Est. Patient 08:18:06 CDT Julito Taylor APRN [facility] CPT-63920 Level 3 Est. Patient 10:12:22 VIBRATION ANALYST Ignacio Colmenares [facility] CPT-38954 Level 3 Est. Patient 14:30:38 VIBRATION ANALYST Ignacio Colmenares DO [facility] CPT-80927 Level 3 Est. Patient 08:21:09 VIBRATION ANALYST Ramu LAUGHLIN [facility] CPT-19735 Level 3 Est. Patient 15:39:17 VIBRATION ANALYST Ramu LAUGHLIN [facility] CPT-08411 Level 3 Est. Patient 18:43:[address] [facility] Procedures Code Procedure Name Date Entry Date Standard Description CPT-LR Lesion Removal 15:30:11 VIBRATION ANALYST CPT-77514 Abd single AP View 13:53:50 CDT CPT-43147 Nail Avulsion 17:26:33 CDT CPT-87384 Abx/Therapy Injection 10:36:59 VIBRATION ANALYST CPT-J1885 Toradol 60 mg (Ketorolac) 16:20:19 VIBRATION ANALYST CPT-33276 Abx/Therapy Injection 16:20:19 VIBRATION ANALYST CPT-96632 Venipuncture Draw Fee 14:45:53 VIBRATION ANALYST CPT-30944 Abx/Therapy Injection 08:21:09 VIBRATION ANALYST CPT-J2550 Phenergan 50 mg (Promethazine) 16:24:49 VIBRATION ANALYST CPT-J2175 Demerol 75 mg (Meperidine) 16:24:49 VIBRATION ANALYST CPT-J2550 Phenergan 50 mg (Promethazine) 18:33:49 VIBRATION ANALYST CPT-J2175 Demerol 50 mg (Meperidine) 18:33:49 VIBRATION ANALYST CPT-J2550 Phenergan 50 mg (Promethazine) 15:39:17 VIBRATION ANALYST CPT-J2175 Demerol 50 mg (Meperidine) 15:39:17 VIBRATION ANALYST CPT-OV Office Visit 16:53:10 CDT
--- OUTSIDE RECORDS SUMMARY | 2019-03-21 22:57 | XMS REPORT | Clinical Summary ---
Author Author Admin, E Organization [facility] Address Unknown Phone Unavailable Allergies, Adverse Reactions, [...] KATHI INTRAUTERINE COPPER INTRAUTERINE INTRAUTERINE DEVICE COPPER 71746082270 Active Kenny Mercado MD Active MIRENA (52 MG) INTRAUTERINE DEVICE LEVONORGESTREL IUD 41703343943 No Longer Active Kenny Mercado MD Active NORTRIPTYLINE HCL 25 MG ORAL CAPSULE 1 daily at bedtime NORTRIPTYLINE HCL 52660047557 Active Kenny Mercado MD Active SUMATRIPTAN SUCCINATE 100 MG ORAL TABLET 1 po at onset of headache may repeat in 2 hrs. SUMATRIPTAN SUCCINATE 90822067883 No Longer Active Kenny Mercado MD Active EFFEXOR XR 75 MG ORAL CAPSULE EXTENDED RELEASE 24 HOUR 1 capsule every evening VENLAFAXINE HCL 48661584542 Active Kenny Mercado MD Active EFFEXOR XR 150 MG ORAL CAPSULE EXTENDED RELEASE 24 HOUR 1 capsule every morning VENLAFAXINE HCL 37562043294 Active Kenny Mercado MD Active LEXAPRO 10 MG ORAL TABLET 1 tablet by mouth daily ESCITALOPRAM OXALATE 39971314390 No Longer Active Kenny Mercado MD Active FIORICET 325-50-40 MG TAB 1-2 tabs by mouth q6hr PRN headache [id number] 29572971160 No Longer Active Kenny Mercado MD Active LORAZEPAM 0.5 MG ORAL TABLET 1 po q day prn anxiety LORAZEPAM 69184800245 Active Ignacio Colmenares DO Active SEROQUEL 25 MG ORAL TABLET 1 po q evening for major depression QUETIAPINE FUMARATE 42600204309 Active Ignacio Colmenares DO Active CELEXA 20 MG ORAL TABLET 1 po daily CITALOPRAM HYDROBROMIDE 63088608628 No Longer Active Ignacio Colmenares DO Active HYDROCODONE-ACETAMINOPHEN 5-325 MG ORAL TABLET 1 every 4-6 hrs prn HYDROCODONE-ACETAMINOPHEN 38840248848 Active Ramu LAUGHLIN Active PREDNISONE 20 MG ORAL TABLET 1 po bid 3 days, then 1 po q day 3 days PREDNISONE 15295743928 No Longer Active Ramu LAUGHLIN Active CEFTIN 500 MG ORAL TABLET 1 po bid 10 day CEFUROXIME AXETIL 73372310157 No Longer Active Ramu LAUGHLIN Active AMITRIPTYLINE HCL 10 MG ORAL TABLET 1 po at hs prn AMITRIPTYLINE HCL 97079371694 No Longer Active Ignacio Colmenares DO Active IBUPROFEN 200 MG ORAL TABLET 3-4 tabs prn IBUPROFEN 11917005148 Active Ignacio Colmenares DO Active TYLENOL EXTRA STRENGTH 500 MG ORAL TABLET 2 tabs prn ACETAMINOPHEN 99163308899 Active Ignacio Colmenares DO Active AMBIEN 10 MG ORAL TABLET 1 tab by mouth at bedtime as needed for sleep ZOLPIDEM TARTRATE 61393321249 Active Ignacio Colmenares DO Active AZITHROMYCIN 250 MG ORAL TABLET 2 pills day 1,1 pill day 2-5 AZITHROMYCIN 48963784926 No Longer Active Nicole Gimenez MD Active CEFTIN 500 MG ORAL TABLET 1 po bid 10 day CEFTIN 500 MG ORAL TABLET CEFUROXIME AXETIL Inactive PREDNISONE 20 MG ORAL TABLET 1 po bid 3 days, then 1 po q day 3 days PREDNISONE 20 MG ORAL TABLET 576109 PREDNISONE Inactive CELEXA 20 MG ORAL TABLET 1 po daily CELEXA 20 MG ORAL TABLET 405423 CITALOPRAM HYDROBROMIDE Inactive FIORICET 325-50-40 MG TAB 1-2 tabs by mouth q6hr PRN headache FIORICET 325-50-40 MG TAB [id number] Inactive LEXAPRO 10 MG ORAL TABLET 1 tablet by mouth daily LEXAPRO 10 MG ORAL TABLET 357318 ESCITALOPRAM OXALATE Inactive SUMATRIPTAN SUCCINATE 100 MG ORAL TABLET 1 po at onset of headache may repeat in 2 hrs. SUMATRIPTAN SUCCINATE 100 MG ORAL TABLET 288241 SUMATRIPTAN SUCCINATE Inactive MIRENA (52 MG) INTRAUTERINE DEVICE MIRENA (52 MG) INTRAUTERINE DEVICE LEVONORGESTREL IUD Inactive AZITHROMYCIN 250 MG ORAL TABLET 2 pills day 1,1 pill day 2-5 AZITHROMYCIN 250 MG ORAL TABLET 175169 AZITHROMYCIN Inactive Immunizations Vaccine Administration Date Value [...] Measured Encounters Code Encounter Date Provider Facility CPT-57699 Level 2 Est. Patient 15:30:11 BROADCAST DESIGNER Kenny Mercado MD [facility] CPT-18341 Level 3 Est. Patient 12:29:51 CDT Joe Thomas MD [facility] CPT-52910 Level 3 Est. Patient 08:18:06 CDT Julito Taylor APRN [facility] CPT-95653 Level 3 Est. Patient 10:12:22 BROADCAST DESIGNER Ignacio Colmenares [facility] CPT-63209 Level 3 Est. Patient 14:30:38 BROADCAST DESIGNER Ignacio Colmenares DO [facility] CPT-02111 Level 3 Est. Patient 08:21:09 BROADCAST DESIGNER Ramu LAUGHLIN [facility] CPT-14212 Level 3 Est. Patient 15:39:17 BROADCAST DESIGNER Ramu LAUGHLIN [facility] CPT-91616 Level 3 Est. Patient 18:43:41 CDT Ignacio Colmenares [facility] Procedures Code Procedure Name Date Entry Date Standard Description CPT-LR Lesion Removal 15:30:11 BROADCAST DESIGNER CPT-90243 Abd single AP View 13:53:50 CDT CPT-53778 Nail Avulsion 17:26:33 CDT CPT-32556 Abx/Therapy Injection 10:36:59 BROADCAST DESIGNER CPT-J1885 Toradol 60 mg (Ketorolac) 16:20:19 BROADCAST DESIGNER CPT-76780 Abx/Therapy Injection 16:20:19 BROADCAST DESIGNER CPT-27059 Venipuncture Draw Fee 14:45:53 BROADCAST DESIGNER CPT-48330 Abx/Therapy Injection 08:21:09 BROADCAST DESIGNER CPT-J2550 Phenergan 50 mg (Promethazine) 16:24:49 BROADCAST DESIGNER CPT-J2175 Demerol 75 mg (Meperidine) 16:24:49 BROADCAST DESIGNER CPT-J2550 Phenergan 50 mg (Promethazine) 18:33:49 BROADCAST DESIGNER CPT-J2175 Demerol 50 mg (Meperidine) 18:33:49 BROADCAST DESIGNER CPT-J2550 Phenergan 50 mg (Promethazine) 15:39:17 BROADCAST DESIGNER CPT-J2175 Demerol 50 mg (Meperidine) 15:39:17 BROADCAST DESIGNER CPT-OV Office Visit 16:53:10 CDT
--- OUTSIDE RECORDS SUMMARY | 2019-03-21 22:57 | XMS REPORT | Clinical Summary ---
Author Author Admin, E Organization [facility] Address Unknown Phone Unavailable Allergies, Adverse Reactions, [...] KATHI INTRAUTERINE COPPER INTRAUTERINE INTRAUTERINE DEVICE COPPER 12236129865 Active Kenny Mercado MD Active MIRENA (52 MG) INTRAUTERINE DEVICE LEVONORGESTREL IUD 16518732646 No Longer Active Kenny Mercado MD Active NORTRIPTYLINE HCL 25 MG ORAL CAPSULE 1 daily at bedtime NORTRIPTYLINE HCL 64033489083 Active Kenny Mercado MD Active SUMATRIPTAN SUCCINATE 100 MG ORAL TABLET 1 po at onset of headache may repeat in 2 hrs. SUMATRIPTAN SUCCINATE 09713334110 No Longer Active Kenny Mercado MD Active EFFEXOR XR 75 MG ORAL CAPSULE EXTENDED RELEASE 24 HOUR 1 capsule every evening VENLAFAXINE HCL 41502356369 Active Kenny Mercado MD Active EFFEXOR XR 150 MG ORAL CAPSULE EXTENDED RELEASE 24 HOUR 1 capsule every morning VENLAFAXINE HCL 02400630727 Active Kenny Mercado MD Active LEXAPRO 10 MG ORAL TABLET 1 tablet by mouth daily ESCITALOPRAM OXALATE 12445102239 No Longer Active Kenny Mercado MD Active FIORICET 325-50-40 MG TAB 1-2 tabs by mouth q6hr PRN headache [id number] 60818186119 No Longer Active Kenny Mercado MD Active LORAZEPAM 0.5 MG ORAL TABLET 1 po q day prn anxiety LORAZEPAM 32456971537 Active Ignacio Colmenares DO Active SEROQUEL 25 MG ORAL TABLET 1 po q evening for major depression QUETIAPINE FUMARATE 56646307069 Active Ignacio Colmenares DO Active CELEXA 20 MG ORAL TABLET 1 po daily CITALOPRAM HYDROBROMIDE 38292958022 No Longer Active Ignacio Colmenares DO Active HYDROCODONE-ACETAMINOPHEN 5-325 MG ORAL TABLET 1 every 4-6 hrs prn HYDROCODONE-ACETAMINOPHEN 45607617182 Active Ramu LAUGHLIN Active PREDNISONE 20 MG ORAL TABLET 1 po bid 3 days, then 1 po q day 3 days PREDNISONE 55478440094 No Longer Active Ramu LAUGHLIN Active CEFTIN 500 MG ORAL TABLET 1 po bid 10 day CEFUROXIME AXETIL 57544678978 No Longer Active Ramu LAUGHLIN Active AMITRIPTYLINE HCL 10 MG ORAL TABLET 1 po at hs prn AMITRIPTYLINE HCL 56749416404 No Longer Active Ignacio Colmenares DO Active IBUPROFEN 200 MG ORAL TABLET 3-4 tabs prn IBUPROFEN 95822496444 Active Ignacio Colmenares DO Active TYLENOL EXTRA STRENGTH 500 MG ORAL TABLET 2 tabs prn ACETAMINOPHEN 25858909220 Active Ignacio Colmenares DO Active AMBIEN 10 MG ORAL TABLET 1 tab by mouth at bedtime as needed for sleep ZOLPIDEM TARTRATE 48001649531 Active Ignacio Colmenares DO Active AZITHROMYCIN 250 MG ORAL TABLET 2 pills day 1,1 pill day 2-5 AZITHROMYCIN 31960005198 No Longer Active Nicole Gimenez MD Active CEFTIN 500 MG ORAL TABLET 1 po bid 10 day CEFTIN 500 MG ORAL TABLET CEFUROXIME AXETIL Inactive PREDNISONE 20 MG ORAL TABLET 1 po bid 3 days, then 1 po q day 3 days PREDNISONE 20 MG ORAL TABLET 169700 PREDNISONE Inactive CELEXA 20 MG ORAL TABLET 1 po daily CELEXA 20 MG ORAL TABLET 793638 CITALOPRAM HYDROBROMIDE Inactive FIORICET 325-50-40 MG TAB 1-2 tabs by mouth q6hr PRN headache FIORICET 325-50-40 MG TAB [id number] Inactive LEXAPRO 10 MG ORAL TABLET 1 tablet by mouth daily LEXAPRO 10 MG ORAL TABLET 251700 ESCITALOPRAM OXALATE Inactive SUMATRIPTAN SUCCINATE 100 MG ORAL TABLET 1 po at onset of headache may repeat in 2 hrs. SUMATRIPTAN SUCCINATE 100 MG ORAL TABLET 445006 SUMATRIPTAN SUCCINATE Inactive MIRENA (52 MG) INTRAUTERINE DEVICE MIRENA (52 MG) INTRAUTERINE DEVICE LEVONORGESTREL IUD Inactive AZITHROMYCIN 250 MG ORAL TABLET 2 pills day 1,1 pill day 2-5 AZITHROMYCIN 250 MG ORAL TABLET 219398 AZITHROMYCIN Inactive Immunizations Vaccine Administration Date Value [...] Measured Encounters Code Encounter Date Provider Facility CPT-92667 Level 2 Est. Patient 15:30:11 BATTERY TEST ENGINEER Kenny Mercado MD [facility] CPT-09391 Level 3 Est. Patient 12:29:51 CDT Joe Thomas MD [facility] CPT-08478 Level 3 Est. Patient 08:18:06 CDT Julito Taylor APRN [facility] CPT-49426 Level 3 Est. Patient 10:12:22 BATTERY TEST ENGINEER Ignacio Colmenares [facility] CPT-30425 Level 3 Est. Patient 14:30:38 BATTERY TEST ENGINEER Ignacio Colmenares DO [facility] CPT-58225 Level 3 Est. Patient 08:21:09 BATTERY TEST ENGINEER Ramu LAUGHLIN [facility] CPT-58015 Level 3 Est. Patient 15:39:17 BATTERY TEST ENGINEER Ramu LAUGHLIN [facility] CPT-84570 Level 3 Est. Patient 18:43:41 CDT Ignacio Colmenares [facility] Procedures Code Procedure Name Date Entry Date Standard Description CPT-LR Lesion Removal 15:30:11 BATTERY TEST ENGINEER CPT-49713 Abd single AP View 13:53:50 CDT CPT-78449 Nail Avulsion 17:26:33 CDT CPT-55201 Abx/Therapy Injection 10:36:59 BATTERY TEST ENGINEER CPT-J1885 Toradol 60 mg (Ketorolac) 16:20:19 BATTERY TEST ENGINEER CPT-44561 Abx/Therapy Injection 16:20:19 BATTERY TEST ENGINEER CPT-73901 Venipuncture Draw Fee 14:45:53 BATTERY TEST ENGINEER CPT-97708 Abx/Therapy Injection 08:21:09 BATTERY TEST ENGINEER CPT-J2550 Phenergan 50 mg (Promethazine) 16:24:49 BATTERY TEST ENGINEER CPT-J2175 Demerol 75 mg (Meperidine) 16:24:49 BATTERY TEST ENGINEER CPT-J2550 Phenergan 50 mg (Promethazine) 18:33:49 BATTERY TEST ENGINEER CPT-J2175 Demerol 50 mg (Meperidine) 18:33:49 BATTERY TEST ENGINEER CPT-J2550 Phenergan 50 mg (Promethazine) 15:39:17 BATTERY TEST ENGINEER CPT-J2175 Demerol 50 mg (Meperidine) 15:39:17 BATTERY TEST ENGINEER CPT-OV Office Visit 16:53:10 CDT
--- OUTSIDE RECORDS SUMMARY | 2019-03-21 23:01 | XMS REPORT | Continuity of Care Document ---
Demographics x Preferred Language Unknown Marital Status Unknown Mosque Affiliation Unknown Race Unknown Ethnic Group Unknown Author Organization Unknown Address Unknown Allergies Active Description Code Type Severity Reaction Onset Reported/Identified Relationship to Patient Clinical Status Yes No known drug allergies [id number] ND N/A N/A Yes No known allergies Drug N/A N/A Yes No Known Drug Allergies [id number] Drug Allergy Unknown N/A 01/21/2013 Medications There is no data. Problems Date Dx Coded Attending Type Code Diagnosis Diagnosed By 09/17/1201 MARCELO POMPA SYSTEMS COORDINATOR Ot A93.8 OTHER SPECIFIED ARTHROPOD-BORNE VIRAL FE 09/17/1201 MARCELO POMPA Ot G93.2 BENIGN INTRACRANIAL HYPERTENSION 09/17/1201 MARCELO POMPA Ot R25.1 TREMOR, UNSPECIFIED 03/12/2013 JAZMINE KAPLAN MD Ot 088.81 LYME DISEASE 03/12/2013 JAZMINE KAPLAN MD Ot 575.11 CHRONIC CHOLECYSTITIS 03/12/2013 JAZMINE KAPLAN MD Ot 575.8 DIS OF GALLBLADDER NEC 05/13/2013 300.00 AN ANXIETY UNSPEC 05/13/2013 311 MO DEPRESS NOS 05/13/2013 [facility], HERNANDEZ R 300.00 AN ANXIETY UNSPEC 05/13/2013 [facility], HERNANDEZ R 311 MO DEPRESS NOS 05/13/2013 [facility], HERNA[facility]Z R 300.00 AN ANXIETY UNSPEC 05/13/2013 [facility], HERNANDEZ R 311 MO DEPRESS NOS 05/13/2013 [facility], HERNANDEZ R 300.00 AN ANXIETY UNSPEC 05/13/2013 [facility], HERNANDEZ R 311 MO DEPRESS NOS 05/13/2013 [facility], HERNANDEZ R 300.00 AN ANXIETY UNSPEC 05/13/2013 [facility], HERNANDEZ R 311 MO DEPRESS NOS 05/13/2013 [facility], HERNANDEZ R 300.00 AN ANXIETY UNSPEC 05/13/2013 [facility], HERNANDEZ R 311 MO DEPRESS NOS 05/13/2013 [facility], HERNANDEZ R 300.00 AN ANXIETY UNSPEC 05/13/2013 [facility], HERNANDEZ R 311 MO DEPRESS NOS 05/13/2013 [facility], [facility]NAN[facility] R 300.00 AN ANXIETY UNSPEC 05/13/2013 [facility], HERNAN[facility]Z R 311 MO DEPRESS NOS 05/13/2013 [facility], [place] R 300.00 AN ANXIETY UNSPEC 05/13/2013 [facility], HERNAN[place] R 311 MO DEPRESS NOS 05/13/2013 [facility] R 300.00 AN ANXIETY UNSPEC 05/13/2013 [facility] 311 MO DEPRESS NOS 05/13/2013 [facility] HERNAN[facility] R 300.00 AN ANXIETY UNSPEC 05/13/2013 [facility] R 311 MO DEPRESS NOS 05/13/2013 [facility] R 300.00 AN ANXIETY UNSPEC 05/13/2013 [facility] R 311 MO DEPRESS NOS 05/13/2013 [facility] R 300.00 AN ANXIETY UNSPEC 05/13/2013 [facility] R 311 MO DEPRESS NOS 05/13/2013 [facility] R 300.00 AN ANXIETY UNSPEC 05/13/2013 [facility] R 311 MO DEPRESS NOS 05/13/2013 [facility] R 300.00 AN ANXIETY UNSPEC 05/13/2013 [facility] R 311 MO DEPRESS NOS 05/13/2013 [facility] R 300.00 AN ANXIETY UNSPEC 05/13/2013 [facility] R 311 MO DEPRESS NOS 05/27/2013 MARCELO POMPA SYSTEMS COORDINATOR Ot 276.51 DEHYDRATION 05/27/2013 MARCELO POMPA SYSTEMS COORDINATOR Ot 789.00 ABDOMINAL PAIN, UNSPECIFIED SITE 05/27/2013 MARCELO POMPA SYSTEMS COORDINATOR Ot 790.7 BACTEREMIA 02/20/2014 MARCELO POMPA SYSTEMS COORDINATOR Ot 088.81 LYME DISEASE 02/20/2014 MARCELO POMPA SYSTEMS COORDINATOR Ot 790.6 ABN BLOOD CHEMISTRY NEC 03/02/2014 MARCELO POMPA SYSTEMS COORDINATOR Ot 088.81 LYME DISEASE 03/02/2014 MARCELO POMPA SYSTEMS COORDINATOR Ot 790.6 ABN BLOOD CHEMISTRY NEC 03/12/2014 KARY POMPA DO Ot 088.81 LYME DISEASE 03/12/2014 [...] DO Ot V58.69 OTH MED,LT,CURRENT USE [facility] 296.22 MO DEPRESSIVE SINGLE MODERATE 04/19/2014 [facility], HERNAN[facility] R 296.22 MO DEPRESSIVE SINGLE MODERATE 04/19/2014 [facility], HERNAN[place] R 296.22 MO DEPRESSIVE SINGLE MODERATE 04/19/2014 [facility], HERNAN[place] R 296.22 MO DEPRESSIVE SINGLE MODERATE 04/19/2014 [facility], [place] R 296.22 MO DEPRESSIVE SINGLE MODERATE 09/11/2014 LIZ LOVE MD Ot 530.10 ESOPHAGITIS NOS 09/11/2014 LOVE MD, LIZ M Ot 535.50 UNSP GASTRITIS GASTRODUODENITIS W/O ME 09/11/2014 KATE ZAPATA, LIZ Blue Ot V74.8 SCREEN-BACTERIAL DIS NEC 09/22/2014 MARCELO POMPA SYSTEMS COORDINATOR Ot 536.8 09/22/2014 MARCELO POMPA L SYSTEMS COORDINATOR Ot 789.00 06/21/2015 Ot 346.90 06/21/2015 Ot 780.60 06/21/2015 Ot 088.81 06/21/2015 MARCELO POMPA L SYSTEMS COORDINATOR Ot 553.1 06/21/2015 MARCELO POMPA L SYSTEMS COORDINATOR Ot 780.60 06/21/2015 CHOLO POMPAIA L SYSTEMS COORDINATOR Ot 788.63 06/21/2015 CHOLO POMPAIA L SYSTEMS COORDINATOR Ot 789.00 06/21/2015 CHOLO POMPAIA L SYSTEMS COORDINATOR Ot 789.01 06/21/2015 CHOLO POMPAIA L SYSTEMS COORDINATOR Ot V58.81 06/21/2015 CHOLO POMPAIA L SYSTEMS COORDINATOR Ot 785.1 06/21/2015 KEILA POMPARICIA L SYSTEMS COORDINATOR Ot 785.2 06/21/2015 KEILA POMPARICIA L SYSTEMS COORDINATOR Ot 625.9 06/21/2015 KEILA POMPARICIA L SYSTEMS COORDINATOR Ot 780.60 06/21/2015 ALETHA MARCELO L SYSTEMS COORDINATOR Ot 789.00 06/21/2015 KEILA POMPARICIA L SYSTEMS COORDINATOR Ot 790.6 06/21/2015 KEILA POMPARICIA L SYSTEMS COORDINATOR Ot 088.81 06/21/2015 KEILA POMPARICIA L SYSTEMS COORDINATOR Ot 276.51 06/21/2015 KEILA POMPARICIA L SYSTEMS COORDINATOR Ot 466.0 06/21/2015 KEILA POMPARICIA L SYSTEMS COORDINATOR Ot 276.51 06/21/2015 KEILA POMPARICIA L SYSTEMS COORDINATOR Ot 785.2 06/21/2015 KEILA POMPARICIA L SYSTEMS COORDINATOR Ot 789.09 06/21/2015 MARCELO POMPA L SYSTEMS COORDINATOR Ot 790.7 06/21/2015 KARY POMPA DO Ot 348.2 06/21/2015 MARCELO POMPA L SYSTEMS COORDINATOR Ot 536.8 06/21/2015 POMPA MARCELO Boone SYSTEMS COORDINATOR Ot 789.00 06/21/2015 KATE ZAPATA, LIZ Blue Ot 789.06 06/21/2015 KATE ZAPATA, LIZ Blue Ot V72.84 06/26/2015 POMPA DOKARY Ot 038.9 06/26/2015 POMPA DO, KARY Diaz Ot 088.81 06/26/2015 POMPA DO, KARY Diaz Ot 244.9 06/26/2015 POMPA DO, KARY Diaz Ot 268.9 06/26/2015 POMPA DO, KARY Diaz Ot 276.51 06/26/2015 POMPA DO, KARY Diaz Ot 300.00 06/26/2015 POMPA DOKARY Ot 311 06/26/2015 POMPA DOKARY Ot 348.2 06/26/2015 POMPA DOKARY Ot 590.80 06/26/2015 POMPA DOKARY Ot 729.1 06/26/2015 POMPA DOKARY Ot 995.91 06/27/2015 POMPA DOKARY Ot 038.9 06/27/2015 POMPA DOKARY Ot 088.81 06/27/2015 POMPA DOKARY Ot 244.9 06/27/2015 POMPA DOKARY Ot 268.9 06/27/2015 POMPA DOKARY Ot 276.51 06/27/2015 POMPA DOKARY Ot 300.00 06/27/2015 POMPA DOKARY Ot 311 06/27/2015 POMPA DOKARY Ot 348.2 06/27/2015 POMPA DOKARY Ot 590.80 06/27/2015 POMPA DOKARY Ot 729.1 06/27/2015 POMPA DOKARY Ot 995.91 06/28/2015 POMPA DO, KARY Diaz Ot 038.9 06/28/2015 POMPA DOKARY Ot 088.81 06/28/2015 POMPA DO, KARY Diaz Ot 244.9 06/28/2015 POMPA DO, KARY Diaz Ot 268.9 06/28/2015 POMPA DO, KARY Diaz Ot 276.51 06/28/2015 KARY POMPA DO Ot 300.00 06/28/2015 KARY POMPA DO Ot 311 06/28/2015 KARY POMPA DO Ot 348.2 06/28/2015 KARY POMPA DO Ot [...] DO Ot 275.2 DIS MAGNESIUM METABOLISM 06/29/2015 KRAY POMPA DO Ot 276.51 DEHYDRATION 06/29/2015 AKRY POMPA DO Ot 300.00 ANXIETY STATE NOS [...] KARY POMPA DO Ot 995.91 SEPSIS 07/18/2015 MARCELO POMPA SYSTEMS COORDINATOR Ot 276.51 07/18/2015 MARCELO POMPA SYSTEMS COORDINATOR Ot 348.2 07/18/2015 MARCELO POMPA SYSTEMS COORDINATOR Ot 784.0 09/19/2015 MARCELO POMPA SYSTEMS COORDINATOR Ot 276.51 09/19/2015 MARCELO POMPA SYSTEMS COORDINATOR Ot 348.2 09/19/2015 MARCELO POMPAP Ot 784.0 01/21/2016 Ot R00.0 01/21/2016 Ot [...] R20.2 PARESTHESIA OF SKIN 02/15/2016 MARCELO POMPA SYSTEMS COORDINATOR Ot N20.0 CALCULUS OF KIDNEY 02/20/2016 MARCELO POMPA SYSTEMS COORDINATOR Ot N20.0 CALCULUS OF KIDNEY 03/06/2016 MARCELO POMPA SYSTEMS COORDINATOR Ot N20.0 CALCULUS OF KIDNEY 03/12/2016 MARCELO POMPA SYSTEMS COORDINATOR Ot N20.0 CALCULUS OF KIDNEY 06/06/2017 Ot R00.0 TACHYCARDIA, UNSPECIFIED 06/06/2017 Ot R07.9 CHEST PAIN, UNSPECIFIED 06/06/2017 Ot R20.2 PARESTHESIA OF SKIN 06/06/2017 MARCELO POMPA SYSTEMS COORDINATOR Ot N20.0 CALCULUS OF KIDNEY 06/06/2017 ZELDA YANG MD Ot F32.9 MAJOR DEPRESSIVE DISORDER, SINGLE EPISOD 06/06/2017 ZELDA YANG MD, Ot F41.9 ANXIETY DISORDER, UNSPECIFIED 06/06/2017 ZELDA YANG MD Ot G93.2 BENIGN INTRACRANIAL HYPERTENSION 06/06/2017 ZELDA YANG MD Ot J45.909 UNSPECIFIED ASTHMA, UNCOMPLICATED 06/06/2017 ZELDA YANG MD, Ot K21.9 GASTRO-ESOPHAGEAL REFLUX DISEASE WITHOUT 06/06/2017 ZELDA YANG MD, Ot M54.2 CERVICALGIA 06/06/2017 ZELDA YANG MD, Ot R51 HEADACHE 06/06/2017 ZELDA YANG MD Ot Z87.19 PERSONAL HISTORY OF OTHER DISEASES OF TH 06/06/2017 ZELDA YANG MD Ot Z87.59 PERSONAL HISTORY OF COMP OF PREG, CHLDBR 06/06/2017 Ot 346.90 MIGRAINE UNSPECIFIED W/O INTRACT MGRN W/ 06/06/2017 Ot 780.60 FEVER, UNSPECIFIED 06/06/2017 Ot 088.81 LYME DISEASE 06/06/2017 MARCELO POMPA SYSTEMS COORDINATOR Ot 553.1 UMBILICAL HERNIA 06/06/2017 MARCELO POMPA SYSTEMS COORDINATOR Ot 780.60 FEVER, UNSPECIFIED 06/06/2017 MARCELO POMPA SYSTEMS COORDINATOR Ot 788.63 URGENCY OF URINATION 06/06/2017 MARCELO POMPA SYSTEMS COORDINATOR Ot 789.00 ABDOMINAL PAIN, UNSPECIFIED SITE 06/06/2017 MARCELO POMPA SYSTEMS COORDINATOR Ot 789.01 ABDOMINAL PAIN, RIGHT UPPER QUADRANT 06/06/2017 MARCELO POMPA SYSTEMS COORDINATOR Ot V58.81 FIT/ADJ VASCULAR CATHETER 06/06/2017 MARCELO POMPA SYSTEMS COORDINATOR Ot 785.1 PALPITATIONS 06/06/2017 MARCELO POMPA L SYSTEMS COORDINATOR Ot 785.2 CARDIAC MURMURS NEC 06/06/2017 MARCELO POMPA L SYSTEMS COORDINATOR Ot 625.9 FEM GENITAL SYMPTOMS NOS 06/06/2017 MARCELO POMPA SYSTEMS COORDINATOR Ot 780.60 FEVER, UNSPECIFIED 06/06/2017 MARCELO POMPA L SYSTEMS COORDINATOR Ot 789.00 ABDOMINAL PAIN, UNSPECIFIED SITE 06/06/2017 MARCELO POMPA SYSTEMS COORDINATOR Ot 790.6 ABN BLOOD CHEMISTRY NEC 06/06/2017 MARCELO POMPA L SYSTEMS COORDINATOR Ot 088.81 LYME DISEASE 06/06/2017 MARCELO POMPA L SYSTEMS COORDINATOR Ot 276.51 DEHYDRATION 06/06/2017 MARCELO POMPA L SYSTEMS COORDINATOR Ot 466.0 ACUTE BRONCHITIS 06/06/2017 MARCELO POMPA L SYSTEMS COORDINATOR Ot 276.51 DEHYDRATION 06/06/2017 MARCELO POMPA L SYSTEMS COORDINATOR Ot 785.2 CARDIAC MURMURS NEC 06/06/2017 MARCELO POMPA SYSTEMS COORDINATOR Ot 789.09 ABDOMINAL PAIN, OTHER SPECIFIED SITE 06/06/2017 MARCELO POMPA L SYSTEMS COORDINATOR Ot 790.7 BACTEREMIA 06/06/2017 KARY POMPA DO Ot 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 06/06/2017 MARCELO POMPA SYSTEMS COORDINATOR Ot 536.8 STOMACH FUNCTION DIS NEC 06/06/2017 MARCELO POMPA SYSTEMS COORDINATOR Ot 789.00 ABDOMINAL PAIN, UNSPECIFIED SITE 06/06/2017 KATE ZAPATA, LIZ Blue Ot 789.06 ABDOMINAL PAIN, EPIGASTRIC 06/06/2017 KATE ZAPATA, LIZ Blue Ot V72.84 EXAM PRE-OPERATIVE NOS 06/06/2017 MARCELO POMPA SYSTEMS COORDINATOR Ot 276.51 DEHYDRATION 06/06/2017 MARCELO POMPA L SYSTEMS COORDINATOR Ot 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 06/06/2017 MARCELO POMPA SYSTEMS COORDINATOR Ot 784.0 HEADACHE 06/06/2017 Ot R00.0 TACHYCARDIA, UNSPECIFIED 06/06/2017 Ot R07.9 CHEST PAIN, UNSPECIFIED 06/06/2017 Ot R20.2 PARESTHESIA OF SKIN 06/06/2017 MARCELO POMPA SYSTEMS COORDINATOR Ot N20.0 CALCULUS OF KIDNEY 06/09/2017 ZELDA YANG MD Ot F32.9 MAJOR DEPRESSIVE DISORDER, SINGLE EPISOD 06/09/2017 ZELDA YANG MD, Ot F41.9 ANXIETY DISORDER, UNSPECIFIED 06/09/2017 ZELDA YANG MD Ot G93.2 BENIGN INTRACRANIAL HYPERTENSION 06/09/2017 ZELDA YANG MD Ot J45.909 UNSPECIFIED ASTHMA, UNCOMPLICATED 06/09/2017 ZELDA YANG MD Ot K21.9 GASTRO-ESOPHAGEAL REFLUX DISEASE WITHOUT 06/09/2017 [...] MD Ot G93.2 BENIGN INTRACRANIAL HYPERTENSION 06/17/2017 CELIA ZAPATA, ZELDA Cr Ot J45.909 UNSPECIFIED ASTHMA, UNCOMPLICATED 06/17/2017 CELIA ZAPATA, ZELDA Cr Ot K21.9 GASTRO-ESOPHAGEAL REFLUX DISEASE WITHOUT 06/17/2017 ZELDA YANG MD Ot M54.2 CERVICALGIA 06/17/2017 CELIA ZAPATA, ZELDA Cr Ot R51 HEADACHE 06/17/2017 ZELDA YANG MD Ot Z87.19 PERSONAL HISTORY OF OTHER DISEASES OF TH 06/17/2017 CELIA ZAPATA, ZELDA Cr Ot Z87.59 PERSONAL HISTORY OF COMP OF PREG, CHLDBR 02/17/2018 MARCELO POMPA SYSTEMS COORDINATOR Ot G93.2 BENIGN INTRACRANIAL HYPERTENSION 02/18/2018 MARCELO POMPA SYSTEMS COORDINATOR Ot G93.2 BENIGN INTRACRANIAL HYPERTENSION 02/22/2018 MARCELO POMPA SYSTEMS COORDINATOR Ot G93.2 BENIGN INTRACRANIAL HYPERTENSION 02/23/2018 MARCELO POMPA SYSTEMS COORDINATOR Ot G93.2 BENIGN INTRACRANIAL HYPERTENSION 03/09/2018 MARCELO POMPA SYSTEMS COORDINATOR Ot G43.909 MIGRAINE, UNSP, NOT INTRACTABLE, WITHOUT 03/09/2018 MARCELO POMPA SYSTEMS COORDINATOR Ot G93.2 BENIGN INTRACRANIAL HYPERTENSION 03/09/2018 MARCELO POMPA SYSTEMS COORDINATOR Ot H53.9 UNSPECIFIED VISUAL DISTURBANCE 05/07/2018 KARY POMPA DO Ot G93.2 BENIGN INTRACRANIAL HYPERTENSION 05/07/2018 KARY POMPA DO Ot G93.2 BENIGN INTRACRANIAL HYPERTENSION 05/07/2018 KARY POMPA DO Ot G93.2 BENIGN INTRACRANIAL HYPERTENSION 05/07/2018 KARY POMPA DO Ot G93.2 BENIGN INTRACRANIAL HYPERTENSION 05/07/2018 KARY POMPA DO Ot G93.2 BENIGN INTRACRANIAL HYPERTENSION 05/11/2018 KARY POMPA DO Ot G93.2 BENIGN INTRACRANIAL HYPERTENSION 09/25/2018 Z68.34 BMI 34-34.9 01/19/2019 Ot R00.0 TACHYCARDIA, UNSPECIFIED 01/19/2019 Ot R07.9 CHEST PAIN, UNSPECIFIED 01/19/2019 Ot R20.2 PARESTHESIA OF SKIN 01/19/2019 POMPA, MARCELO L SYSTEMS COORDINATOR Ot N20.0 CALCULUS OF KIDNEY 01/24/2019 POMPAMARCELO CHEUNG SYSTEMS COORDINATOR Ot 625.9 FEM GENITAL SYMPTOMS NOS 01/24/2019 POMPAMARCELO CHEUNG SYSTEMS COORDINATOR Ot 780.60 FEVER, UNSPECIFIED 01/24/2019 POMPAMARCELO CHEUNG L SYSTEMS COORDINATOR Ot 789.00 ABDOMINAL PAIN, UNSPECIFIED SITE 01/24/2019 POMPA, MARCELO L SYSTEMS COORDINATOR Ot 790.6 ABN BLOOD CHEMISTRY NEC 01/24/2019 POMPA, MARCELO L SYSTEMS COORDINATOR Ot 088.81 LYME DISEASE 01/24/2019 ALETHA MARCELO L SYSTEMS COORDINATOR Ot 276.51 DEHYDRATION 01/24/2019 ALETHA MARCELO L SYSTEMS COORDINATOR Ot 466.0 ACUTE BRONCHITIS 01/24/2019 ALETHA MARCELO L SYSTEMS COORDINATOR Ot 276.51 DEHYDRATION 01/24/2019 ALETHA MARCELO L SYSTEMS COORDINATOR Ot 785.2 CARDIAC MURMURS NEC 01/24/2019 ALETHA MARCELO L SYSTEMS COORDINATOR Ot 789.09 ABDOMINAL PAIN, OTHER SPECIFIED SITE 01/24/2019 ALETHA MARCELO L SYSTEMS COORDINATOR Ot 790.7 BACTEREMIA 01/24/2019 KARY POMPA DO Ot 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 01/24/2019 ALETHA MARCELO L SYSTEMS COORDINATOR Ot 536.8 STOMACH FUNCTION DIS NEC 01/24/2019 POMPA MARCELO Boone SYSTEMS COORDINATOR Ot 789.00 ABDOMINAL PAIN, UNSPECIFIED SITE 01/24/2019 KATE ZAPATA, LIZ Blue Ot 789.06 ABDOMINAL PAIN, EPIGASTRIC 01/24/2019 KATE ZAPATA, LIZ Blue Ot V72.84 EXAM PRE-OPERATIVE NOS 01/24/2019 ALETHA MARCELO L SYSTEMS COORDINATOR Ot 276.51 DEHYDRATION 01/24/2019 ALETHA MARCELO L SYSTEMS COORDINATOR Ot 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 01/24/2019 ALETHA MARCELO L SYSTEMS COORDINATOR Ot 784.0 HEADACHE 01/24/2019 Ot R00.0 TACHYCARDIA, UNSPECIFIED 01/24/2019 Ot R07.9 CHEST PAIN, UNSPECIFIED 01/24/2019 Ot R20.2 PARESTHESIA OF SKIN 01/24/2019 ALETHA MARCELO L SYSTEMS COORDINATOR Ot N20.0 CALCULUS OF KIDNEY 01/24/2019 ALETHAMARCELO SYSTEMS COORDINATOR Ot G43.909 MIGRAINE, UNSP, NOT INTRACTABLE, WITHOUT 01/24/2019 ALETHA MARCELO L SYSTEMS COORDINATOR Ot G93.2 BENIGN INTRACRANIAL HYPERTENSION 01/24/2019 ALETHA MARCELO Mely SYSTEMS COORDINATOR Ot H53.9 UNSPECIFIED VISUAL DISTURBANCE 01/26/2019 MARCELO POMPA SYSTEMS COORDINATOR Ot E86.0 DEHYDRATION 02/01/2019 E66.9 Obesity Class II (BMI 35-39.9) 02/01/2019 Z68.35 BMI 35-35.9 02/02/2019 ALETHA MARCELO Mely SYSTEMS COORDINATOR Ot 625.9 FEM GENITAL SYMPTOMS NOS 02/02/2019 MARCELO POMPA SYSTEMS COORDINATOR Ot 780.60 FEVER, UNSPECIFIED 02/02/2019 CHOLO POMPAIA Mely SYSTEMS COORDINATOR Ot 789.00 ABDOMINAL PAIN, UNSPECIFIED SITE 02/02/2019 CHOLO POMPAIA Mely SYSTEMS COORDINATOR Ot 790.6 ABN BLOOD CHEMISTRY NEC 02/02/2019 ALETHA MARCELO Boone SYSTEMS COORDINATOR Ot 088.81 LYME DISEASE 02/02/2019 ALETHA MARCELO Mely SYSTEMS COORDINATOR Ot 276.51 DEHYDRATION 02/02/2019 ALETHA MARCELO Mely SYSTEMS COORDINATOR Ot 466.0 ACUTE BRONCHITIS 02/02/2019 ALETHA MARCELO L SYSTEMS COORDINATOR Ot 276.51 DEHYDRATION 02/02/2019 ALETHA MARCELO Mely SYSTEMS COORDINATOR Ot 785.2 CARDIAC MURMURS NEC 02/02/2019 MARCELO POMPA SYSTEMS COORDINATOR Ot 789.09 ABDOMINAL PAIN, OTHER SPECIFIED SITE 02/02/2019 MARCELO POMPA SYSTEMS COORDINATOR Ot 790.7 BACTEREMIA 02/02/2019 KARY POMPA DO Ot 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 02/02/2019 MARCELO POMPA SYSTEMS COORDINATOR Ot 536.8 STOMACH FUNCTION DIS NEC 02/02/2019 MARCELO POMPA L SYSTEMS COORDINATOR Ot 789.00 ABDOMINAL PAIN, UNSPECIFIED SITE 02/02/2019 KATE ZAPATA, LIZ Blue Ot 789.06 ABDOMINAL PAIN, EPIGASTRIC 02/02/2019 KATE ZAPATA, LIZ Blue Ot V72.84 EXAM PRE-OPERATIVE NOS 02/02/2019 ALETHAMARCELO SYSTEMS COORDINATOR Ot 276.51 DEHYDRATION 02/02/2019 ALETHA MARCELO Boone SYSTEMS COORDINATOR Ot 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 02/02/2019 ALETHA MARCELO Boone SYSTEMS COORDINATOR Ot 784.0 HEADACHE 02/02/2019 Ot R00.0 TACHYCARDIA, UNSPECIFIED 02/02/2019 Ot R07.9 CHEST PAIN, UNSPECIFIED 02/02/2019 Ot R20.2 PARESTHESIA OF SKIN 02/02/2019 KEILA POMPAABENA Boone SYSTEMS COORDINATOR Ot N20.0 CALCULUS OF KIDNEY 02/02/2019 ALETHA MARCELO Boone SYSTEMS COORDINATOR Ot G43.909 MIGRAINE, UNSP, NOT INTRACTABLE, WITHOUT 02/02/2019 KEILA POMPAABENA Boone SYSTEMS COORDINATOR Ot G93.2 BENIGN INTRACRANIAL HYPERTENSION 02/02/2019 CHOLO POMPAJ CARLOS Boone SYSTEMS COORDINATOR Ot H53.9 UNSPECIFIED VISUAL DISTURBANCE 02/02/2019 CHOLO POMPAJ CARLOS Boone SYSTEMS COORDINATOR Ot E86.0 DEHYDRATION 02/03/2019 ALETHA MARCELO Boone SYSTEMS COORDINATOR Ot A93.8 OTHER SPECIFIED ARTHROPOD-BORNE VIRAL FE 02/03/2019 KEILA POMPAABENA Boone SYSTEMS COORDINATOR Ot G93.2 BENIGN INTRACRANIAL HYPERTENSION 02/03/2019 KEILA POMPARICIA Mely SYSTEMS COORDINATOR Ot R25.1 TREMOR, UNSPECIFIED 02/04/2019 G43.909 Migraine 02/04/2019 E66.9 Obesity Class I (BMI 30-34.9) 02/04/2019 Z68.34 BMI 34-34.9 02/17/2019 MARCELO POMPA Mely SYSTEMS COORDINATOR Ot E86.0 DEHYDRATION 03/15/2019 E66.01 Morbid obesity due to excess calories 03/15/2019 Z68.36 BMI 36-36.9 Procedures Code Description [place] [address] PSYTX PT&/FAMILY 45 MINUTES 05/27/2013 21689 PSYTX PT&/FAMILY 45 MINUTES 08/24/2013 08248 PSYTX PT&/FAMILY 45 MINUTES 09/09/2013 69057 PSYTX PT&/FAMILY 45 MINUTES 09/22/2013 59420 PSYTX PT&/FAMILY 45 MINUTES 10/20/2013 38825 PSYTX PT&/FAMILY 45 MINUTES 11/04/2013 43430 PSYTX PT&/FAMILY 45 MINUTES 11/22/2013 31324 PSYTX PT&/FAMILY 45 MINUTES 11/30/2013 24045 PSYTX PT&/FAMILY 45 MINUTES 01/04/2014 67847 PSYTX PT&/FAMILY 45 MINUTES 02/17/2014 10295 PSYTX PT&/FAMILY 45 MINUTES 03/30/2014 84985 PSYTX PT&/FAMILY 45 MINUTES 04/19/2014 41518 PSYTX PT&/FAMILY 45 MINUTES 05/03/2014 05032 PSYTX PT&/FAMILY 45 MINUTES 07/11/2014 87046 PSYTX PT&/FAMILY 45 MINUTES 07/25/2014 03.31 SPINAL TAP 06/27/2015 45.16 ESOPHAGOGASTRODUODENOSCOPY [EGD] W/CLOSE 06/29/[address] ABD & PELVIS W/O CONTRAST 02/18/2016 Results Test Result Range CBC WITH DIFF [...] Automated erythrocyte mean corpuscular hemoglobin concentration measurement (mass/volume) 32 g/dL 32-36 Automated erythrocyte distribution width ratio 13.7 % 10.0- 14.5 Automated blood platelet count (count/volume) 254 10*3/uL [...] Blood monocytes automated count (number/volume) 0.8 10*3 0.0- 1.0 Automated eosinophil count 0.1 10*3/uL 0.0-0.3 Automated blood basophil count (count/volume) 0.0 10*3/uL 0.0-0.1 Complete urinalysis with reflex to culture - 06/06/17 09:10 Urine color determination YELLOW NRG Urine clarity determination SLIGHTLY CLOUDY NRG Urine pH measurement by test strip 7 5-9 Specific gravity of urine by test strip 1.010 1.016-1.022 Urine protein assay by test strip, semi-quantitative [...] sediment leukocyte count by microscopy (number/high power field) [HPF] NRG Bacteria detection in urine sediment [...] Serum or plasma aspartate aminotransferase measurement (enzymatic activity/volume) 25 U/L 5-34 Serum or plasma alanine aminotransferase measurement (enzymatic activity/volume) 21 U/L 0-55 Serum or plasma protein measurement (mass/volume) 6.4 g/dL 6.4-8.2 Serum or plasma albumin measurement (mass/volume) 3.9 g/dL 3.2-4.5 Serum or plasma C reactive protein measurement (mass/volume) - 06/06/17 09:10 Serum or plasma C reactive protein measurement (mass/volume) 0.97 mg/dL 0.00-0.50 Cerebrospinal fluid cell count - 06/06/17 12:05 Cerebrospinal fluid appearance description CLEAR NRG Cerebrospinal fluid color identification COLORLESS NRG Cerebrospinal fluid leukocytes count (number/volume) 1 % 0- 5 Cerebrospinal fluid erythrocytes count (number/volume) 1 % 0-0 Manual cerebrospinal fluid lymphocytes/100 leukocytes TNP [facility] Manual cerebrospinal fluid mononuclear cells/100 leukocytes TNP NR Manual cerebrospinal fluid polymorphonuclear cells/[facility] Cerebrospinal fluid cell count on specimen from last tube collected 4 NRG Cerebrospinal fluid glucose measurement (mass/volume) - 06/06/17 12:05 Cerebrospinal fluid glucose measurement (mass/volume) 65 mg/dL 50-80 Cerebrospinal fluid protein measurement (mass/volume) - 06/06/17 12:05 Cerebrospinal fluid protein measurement (mass/volume) 42 mg/dL 15-40 Gram stain microscopy - 06/06/17 12:05 GRAM STAIN RESULT NO WBC'S OR BACTERIA OBSERVED [facility] Bacterial cerebrospinal fluid culture - 06/06/17 12:05 Bacterial cerebrospinal fluid culture NG [facility] Virus identification by culture - 06/06/17 12:05 Virus identification by culture FOOTNOTE [facility] Automated blood complete blood count (hemogram) panel [...] Automated erythrocyte mean corpuscular hemoglobin concentration measurement (mass/volume) 33 g/dL 32-36 Automated erythrocyte distribution width ratio 15.0 % 10.0- 14.5 Automated blood platelet count (count/volume) 346 10*3/uL 130-400 Automated blood platelet mean volume measurement 9.6 [foz_us] 7.4-10.4 Complete blood count (CBC) with automated white blood cell (WBC) differential - 05/07/18 14:00 Blood leukocytes automated count (number/volume) 10.0 10*3/uL 4.3-11.0 Blood erythrocytes automated count (number/volume) 4.30 10*6/uL 4.35-5.85 Venous blood hemoglobin measurement (mass/volume) 11.7 g/dL 11.5-16.0 Blood hematocrit (volume fraction) 35 % 35-52 Automated erythrocyte mean corpuscular volume 82 [foz_us] 80-99 Automated erythrocyte mean corpuscular hemoglobin (mass per erythrocyte) 27 pg 25-34 Automated erythrocyte mean corpuscular hemoglobin concentration measurement (mass/volume) 33 g/dL 32-36 Automated erythrocyte distribution width ratio 15.3 % 10.0- 14.5 Automated blood platelet count (count/volume) 358 10*3/uL 130-400 Automated blood platelet mean volume measurement 9.3 [foz_us] 7.4-10.4 Automated blood neutrophils/100 leukocytes 70 % 42-75 Automated blood lymphocytes/100 leukocytes 21 % 12-44 Blood monocytes/100 leukocytes 7 % 0-12 Automated blood eosinophils/100 leukocytes 2 % 0-10 Automated blood basophils/100 leukocytes 0 % 0-10 Blood neutrophils automated count (number/volume) 7.0 10*3 1.8-7.8 Blood lymphocytes automated count (number/volume) 2.1 10*3 1.0-4.0 Blood monocytes automated count (number/volume) 0.7 10*3 0.0- 1.0 Automated eosinophil count 0.2 10*3/uL 0.0-0.3 Automated blood basophil count (count/volume) 0.0 10*3/uL 0.0-0.1 PT panel in platelet poor plasma by coagulation assay - 05/07/18 14:00 Prothrombin time (PT) in platelet poor plasma by coagulation assay 13.5 s 12.2-14.7 INR in platelet poor plasma or blood by coagulation assay 1.0 0.8-1.4 Activated partial thromboplastin time (aPTT) in platelet poor plasma bycoagulation assay - 05/07/18 14:00 Activated partial thromboplastin time (aPTT) in platelet poor plasma bycoagulation assay 27 s 24-35 Automated blood complete blood count (hemogram) panel - 01/24/19 12:35 Blood leukocytes automated count (number/volume) 10.5 10*3/uL 4.3-11.0 Blood erythrocytes automated count (number/volume) 4.67 10*6/uL 4.35-5.85 Venous blood hemoglobin measurement (mass/volume) 13.5 g/dL 11.5-16.0 Blood hematocrit (volume fraction) 40 % 35-52 Automated erythrocyte mean corpuscular volume 85 [foz_us] 80-99 Automated erythrocyte mean corpuscular hemoglobin (mass per erythrocyte) 29 pg 25-34 Automated erythrocyte mean corpuscular hemoglobin concentration measurement (mass/volume) 34 g/dL 32-36 Automated erythrocyte distribution width ratio 14.2 % 10.0- 14.5 Automated blood platelet count (count/volume) 337 10*3/uL 130-400 Automated blood platelet mean volume measurement 9.4 [foz_us] 7.4-10.4 Comprehensive metabolic panel - 01/24/19 12:35 Serum or plasma sodium measurement (moles/volume) 137 mmol/L 135-145 Serum or plasma potassium measurement (moles/volume) 3.7 mmol/L 3.6-5.0 Serum or plasma chloride measurement (moles/volume) 102 mmol/L 98-107 Carbon dioxide 23 mmol/L 21-32 Serum or plasma anion gap determination (moles/volume) 12 mmol/L 5-14 Serum or plasma urea nitrogen measurement (mass/volume) 7 mg/dL 7-18 Serum or plasma creatinine measurement (mass/volume) 0.80 mg/dL 0.60-1.30 Serum or plasma urea nitrogen/creatinine mass ratio 9 NRG Serum or plasma creatinine measurement with calculation of estimated glomerular filtration rate > NRG Serum or plasma glucose measurement (mass/volume) 98 mg/dL 70-105 Serum or plasma calcium measurement (mass/volume) 9.6 mg/dL 8.5-10.1 Serum or plasma total bilirubin measurement (mass/volume) 0.3 mg/dL 0.1-1.0 Serum or plasma alkaline phosphatase measurement (enzymatic activity/volume) 112 U/L 40-136 Serum or plasma aspartate aminotransferase measurement (enzymatic activity/volume) 21 U/L 5-34 Serum or plasma alanine aminotransferase measurement (enzymatic activity/volume) 29 U/L 0-55 Serum or plasma protein measurement (mass/volume) 7.5 g/dL 6.4-8.2 Serum or plasma albumin measurement (mass/volume) 4.5 g/dL 3.2-4.5 CALCIUM CORRECTED 9.2 mg/dL 8.5-10.1 Magnesium - 01/24/19 12:35 Magnesium 2.1 mg/dL 1.8-2.4 Erythrocyte sedimentation rate by westergren method - 01/24/19 12:35 Erythrocyte sedimentation rate by westergren method 16 mm 0-20 Automated blood complete blood count (hemogram) panel - 02/02/19 15:15 Blood leukocytes automated count (number/volume) 12.7 10*3/uL 4.3-11.0 Blood erythrocytes automated count (number/volume) 4.73 10*6/uL 4.35-5.85 Venous blood hemoglobin measurement (mass/volume) 13.8 g/dL 11.5-16.0 Blood hematocrit (volume fraction) 41 % 35-52 Automated erythrocyte mean corpuscular volume 86 [foz_us] 80-99 Automated erythrocyte mean corpuscular hemoglobin (mass per erythrocyte) 29 pg 25-34 Automated erythrocyte mean corpuscular hemoglobin concentration measurement (mass/volume) 34 g/dL 32-36 Automated erythrocyte distribution width ratio 14.6 % 10.0- 14.5 Automated blood platelet count (count/volume) 429 10*3/uL 130-400 Automated blood platelet mean volume measurement 9.3 [foz_us] 7.4-10.4 Comprehensive metabolic panel - 02/02/19 15:15 Serum or plasma sodium measurement (moles/volume) 134 mmol/L 135-145 Serum or plasma potassium measurement (moles/volume) 4.0 mmol/L 3.6-5.0 Serum or plasma chloride measurement (moles/volume) 105 mmol/L 98-107 Carbon dioxide 20 mmol/L 21-32 Serum or plasma anion gap determination (moles/volume) 9 mmol/L 5-14 Serum or plasma urea nitrogen measurement (mass/volume) 13 mg/dL 7-18 Serum or plasma creatinine measurement (mass/volume) 0.95 mg/dL 0.60-1.30 Serum or plasma urea nitrogen/creatinine mass ratio 14 NRG Serum or plasma creatinine measurement with calculation of estimated glomerular filtration rate > NRG Serum or plasma glucose measurement (mass/volume) 103 mg/dL 70-105 Serum or plasma calcium measurement (mass/volume) 9.6 mg/dL 8.5-10.1 Serum or plasma total bilirubin measurement (mass/volume) 0.3 mg/dL 0.1-1.0 Serum or plasma alkaline phosphatase measurement (enzymatic activity/volume) 125 U/L 40-136 Serum or plasma aspartate aminotransferase measurement (enzymatic activity/volume) 22 U/L 5-34 Serum or plasma alanine aminotransferase measurement (enzymatic activity/volume) 35 U/L 0-55 Serum or plasma protein measurement (mass/volume) 8.1 g/dL 6.4-8.2 Serum or plasma albumin measurement (mass/volume) 4.6 g/dL 3.2-4.5 Magnesium - 02/02/19 15:15 Magnesium 2.6 mg/dL 1.8-2.4 Adrenocorticotropic hormone (ACTH) measurement - 02/02/19 15:15 Adrenocorticotropic hormone (ACTH) measurement 10 pg/mL 5- 27 Serum aldosterone measurement - 02/02/19 15:15 Serum aldosterone measurement 19.4 % NRG Serum or plasma cortisol measurement (mass/volume) - 02/02/19 15:15 Cortisol PM 3.8 % 2.9-17.3 TICK PANEL WITHOUT LYME - 02/02/19 15:15 Serum Ehrlichia chaffeensis IgG antibody detection <1:16 <1:16 Serum Ehrlichia chaffeensis IgM antibody detection <1:10 <1:10 Serum Rickettsia rickettsii IgG antibody assay (units/volume) < <1:16 [place] spotted fever panel < <1:10 Francisella tularensis antibody assay 1:20 NRG Plasma renin activity - 02/02/19 15:15 Renin [Enzymatic activity/volume] in Plasma 4.1 ng/mL NRG Bartonella antibody assay - 02/02/19 15:15 Serum Bartonella henselae IgM antibody detection <1:10 <1:10 Serum Bartonella henselae IgG antibody assay (units/volume) <1:16 Serum Bartonella parrish IgG antibody detection 1:128 <1:16 Serum Bartonella parrish IgM antibody assay (units/volume) < <1:10 Serum or plasma metanephrines measurement (mass/volume) - 02/02/19 15:15 Serum or plasma metanephrines measurement (mass/volume) See Note % NRG Serum or plasma normetanephrine measurement (moles/volume) 0.76 % 0.00-0.89 BABESIA SPECIES BY PCR - 02/02/19 15:15 [id number] Not Detected NRG DEOXYCORTICOSTERONE - 02/02/19 15:15 Serum or plasma 11-deoxycorticosterone measurement (moles/volume) < % NRG Cerebrospinal fluid cell count - 02/03/19 11:10 Cerebrospinal fluid appearance description CLEAR NRG Cerebrospinal fluid color identification COLORLESS NRG Cerebrospinal fluid leukocytes count (number/volume) 1 % 0- 5 Cerebrospinal fluid erythrocytes count (number/volume) 0 % 0-0 Manual cerebrospinal fluid lymphocytes/100 leukocytes TNP NRG Manual cerebrospinal fluid mononuclear cells/100 leukocytes TNP NRG Manual cerebrospinal fluid polymorphonuclear cells/100 leukocytes TNP NRG Cerebrospinal fluid cell count on specimen from last tube collected 4 NRG Cerebrospinal fluid glucose measurement (mass/volume) - 02/03/19 11:10 Cerebrospinal fluid glucose measurement (mass/volume) 74 mg/dL 50-80 Cerebrospinal fluid protein measurement (mass/volume) - 02/03/19 11:10 Cerebrospinal fluid protein measurement (mass/volume) 46 mg/dL 15-40 Gram stain microscopy - 02/03/19 11:10 Gram stain microscopy 02-03-19, 1251/KD NRG Bacterial cerebrospinal fluid culture - 02/03/19 11:10 Bacterial cerebrospinal fluid culture NG NRG Virus identification by culture - 02/03/19 11:10 RML PRELIM VIRUS NO VIRUS ISOLATED, 10 DAYS REQUIRED FOR FINAL NEGATIVE NRG RML FINAL NEGATIVE VIRUS NO VIRUS ISOLATED NRG Complete blood count (CBC) with automated white blood cell (WBC) differential - 03/21/19 15:30 Blood leukocytes automated count (number/volume) 11.2 10*3/uL 4.3-11.0 Blood erythrocytes automated count (number/volume) 4.14 10*6/uL 4.35-5.85 Venous blood hemoglobin measurement (mass/volume) 12.1 g/dL 11.5-16.0 Blood hematocrit (volume fraction) 36 % 35-52 Automated erythrocyte mean corpuscular volume 88 [foz_us] 80-99 Automated erythrocyte mean corpuscular hemoglobin (mass per erythrocyte) 29 pg 25-34 Automated erythrocyte mean corpuscular hemoglobin concentration measurement (mass/volume) 33 g/dL 32-36 Automated erythrocyte distribution width ratio 14.6 % 10.0- 14.5 Automated blood platelet count (count/volume) 329 10*3/uL 130-400 Automated blood platelet mean volume measurement 9.1 [foz_us] 7.4-10.4 Automated blood neutrophils/100 leukocytes 71 % 42-75 Automated blood lymphocytes/100 leukocytes 20 % 12-44 Blood monocytes/100 leukocytes 7 % 0-12 Automated blood eosinophils/100 leukocytes 2 % 0-10 Automated blood basophils/100 leukocytes 0 % 0-10 Blood neutrophils automated count (number/volume) 7.9 10*3 1.8-7.8 Blood lymphocytes automated count (number/volume) 2.3 10*3 1.0-4.0 Blood monocytes automated count (number/volume) 0.7 10*3 0.0- 1.0 Automated eosinophil count 0.3 10*3/uL 0.0-0.3 Automated blood basophil count (count/volume) 0.0 10*3/uL 0.0-0.1 Serum or plasma C reactive protein measurement (mass/volume) - 03/21/19 15:30 Serum or plasma C reactive protein measurement (mass/volume) 3.21 mg/dL 0.00-0.50 Comprehensive metabolic panel - 03/21/19 15:30 Serum or plasma sodium measurement (moles/volume) 136 mmol/L 135-145 Serum or plasma potassium measurement (moles/volume) 4.2 mmol/L 3.6-5.0 Serum or plasma chloride measurement (moles/volume) 104 mmol/L 98-107 Carbon dioxide 22 mmol/L 21-32 Serum or plasma anion gap determination (moles/volume) 10 mmol/L 5-14 Serum or plasma urea nitrogen measurement (mass/volume) 9 mg/dL 7-18 Serum or plasma creatinine measurement (mass/volume) 0.86 mg/dL 0.60-1.30 Serum or plasma urea nitrogen/creatinine mass ratio 10 NRG Serum or plasma creatinine measurement with calculation of estimated glomerular filtration rate > NRG Serum or plasma glucose measurement (mass/volume) 137 mg/dL 70-105 Serum or plasma calcium measurement (mass/volume) 9.5 mg/dL 8.5-10.1 Serum or plasma total bilirubin measurement (mass/volume) 0.3 mg/dL 0.1-1.0 Serum or plasma alkaline phosphatase measurement (enzymatic activity/volume) 110 U/L 40-136 Serum or plasma aspartate aminotransferase measurement (enzymatic activity/volume) 33 U/L 5-34 Serum or plasma alanine aminotransferase measurement (enzymatic activity/volume) 47 U/L 0-55 Serum or plasma protein measurement (mass/volume) 7.4 g/dL 6.4-8.2 Serum or plasma albumin measurement (mass/volume) 4.3 g/dL 3.2-4.5 CALCIUM CORRECTED 9.3 mg/dL 8.5-10.1 Magnesium - 03/21/19 15:30 Magnesium 2.2 mg/dL 1.8-2.4 PT panel in platelet poor plasma by coagulation assay - 03/21/19 15:30 Prothrombin time (PT) in platelet poor plasma by coagulation assay 12.5 s 12.2-14.7 INR in platelet poor plasma or blood by coagulation assay 0.9 0.8-1.4 Activated partial thromboplastin time (aPTT) in platelet poor plasma bycoagulation assay - 03/21/19 15:30 Activated partial thromboplastin time (aPTT) in platelet poor plasma bycoagulation assay 28 s 24-35 Fibrin D-dimer FEU measurement in platelet poor plasma (mass/volume) - 03/21/19 15:30 Fibrin D-dimer FEU measurement in platelet poor plasma (mass/volume) 0.51 ug/mL 0.00-0.49 Serum or plasma troponin i.cardiac measurement (mass/volume) - 03/21/19 15:30 Serum or plasma troponin i.cardiac measurement (mass/volume) < ng/mL <0.028 Myoglobin, serum - 03/21/19 15:30 Myoglobin, serum 14.2 ng/mL 10.0-92.0 Complete urinalysis with reflex to culture - 03/21/19 18:04 Urine color determination YELLOW NRG Urine clarity determination VERY CLOUDY NRG Urine pH measurement by test strip 5 5-9 Specific gravity of urine by test strip 1.010 1.016-1.022 Urine protein assay by test strip, semi-quantitative 2+ NEGATIVE Urine glucose detection by automated test strip NEGATIVE NEGATIVE Erythrocytes detection in urine sediment by light microscopy NEGATIVE NEGATIVE Urine ketones detection by automated test strip NEGATIVE NEGATIVE Urine nitrite detection by test strip NEGATIVE NEGATIVE Urine total bilirubin detection by test strip NEGATIVE NEGATIVE Urine urobilinogen measurement by automated test strip (mass/volume) NORMAL NORMAL Urine leukocyte esterase detection by dipstick 2+ NEGATIVE Automated urine sediment erythrocyte count by microscopy (number/high power field) NONE NRG Automated urine sediment leukocyte count by microscopy (number/high power field) [HPF] NRG Bacteria detection in urine sediment by light microscopy LARGE NRG Squamous epithelial cells detection in urine sediment by light microscopy TNTC NRG Crystals detection in urine sediment by light microscopy NONE NRG Casts detection in urine sediment by light microscopy NONE NRG Mucus detection in urine sediment by light microscopy SMALL NRG Complete urinalysis with reflex to culture YES NRG Urine drug screening test - 03/21/19 18:04 Urine phencyclidine detection by screening method POSITIVE NEGATIVE Urine benzodiazepines detection by screening method POSITIVE NEGATIVE Urine cocaine detection POSITIVE NEGATIVE Urine amphetamines detection by screening method POSITIVE NEGATIVE Urine methamphetamine detection by screening method NEGATIVE NEGATIVE Urine cannabinoids detection by screening method POSITIVE NEGATIVE Urine opiates detection by screening method POSITIVE NEGATIVE Urine barbiturates detection NEGATIVE NEGATIVE Screening urine tricyclic antidepressants detection POSITIVE NEGATIVE Urine methadone detection by screening method NEGATIVE NEGATIVE Urine oxycodone detection NEGATIVE NEGATIVE Urine propoxyphene detection NEGATIVE NEGATIVE Serum or plasma troponin i.cardiac measurement (mass/volume) - 03/21/19 18:09 Serum or plasma troponin i.cardiac measurement (mass/volume) < ng/mL <0.028 Encounters ACCT No. Visit Date/Time Discharge Status Pt. Type Provider Facility Loc./Unit Complaint [id number] 02/18/2016 14:40:00 02/18/2016 14:40:00 DIS Outpatient TRACE FUNEZ [facility] RAD [id number] 02/04/2016 16:03:00 02/04/2016 18:59:00 DIS Emergency MILAN JOHNNA Proctor [facility] EMR [id number] 10/16/2015 09:46:00 10/16/2015 09:46:00 DIS Outpatient MARCELO POMPA [facility] RAD [id number] 10/16/2015 09:45:19 Document Registration [id number] 09/17/2015 00:00:00 Document Registration [id number] 02/04/2019 19:25:33 ACT Document Registration [id number] 07/25/2014 15:11:00 07/25/2014 23:59:59 [facility] Outpatient [facility] [place] [id number] 07/11/2014 15:09:00 07/11/2014 23:59:59 [facility] Outpatient [facility] [place] [id number] 06/01/2014 13:59:00 06/01/2014 23:59:59 CLS Outpatient [facility] [place] [id number] 05/03/2014 16:02:00 05/03/2014 23:59:59 CLS Outpatient [facility] [place] [id number] 04/19/2014 14:58:00 04/19/2014 23:59:59 CLS Outpatient ISAIAH [facility] [place] [id number] 03/30/2014 14:06:00 03/30/2014 23:59:59 [facility] Outpatient ISAIAH LSC[facility]ERNANDEZ [id number] 02/17/2014 14:57:00 02/17/2014 23:59:59 [facility] Outpatient [facility] [place] [id number] 01/03/2014 12:55:00 01/03/2014 23:59:59 CLS Outpatient ISAIAH LSC[facility], [facility] [place] [id number] 11/29/2013 10:55:00 11/29/2013 23:59:59 CLS Outpatient ISAIAH LSC[facility], [facility] [place] [id number] 11/22/2013 11:04:00 11/22/2013 23:59:59 CLS Outpatient ISAIAH LSC[facility], [facility] [id number] 11/03/2013 14:04:00 11/03/2013 23:59:59 CLS Outpatient ISAIAH [facility]SC[facility], [facility] [id number] 10/20/2013 10:22:00 10/20/2013 23:59:59 CLS Outpatient ISAIAH [facility]SC[facility], [facility] [id number] 09/21/2013 10:25:00 09/21/2013 23:59:59 CLS Outpatient ISAIAH LSC[facility], [facility] [id number] 09/08/2013 10:11:00 09/08/2013 23:59:59 CLS Outpatient ISAIAH LSC[facility], [facility] [id number] 08/23/2013 17:05:00 08/23/2013 23:59:59 CLS Outpatient ISAIAH [facility], [facility] [place] [id number] 05/27/2013 10:43:00 Document Registration [id number] 03/21/2019 15:09:00 03/21/2019 19:24:00 DIS Emergency MARGARITA DIAZ [facility] ER CHEST PAIN,SOB [id number] 02/03/2019 09:50:00 02/03/2019 12:02:00 DIS Outpatient MARCELO POMPA [facility] RAD PSEUDO TUMOR CEREBERI [id number] 01/24/2019 11:47:00 01/24/2019 23:59:59 CLS Outpatient MARCELO POMPA SYSTEMS COORDINATOR [facility] SDC DEHYDRATION [id number] 05/07/2018 12:59:00 05/07/2018 15:40:00 DIS [facility] CEREBRI [id number] 02/17/2018 16:15:00 02/17/2018 23:59:59 CLS Outpatient MARCELO POMPA [facility] RAD PSEUDOTUMOR [id number] 02/17/2018 17:36:00 02/17/2018 19:15:00 DIS Outpatient MARCELO POMPA SYSTEMS COORDINATOR [facility] PSMESSI MCCLELLAN [id number] 06/06/2017 07:56:00 06/06/2017 14:40:00 DIS Emergency CELIA ZAPATA, ZELDA Cr [facility] ER HEADACHE [id number] 02/14/2016 16:51:00 02/14/2016 23:59:59 CLS Outpatient MARCELO POMPA SYSTEMS COORDINATOR [facility] RAD STONE SEARCH HEMATURIA AND FLANK PAIN [id number] 06/21/2015 15:40:00 06/29/2015 18:30:00 DIS Inpatient KARY POMPA DO [facility] 4TH PALLAITIVE NEPHRITIS [id number] 06/21/2015 12:14:00 06/21/2015 23:59:59 CLS Outpatient MARCELO POMPA SYSTEMS COORDINATOR [facility] DEHYDRATION,HEADACHE [id number] 09/11/2014 09:56:00 09/11/2014 15:40:00 DIS Outpatient LIZ LOVE MD [facility] UPPER GASTRIC PAIN; NON-FUNCTIONING PORT [id number] 09/08/2014 12:40:00 09/08/2014 23:59:59 CLS Outpatient LIZ LOVE MD [facility] PREOP UPPER GASTRIC PAIN; NON-FUNCTIONING PORT [id number] 09/07/2014 07:20:00 09/07/2014 23:59:59 CLS Outpatient MARCELO POMPA SYSTEMS COORDINATOR [facility] CARD ABD PAIN,DYSPEPSIA,DECREASED BLOOD SUGAR [id number] 05/29/2014 10:53:00 05/29/2014 23:59:59 CLS Outpatient KARY POMPA DO [facility] CHECK OF FRACTURE [id number] 03/30/2014 17:05:00 03/31/2014 18:10:00 DIS Inpatient KARY POMPA DO [facility] 4TH DEHYDRATION [id number] 03/06/2014 10:41:00 03/12/2014 12:45:00 DIS Inpatient POMPA KARY SUBRAMANIAN [facility] 4TH FEVER HEADACHE ELEVATED ICP [id number] 03/02/2014 10:59:00 03/02/2014 23:59:59 CLS Outpatient MARCELO POMPA L SYSTEMS COORDINATOR [facility] CARD MURMUR,BUCCELIA,FLANK PAIN,HEMATURIA [id number] 03/02/2014 11:01:00 03/02/2014 14:50:00 DIS Outpatient CHOLO POMPAIA L SYSTEMS COORDINATOR [facility] BORELLIA, ELEVATED CPK [id number] 11/22/2013 14:31:00 02/20/2014 00:01:00 DIS Outpatient CHOLO POMPAIA L SYSTEMS COORDINATOR [facility] BORELLIA, ELEVATED CPK [id number] 09/28/2013 13:34:00 09/28/2013 23:59:59 CLS Outpatient CHOLO POMPAIA L SYSTEMS COORDINATOR [facility] LYME,DEHYDRATION,ACUTE BRONCHITIS [id number] 09/01/2013 11:05:00 09/01/2013 23:59:59 CLS Outpatient CHOLO POMPAIA L SYSTEMS COORDINATOR [facility] RAD ABD PAIN,PELVIC PAIN [id number] 05/27/2013 12:53:00 05/27/2013 16:30:00 DIS Outpatient CHOLO POMPAIA L SYSTEMS COORDINATOR [facility] DEHYDRATION,BACTERMIA [id number] 04/22/2013 09:53:00 04/22/2013 23:59:59 CLS Outpatient CHOLO POMPAIA L SYSTEMS COORDINATOR [facility] CARD MURMUR,PALPITATIONS [id number] 03/23/2013 15:39:00 03/23/2013 23:59:59 CLS Outpatient CHOLO POMPAIA L SYSTEMS COORDINATOR [facility] PIC LINE REMOVAL [id number] 03/11/2013 20:35:00 03/12/2013 09:38:00 DIS Outpatient JAZMINE KAPLAN MD [facility] CHRONIC CHOLYCYSITIS [id number] 03/10/2013 09:03:00 03/10/2013 23:59:59 CLS Outpatient MARCELO POMPA SYSTEMS COORDINATOR [facility] RAD RUQ PAIN [id number] 02/18/2013 10:08:00 02/18/2013 23:59:59 CLS Outpatient MARCELO POMPA SYSTEMS COORDINATOR [facility] RAD ABD PAIN,FEVER,ELEVATED WHITE COUNT [id number] 01/18/2016 06:58:00 Document Registration [id number] 06/21/2015 12:13:00 Document Registration [id number] 01/21/2013 11:17:00 Document Registration [id number] 01/03/2013 12:26:00 Document Registration [id number] 03/15/2019 13:09:01 ACT Unknown [id number] 03/16/2019 18:20:00 03/16/2019 22:02:00 DIS Emergency MAURICE LARIOS [facility] ED er visit [id number] 02/20/2019 18:09:00 02/20/2019 20:15:00 DIS Emergency JOHNNA YATES [facility] ED ed visit [id number] 02/07/2019 17:44:00 02/07/2019 20:39:00 DIS Emergency JOHNNA YATES [facility] ED ed [id number] 02/04/2019 16:34:00 02/04/2019 20:01:00 DIS Emergency AV MONTALVO [facility] TU ED ed visit [id number] 12/15/2018 13:20:00 12/15/2018 23:59:59 CLS Outpatient Mireya Ybarra [facility] [id number] 12/07/2018 16:06:00 12/07/2018 18:15:00 DIS Emergency DAISY HANNAH [facility] TU ED ed visit [id number] 09/02/2018 13:30:00 09/02/2018 23:59:59 DIS Outpatient SEBASTIEN VACA [facility] Ortho [id number] 08/30/2018 15:30:00 08/30/2018 23:59:59 CLS Outpatient GERALD KAPLAN [facility] [id number] 08/12/2018 09:18:24 08/12/2018 23:59:59 DIS Outpatient [facility] Ortho [id number] 07/22/2018 14:27:06 07/22/2018 23:59:59 [facility] Orth[facility] [id number] 07/21/2018 07:27:00 07/21/2018 23:59:59 DIS Outpatient [facility] TU RAD left knee pain, poss meniscus tear [id number] 07/19/2018 13:43:08 07/19/2018 23:59:59 DIS Outpatient MARCELO POMPA [facility] TU RAD cardiac murmur; tachycardia [id number] 07/15/2018 14:33:53 07/15/2018 23:59:59 DIS Outpatient [facility] TU RAD xray [id number] 07/15/2018 14:15:20 07/15/2018 23:59:59 DIS Outpatient [facility] Ortho [id number] 07/12/2018 12:57:23 07/12/2018 23:59:59 CLS Preadmit MARCELO POMPA [facility] TU RAD cardiac murmur; tachycardia [id number] 07/01/2018 09:50:49 07/01/2018 23:59:59 DIS Outpatient Mireya Ybarra [facility] [id number] 04/27/2018 20:18:00 04/27/2018 23:47:00 DIS Emergency DAISY HANNAH [facility] TU ED ED visit [id number] 04/19/2018 09:00:00 04/19/2018 23:59:59 CLS Outpatient Shasta Farley [facility] [id number] 04/16/2018 18:27:00 04/16/2018 23:59:00 DIS Emergency Mary Cook [facility] TU ED ED visit [id number] 10/13/2017 13:03:53 10/13/2017 23:59:59 DIS Outpatient MARCELO POMPA [facility] TU RAD thyromegaly [id number] 10/06/2017 07:35:05 10/06/2017 23:59:59 DIS Outpatient MARCELO POMPA [facility] TU RAD PSEUDO TUMOR CEREBRI [id number] 08/19/2017 10:40:00 08/19/2017 23:59:59 CLS Outpatient Mireya Ybarra [facility] [id number] 07/15/2017 15:04:00 07/15/2017 23:59:59 DIS Outpatient BRANDY GONZALES [facility] [id number] 06/05/2017 21:10:00 06/06/2017 01:50:00 DIS Emergency SAUMYAJASON [facility] TU ED migraine [id number] 03/11/2017 17:07:40 03/11/2017 23:59:59 CLS Outpatient Eric Curtis [facility] TU RT ekg [id number] 03/04/2017 08:47:43 03/04/2017 23:59:59 CLS Outpatient MARCELO POMPA [facility] TU LAB labwork [id number] 10/28/2016 16:50:44 10/28/2016 23:59:59 CLS Preadmit [facility] TU LAB Biometrics [id number] 10/08/2016 10:16:27 10/08/2016 23:59:59 CLS Preadmit [facility] TU RAD ST, SOA [id number] 11/23/2016 08:34:43 Document Registration [id number] 10/16/2016 06:54:59 Document Registration [id number] 10/08/2016 08:48:07 Document Registration
== END 2019-03-21 19:24 | disposition home or self-care (01) ==
LOC: EDUNIT# 15:08 → ER 15:09
DX: R07.9 Chest pain, unspecified (principal); F19.10 Other psychoactive substance abuse, uncomplicated; R00.0 Tachycardia, unspecified; J45.909 Unspecified asthma, uncomplicated; M79.7 Fibromyalgia; E27.1 Primary adrenocortical insufficiency; K21.9 Gastro-esophageal reflux disease without esophagitis; F41.9 Anxiety disorder, unspecified; F32.9 Major depressive disorder, single episode, unspecified; Z85.828 Personal history of other malignant neoplasm of skin; Z80.3 Family history of malignant neoplasm of breast; Z87.19 Personal history of other diseases of the digestive system; Z97.5 Presence of (intrauterine) contraceptive device; Z90.89 Acquired absence of other organs; Z98.890 Other specified postprocedural states
CPT/HCPCS: 36415; 71045; 71275; 80053; 80306; 81000; 83735; 83874; 84484; 85025; 85379; 85610; 85730; 86141; 87088; 93041; 96361; 96374; 96375